=== PATIENT | male | born 1965 | race Caucasian/White ===

== ENCOUNTER 2020-09-28 11:50 | Outpatient (REF) | payer MEDICAID, SELFPAY ==
--- NOTE | 2020-09-28 09:03 | CT_ITS ---
EXAMINATION: CT CHEST WITHOUT CONTRAST CLINICAL INFORMATION: Pulmonary nodules. COMPARISON: None TECHNIQUE: Multidetector volumetric CT imaging of the chest was done. Axial MIP volume rendering provided. Sagittal and coronal reformatted images were obtained. This CT examination was performed using dose optimization techniques as appropriate, variously including the following: *Automated exposure control *Adjustment of mA and/or kV according to patient size (this includes techniques or standardized protocols for targeted exams where dose is matched to indication/reason for exam; i.e. extremities or head) *Use of iterative reconstruction technique DLP: 274 mGy-cm FINDINGS: BIOLOGICAL LAB TECHNICIAN: Expanded lungs without acute process. LUNGS: There is centrilobular emphysema with small cyst in the left upper lobe posteriorly. There is a punctate noncalcified 2 mm in the right lung apex medially image 81/7; a few scattered calcified nodules in the right upper lobe, image 156; left upper lobe, axial image 186; 7 mm nodule right lower lobe, image 265/7. Several more calcified subsequent nodules are seen in the right lower lobe and left lower lobe. There is a focal nodular thickening adjacent to the left major fissure measuring 7 mm, axial image 271/7, slightly more prominent than the last exam. This nodularity extends inferiorly along the major fissure and simulates like focal atelectasis or scarring extending into the lingula. Similar findings were seen on the previous study. There is a right focal lower lobe atelectasis as well. No consolidation seen. There is mild bronchial wall thickening throughout both lungs, stable MEDIASTINUM: The thyroid lobes are symmetrical and normal. The central trachea and the bronchi widely patent. The heart size and great vessels are normal caliber. There are few scattered mediastinal or hilar lymph nodes seen. There is no pericardial effusion seen. Few coronary artery calcification present. PLEURA: There is no pleural effusion. No pleural mass or thickening. AXILLA: No lymphadenopathy. UPPER ABDOMEN: Visualized liver, spleen, pancreas and bilateral adrenal glands are unremarkable. OSSEOUS STRUCTURES: There is ventral spondylosis throughout the dorsal spine. No lytic process seen. CT/CT chest wo con IMPRESSION: Multiple calcified and few noncalcified pulmonary nodules, bronchial wall thickening, emphysema with a small pulmonary cyst and focal nodular thickening extending to the lingula as consolidation/atelectasis along the left major fissure appears all stable. The nodular density along the left major fissure in the left upper lobe; however, appears slightly prominent. No new nodules seen. No abnormal lymphadenopathy.
== END 2020-09-28 11:51 | disposition home or self-care (01) ==
LOC: HO.CT 11:50
PROVIDERS: PCP Internal Medicine; Visit Provider Internal Medicine Pulmonary Disease
DX: R91.8 Other nonspecific abnormal finding of lung field (principal)
CPT/HCPCS: 71250

== ENCOUNTER → 2020-10-18 11:20 | Outpatient (BNVA) | payer MEDICAID, SELFPAY | PROVIDERS: PCP Internal Medicine; Referring Provider Internal Medicine; Visit Provider Internal Medicine Pulmonary Disease | DX: Z76.89 Persons encountering health services in other specified circumstances (principal) ==

== ENCOUNTER 2021-04-03 13:26 | Outpatient (REF) | payer MEDICAID, SELFPAY ==
--- NOTE | ~2021-04-03 | CT_ITS ---
EXAMINATION: CT CHEST WITHOUT CONTRAST CLINICAL INFORMATION: Follow-up pulmonary nodules COMPARISON: Previous chest CT August 2020 TECHNIQUE: Multidetector volumetric CT imaging of the chest was done. Axial MIP volume rendering provided. Sagittal and coronal reformatted images were obtained. This CT examination was performed using dose optimization techniques as appropriate, variously including the following: *Automated exposure control *Adjustment of mA and/or kV according to patient size (this includes techniques or standardized protocols for targeted exams where dose is matched to indication/reason for exam; i.e. extremities or head) *Use of iterative reconstruction technique DLP: 332 mGy-cm FINDINGS: LUNGS: There is evidence of emphysema. There are small calcified and noncalcified pulmonary nodules that are stable. Largest nodule is a 5 mm nodule in the right lower lobe axial image 303 series 7. There is still parenchymal consolidation or atelectasis with air bronchograms seen in the lingula adjacent to the left pleural fissure. This is triangular in shape This appears unchanged from previous exam. There is a linear appearing subsegmental atelectasis at the right lung base. The lungs are otherwise clear. No new pulmonary nodule is seen. MEDIASTINUM: There is mild coronary artery calcification. The mediastinum is otherwise normal. PLEURA: There is no pleural effusion. No pleural mass or thickening. AXILLA: No lymphadenopathy. UPPER ABDOMEN: There is a small calcification in the head of the pancreas. There is diverticulosis of the colon. Images through the upper abdomen are otherwise unremarkable. OSSEOUS STRUCTURES: There are degenerative changes of the spine. CT/CT chest wo con IMPRESSION: Stable small calcified and noncalcified pulmonary nodules. Stable atelectasis/consolidation of the lingula adjacent to the major fissure and subsegmental atelectasis at the right lung base. Coronary artery calcification.
== END 2021-04-03 13:27 | disposition home or self-care (01) ==
LOC: HO.CT 13:26
PROVIDERS: PCP Internal Medicine; Visit Provider Internal Medicine Pulmonary Disease
DX: R91.8 Other nonspecific abnormal finding of lung field (principal)
CPT/HCPCS: 71250

== ENCOUNTER 2021-04-17 09:23 | Outpatient (REF) | payer MEDICAID, SELFPAY ==
[2021-04-17 10:10] LABS: MANUAL DIFF FLAG NO
[2021-04-17 10:13] LABS: Basophils Percent Auto 0.4 % (0-2); Eosinophils Absolute Auto 0.1 X10*3/uL (0.0-0.4); Eosinophils Percent Auto 1.3 % (0-4); Hematocrit 47.3 % (42-52); Hemoglobin 14.2 g/dl (14.0-18.0); Imm Gran Abs Auto 0.11 X10*3/uL (0.00-0.03); Imm Gran Pct Auto 1.4 % (0.0-0.4); Lymphocytes Absolute Auto 1.3 X10*3/uL (1.2-4.9); Mean Corpuscular Hemoglobin 29.2 pg (27.0-33.0); Mean Corpuscular Volume 97.1 fL (80-98); Mean Platelet Volume 9.1 fL (9.4-12.4); Monocytes Absolute Auto 0.5 X10*3/uL (0.1-1.2); Monocytes Percent Auto 6.4 % (2-11); Neutrophils Absolute Auto 5.8 X10*3/uL (2.0-8.3); Neutrophils Percent Auto 74.5 % (45-73); Platelet Count 178 X10*3/uL (160-400); Red Blood Count 4.87 X10*6/uL (4.60-5.80); Red Cell Distribution Width 12.7 % (11.0-16.0); White Blood Count 7.8 X10*3/uL (4.8-10.8)
[2021-04-17 10:54] LABS: Alanine Aminotransferase 23 U/L (0-40); Albumin Level 4.2 g/dL (3.5-5.0); Alkaline Phosphatase 87 U/L (39-117); Anion Gap 13 (12-20); Aspartate Amino Transferase 27 U/L (5-37); Bilirubin Total 0.4 mg/dL (0.0-1.0); Blood Urea Nitrogen 14 mg/dL (9-16); Calcium 9.3 mg/dL (8.4-10.2); Carbon Dioxide 42 mmol/L (22-29); Chloride 91 mmol/L (96-108); Cholesterol 200 mg/dL; Estimated Glomerular Filt Rate > 60; Glucose Fasting 127 mg/dL (60-99); HDL Cholesterol 42 mg/dL; LDL Cholesterol Calculated 133 mg/dl; Sodium 141 mmol/L (135-145); Total Protein 6.9 g/dL (6.5-8.0); Triglycerides 126 mg/dL
== END 2021-04-17 09:24 | disposition home or self-care (01) ==
LOC: HO.LAB 09:23
PROVIDERS: PCP Internal Medicine; Visit Provider Internal Medicine
DX: Z00.01 Encounter for general adult medical examination with abnormal findings (principal); J44.9 Chronic obstructive pulmonary disease, unspecified; R91.8 Other nonspecific abnormal finding of lung field; E78.1 Pure hyperglyceridemia; K21.9 Gastro-esophageal reflux disease without esophagitis
CPT/HCPCS: 36415; 80053; 80061; 82306; 85025; 99212

== ENCOUNTER → 2021-07-16 13:40 | Day surgery (SDC) | payer MEDICAID, SELFPAY ==
[2021-07-16 15:01] VITALS: BMI 40.0
[2021-07-16 15:02] VITALS: BP 145/71; PULSE 95; RESP 24; TEMP 36.7; O2SAT 100
== END ==
PROVIDERS: PCP Internal Medicine; Visit Provider Ophthalmology
PROC: (CPT 67840; principal; 2021-07-16 14:40)
DX: D23.122 Other benign neoplasm of skin of left lower eyelid, including canthus (principal); D23.121 Other benign neoplasm of skin of left upper eyelid, including canthus; H52.4 Presbyopia; J44.9 Chronic obstructive pulmonary disease, unspecified; Z79.899 Other long term (current) drug therapy; Z88.8 Allergy status to other drugs, medicaments and biological substances; Z87.891 Personal history of nicotine dependence
CPT/HCPCS: 67840 ×2; 88305

== ENCOUNTER 2021-08-29 05:22 | Inpatient (IN) | payer MEDICARE, MEDICAID, SELFPAY ==
[2021-08-29] VITALS (10 sets, daily range): BP systolic 106–152; BP diastolic 64–100; PULSE 97–115; RESP 12–20; TEMP 36.1–37.5; O2SAT 93–98; BMI 41.5
--- NOTE | ~2021-08-29 | XR_ITS ---
EXAMINATION: XR CHEST CLINICAL INFORMATION: Shortness of breath COMPARISON: 12/18/2019 TECHNIQUE: Frontal view of the chest was obtained. FINDINGS: The lungs are well expanded. Patchy opacities are seen at both lung bases. There is no pleural effusion. No edema. No pneumothorax. The cardiomediastinal silhouette is within normal limits. XR/XR chest 1V IMPRESSION: Patchy lung basilar opacities could be infectious or inflammatory versus atelectasis.
--- NOTE | 2021-08-29 05:41 | ECG_ITS ---
Test Reason : SOB Blood Pressure : / mmHG Vent. Rate : 105 BPM Atrial Rate : 105 BPM P-R Int : 120 ms QRS Dur : 092 ms QT Int : 332 ms P-R-T Axes : 046 015 060 degrees QTc Int : 438 ms Sinus tachycardia Possible Left atrial enlargement Borderline ECG When compared with ECG of 16-DEC-2019 07:37, Heart rate has increased Referred By: Yasmani English Electronically Signed By:TRACY LUGO
--- NOTE | 2021-08-29 05:41 | ED.SOB ---
HPI - SOB/Dyspnea General Chief Complaint: Dyspnea Stated Complaint: difficulty breathing Time Seen by Provider: 08/29/21 05:38 Source: patient Mode of arrival: EMS Limitations: no limitations History of Present Illness HPI Narrative: Patient ex-smoker with history of severe COPD on 5 L continuous-flow supplemental oxygen dependent with CO2 retention and pulmonary nodules been feeling short of breath for last few weeks breathing getting more erratic and more shortness of breath last night on 5 L oxygen patient was saturating 83% after few deep breaths saturation improved to 92% coughing frequently without significant phlegm no fever or chills patient denies any chest pain no leg edema no recent gain in weight. Patient does have history of sleep apnea and using oxygen only Related Data Home Medications Medication Instructions Recorded Confirmed aripiprazole 10 mg tablet 10 mg PO QAM 10/18/20 04/09/21 aripiprazole 20 mg tablet 20 mg PO BEDTIME 10/18/20 04/09/21 benztropine 1 mg tablet 1 mg PO BEDTIME 10/18/20 04/09/21 clonazepam 0.5 mg tablet 0.5 mg PO BID 10/18/20 04/09/21 ipratropium 0.5 mg-albuterol 3 mg ml INHALATION Q6H 10/18/20 04/09/21 (2.5 mg base)/3 mL nebulization soln miscellaneous medical supply #1 10/18/20 04/09/21 risperidone 0.5 mg tablet 0.5 mg PO BID 10/18/20 04/09/21 sertraline 50 mg tablet 50 mg PO DAILY 10/18/20 04/09/21 zaleplon 10 mg capsule 10 mg PO BEDTIME PRN 10/18/20 04/09/21 flu vac qs 2019(4 yr up)CD(PF) ml IM 01/10/21 04/09/21 amitriptyline 25 mg tablet 50 mg PO BEDTIME PRN tab 04/09/21 04/09/21 Previous Rx's Medication Instructions Recorded arformoterol 15 mcg/2 mL solution 2 ml INHALATION BID #120 cap 10/20/20 for nebulization (Brovana) miscellaneous medical supply 1 ea MISCELLANEOUS .TO USE DAILY 10/20/20 #1 ea montelukast 10 mg tablet 10 mg PO BEDTIME #90 tab 02/26/21 omeprazole 20 mg capsule,delayed 20 mg PO DAILY #90 cap 01/26/21 release gemfibrozil 600 mg tablet 600 mg PO BID #180 tab 02/21/21 loratadine 10 mg tablet 10 mg PO DAILY #30 cap 06/19/21 desmopressin 0.2 mg tablet 0.4 mg PO BEDTIME #90 tab 07/17/21 transfer shower chair with back #1 ea 07/25/21 cyclobenzaprine 5 mg tablet 5 mg PO BEDTIME PRN #7 tab 08/22/21 Allergies Allergy/AdvReac Type Severity Reaction Status Date / Time aspirin [ASA] Allergy Intermediate 'SHOCK , Verified 08/29/21 05:40 anaphylaxis prednisone [PREDNISONE] AdvReac Severe VISUAL Verified 08/29/21 05:40 HALLUCINATION ibuprofen [From MOTRIN] AdvReac Intermediate VOMITING Verified 08/29/21 05:40 nabumetone AdvReac Unknown vomiting Verified 08/29/21 05:40 Review of Systems Review of Systems: Constitutional : No Weight loss, No Fever, No Chills ENT/Mouth : No sore throat, No Rhinorrhea Eyes: No Eye Pain, No Swelling Cardiovascular : r Chest Pain, no palpitations Respiratory : ++ Cough, No Sputum, ++shortness of breath Gastrointestinal : no Nausea, No Vomiting, No Diarrhea, No abdominal Pain, no black stools Genitourinary : No Dysuria, No Urinary Frequency Musculoskeletal : No joint pain, No Myalgias, No Joint Swelling Skin : No Skin Lesions, No rash Neuro : No Weakness, No Numbness, No Dizziness, No Headache Psych : No Anxiety/Panic, No Depression Heme/Lymph: No Bruising, No Lymphadenopathy Endocrine : No Polyuria, No Polydipsia All other systems reviewed and are negative [facility] Past Medical History Medical History AV malformation of gastrointestinal tract GERD (gastroesophageal reflux disease) Hypertriglyceridemia Itch of skin [place] disease Nocturnal enuresis Obstructive sleep apnea Orchialgia Polycythemia vera Rectosigmoid diverticulosis Schizoaffective schizophrenia Spasm of muscle of lower back Tubular adenoma of colon Surgical History No pertinent past surgical history Family History Family History Father HTN (hypertension) Mother HTN (hypertension) Diabetes mellitus Breast cancer Brother No problems noted. Social History Social History Alcohol intake: never Patient Tobacco Use Status: Former Tobacco user Years Smoked: 41 yrs Use of substances other than those prescribed or required for medical reasons: No Advance Directives: No Physical Exam Vital Signs: Vital Signs: Last Vital Signs Temp 98.7 F 08/29/21 05:41 Pulse 104 H 08/29/21 05:51 Resp 18 08/29/21 05:41 BP 147/100 H 08/29/21 05:41 Pulse Ox 98 08/29/21 05:41 Oxygen Flow Rate 5 08/29/21 05:26 Body Mass Index 41.5 Appearance: Alert. Oriented X3. Obese, Moderate respiratory distress on 5 L oxygen via nasal cannula Eyes: No pallor/ icterus ENT: Pharynx normal. Oral Mucosa moist Neck: Normal inspection. Neck supple. CVS: Normal heart rate and rhythm. Pulses normal. Respiratory: Moderate respiratory distress. Equal air entry bilateral, bilateral wheezing and rhonchi no rales Abdomen: Soft and nontender. Bowel sounds are present, no mass palpable, Skin: Skin warm and dry. Normal skin color. Normal skin turgor. Extremities: No lower extremity edema. No calf tenderness Neuro: Oriented X 3. No motor deficit. MDM - SOB/Dyspnea MDM Narrative Medical decision making narrative: Patient with severe COPD oxygen-dependent comes with increased shortness of breath chest x-ray showed patchy infiltrate possible at bilateral bases will admit patient for IV antibiotics and nebulizer treatment and steroids will give him Decadron instead of prednisone which he is allergic to. Patient is satting 97% on 5 L Differential Diagnosis Differential diagnosis: Likely acute exacerbation of chronic obstructive airways disease and asthma with exacerbation Lab Data Attestation: I reviewed the patient's lab results. Result diagrams: 08/29/21 05:54 08/29/21 05:54 Labs: Lab Results 08/29/21 08/29/21 08/29/21 Range/Units 05:34 05:37 05:54 WBC 9.2 (4.8-10.8) X10*3/uL RBC 4.47 L (4.60-5.80) X10*6/uL Hgb 12.8 L (14.0-18.0) g/dl Hct 40.6 L (42-52) % MCV 90.8 (80-98) fL MCH 28.6 (27.0-33.0) pg MCHC 31.5 (31.0-36.0) g/dl RDW 12.9 (11.0-16.0) % Plt Count 190 (160-400) X10*3/uL MPV 9.0 L (9.4-12.4) fL Immature Gran % (Auto) 2.9 H (0.0-0.4) % Neut % (Auto) 77.9 H (45-73) % Lymph % (Auto) 10.2 L (20-40) % [place] % (Auto) 7.8 (2-11) % Eos % (Auto) 0.8 (0-4) % Baso % (Auto) 0.4 (0-2) % Lymph # (Auto) 0.9 L (1.2-4.9) X10*3/uL [place] # (Auto) 0.7 (0.1-1.2) X10*3/uL Eos # (Auto) 0.1 (0.0-0.4) X10*3/uL Baso # (Auto) 0.0 (0.0-0.2) X10*3/uL Abs Immat Gran (auto) 0.27 H (0.00-0.03) X10*3/uL Absolute Neuts (auto) 7.1 (2.0-8.3) X10*3/uL Absolute Nucleated RBC 0.000 (0.0-0.012) X10*3/uL Nucleated RBC % (auto) 0.0 (0.0-0.2) /100WBC Sodium (135-145) mmol/L Potassium (3.3-5.1) mmol/L Chloride (96-108) mmol/L Carbon Dioxide (22-29) mmol/L Anion Gap (12-20) BUN (9-16) mg/dL Creatinine (0.5-1.4) mg/dL Estim Creat Clear Calc Estimated GFR POC Glucose 154 H (60-115) mg/dL Random Glucose (60-115) mg/dL Calcium (8.4-10.2) mg/dL Troponin I High Sens (<3.5-35.0) ng/L B-Natriuretic Peptide (<100) pg/mL COVID-19 (TAL) Negative (Negative) COVID-19 Clin Com See Note 08/29/21 08/29/21 Range/Units 05:54 05:54 WBC (4.8-10.8) X10*3/uL RBC (4.60-5.80) X10*6/uL Hgb (14.0-18.0) g/dl Hct (42-52) % MCV (80-98) fL MCH (27.0-33.0) pg MCHC (31.0-36.0) g/dl RDW (11.0-16.0) % Plt Count (160-400) X10*3/uL MPV (9.4-12.4) fL Immature Gran % (Auto) (0.0-0.4) % Neut % (Auto) (45-73) % Lymph % (Auto) (20-40) % [place] % (Auto) (2-11) % Eos % (Auto) (0-4) % Baso % (Auto) (0-2) % Lymph # (Auto) (1.2-4.9) X10*3/uL [place] # (Auto) (0.1-1.2) X10*3/uL Eos # (Auto) (0.0-0.4) X10*3/uL Baso # (Auto) (0.0-0.2) X10*3/uL Abs Immat Gran (auto) (0.00-0.03) X10*3/uL Absolute Neuts (auto) (2.0-8.3) X10*3/uL Absolute Nucleated RBC (0.0-0.012) X10*3/uL Nucleated RBC % (auto) (0.0-0.2) /100WBC Sodium 131 L (135-145) mmol/L Potassium 4.7 (3.3-5.1) mmol/L Chloride 80 L (96-108) mmol/L Carbon Dioxide 42 H* (22-29) mmol/L Anion Gap 14 (12-20) BUN 8 L (9-16) mg/dL Creatinine 0.74 (0.5-1.4) mg/dL Estim Creat Clear Calc 152.0 Estimated GFR > 60 POC Glucose (60-115) mg/dL Random Glucose 139 H (60-115) mg/dL Calcium 9.7 (8.4-10.2) mg/dL Troponin I High Sens 17.5 (<3.5-35.0) ng/L B-Natriuretic Peptide 30 (<100) pg/mL COVID-19 (TAL) (Negative) COVID-19 Clin Com Imaging Data Chest x-ray: Attestation: I personally reviewed and interpreted this imaging study as follows: Radiologist's impression: XR/XR chest 1V IMPRESSION: Patchy lung basilar opacities could be infectious or inflammatory versus atelectasis. ? ECG Data Attestation: I personally reviewed and interpreted this ECG as follows: Interpretation: Sinus tachycardia heart rate 105 beats per minute normal intervals normal axis no acute ST T wave changes no acute ischemia Discharge Plan Discharge Clinical Impression: Severe chronic obstructive pulmonary disease, Supplemental oxygen dependent Pneumonia Qualifiers: Pneumonia type: due to unspecified organism Laterality: bilateral Lung location: lower lobe of lung Qualified Code(s): J18.9 - Pneumonia, unspecified organism Patient Disposition: Admitted As Inpatient
[2021-08-29] MEDS: Albuterol Sulfate 90 MCG 8 GM INHALER 4 PUFF INHALE (05:50)
[2021-08-29 05:51] LABS: Glucose, Whole Blood 154 mg/dL (60-115)
[2021-08-29 05:57] LABS: COVID-19 Test Negative (Negative); IDNOW Serial# 9DD0AD1C
[2021-08-29] MEDS: methylPREDNISolone Sod Succ 125 MG/2 ML VIAL IVPUSH (05:57)
[2021-08-29 05:58] LABS: Basophils Percent Auto 0.4 % (0-2); Eosinophils Absolute Auto 0.1 X10*3/uL (0.0-0.4); Eosinophils Percent Auto 0.8 % (0-4); Hematocrit 40.6 % (42-52); Hemoglobin 12.8 g/dl (14.0-18.0); Imm Gran Abs Auto 0.27 X10*3/uL (0.00-0.03); Imm Gran Pct Auto 2.9 % (0.0-0.4); Lymphocytes Absolute Auto 0.9 X10*3/uL (1.2-4.9); Lymphocytes Percent Auto 10.2 % (20-40); Mean Corpuscular HGB Conc 31.5 g/dl (31.0-36.0); Mean Corpuscular Hemoglobin 28.6 pg (27.0-33.0); Mean Corpuscular Volume 90.8 fL (80-98); Monocytes Absolute Auto 0.7 X10*3/uL (0.1-1.2); Monocytes Percent Auto 7.8 % (2-11); Neutrophils Absolute Auto 7.1 X10*3/uL (2.0-8.3); Neutrophils Percent Auto 77.9 % (45-73); Platelet Count 190 X10*3/uL (160-400); Red Blood Count 4.47 X10*6/uL (4.60-5.80); Red Cell Distribution Width 12.9 % (11.0-16.0); White Blood Count 9.2 X10*3/uL (4.8-10.8)
[2021-08-29 05:59] LABS: MANUAL DIFF FLAG NO
[2021-08-29 06:21] LABS: Anion Gap 14 (12-20); Blood Urea Nitrogen 8 mg/dL (9-16); Calcium 9.7 mg/dL (8.4-10.2); Carbon Dioxide 42 mmol/L (22-29); Chloride 80 mmol/L (96-108); Estimated Glomerular Filt Rate > 60; Glucose Random 139 mg/dL (60-115); Potassium 4.7 mmol/L (3.3-5.1); Sodium 131 mmol/L (135-145)
[2021-08-29 06:22] LABS: B Type Natriuretic Peptide 30 pg/mL (<100); Troponin-I High Sensitivity 17.5 ng/L (<3.5-35.0)
[2021-08-29 06:57] LABS: Venous Blood Gas Refer to POC result
[2021-08-29 06:58] LABS: VBG Base Excess 23.7 mmol/L; VBG HCO3 52 mmol/L (22-26); VBG pCO2 71 mmHg; VBG pH 7.47 (7.32-7.43); VBG pO2 52 mmHg
[2021-08-29] MEDS: cefTRIAXone sodium 1 GM in 0.9 % Sodium Chloride 50 ML IV (07:00)
[2021-08-29] MEDS: dexAMETHasone sod phosphate 4 MG/ML VIAL 10 MG IVPUSH (07:00)
[2021-08-29 07:06] LABS: Lactic Acid 1.6 mmol/L (0.5-2.0)
[2021-08-29] MEDS: Doxycycline Hyclate 100 MG in 0.9 % Sodium Chloride 250 ML 166.67 MG IV (07:18)
--- NOTE | 2021-08-29 08:56 | P.HPHOSP_ITS ---
History of Present Illness Date of Service: 08/29/21 Chief Complaint: Shortness of breath This is a 56 yo M with a PMH of COPD and Chronic Respiratory failure with hypoxia on 4-5L at home who presents to the hospital with complaints of shortness of breath which has progressively worsened over the last week or two. He reports that he has been using his baseline COPD medications which seem to help for a few hours but his symptoms reoccur. He reports that on the evening prior to ED arrival he again felt short of breath and checked his pulse ox which was reading in the low 80s, as low as 83 and so he decided to come to the ED. He denies any fevers or chills. He denies any cough. He denies any pleuritic chest pain. He denies any orthopnea or PND. He denies any weight gain/loss. He denies any palpitations or lower extremity swelling. Upon arrival to the ED he was found to be in moderate respiratory distress using accessory muscles. He was noted to have diffuse rhonchi and wheezing. His CXR showed bilateral lower zone infiltrates. He was given updrafts, systemic steroids, had cultures drawn and was given broad spec. IV antibiotics and admission was requested. Review of Systems Review of Systems: General - denies fevers or chills, +generalized malaise HEENT -denies blurred vision, denies headache, denies sore throat Cardiovascular - denies chest pain or palpitations, denies edema Respiratory - +sob, wheezing, no cough Gastrointestinal - denies abdominal pain, nausea, vomiting, diarrhea - denies flank pain, denies dysuria, denies frequency or urgency Musculoskeletal - denies back pain, denies hip pain, denies knee pain, denies shoulder pain Neurological - denies any focal weakness or numbness Skin, denies any bruising or redness Psychiatric - denies any suicidal ideation, hallucinations, homicidal ideation Endocrinology - denies intolerance to hot / cold temperatures [facility] Medical History AV malformation of gastrointestinal tract GERD (gastroesophageal reflux disease) Hypertriglyceridemia Itch of skin [place] disease Nocturnal enuresis Obstructive sleep apnea Orchialgia Polycythemia vera Rectosigmoid diverticulosis Schizoaffective schizophrenia Spasm of muscle of lower back Tubular adenoma of colon Family History Father HTN (hypertension) Mother HTN (hypertension) Diabetes mellitus Breast cancer Brother No problems noted. Pertinent family history: . Surgical History No pertinent past surgical history Social History Alcohol intake: never Patient Tobacco Use Status: Former Tobacco user Years Smoked: 41 yrs Use of substances other than those prescribed or required for medical reasons: No Advance Directives: No Meds Allergies Allergy/AdvReac Type Severity Reaction Status Date / Time aspirin [ASA] Allergy Intermediate 'SHOCK , Verified 08/29/21 05:40 anaphylaxis prednisone [PREDNISONE] AdvReac Severe VISUAL Verified 08/29/21 05:40 HALLUCINATION ibuprofen [From MOTRIN] AdvReac Intermediate VOMITING Verified 08/29/21 05:40 nabumetone AdvReac Unknown vomiting Verified 08/29/21 05:40 Active Medications: Current Medications Pharmacy Consult (Consult Rx Perform Med Rec) 1 each MISCELLANE ONCE PRN PRN Reason: Consult order Home Medications Medication Instructions Recorded Confirmed Last Taken Type aripiprazole 10 mg tablet 10 mg PO DAILY 10/18/20 08/29/21 08/28/21 History aripiprazole 20 mg tablet 20 mg PO BEDTIME 10/18/20 08/29/21 08/28/21 History benztropine 1 mg tablet 1 mg PO BEDTIME 10/18/20 08/29/21 08/28/21 History clonazepam 0.5 mg tablet 0.5 mg PO BID 10/18/20 08/29/21 08/28/21 History risperidone 0.5 mg tablet 0.5 mg PO BID 10/18/20 08/29/21 08/28/21 History sertraline 50 mg tablet 50 mg PO DAILY 10/18/20 08/29/21 08/28/21 History Physical Exam Vital Signs and Narrative: Vital Signs: Last Vital Signs Temp 99.5 F 08/29/21 07:07 Pulse 100 08/29/21 07:07 Resp 16 08/29/21 07:07 BP 152/81 H 08/29/21 07:07 Pulse Ox 95 08/29/21 07:07 Oxygen Flow Rate 5 09/29/21 05:26 Body Mass Index 41.5 Const: Other: Constitutional - Awake and Alert, no distress at rest Eyes - PERRLA, EOMI Cardiovascular - S1S2, Regular rhythm, slightly tachycardia around 100-110 Respiratory - dimnished sounds globally with scattered wheezing, no respiratory distress at rest Gastrointestinal - NT / ND; +BS; No rebound or guarding - No CVA tenderness Extremities - no calf tenderness bilaterally, no swelling Musculoskeletal - Normal inspection, normal ROM Skin - Warm/Dry Neurological - Alert & oriented x3, No focal deficit Psychological - Appropriate affect Results Labs CBC and Chem 7: 08/29/21 05:54 08/29/21 05:54 Labs: Laboratory Results - last 24 hr 08/29/21 08/29/21 08/29/21 05:34 05:37 05:54 MCV 90.8 MCH 28.6 MCHC 31.5 RDW 12.9 Plt Count 190 MPV 9.0 L Immature Gran % (Auto) 2.9 H Neut % (Auto) 77.9 H Lymph % (Auto) 10.2 L [place] % (Auto) 7.8 Eos % (Auto) 0.8 Baso % (Auto) 0.4 Lymph # (Auto) 0.9 L [place] # (Auto) 0.7 Eos # (Auto) 0.1 Baso # (Auto) 0.0 Abs Immat Gran (auto) 0.27 H Absolute Neuts (auto) 7.1 Absolute Nucleated RBC 0.000 Nucleated RBC % (auto) 0.0 VBG pH VBG pCO2 VBG pO2 VBG HCO3 VBG O2 Saturation VBG Base Excess Anion Gap Estim Creat Clear Calc Estimated GFR POC Glucose 154 H Random Glucose Lactic Acid Calcium Troponin I High Sens B-Natriuretic Peptide COVID-19 (TAL) Negative COVID-19 Clin Com See Note 08/29/21 08/29/21 08/29/21 05:54 05:54 06:46 MCV MCH MCHC RDW Plt Count MPV Immature Gran % (Auto) Neut % (Auto) Lymph % (Auto) [place] % (Auto) Eos % (Auto) Baso % (Auto) Lymph # (Auto) [place] # (Auto) Eos # (Auto) Baso # (Auto) Abs Immat Gran (auto) Absolute Neuts (auto) Absolute Nucleated RBC Nucleated RBC % (auto) VBG pH VBG pCO2 VBG pO2 VBG HCO3 VBG O2 Saturation VBG Base Excess Anion Gap 14 Estim Creat Clear Calc 152.0 Estimated GFR > 60 POC Glucose Random Glucose 139 H Lactic Acid 1.6 Calcium 9.7 Troponin I High Sens 17.5 B-Natriuretic Peptide 30 COVID-19 (TAL) COVID-19 [employer] Com 08/29/21 06:53 MCV MCH MCHC RDW Plt Count MPV Immature Gran % (Auto) Neut % (Auto) Lymph % (Auto) [place] % (Auto) Eos % (Auto) Baso % (Auto) Lymph # (Auto) [place] # (Auto) Eos # (Auto) Baso # (Auto) Abs Immat Gran (auto) Absolute Neuts (auto) Absolute Nucleated RBC Nucleated RBC % (auto) VBG pH 7.47 H VBG pCO2 71 VBG pO2 52 VBG HCO3 52 H VBG O2 Saturation 81.0 VBG Base Excess 23.7 Anion Gap Estim Creat Clear Calc Estimated GFR POC Glucose Random Glucose Lactic Acid Calcium Troponin I High Sens B-Natriuretic Peptide COVID-19 (TAL) COVID-19 Clin Com ECG Attestation: I personally reviewed and interpreted this ECG as follows: (Sinus tachycardia) ECG interpretation date: 08/29/21 ECG interpretation time: 10:26 Imaging Radiologist's Impressions: Impressions Chest X-Ray 08/29/21 05:41 IMPRESSION: Patchy lung basilar opacities could be infectious or inflammatory versus atelectasis. Assessment and Plan (1) Pneumonia: Qualifiers: Laterality: bilateral Lung location: lower lobe of lung Pneumonia type: due to unspecified organism Qualified Code(s): J18.9 - Pneumonia, unspecified organism Status: Acute This is a 56 yo M with a PMH of COPD and Chronic resp. failure, previous tobacco use who presents with progressive respiratory symptoms. He is diagnosed with CAP + COPD exacerbation. He will be admitted for further treatment. 1. Pneumonia Continue Rocephin/Doxy follow up cultures, patient does not have severe sepsis at this time 2. COPD exacerbation IV solu-medrol (has allergy to prednisone which is listed as hallucinations -- will monitor for this while on solu-medrol) scheduled and PRN bronchodilators antibiotics as above 3. Chronic Respiratory Failure with hypoxia no saturations below 90% in the hospital continue with his baseline 4L by [place] Avoid over oxygenation has he has evidence of chronic CO2 retention on vbg 4. Mood continue his baseline medications 5. GERD PPI 6. REGINA per EMR documentation, he was on BIPAP in the past, but now just on supplemental O2. Full Code DVT Eunice ureña Endorses his parents at HCP Due to his baseline advanced COPD and chronic respiratory failure, I suspect he will need a minimum of 2-3 days of IV antibiotics and IV systemic steroids. Quality Stroke Does the patient have a stroke diagnosis?: No VTE Prior VTE?: No VTE Risk Level:: Medical - moderate - high VTE Device Contraindication: Treatment Not Indicated VTE Drug Contraindication: N/A - Med Ordered
[2021-08-29] MEDS: Enoxaparin Sodium 40 MG/0.4 ML SYRINGE SUBCUT (10:14)
--- NOTE | 2021-08-29 10:17 | PC.NURSE ---
pt states his belly feels pressure abd is rounded and more firm but not painful to palpation BS are present. stated he will ask the doctor when he sees him
--- NOTE | 2021-08-29 10:45 | PC.NURSE ---
report given to Rebekah SALDANA on 3rd floor
[2021-08-29] MEDS: ARIPiprazole 10 MG TABLET PO (11:26)
[2021-08-29] MEDS: Albuterol/Iprat 2.5/0.5MG 3 ML AMPUL.NEB INHALE ×2 (11:51→20:13)
[2021-08-29] MEDS: 0.9 % Sodium Chloride Flush 3 ML SYRINGE IVFLUSH ×2 (15:55→19:44)
[2021-08-29] MEDS: gemfibroziL 600 MG TABLET PO (15:56)
[2021-08-29] MEDS: clonazePAM 0.5 MG TABLET PO (19:42)
[2021-08-29] MEDS: Montelukast Sodium 10 MG TABLET PO (19:42)
[2021-08-29] MEDS: ARIPiprazole 20 MG TABLET PO (19:42)
[2021-08-29] MEDS: Benztropine Mesylate 1 MG TABLET PO (19:43)
[2021-08-29] MEDS: Desmopressin Acetate 0.2 MG TABLET 0.4 MG PO (19:43)
[2021-08-29] MEDS: methylPREDNISolone Sod Succ 40 MG/ML VIAL 60 MG IVPUSH (19:43)
[2021-08-29] MEDS: risperiDONE 0.5 MG TABLET PO (19:43)
[2021-08-30] VITALS (11 sets, daily range): BP systolic 125–151; BP diastolic 67–85; PULSE 72–115; RESP 16–18; TEMP 36.1–36.9; O2SAT 92–98
[2021-08-30 05:17] LABS: Anion Gap 15 (12-20); Blood Urea Nitrogen 16 mg/dL (9-16); Calcium 9.8 mg/dL (8.4-10.2); Carbon Dioxide 38 mmol/L (22-29); Chloride 86 mmol/L (96-108); Creatinine Clr Calc Pharmacy 144.2; Estimated Glomerular Filt Rate > 60; Glucose Random 147 mg/dL (60-115); Potassium 4.8 mmol/L (3.3-5.1); Sodium 134 mmol/L (135-145)
[2021-08-30] MEDS: Omeprazole 20 MG CAPSULE.DR PO (06:16)
[2021-08-30] MEDS: Albuterol/Iprat 2.5/0.5MG 3 ML AMPUL.NEB INHALE ×4 (08:12→20:10)
[2021-08-30] MEDS: Loratadine 10 MG TABLET PO (08:28)
[2021-08-30] MEDS: Enoxaparin Sodium 40 MG/0.4 ML SYRINGE SUBCUT (08:28)
[2021-08-30] MEDS: risperiDONE 0.5 MG TABLET PO ×2 (08:28→21:13)
[2021-08-30] MEDS: clonazePAM 0.5 MG TABLET PO ×2 (08:28→21:13)
[2021-08-30] MEDS: gemfibroziL 600 MG TABLET PO ×2 (08:28→16:11)
[2021-08-30] MEDS: 0.9 % Sodium Chloride Flush 3 ML SYRINGE IVFLUSH ×3 (08:28→21:18)
[2021-08-30] MEDS: Sertraline HCL 50 MG TABLET PO (08:28)
[2021-08-30] MEDS: methylPREDNISolone Sod Succ 40 MG/ML VIAL 60 MG IVPUSH (08:28)
[2021-08-30] MEDS: ARIPiprazole 10 MG TABLET PO (08:28)
[2021-08-30] MEDS: cefTRIAXone sodium 1 GM in 0.9 % Sodium Chloride 100 ML IV (08:29)
--- NOTE | 2021-08-30 13:51 | HO.PM.IMPN ---
Subjective Subjective Date of Service: 08/30/21 Interval History: Seen and examined this morning Follow-up for acute COPD exacerbation/pneumonia Patient reports his breathing is much improved. Minimal coughing Patient denies any fever, chills Review of Systems Review of Systems: Yes all other systems are reviewed and are negative Constitutional Constitutional: Denies chills and Denies fever(s) Cardiovascular Cardiovascular: Denies chest pain Gastrointestinal Gastrointestinal: Denies abdominal pain Physical Exam Vital Signs: Vital Signs: Last Vital Signs Temp 97.7 F 08/30/21 11:41 Pulse 114 H 08/30/21 11:41 Resp 18 08/30/21 11:41 BP 135/70 08/30/21 11:41 Pulse Ox 94 08/30/21 11:41 Oxygen Flow Rate 5 08/29/21 05:26 Body Mass Index 41.5 Const: General: alert and awake Nutritional Appearance: obese Orientation/consciousness: patient oriented x3 HENMT: Head: Yes normocephalic and Yes atraumatic Eyes: Sclerae: sclerae normal Chest: Chest palpation & inspection: normal inspection of the chest Resp: Other: Diminished breath sounds bilaterally, scattered expiratory wheezing Effort & Inspection: no respiratory distress Auscultation: wheezes and diminished lung sounds Cardio: Rate: regular rate Rhythm: regular rhythm GI: Palpation (GI): Soft to palpation and nontender Neuro: General: patient oriented x3 Cranial nerves: Yes CN's II-XII intact bilaterally and Yes Bilaterally intact EOM present Extrem: Other: no leg edema Objective Data Active Medications Acetaminophen (Acetaminophen 325 Mg Tablet) 650 mg PO Q6H PRN PRN Reason: Pain, Mild (Pain Scale 1-3) Albuterol/Ipratropium (Albuterol/Iprat 2.5/0.5mg 3 Ml Ampul.Neb) 3 ml INHALE RQ4H WHILE AWAKE [facility] Last Admin: 08/30/21 11:15 Dose: 3 ml Documented by: PETER Aripiprazole (Aripiprazole 10 Mg Tablet) 10 mg PO DAILY [facility] Last Admin: 08/30/21 08:28 Dose: 10 mg Documented by: COTEMA Aripiprazole (Aripiprazole 20 Mg Tablet) 20 mg PO BEDTIME [facility] Last Admin: 08/29/21 19:42 Dose: 20 mg Documented by: MATTI Benztropine Mesylate (Benztropine Mesylate 1 Mg Tablet) 1 mg PO BEDTIME [facility] Last Admin: 08/29/21 19:43 Dose: 1 mg Documented by: MATTI Clonazepam (Clonazepam 0.5 Mg Tablet) 0.5 mg PO BID [facility] Last Admin: 08/30/21 08:28 Dose: 0.5 mg Documented by: JOJO Cyclobenzaprine HCl (Cyclobenzaprine Hcl 5 Mg Tablet) 5 mg PO BEDTIME PRN PRN Reason: for muscle spasm Desmopressin Acetate (Desmopressin Acetate 0.2 Mg Tablet) 0.4 mg PO BEDTIME [facility] Last Admin: 08/29/21 19:43 Dose: 0.4 mg Documented by: MATTI Enoxaparin Sodium (Enoxaparin Sodium 40 Mg/0.4 Ml Syringe) 40 mg SUBCUT Q24H [facility] Last Admin: 08/30/21 08:28 Dose: 40 mg Documented by: COTEMA Gemfibrozil (Gemfibrozil 600 Mg Tablet) 600 mg PO BIDAC [facility] Last Admin: 08/30/21 08:28 Dose: 600 mg Documented by: COTEMA Ceftriaxone Sodium 1 gm/ (Sodium Chloride) 100 mls @ 200 mls/hr IV Q24H [facility] Last Infusion: 08/30/21 09:10 Dose: 0 mls/hr Documented by: COTEMA Doxycycline Hyclate 100 mg/ (Sodium Chloride) 250 mls @ 166.67 mls/hr IV Q12H [facility] Last Infusion: 08/30/21 10:54 Dose: 0 mls/hr Documented by: COTEMA Loratadine (Loratadine 10 Mg Tablet) 10 mg PO DAILY [facility] Last Admin: 08/30/21 08:28 Dose: 10 mg Documented by: COTEMA Methylprednisolone Sodium Succinate (Methylprednisolone Sod Succ 40 Mg/Ml Vial) 60 mg IVPUSH BID [facility] Last Admin: 08/30/21 08:28 Dose: 60 mg Documented by: COTEMA Montelukast Sodium (Montelukast Sodium 10 Mg Tablet) 10 mg PO BEDTIME [facility] Last Admin: 08/29/21 19:42 Dose: 10 mg Documented by: MATTI Omeprazole (Omeprazole 20 Mg Capsule.) 20 mg PO DAILY@0630 [facility] Last Admin: 08/30/21 06:16 Dose: 20 mg Documented by: MATTI Ondansetron HCl (Ondansetron Hcl 4 Mg/2 Ml Vial) 4 mg IVPUSH Q8H PRN PRN Reason: Nausea and Vomiting Pharmacy Consult (Consult Rx Perform Med Rec) 1 each MISCELLANE ONCE PRN PRN Reason: Consult order Risperidone (Risperidone 0.5 Mg Tablet) 0.5 mg PO BID [facility] Last Admin: 08/30/21 08:28 Dose: 0.5 mg Documented by: COTEMA Sertraline HCl (Sertraline Hcl 50 Mg Tablet) 50 mg PO DAILY [facility] Last Admin: 08/30/21 08:28 Dose: 50 mg Documented by: COTEMA Sodium Chloride (0.9 % Sodium Chloride Flush 3 Ml Syringe) 3 ml IVFLUSH QSHIFT [facility] Last Admin: 08/30/21 08:28 Dose: 3 ml Documented by: JOJO Labs CBC & Chem 7: 08/29/21 05:54 08/30/21 04:36 Labs: Laboratory Results - last 24 hr 08/30/21 04:36 Anion Gap 15 Estim Creat Clear Calc 144.2 Estimated GFR > 60 Random Glucose 147 H Calcium 9.8 Microbiology Microbiology Results: Microbiology 08/29/21 06:46 Blood Culture - Preliminary Blood - Venous No growth after 24 hours. 08/29/21 06:46 Blood Culture - Preliminary Blood - Venous Prelim: GPC Gram Stain only Assessment and Plan (1) Pneumonia: Status: Acute (2) Obstructive sleep apnea: Status: Acute Assessment and Plan: ?This is a 56 yo M with a PMH of COPD and Chronic resp. failure, previous tobacco use who presents with progressive respiratory symptoms. He is diagnosed with CAP + COPD exacerbation. He will be admitted for further treatment. 1. Pneumonia Continue Rocephin/Doxy started 08/29 follow up cultures, patient does not have severe sepsis at this time 1/2 blood cultures growing GPC in clusters. Await final culture results 2. COPD exacerbation zaira begin to wean IV solu-medrol (has allergy to prednisone which is listed as hallucinations -- will monitor for this while on solu-medrol) scheduled and PRN bronchodilators antibiotics as above 3. Chronic Respiratory Failure with hypoxia no saturations below 90% in the hospital continue with his baseline 4L by NC Avoid over oxygenation has he has evidence of chronic CO2 retention on vbg 4. Mood continue his baseline medications 5. GERD PPI 6. REGINA per EMR documentation, he was on BIPAP in the past, but now just on supplemental O2 unable to tolerate cpap/bipap Full Code DVT pptx Juniearen Endorses his parents at [facility] Quality Stroke Does the patient have a stroke diagnosis?: No VTE Prior VTE?: No VTE Risk Level:: Medical - moderate - high VTE Device Contraindication: Treatment Not Indicated VTE Drug Contraindication: N/A - Med Ordered
--- NOTE | 2021-08-30 14:14 | MHC.CM.PN ---
PATIENT LIVES ALONE. HE HAS HOME O2 TROUGH [facility] EM[facility]MENT. A TYPICAL ORDER IS 15 TANKS PER WEEK PATIENT IS EXPRESSING CONCERN OVER AGENCY'S ABILITY TO DELIVER ON TIME AND CORRECT AMOUNT. TIGER TEXT SENT TO RESP. EQUITY DIRECTOR. PATIENT IS ACTIVE WITH [facility]. HE RECEIVES RN TWICE WEEKLY AND LOADING INSPECTOR EVERY DAY. LOADING INSPECTOR PROVIDES TRANSPORT AND ADL SUPPORT. PATIENT AWARE THAT CASE MANAGEMENT CAN ASSIST WITH COMPLETION OF HCP AT ANYTIME DURING HIS STAY. IMM 08/30 IN CHART. PATIENT IS EXPECTED TO DC HOME TOMORROW.
[2021-08-30] MEDS: Cyclobenzaprine HCl 5 MG TABLET PO (21:13)
[2021-08-30] MEDS: ARIPiprazole 20 MG TABLET PO (21:13)
[2021-08-30] MEDS: methylPREDNISolone Sod Succ 40 MG/ML VIAL IVPUSH (21:13)
[2021-08-30] MEDS: Desmopressin Acetate 0.2 MG TABLET 0.4 MG PO (21:13)
[2021-08-30] MEDS: Montelukast Sodium 10 MG TABLET PO (21:13)
[2021-08-30] MEDS: Benztropine Mesylate 1 MG TABLET PO (21:13)
[2021-08-31 04:00] VITALS: BP 116/58; PULSE 96; RESP 16; TEMP 36.8; O2SAT 93
[2021-08-31] MEDS: Omeprazole 20 MG CAPSULE.DR PO (05:39)
[2021-08-31 08:00] VITALS: BP 144/68; PULSE 110; RESP 20; TEMP 36.5; O2SAT 94
[2021-08-31] MEDS: ARIPiprazole 10 MG TABLET PO (08:04)
[2021-08-31] MEDS: gemfibroziL 600 MG TABLET PO (08:04)
[2021-08-31] MEDS: Loratadine 10 MG TABLET PO (08:05)
[2021-08-31] MEDS: Sertraline HCL 50 MG TABLET PO (08:05)
[2021-08-31] MEDS: clonazePAM 0.5 MG TABLET PO (08:05)
[2021-08-31] MEDS: Enoxaparin Sodium 40 MG/0.4 ML SYRINGE SUBCUT (08:05)
[2021-08-31] MEDS: methylPREDNISolone Sod Succ 40 MG/ML VIAL IVPUSH (08:05)
[2021-08-31] MEDS: cefTRIAXone sodium 1 GM in 0.9 % Sodium Chloride 100 ML IV (08:05)
[2021-08-31] MEDS: risperiDONE 0.5 MG TABLET PO (08:05)
[2021-08-31] MEDS: 0.9 % Sodium Chloride Flush 3 ML SYRINGE IVFLUSH (08:05)
[2021-08-31] MEDS: Albuterol/Iprat 2.5/0.5MG 3 ML AMPUL.NEB INHALE ×2 (08:28→11:33)
[2021-08-31 08:31] VITALS: PULSE 112; O2SAT 93
--- NOTE | 2021-08-31 10:22 | MHC.CDI.CONC ---
CDI Concurrent Query Documentation Clarification: PHYSICIAN'S DOCUMENTATION REQUEST Date of Query: 08/31/21 1023 Patient Name: Lv Rebolledo Admit Date: 08/29/21 Dear Doctor, A review of the medical record indicates additional documentation may be needed. Please review below and update the documentation accordingly. Risk Factors/Clinical Indicators/Treatments Body mass index: 41.6 REGINA, chronic respiratory failure oxygen dependent, obese If possible, please provide an associated diagnosis related to the abnormal BMI, such as: For a BMI >= 40: Obesity Due to excess calories Due to other cause Severe or Morbid Obesity Use of terms such as suspected, likely, concern for, or probable (associated with a specific diagnosis that is being evaluated, monitored, or treated as if it exists) are acceptable and can be coded in the inpatient setting, when documented at the time of discharge. Thank you, Bailey Pelaez [facility], [place], CDIS Extension: [phone] Please use your independent medical judgment in providing your response. THIS QUERY IS PART OF THE PERMANENT MEDICAL RECORD Provider Response: Morbid Obesity
--- NOTE | 2021-08-31 10:53 | P.DS_ITS ---
DS: Providers Provider Date of Service: 08/31/21 Date of admission: 08/29/21 08:51 Primary care physician: Unknown Physician DS: Diagnosis Discharge Diagnosis (1) Pneumonia: Status: Acute (2) COPD exacerbation: Status: Acute (3) Chronic respiratory failure with hypoxia and hypercapnia: Status: Acute (4) Obstructive sleep apnea: Status: Acute (5) Morbid obesity: Status: Acute DS: Summary Hospital Course Hospital Course: HPI: This is a 56 yo M with a PMH of COPD and Chronic Respiratory failure with hypoxia on 4-5L at home who presents to the hospital with complaints of shortness of breath which has progressively worsened over the last week or two. He reports that he has been using his baseline COPD medications which seem to help for a few hours but his symptoms reoccur. He reports that on the evening prior to ED arrival he again felt short of breath and checked his pulse ox which was reading in the low 80s, as low as 83 and so he decided to come to the ED. He denies any fevers or chills. He denies any cough. He denies any pleuritic chest pain. He denies any orthopnea or PND. He denies any weight gain/loss. He denies any palpitations or lower extremity swelling. Upon arrival to the ED he was found to be in moderate respiratory distress using accessory muscles. He was noted to have diffuse rhonchi and wheezing. His CXR showed bilateral lower zone infiltrates. He was given updrafts, systemic steroids, had cultures drawn and was given broad spec. IV antibiotics and admission was requested. Hospital Course: Patient presented with respiratory symptoms and was diagnosed with COPD exacerbation due to pneumonia. Patient was treated with IV systemic steroids and IV antibiotics with improvement in his symptoms. Once his blood cultures were negative, he was transitioned to oral antibiotics and will be discharged home with 4 more days of cefuroxime and doxycycline. In regards to his steroids, patient does have a history of hallucinations with high-dose steroids and as such she will be discharged home with a Medrol Dosepak which he reports he has tolerated in the past. Time Spent with Patient Time attestation: Total time spent providing and/or coordinating discharge services: Discharge coordination time: Greater than 30 minutes Quality: Stroke Does the patient have a stroke diagnosis?: No Physical Exam Vital Signs: Vital Signs: Last Vital Signs Temp 97.7 F 08/31/21 08:00 Pulse 112 H 08/31/21 08:31 Resp 20 08/31/21 08:00 BP 144/68 H 08/31/21 08:00 Pulse Ox 94 08/31/21 08:00 Oxygen Flow Rate 5 08/29/21 05:26 Body Mass Index 41.5 Const: Other: General - no acute distress, appears comfortable Cardiovascular - regular rate and rhythm, S1-S2 Lungs - normal respiratory effort, clear to auscultation bilaterally, no wheezing Abdomen - soft, nontender, no rebound or guarding Extremities - no edema bilaterally Neuro - awake and alert, no focal deficits DS: Data Data Completed and Pending Labs on day of discharge: Preliminary micro results at discharge 08/29/21 06:46 Blood Culture - Preliminary Blood - Venous No growth after 48 hours. Discharge Plan Discharge Patient Disposition: Home, Self-Care Discharge Diagnosis: Pneumonia / COPD Referrals: Physician,Unknown [Primary Care Provider] - 1 Week Discharge Medications: New cefuroxime axetil 500 mg tablet 500 mg PO BID Qty: 8 RF: 0 doxycycline hyclate 100 mg capsule 100 mg PO BID Qty: 8 RF: 0 methylprednisolone [Medrol (Juan Manuel)] 4 mg tablets,dose pack See Rx Instructions .ROUTE .COMPLEX Qty: 21 RF: 0 Continued arformoterol [Brovana] 15 mcg/2 mL solution for nebulization 2 ml inhalation BID Qty: 120 RF: 6 montelukast 10 mg tablet 10 mg PO BEDTIME Qty: 90 RF: 8 omeprazole 20 mg capsule,delayed release(DR/EC) 20 mg PO DAILY Qty: 90 RF: 8 gemfibrozil 600 mg tablet 600 mg PO BID Qty: 180 RF: 8 loratadine 10 mg tablet 10 mg PO DAILY Qty: 30 RF: 6 desmopressin 0.2 mg tablet 0.4 mg PO BEDTIME Qty: 90 RF: 4 cyclobenzaprine 5 mg tablet 5 mg PO BEDTIME PRN (Reason: for muscle spasm) Qty: 7 RF: 0 clonazepam 0.5 mg tablet 0.5 mg PO BID RF: 0 risperidone 0.5 mg tablet 0.5 mg PO BID RF: 0 aripiprazole 10 mg tablet 10 mg PO DAILY RF: 0 sertraline 50 mg tablet 50 mg PO DAILY RF: 0 benztropine 1 mg tablet 1 mg PO BEDTIME RF: 0 aripiprazole 20 mg tablet 20 mg PO BEDTIME RF: 0 Discharge Orders: Discharge Order (Routine); Ordered 08/31/21 Ordered By: Kev Panda Diet: advance to usual diet Activity on Discharge: As tolerated Stand Alone Forms: Patient Portal Discharge page Care Plan Goals: To stay healthy and out of the hospital. Health Concerns: Pneumonia and COPD Plan of Treatment: Take 4 more days of antibiotics. Completed Medrol Dosepak. Follow-up with her tumbler dyeing machine operator. Assessment: 56-year-old male with the past medical history of COPD and chronic respiratory failure admitted for pneumonia resulting in COPD exacerbation. Treated with IV antibiotics/IV steroids and will be discharged home on oral steroids and antibiotics
[2021-08-31 11:35] VITALS: PULSE 108; O2SAT 94
[2021-08-31 12:00] VITALS: BP 119/78; PULSE 118; RESP 18; TEMP 36.1
--- NOTE | 2021-08-31 12:41 | MHC.CM.PN ---
PATIENT IS DISCHARGED HOME WITH HIS [facility] SERVICES AND CODING COORDINATOR HOURS. HE WILL BE SEEN BY OXYGEN PROVIDER PRIOR TO DC.
== END 2021-08-31 14:57 | disposition home or self-care (01) | DRG 190 ==
LOC: HO.ED 06:35 → HO.EDOVER 09:01 → HO.S3 09:39
PROVIDERS: Admitting Provider Family Medicine; Emergency Provider Internal Medicine; Visit Provider Physician Assistant Medical
DX: J44.0 Chronic obstructive pulmonary disease with (acute) lower respiratory infection (principal); J18.9 Pneumonia, unspecified organism; J96.11 Chronic respiratory failure with hypoxia; Z68.41 Body mass index [BMI] 40.0-44.9, adult; J96.12 Chronic respiratory failure with hypercapnia; J44.1 Chronic obstructive pulmonary disease with (acute) exacerbation; F25.8 Other schizoaffective disorders; E66.01 Morbid (severe) obesity due to excess calories; D45 Polycythemia vera; Z99.81 Dependence on supplemental oxygen; Z20.822 Contact with and (suspected) exposure to COVID-19; Z87.891 Personal history of nicotine dependence; K21.9 Gastro-esophageal reflux disease without esophagitis; G47.33 Obstructive sleep apnea (adult) (pediatric); Z88.6 Allergy status to analgesic agent; Z79.899 Other long term (current) drug therapy
CPT/HCPCS: 36415; 71045; 80048; 82803; 82947; 83605; 83880; 84484; 85025; 87040; 87147; 87205; 87635; 93005; 94640; 99285; J0696; J1100; J1650; J2920; J2930

== ENCOUNTER → 2021-09-06 13:28 | Outpatient (BNVA) | payer MEDICAID, SELFPAY | PROVIDERS: PCP Internal Medicine; Visit Provider Internal Medicine Pulmonary Disease | DX: J44.9 Chronic obstructive pulmonary disease, unspecified (principal); Z99.81 Dependence on supplemental oxygen | CPT/HCPCS: 99212 ==

== ENCOUNTER 2021-09-16 21:42 | Inpatient (IN) | payer MEDICARE, MEDICAID, SELFPAY ==
--- NOTE | ~2021-09-16 | XR_ITS ---
EXAMINATION: XR CHEST CLINICAL INFORMATION: Shortness of breath COMPARISON: Chest x-ray August 29, 2021, CT chest April 03, 2021 TECHNIQUE: Frontal portable view of the chest was obtained. 10:09 PM FINDINGS: Lungs are clear. No pulmonary vascular congestion. There is no pleural effusion. The heart size is normal. The cardiac and mediastinal contours are normal. There are multilevel degenerative changes of dorsal spine. XR/XR chest 1V IMPRESSION: Unremarkable examination.
--- NOTE | 2021-09-16 21:50 | ECG_ITS ---
Test Reason : dyspnea Blood Pressure : / mmHG Vent. Rate : 112 BPM Atrial Rate : 112 BPM P-R Int : 112 ms QRS Dur : 078 ms QT Int : 332 ms P-R-T Axes : 031 026 066 degrees QTc Int : 453 ms Sinus tachycardia RSR' or QR pattern in V1 suggests right ventricular conduction delay Nonspecific ST abnormality Abnormal ECG No significant changes seen Referred By: Catherine Saenz Electronically Signed By:MARGOT CLARK MD
[2021-09-16 21:52] VITALS: BP 151/75; PULSE 114; RESP 16; TEMP 36.9; O2SAT 99; BMI 39.3
[2021-09-16 22:16] LABS: MANUAL DIFF FLAG NO
[2021-09-16 22:17] LABS: Basophils Absolute Auto 0.1 X10*3/uL (0.0-0.2); Basophils Percent Auto 0.4 % (0-2); Eosinophils Absolute Auto 0.1 X10*3/uL (0.0-0.4); Eosinophils Percent Auto 0.7 % (0-4); Hematocrit 45.1 % (42-52); Hemoglobin 12.9 g/dl (14.0-18.0); Imm Gran Abs Auto 0.57 X10*3/uL (0.00-0.03); Imm Gran Pct Auto 4.9 % (0.0-0.4); Lymphocytes Absolute Auto 0.8 X10*3/uL (1.2-4.9); Lymphocytes Percent Auto 6.7 % (20-40); Mean Corpuscular HGB Conc 28.6 g/dl (31.0-36.0); Mean Corpuscular Hemoglobin 28.7 pg (27.0-33.0); Mean Corpuscular Volume 100.2 fL (80-98); Monocytes Absolute Auto 0.8 X10*3/uL (0.1-1.2); Neutrophils Absolute Auto 9.4 X10*3/uL (2.0-8.3); Neutrophils Percent Auto 80.3 % (45-73); Platelet Count 172 X10*3/uL (160-400); Red Cell Distribution Width 13.6 % (11.0-16.0); White Blood Count 11.7 X10*3/uL (4.8-10.8)
[2021-09-16 22:18] VITALS: PULSE 114; O2SAT 98
[2021-09-16] MEDS: Albuterol Sulfate (0.083%) 2.5 MG/3 ML VIAL.NEB 10 MG INHALE (22:18)
[2021-09-16 22:21] LABS: Venous Blood Gas Refer to POC result
[2021-09-16 22:22] LABS: VBG Base Excess 24.9 mmol/L; VBG HCO3 59 mmol/L (22-26); VBG pCO2 121 mmHg; VBG pH 7.29 (7.32-7.43); VBG pO2 53 mmHg
--- NOTE | 2021-09-16 22:27 | ED.SOB ---
HPI - SOB/Dyspnea General Chief Complaint: Dyspnea Stated Complaint: Shortness of breath Time Seen by Provider: 09/16/21 21:49 Source: patient Mode of arrival: EMS History of Present Illness HPI Narrative: 56-year-old male with history of COPD and recent treatment for pneumonia presents with increasing shortness of breath that is worsened throughout the day and has not been alleviated by patient's inhalers. Patient denies any fever, chills, chest pain/palpitations, GI or symptoms, dizziness/headache. Related Data Home Medications Medication Instructions Recorded Confirmed aripiprazole 10 mg tablet 10 mg PO DAILY 10/18/20 08/29/21 aripiprazole 20 mg tablet 20 mg PO BEDTIME 10/18/20 08/29/21 benztropine 1 mg tablet 1 mg PO BEDTIME 10/18/20 08/29/21 clonazepam 0.5 mg tablet 0.5 mg PO BID 10/18/20 08/29/21 risperidone 0.5 mg tablet 0.5 mg PO BID 10/18/20 08/29/21 sertraline 50 mg tablet 50 mg PO DAILY 10/18/20 08/29/21 Previous Rx's Medication Instructions Recorded arformoterol 15 mcg/2 mL solution 2 ml INHALATION BID #120 cap 10/20/20 for nebulization (Gladys) montelukast 10 mg tablet 10 mg PO BEDTIME #90 tab 01/26/21 omeprazole 20 mg capsule,delayed 20 mg PO DAILY #90 cap 01/26/21 release gemfibrozil 600 mg tablet 600 mg PO BID #180 tab 02/21/21 loratadine 10 mg tablet 10 mg PO DAILY #30 cap 06/19/21 desmopressin 0.2 mg tablet 0.4 mg PO BEDTIME #90 tab 07/17/21 cefuroxime axetil 500 mg tablet 500 mg PO BID #8 tab 08/31/21 doxycycline hyclate 100 mg capsule 100 mg PO BID #8 cap 08/31/21 cyclobenzaprine 5 mg tablet 5 mg PO BEDTIME PRN #7 tab 09/04/21 dexamethasone 6 mg tablet 6 mg PO DAILY 7 Days #7 tab 09/06/21 ipratropium 0.5 mg-albuterol 3 mg 3 ml INHALATION QID 30 Days #270 ml 09/06/21 (2.5 mg base)/3 mL nebulization soln shower seat with arm and back rest #1 ea 09/06/21 Allergies Allergy/AdvReac Type Severity Reaction Status Date / Time aspirin [ASA] Allergy Intermediate 'SHOCK , Verified 09/06/21 13:36 anaphylaxis prednisone [PREDNISONE] AdvReac Severe VISUAL Verified 09/06/21 13:36 HALLUCINATION ibuprofen [From MOTRIN] AdvReac Intermediate VOMITING Verified 09/06/21 13:36 nabumetone AdvReac Unknown vomiting Verified 09/06/21 13:36 Review of Systems Review of Systems: Pertinent positives and negatives as stated in HPI 10 point review of systems is otherwise negative. [facility] Past Medical History Source: nursing notes reviewed Medical History AV malformation of gastrointestinal tract GERD (gastroesophageal reflux disease) Hypertriglyceridemia Itch of skin [place] disease Nocturnal enuresis Obstructive sleep apnea Orchialgia Polycythemia vera Rectosigmoid diverticulosis Schizoaffective schizophrenia Severe chronic obstructive pulmonary disease Spasm of muscle of lower back Supplemental oxygen dependent Tubular adenoma of colon Surgical History No pertinent past surgical history Family History Family History Father HTN (hypertension) Mother HTN (hypertension) Diabetes mellitus Breast cancer Brother No problems noted. Social History Social History Household Members: None Housing: Apartment Do you presently have visiting nurse or other home services: Yes ([employer]) Alcohol intake: never Patient Tobacco Use Status: Former Tobacco user Tobacco use type: Cigarette Years Smoked: 41 yrs e-Cigarette/Vaping Use: Never Used Advance Directives: No service: No Current occupational status: disabled Physical Exam Vital Signs: Vital Signs: Last Vital Signs Temp 98.5 F 09/16/21 22:35 Pulse 114 H 09/16/21 23:36 Resp 16 09/16/21 23:43 BP 139/67 09/16/21 22:35 Pulse Ox 98 09/16/21 22:35 Oxygen Flow Rate 7 09/16/21 21:52 Body Mass Index 39.3 VITAL SIGNS: Reviewed. GENERAL: Well developed, well nourished, in no acute distress. HEAD: Normocephalic/atraumatic EYES: PERRLA, EOMI EARS: Ext canals without abnormality OROPHARYNX: no oral lesions noted, posterior pharynx clear NECK: Supple, no adenopathy LUNGS: Good inspiratory effort with minimal air flow, faint wheezing no appreciated rhonchi/rales, tachypnea SpO2<99> 8 L nasal cannula CARDIOVASCULAR: Regular rate and rhythm without noted murmurs, no JVD or lower extremity edema. ABDOMEN: Obese, Soft, non-tender, non-distended with bowel sounds. SKIN: Inspection of the skin reveals no rashes NEUROLOGIC: Alert and oriented x 4. Strength and sensation to light touch were grossly intact x 4. Course Course Course Narrative: 56-year-old male with history and clinical presentation most consistent with acute COPD exacerbation and less likely felt to be CHF. On review of patient's medication although he reports hallucinations with prednisone it appears the patient was discharged on dexamethasone and so will receive 125 mg of Solu-Medrol, in addition to hour long albuterol and placement on high-flow. Review of all investigations consistent with COPD exacerbation, patient improved on high-flow, received antibiotics, and is otherwise mentating well and reports subjective improvement on re-evaluation. This case was discussed with the inpatient hospitalist who accepts admission. MDM - SOB/Dyspnea Lab Data Result diagrams: 09/16/21 22:10 09/16/21 22:10 Labs: Lab Results 09/16/21 09/16/21 09/16/21 Range/Units 22:10 22:10 22:14 WBC 11.7 H (4.8-10.8) X10*3/uL RBC 4.50 L (4.60-5.80) X10*6/uL Hgb 12.9 L (14.0-18.0) g/dl Hct 45.1 (42-52) % MCV 100.2 H (80-98) fL MCH 28.7 (27.0-33.0) pg MCHC 28.6 L (31.0-36.0) g/dl RDW 13.6 (11.0-16.0) % Plt Count 172 (160-400) X10*3/uL MPV 9.0 L (9.4-12.4) fL Immature Gran % (Auto) 4.9 H (0.0-0.4) % Neut % (Auto) 80.3 H (45-73) % Lymph % (Auto) 6.7 L (20-40) % [place]ome % (Auto) 7.0 (2-11) % Eos % (Auto) 0.7 (0-4) % Baso % (Auto) 0.4 (0-2) % Lymph # (Auto) 0.8 L (1.2-4.9) X10*3/uL [place] # (Auto) 0.8 (0.1-1.2) X10*3/uL Eos # (Auto) 0.1 (0.0-0.4) X10*3/uL Baso # (Auto) 0.1 (0.0-0.2) X10*3/uL Abs Immat Gran (auto) 0.57 H (0.00-0.03) X10*3/uL Absolute Neuts (auto) 9.4 H (2.0-8.3) X10*3/uL Absolute Nucleated RBC 0.000 (0.0-0.012) X10*3/uL Nucleated RBC % (auto) 0.0 (0.0-0.2) /100WBC VBG pH 7.29 L (7.32-7.43) VBG pCO2 121 mmHg VBG pO2 53 mmHg VBG HCO3 59 H (22-26) mmol/L VBG O2 Saturation 78.0 % VBG Base Excess 24.9 mmol/L Sodium 145 (135-145) mmol/L Potassium 4.7 (3.3-5.1) mmol/L Chloride 88 L (96-108) mmol/L Carbon Dioxide 45 H* (22-29) mmol/L Anion Gap 17 (12-20) BUN 11 (9-16) mg/dL Creatinine 0.73 (0.5-1.4) mg/dL Estim Creat Clear Calc 158.5 Estimated GFR > 60 Random Glucose 199 H D (60-115) mg/dL Lactic Acid (0.5-2.0) mmol/L Calcium 9.5 (8.4-10.2) mg/dL Total Bilirubin 0.3 (0.0-1.0) mg/dL AST 32 (5-37) U/L ALT 41 H (0-40) U/L Alkaline Phosphatase 68 D (39-117) U/L C-Reactive Protein 1.42 H (< or = 0.50) mg/dL Total Protein 6.5 (6.5-8.0) g/dL Albumin 4.1 (3.5-5.0) g/dL Coronavirus (PCR) (Negative) Influenza Type A (PCR) (Negative) Influenza Type B (PCR) (Negative) RSV RNA Qual (PCR) (Negative) 09/16/21 09/16/21 09/17/21 Range/Units 22:44 22:48 00:29 WBC (4.8-10.8) X10*3/uL RBC (4.60-5.80) X10*6/uL Hgb (14.0-18.0) g/dl Hct (42-52) % MCV (80-98) fL MCH (27.0-33.0) pg MCHC (31.0-36.0) g/dl RDW (11.0-16.0) % Plt Count (160-400) X10*3/uL MPV (9.4-12.4) fL Immature Gran % (Auto) (0.0-0.4) % Neut % (Auto) (45-73) % Lymph % (Auto) (20-40) % [place] % (Auto) (2-11) % Eos % (Auto) (0-4) % Baso % (Auto) (0-2) % Lymph # (Auto) (1.2-4.9) X10*3/uL [place] # (Auto) (0.1-1.2) X10*3/uL Eos # (Auto) (0.0-0.4) X10*3/uL Baso # (Auto) (0.0-0.2) X10*3/uL Abs Immat Gran (auto) (0.00-0.03) X10*3/uL Absolute Neuts (auto) (2.0-8.3) X10*3/uL Absolute Nucleated RBC (0.0-0.012) X10*3/uL Nucleated RBC % (auto) (0.0-0.2) /100WBC VBG pH 7.35 (7.32-7.43) VBG pCO2 100 mmHg VBG pO2 53 mmHg VBG HCO3 56 H (22-26) mmol/L VBG O2 Saturation 81.0 % VBG Base Excess 23.3 mmol/L Sodium (135-145) mmol/L Potassium (3.3-5.1) mmol/L Chloride (96-108) mmol/L Carbon Dioxide (22-29) mmol/L Anion Gap (12-20) BUN (9-16) mg/dL Creatinine (0.5-1.4) mg/dL Estim Creat Clear Calc Estimated GFR Random Glucose (60-115) mg/dL Lactic Acid 1.1 (0.5-2.0) mmol/L Calcium (8.4-10.2) mg/dL Total Bilirubin (0.0-1.0) mg/dL AST (5-37) U/L ALT (0-40) U/L Alkaline Phosphatase (39-117) U/L C-Reactive Protein (< or = 0.50) mg/dL Total Protein (6.5-8.0) g/dL Albumin (3.5-5.0) g/dL Coronavirus (PCR) NEGATIVE (Negative) Influenza Type A (PCR) NEGATIVE (Negative) Influenza Type B (PCR) NEGATIVE (Negative) RSV RNA Qual (PCR) NEGATIVE (Negative) ECG Data Attestation: I personally reviewed and interpreted this ECG as follows: Prior ECG tracings: available for review (08/29/2021 no acute changes on comparison) Interpretation: Sinus tachycardia, HR-112, no STEMI, FL/QRS/QTC are within normal limits. Discharge Plan Discharge Clinical Impression: COPD exacerbation Patient Disposition: Admitted As Inpatient Prescriptions: No Action arformoterol [Brovana] 15 mcg/2 mL solution for nebulization 2 ml inhalation BID Qty: 120 RF: 6 montelukast 10 mg tablet 10 mg PO BEDTIME Qty: 90 RF: 8 omeprazole 20 mg capsule,delayed release(DR/EC) 20 mg PO DAILY Qty: 90 RF: 8 gemfibrozil 600 mg tablet 600 mg PO BID Qty: 180 RF: 8 loratadine 10 mg tablet 10 mg PO DAILY Qty: 30 RF: 6 desmopressin 0.2 mg tablet 0.4 mg PO BEDTIME Qty: 90 RF: 4 cyclobenzaprine 5 mg tablet 5 mg PO BEDTIME PRN (Reason: for muscle spasm) Qty: 7 RF: 0 (DME) shower seat with arm and back rest See Rx Instructions .Route .MEDSUPPLY Qty: 1 RF: 0 cefuroxime axetil 500 mg tablet 500 mg PO BID Qty: 8 RF: 0 doxycycline hyclate 100 mg capsule 100 mg PO BID Qty: 8 RF: 0 clonazepam 0.5 mg tablet 0.5 mg PO BID RF: 0 risperidone 0.5 mg tablet 0.5 mg PO BID RF: 0 aripiprazole 10 mg tablet 10 mg PO DAILY RF: 0 sertraline 50 mg tablet 50 mg PO DAILY RF: 0 benztropine 1 mg tablet 1 mg PO BEDTIME RF: 0 aripiprazole 20 mg tablet 20 mg PO BEDTIME RF: 0 dexamethasone 6 mg tablet 6 mg PO DAILY 7 Days Qty: 7 RF: 0 ipratropium-albuterol 0.5 mg-3 mg(2.5 mg base)/3 mL solution for nebulization 3 ml inhalation QID 30 Days Qty: 270 RF: 6
[2021-09-16 22:35] VITALS: BP 139/67; PULSE 116; RESP 25; TEMP 36.9; O2SAT 98
[2021-09-16] MEDS: methylPREDNISolone Sod Succ 125 MG/2 ML VIAL IVPUSH (22:54)
[2021-09-16 22:59] LABS: Lactic Acid 1.1 mmol/L (0.5-2.0)
[2021-09-16 23:10] LABS: Alanine Aminotransferase 41 U/L (0-40); Albumin Level 4.1 g/dL (3.5-5.0); Alkaline Phosphatase 68 U/L (39-117); Aspartate Amino Transferase 32 U/L (5-37); Bilirubin Total 0.3 mg/dL (0.0-1.0); Blood Urea Nitrogen 11 mg/dL (9-16); C Reactive Protein 1.42 mg/dL (< or = 0.50); Calcium 9.5 mg/dL (8.4-10.2); Carbon Dioxide 45 mmol/L (22-29); Chloride 88 mmol/L (96-108); Creatinine Clr Calc Pharmacy 158.5; Estimated Glomerular Filt Rate > 60; Glucose Random 199 mg/dL (60-115); Potassium 4.7 mmol/L (3.3-5.1); Sodium 145 mmol/L (135-145); Total Protein 6.5 g/dL (6.5-8.0)
[2021-09-16 23:13] LABS: Anion Gap 17 (12-20)
[2021-09-16] MEDS: Albuterol/Iprat 2.5/0.5MG 3 ML AMPUL.NEB INHALE (23:34)
[2021-09-16 23:36] VITALS: PULSE 114; O2SAT 93
[2021-09-16 23:42] LABS: Influenza A PCR NEGATIVE (Negative); Influenza B PCR NEGATIVE (Negative); Resp Syncy Virus RNA Qual PCR NEGATIVE (Negative); SARS COV2 PCR INHOUSE NEGATIVE (Negative)
[2021-09-16 23:43] VITALS: PULSE 118; RESP 16; O2SAT 98
[2021-09-17] VITALS (15 sets, daily range): BP systolic 130–154; BP diastolic 63–87; PULSE 101–115; RESP 17–25; TEMP 36.6–37.4; O2SAT 89–99
[2021-09-17 00:30] LABS: Venous Blood Gas Refer to POC result
[2021-09-17 00:35] LABS: VBG Base Excess 23.3 mmol/L; VBG HCO3 56 mmol/L (22-26); VBG pCO2 100 mmHg; VBG pH 7.35 (7.32-7.43); VBG pO2 53 mmHg
[2021-09-17] MEDS: cefTRIAXone sodium 1 GM in 0.9 % Sodium Chloride 50 ML IV (00:37)
[2021-09-17] MEDS: Albuterol/Iprat 2.5/0.5MG 3 ML AMPUL.NEB INHALE ×5 (01:25→20:00)
[2021-09-17 01:42] LABS: Venous Blood Gas Refer to POC result
[2021-09-17 01:43] LABS: VBG Base Excess 24.4 mmol/L; VBG HCO3 56 mmol/L (22-26); VBG pCO2 91 mmHg; VBG pH 7.39 (7.32-7.43); VBG pO2 38 mmHg
--- NOTE | 2021-09-17 02:42 | PM.IMHP ---
History of Present Illness Date of Service: 09/17/21 Chief Complaint: SOB 56-year-old male with a past medical history of hypertriglyceridemia, mac artery disease, obstructive sleep apnea, schizoaffective disorder, tubular adenoma Colon, polycythemia vera, av malformation of the gastrointestinal tract, COPD, ex-smoker, chronic respiratory failure on 4-5 L of home oxygen; presented to the hospital today with a chief complaint of shortness of breath. Patient reports that he has been having shortness of breath and dyspnea on exertion over the past couple days. Denies any chest pain. Denies any cough or sputum production. Denies any fever chills. Patient mentioned that he try to uses home nebulizers with no significant improvement; today he said he had severe shortness of breath; hence decided to come to the ER for further evaluation. Denies any numbness tingling focal weakness. Denies any GI or symptoms. Review of all other systems is negative except mentioned above ER course: Per ER team patient on presented showed noted to be in severe shortness of breath; venous blood gas showed hypercapnia with pCO2 of 121; patient was placed on high-flow nasal cannula oxygen; given nebulizations, steroids and antibiotics; follow-up VBG after couple hours later showed improvement in pCO2 to 91; admitted for further management. [facility] Medical History AV malformation of gastrointestinal tract GERD (gastroesophageal reflux disease) Hypertriglyceridemia Itch of skin [place] disease Nocturnal enuresis Obstructive sleep apnea Orchialgia Polycythemia vera Rectosigmoid diverticulosis Schizoaffective schizophrenia Severe chronic obstructive pulmonary disease Spasm of muscle of lower back Supplemental oxygen dependent Tubular adenoma of colon Family History Father HTN (hypertension) Mother HTN (hypertension) Diabetes mellitus Breast cancer Brother No problems noted. Pertinent family history: as above Surgical History No pertinent past surgical history Social History Household Members: None Housing: Apartment Do you presently have visiting nurse or other home services: Yes (STORE PERSON) Alcohol intake: never Patient Tobacco Use Status: Former Tobacco user Tobacco use type: Cigarette Years Smoked: 41 yrs e-Cigarette/Vaping Use: Never Used Advance Directives: No service: No Current occupational status: disabled Meds Allergies Allergy/AdvReac Type Severity Reaction Status Date / Time aspirin [ASA] Allergy Intermediate 'SHOCK , Verified 09/06/21 13:36 anaphylaxis prednisone [PREDNISONE] AdvReac Severe VISUAL Verified 09/06/21 13:36 HALLUCINATION ibuprofen [From MOTRIN] AdvReac Intermediate VOMITING Verified 09/06/21 13:36 nabumetone AdvReac Unknown vomiting Verified 09/06/21 13:36 Active Medications: Current Medications Acetaminophen (Acetaminophen 325 Mg Tablet) 650 mg PO Q6H PRN PRN Reason: Pain, Mild (Pain Scale 1-3) Albuterol/Ipratropium (Albuterol/Iprat 2.5/0.5mg 3 Ml Ampul.Neb) 3 ml INHALE QID [facility] Albuterol/Ipratropium (Albuterol/Iprat 2.5/0.5mg 3 Ml Ampul.Neb) 3 ml INHALE RQ4H WHILE AWAKE [facility] Albuterol/Ipratropium (Albuterol/Iprat 2.5/0.5mg 3 Ml Ampul.Neb) 3 ml INHALE RQ4H PRN PRN Reason: Shortness of Breath/Wheezing Aripiprazole (Aripiprazole 10 Mg Tablet) 10 mg PO DAILY [facility] Aripiprazole (Aripiprazole 20 Mg Tablet) 20 mg PO BEDTIME [facility] Azithromycin (Azithromycin 500 Mg Tablet) 500 mg PO Q24H [facility] Benztropine Mesylate (Benztropine Mesylate 1 Mg Tablet) 1 mg PO BEDTIME [facility] Clonazepam (Clonazepam 0.5 Mg Tablet) 0.5 mg PO BID [facility] Desmopressin Acetate (Desmopressin Acetate 0.2 Mg Tablet) 0.4 mg PO BEDTIME [facility] Enoxaparin Sodium (Enoxaparin Sodium 40 Mg/0.4 Ml Syringe) 40 mg SUBCUT Q24H [facility] Gemfibrozil (Gemfibrozil 600 Mg Tablet) 600 mg PO BID [facility] Dextrose/Sodium Chloride (D51/2ns) 1,000 mls @ 80 mls/hr IVCONT .[id number] [facility] Loratadine (Loratadine 10 Mg Tablet) 10 mg PO DAILY [facility] Melatonin (Melatonin 3 Mg Tablet) 6 mg PO BEDTIME PRN PRN Reason: Insomnia Methylprednisolone Sodium Succinate (Methylprednisolone Sod Succ 40 Mg/Ml Vial) 40 mg IVPUSH Q6H [facility] Montelukast Sodium (Montelukast Sodium 10 Mg Tablet) 10 mg PO BEDTIME [facility] Non-Formulary Medication (Arformoterol [Brovana]) 2 ml INHALE BID [facility] Omeprazole (Omeprazole 20 Mg Capsule.Dr) 20 mg PO DAILY [facility] Risperidone (Risperidone 0.5 Mg Tablet) 0.5 mg PO BID [facility] Senna (Sennosides 8.6 Mg Tablet) 17.2 mg PO BEDTIME PRN PRN Reason: Constipation Sertraline HCl (Sertraline Hcl 50 Mg Tablet) 50 mg PO DAILY [facility] Sodium Chloride (0.9 % Sodium Chloride Flush 3 Ml Syringe) 3 ml IVFLUSH QSHIFT [facility] Home Medications Medication Instructions Recorded Confirmed Last Taken Type aripiprazole 10 mg tablet 10 mg PO DAILY 10/18/20 09/17/21 2 Days Ago History ~09/15/21 aripiprazole 20 mg tablet 20 mg PO BEDTIME 10/18/20 09/17/21 2 Days Ago History ~09/15/21 benztropine 1 mg tablet 1 mg PO BEDTIME 10/18/20 09/17/21 2 Days Ago History ~09/15/21 clonazepam 0.5 mg tablet 0.5 mg PO BID 10/18/20 09/17/21 2 Days Ago History ~09/15/21 risperidone 0.5 mg tablet 0.5 mg PO BID 10/18/20 09/17/21 2 Days Ago History ~09/15/21 sertraline 50 mg tablet 50 mg PO DAILY 10/18/20 09/17/21 08/28/21 History Physical Exam Vital Signs and Narrative: Vital Signs: Last Vital Signs Temp 98.5 F 09/16/21 22:35 Pulse 101 H 09/17/21 01:26 Resp 17 09/17/21 01:12 BP 143/77 H 09/17/21 01:12 Pulse Ox 93 09/17/21 01:12 Oxygen Flow Rate 7 09/16/21 21:52 Body Mass Index 39.3 Gen: Appears be in no acute distress; speaks in full sentences. On high-flow oxygen. Focal HEENT: NCAT, Moist mucosa. Pulmonary: Diminished breath sounds bilaterally CVS: Normal S1-S2 Abdomen: BS+, Soft, Nontender Extremities: Warm well perfused Neuro: Alert and awake. Grossly nonfocal Results Labs CBC and Chem 7: 09/16/21 22:10 09/16/21 22:10 Labs: Laboratory Results - last 24 hr 09/16/21 09/16/21 09/16/21 22:10 22:10 22:14 MCV 100.2 H MCH 28.7 MCHC 28.6 L RDW 13.6 Plt Count 172 MPV 9.0 L Immature Gran % (Auto) 4.9 H Neut % (Auto) 80.3 H Lymph % (Auto) 6.7 L [place] % (Auto) 7.0 Eos % (Auto) 0.7 Baso % (Auto) 0.4 Lymph # (Auto) 0.8 L [place] # (Auto) 0.8 Eos # (Auto) 0.1 Baso # (Auto) 0.1 Abs Immat Gran (auto) 0.57 H Absolute Neuts (auto) 9.4 H Absolute Nucleated RBC 0.000 Nucleated RBC % (auto) 0.0 VBG pH 7.29 L VBG pCO2 121 VBG pO2 53 VBG HCO3 59 H VBG O2 Saturation 78.0 VBG Base Excess 24.9 Anion Gap 17 Estim Creat Clear Calc 158.5 Estimated GFR > 60 Random Glucose 199 H D Lactic Acid Calcium 9.5 Total Bilirubin 0.3 AST 32 ALT 41 H Alkaline Phosphatase 68 D C-Reactive Protein 1.42 H Total Protein 6.5 Albumin 4.1 Coronavirus (PCR) Influenza Type A (PCR) Influenza Type B (PCR) RSV RNA Qual (PCR) 09/16/21 09/16/21 09/17/21 22:44 22:48 00:29 MCV MCH MCHC RDW Plt Count MPV Immature Gran % (Auto) Neut % (Auto) Lymph % (Auto) [place] % (Auto) Eos % (Auto) Baso % (Auto) Lymph # (Auto) [place] # (Auto) Eos # (Auto) Baso # (Auto) Abs Immat Gran (auto) Absolute Neuts (auto) Absolute Nucleated RBC Nucleated RBC % (auto) VBG pH 7.35 VBG pCO2 100 VBG pO2 53 VBG HCO3 56 H VBG O2 Saturation 81.0 VBG Base Excess 23.3 Anion Gap Estim Creat Clear Calc Estimated GFR Random Glucose Lactic Acid 1.1 Calcium Total Bilirubin AST ALT Alkaline Phosphatase C-Reactive Protein Total Protein Albumin Coronavirus (PCR) NEGATIVE Influenza Type A (PCR) NEGATIVE Influenza Type B (PCR) NEGATIVE RSV RNA Qual (PCR) NEGATIVE 09/17/21 01:38 MCV MCH MCHC RDW Plt Count MPV Immature Gran % (Auto) Neut % (Auto) Lymph % (Auto) [place] % (Auto) Eos % (Auto) Baso % (Auto) Lymph # (Auto) [place] # (Auto) Eos # (Auto) Baso # (Auto) Abs Immat Gran (auto) Absolute Neuts (auto) Absolute Nucleated RBC Nucleated RBC % (auto) VBG pH 7.39 VBG pCO2 91 VBG pO2 38 VBG HCO3 56 H VBG O2 Saturation 59.0 VBG Base Excess 24.4 Anion Gap Estim Creat Clear Calc Estimated GFR Random Glucose Lactic Acid Calcium Total Bilirubin AST ALT Alkaline Phosphatase C-Reactive Protein Total Protein Albumin Coronavirus (PCR) Influenza Type A (PCR) Influenza Type B (PCR) RSV RNA Qual (PCR) Imaging Radiologist's Impressions: Impressions Chest X-Ray 09/16/21 21:50 IMPRESSION: Unremarkable examination. Assessment and Plan (1) COPD exacerbation: Status: Acute (2) Acute hypercapnic respiratory failure: Status: Acute 56-year-old male with a past medical history of hypertriglyceridemia, mac artery disease, obstructive sleep apnea, schizoaffective disorder, tubular adenoma Colon, polycythemia vera, av malformation of the gastrointestinal tract, COPD, ex-smoker, chronic respiratory failure on 4-5 L of home oxygen; presented to the hospital today with a chief complaint of shortness of breath. Noted to be in acute hypercapnic respiratory failure secondary to COPD exacerbation. Admitted for further management. Acute hypercapnic respiratory failure: In the setting of COPD. Patient on high-flow oxygen. Follow-up ABG showed improvement. Patient currently speaks in full sentences. Not in respiratory distress. Respiratory rate between 16-18. Will continue high-flow oxygen until a pCO2 improves and then transitioned to nasal cannula Pulmonology consult Repeat VBG Telemetry; cycle cardiac enzymes; EKG was sinus tach. D-dimer pending Acute COPD exacerbation: Continue Solu-Medrol.(patient has history of allergy to prednisone-gets hallucinations; patient eceived Solu-Medrol and dexamethasone in the past.) Nebulizations standing and p.r.n. Azithromycin Hallucinations: Likely in setting of steroids. Patient is reorientable. Patient also reported that he has not taken his psych meds for the past 1-2 days. History of schizoaffective disorder: Continue home medications DVT prophylaxis: Lovenox Code status: Full code Quality Stroke Does the patient have a stroke diagnosis?: No VTE Prior VTE?: No VTE Risk Level:: Medical - moderate - high VTE Device Contraindication: Treatment Not Indicated VTE Drug Contraindication: N/A - Med Ordered
[2021-09-17] MEDS: Benztropine Mesylate 1 MG TABLET PO ×2 (02:53→20:49)
[2021-09-17] MEDS: Azithromycin 500 MG TABLET PO ×2 (03:08→20:53)
[2021-09-17] MEDS: clonazePAM 0.5 MG TABLET PO ×3 (03:08→20:48)
[2021-09-17] MEDS: ARIPiprazole 20 MG TABLET PO ×2 (03:09→20:49)
[2021-09-17] MEDS: risperiDONE 0.5 MG TABLET PO ×3 (03:09→20:49)
[2021-09-17] MEDS: Enoxaparin Sodium 40 MG/0.4 ML SYRINGE SUBCUT (03:10)
[2021-09-17 03:16] LABS: Venous Blood Gas Refer to POC result
[2021-09-17 03:17] LABS: VBG Base Excess 26.4 mmol/L; VBG HCO3 56 mmol/L (22-26); VBG pCO2 76 mmHg; VBG pH 7.47 (7.32-7.43); VBG pO2 39 mmHg
[2021-09-17 03:24] LABS: Troponin-I High Sensitivity 27.7 ng/L (<3.5-35.0)
[2021-09-17 03:27] LABS: D Dimer 225 NG/ML
[2021-09-17 03:33] LABS: Troponin-I High Sensitivity 26.4 ng/L (<3.5-35.0)
[2021-09-17] MEDS: Dextrose 5 % and 0.45 % NaCl 1,000 ML 80 ML IVCONT (04:03)
[2021-09-17 04:58] LABS: Basophils Percent Auto 0.3 % (0-2); Eosinophils Percent Auto 0.1 % (0-4); Hematocrit 43.8 % (42-52); Hemoglobin 12.7 g/dl (14.0-18.0); Imm Gran Abs Auto 0.55 X10*3/uL (0.00-0.03); Imm Gran Pct Auto 4.9 % (0.0-0.4); Lymphocytes Absolute Auto 0.3 X10*3/uL (1.2-4.9); Lymphocytes Percent Auto 2.7 % (20-40); MANUAL DIFF FLAG SCAN; Mean Corpuscular Hemoglobin 28.4 pg (27.0-33.0); Mean Platelet Volume 9.1 fL (9.4-12.4); Monocytes Absolute Auto 0.1 X10*3/uL (0.1-1.2); Monocytes Percent Auto 0.7 % (2-11); Neutrophils Absolute Auto 10.4 X10*3/uL (2.0-8.3); Neutrophils Percent Auto 91.3 % (45-73); Platelet Count 171 X10*3/uL (160-400); Red Blood Count 4.47 X10*6/uL (4.60-5.80); Red Cell Distribution Width 13.8 % (11.0-16.0); SCAN SMEAR FLAG 1; White Blood Count 11.3 X10*3/uL (4.8-10.8)
[2021-09-17 04:59] LABS: Venous Blood Gas Refer to POC result
[2021-09-17 05:00] LABS: VBG Base Excess 22.9 mmol/L; VBG HCO3 52 mmol/L (22-26); VBG pCO2 72 mmHg; VBG pH 7.46 (7.32-7.43); VBG pO2 42 mmHg
[2021-09-17 05:05] LABS: SLIDE REVIEW VERIFIED
[2021-09-17 05:19] LABS: Carbon Dioxide 46 mmol/L (22-29)
[2021-09-17 05:20] LABS: Anion Gap 11 (12-20); Blood Urea Nitrogen 12 mg/dL (9-16); Calcium 9.6 mg/dL (8.4-10.2); Chloride 89 mmol/L (96-108); Creatinine Clr Calc Pharmacy 152.2; Estimated Glomerular Filt Rate > 60; Glucose Random 244 mg/dL (60-115); Potassium 4.9 mmol/L (3.3-5.1); Sodium 141 mmol/L (135-145)
[2021-09-17] MEDS: 0.9 % Sodium Chloride 1,000 ML 50 ML IVCONT (05:30)
[2021-09-17] MEDS: methylPREDNISolone Sod Succ 40 MG/ML VIAL IVPUSH ×2 (06:33→18:25)
[2021-09-17] MEDS: Omeprazole 20 MG CAPSULE.DR PO (08:14)
[2021-09-17] MEDS: gemfibroziL 600 MG TABLET PO ×2 (08:14→20:48)
[2021-09-17] MEDS: ARIPiprazole 10 MG TABLET PO (08:14)
[2021-09-17] MEDS: Sertraline HCL 50 MG TABLET PO (08:15)
[2021-09-17] MEDS: Loratadine 10 MG TABLET PO (08:15)
--- NOTE | 2021-09-17 08:21 | PC.NURSE ---
pt alert and oriented, O2 sat 90-92%, 35% FIo2. Pt denies sob, no respiratory distress noted. pt resting quietly.breakfast given, meds given as documented. fluids infusing. pt awaiting bed placement.
[2021-09-17 10:55] LABS: VBG HCO3 50 mmol/L (22-26); VBG pCO2 74 mmHg; VBG pH 7.43 (7.32-7.43); VBG pO2 48 mmHg
[2021-09-17 10:59] LABS: Venous Blood Gas Refer to POC result
[2021-09-17 11:35] LABS: Anion Gap 12 (12-20); Blood Urea Nitrogen 14 mg/dL (9-16); Calcium 9.2 mg/dL (8.4-10.2); Carbon Dioxide 41 mmol/L (22-29); Chloride 91 mmol/L (96-108); Creatinine Clr Calc Pharmacy 158.5; Estimated Glomerular Filt Rate > 60; Glucose Random 190 mg/dL (60-115); Potassium 4.7 mmol/L (3.3-5.1); Sodium 139 mmol/L (135-145)
--- NOTE | 2021-09-17 15:33 | PC.NURSE ---
PT ALERT AND ORIENTED, VSS. PT TAKEN OFF HIGH FLOW AND PLACED ON NON-REBREATHER SATTING 98-99%. DENIES SOB. NO APPARENT DISTRESS NOTED.
--- NOTE | 2021-09-17 15:35 | PC.NURSE ---
PT ON NON-REBREATHER SAT 98-99%, RESPIRATORY THERAPIST AT BEDSIDE, NS RUNNING AT 50 ML/HR. report given to LES Sool. PT WILL BE TRANSPORTED TO [facility] BY [employer] SALESPERSON.
--- NOTE | 2021-09-17 16:58 | P.PNIM_ITS ---
Subjective Subjective Date of Service: 09/17/21 Interval History: Breathing improved on HFNC. Did not tolerate CPAP/BiPAP in past. No cough and no purulent sputum; just wheezing and dyspnea. No chest pain. Review of Systems Review of Systems: Yes all other systems are reviewed and are negative and Unobtainable due to mental status Physical Exam Vital Signs: Vital Signs: Last Vital Signs Temp 97.8 F 09/17/21 15:55 Pulse 115 H 09/17/21 15:55 Resp 18 09/17/21 15:55 BP 154/87 H 09/17/21 15:55 Pulse Ox 99 09/17/21 15:55 Oxygen Flow Rate 7 09/16/21 21:52 Body Mass Index 39.3 Gen: mild respiratory distress HEENT: sclera anicteric, moist mucus membranes Neck: supple Lungs: diminished bilaterally Heart: tachycardic, no murmurs Abd: soft, obese, non-tender, non-distended Ext: no edema Skin: warm/well-perfused Neuro: alert and oriented x3, no focal findings Psych: anxious Objective Data Active Medications Acetaminophen (Acetaminophen 325 Mg Tablet) 650 mg PO Q6H PRN PRN Reason: Pain, Mild (Pain Scale 1-3) Albuterol/Ipratropium (Albuterol/Iprat 2.5/0.5mg 3 Ml Ampul.Neb) 3 ml INHALE RQ4H WHILE AWAKE [facility] Last Admin: 09/17/21 14:32 Dose: 3 ml Documented by: BRADY Albuterol/Ipratropium (Albuterol/Iprat 2.5/0.5mg 3 Ml Ampul.Neb) 3 ml INHALE Q2H PRN PRN Reason: Shortness of Breath/Wheezing Aripiprazole (Aripiprazole 10 Mg Tablet) 10 mg PO DAILY [facility] Last Admin: 09/17/21 08:14 Dose: 10 mg Documented by: JASMIN Aripiprazole (Aripiprazole 20 Mg Tablet) 20 mg PO BEDTIME [facility] Last Admin: 09/17/21 03:09 Dose: 20 mg Documented by: KAREEM Azithromycin (Azithromycin 500 Mg Tablet) 500 mg PO Q24H [facility] Benztropine Mesylate (Benztropine Mesylate 1 Mg Tablet) 1 mg PO BEDTIME [facility] Last Admin: 09/17/21 02:53 Dose: 1 mg Documented by: KAREEM Clonazepam (Clonazepam 0.5 Mg Tablet) 0.5 mg PO BID [facility] Last Admin: 09/17/21 08:14 Dose: 0.5 mg Documented by: JASMIN Desmopressin Acetate (Desmopressin Acetate 0.2 Mg Tablet) 0.4 mg PO BEDTIME [facility] Enoxaparin Sodium (Enoxaparin Sodium 40 Mg/0.4 Ml Syringe) 40 mg SUBCUT Q24H [facility] Last Admin: 09/17/21 03:10 Dose: 40 mg Documented by: KAREEM Gemfibrozil (Gemfibrozil 600 Mg Tablet) 600 mg PO BID [facility] Last Admin: 09/17/21 08:14 Dose: 600 mg Documented by: JASMIN Sodium Chloride (Ns) 1,000 mls @ 50 mls/hr IVCONT .Q20H [facility] Last Admin: 09/17/21 05:30 Dose: 50 mls/hr Documented by: KAREEM Loratadine (Loratadine 10 Mg Tablet) 10 mg PO DAILY [facility] Last Admin: 09/17/21 08:15 Dose: 10 mg Documented by: JASMIN Melatonin (Melatonin 3 Mg Tablet) 6 mg PO BEDTIME PRN PRN Reason: Insomnia Methylprednisolone Sodium Succinate (Methylprednisolone Sod Succ 40 Mg/Ml Vial) 40 mg IVPUSH Q12H [facility] Montelukast Sodium (Montelukast Sodium 10 Mg Tablet) 10 mg PO BEDTIME [facility] Non-Formulary Medication (Arformoterol [Brovana]) 2 ml INHALE BID [facility] Omeprazole (Omeprazole 20 Mg Capsule.Dr) 20 mg PO DAILY [facility] Last Admin: 09/17/21 08:14 Dose: 20 mg Documented by: JASMIN Risperidone (Risperidone 0.5 Mg Tablet) 0.5 mg PO BID [facility] Last Admin: 09/17/21 08:14 Dose: 0.5 mg Documented by: JASMIN Senna (Sennosides 8.6 Mg Tablet) 17.2 mg PO BEDTIME PRN PRN Reason: Constipation Sertraline HCl (Sertraline Hcl 50 Mg Tablet) 50 mg PO DAILY [facility] Last Admin: 09/17/21 08:15 Dose: 50 mg Documented by: JASMIN Sodium Chloride (0.9 % Sodium Chloride Flush 3 Ml Syringe) 3 ml IVFLUSH QSHIFT [facility] Last Admin: 09/17/21 16:38 Dose: Not Given Documented by: JOSÉ Non-Admin Reason: IV Running Labs CBC & Chem 7: 09/17/21 04:49 09/17/21 10:42 Labs: Laboratory Results - last 24 hr 09/16/21 09/16/21 09/16/21 22:10 22:10 22:10 MCV 100.2 H MCH 28.7 MCHC 28.6 L RDW 13.6 Plt Count 172 MPV 9.0 L Immature Gran % (Auto) 4.9 H Neut % (Auto) 80.3 H Lymph % (Auto) 6.7 L [place] % (Auto) 7.0 Eos % (Auto) 0.7 Baso % (Auto) 0.4 Lymph # (Auto) 0.8 L [place] # (Auto) 0.8 Eos # (Auto) 0.1 Baso # (Auto) 0.1 Abs Immat Gran (auto) 0.57 H Absolute Neuts (auto) 9.4 H Absolute Nucleated RBC 0.000 Nucleated RBC % (auto) 0.0 Smear Tech's Comments D-Dimer VBG pH VBG pCO2 VBG pO2 VBG HCO3 VBG O2 Saturation VBG Base Excess Anion Gap 17 Estim Creat Clear Calc 158.5 Estimated GFR > 60 Random Glucose 199 H D Lactic Acid Calcium 9.5 Total Bilirubin 0.3 AST 32 ALT 41 H Alkaline Phosphatase 68 D Troponin I High Sens 27.7 D C-Reactive Protein 1.42 H Total Protein 6.5 Albumin 4.1 Procalcitonin Coronavirus (PCR) Influenza Type A (PCR) Influenza Type B (PCR) RSV RNA Qual (PCR) 09/16/21 09/16/21 09/16/21 22:14 22:44 22:48 MCV MCH MCHC RDW Plt Count MPV Immature Gran % (Auto) Neut % (Auto) Lymph % (Auto) [place] % (Auto) Eos % (Auto) Baso % (Auto) Lymph # (Auto) [place] # (Auto) Eos # (Auto) Baso # (Auto) Abs Immat Gran (auto) Absolute Neuts (auto) Absolute Nucleated RBC Nucleated RBC % (auto) Smear Tech's Comments D-Dimer VBG pH 7.29 L VBG pCO2 121 VBG pO2 53 VBG HCO3 59 H VBG O2 Saturation 78.0 VBG Base Excess 24.9 Anion Gap Estim Creat Clear Calc Estimated GFR Random Glucose Lactic Acid 1.1 Calcium Total Bilirubin AST ALT Alkaline Phosphatase Troponin I High Sens C-Reactive Protein Total Protein Albumin Procalcitonin Coronavirus (PCR) NEGATIVE Influenza Type A (PCR) NEGATIVE Influenza Type B (PCR) NEGATIVE RSV RNA Qual (PCR) NEGATIVE 09/17/21 09/17/21 09/17/21 00:29 01:38 03:08 MCV MCH MCHC RDW Plt Count MPV Immature Gran % (Auto) Neut % (Auto) Lymph % (Auto) [place] % (Auto) Eos % (Auto) Baso % (Auto) Lymph # (Auto) [place] # (Auto) Eos # (Auto) Baso # (Auto) Abs Immat Gran (auto) Absolute Neuts (auto) Absolute Nucleated RBC Nucleated RBC % (auto) Smear Tech's Comments D-Dimer VBG pH 7.35 7.39 VBG pCO2 100 91 VBG pO2 53 38 VBG HCO3 56 H 56 H VBG O2 Saturation 81.0 59.0 VBG Base Excess 23.3 24.4 Anion Gap Estim Creat Clear Calc Estimated GFR Random Glucose Lactic Acid Calcium Total Bilirubin AST ALT Alkaline Phosphatase Troponin I High Sens 26.4 C-Reactive Protein Total Protein Albumin Procalcitonin Coronavirus (PCR) Influenza Type A (PCR) Influenza Type B (PCR) RSV RNA Qual (PCR) 09/17/21 09/17/21 09/17/21 03:08 03:11 04:49 MCV 98.0 MCH 28.4 MCHC 29.0 L RDW 13.8 Plt Count 171 MPV 9.1 L Immature Gran % (Auto) 4.9 H Neut % (Auto) 91.3 H Lymph % (Auto) 2.7 L [place] % (Auto) 0.7 L Eos % (Auto) 0.1 Baso % (Auto) 0.3 Lymph # (Auto) 0.3 L [place] # (Auto) 0.1 Eos # (Auto) 0.0 Baso # (Auto) 0.0 Abs Immat Gran (auto) 0.55 H Absolute Neuts (auto) 10.4 H Absolute Nucleated RBC 0.000 Nucleated RBC % (auto) 0.0 Smear Tech's Comments VERIFIED D-Dimer 225 VBG pH 7.47 H VBG pCO2 76 VBG pO2 39 VBG HCO3 56 H VBG O2 Saturation 66.0 VBG Base Excess 26.4 Anion Gap Estim Creat Clear Calc Estimated GFR Random Glucose Lactic Acid Calcium Total Bilirubin AST ALT Alkaline Phosphatase Troponin I High Sens C-Reactive Protein Total Protein Albumin Procalcitonin Coronavirus (PCR) Influenza Type A (PCR) Influenza Type B (PCR) RSV RNA Qual (PCR) 09/17/21 09/17/21 09/17/21 04:49 04:49 04:55 MCV MCH MCHC RDW Plt Count MPV Immature Gran % (Auto) Neut % (Auto) Lymph % (Auto) [place] % (Auto) Eos % (Auto) Baso % (Auto) Lymph # (Auto) [place] # (Auto) Eos # (Auto) Baso # (Auto) Abs Immat Gran (auto) Absolute Neuts (auto) Absolute Nucleated RBC Nucleated RBC % (auto) Smear Tech's Comments D-Dimer VBG pH 7.46 H VBG pCO2 72 VBG pO2 42 VBG HCO3 52 H VBG O2 Saturation 72.0 VBG Base Excess 22.9 Anion Gap 11 L Estim Creat Clear Calc 152.2 Estimated GFR > 60 Random Glucose 244 H Lactic Acid Calcium 9.6 Total Bilirubin AST ALT Alkaline Phosphatase Troponin I High Sens C-Reactive Protein Total Protein Albumin Procalcitonin 0.10 Coronavirus (PCR) Influenza Type A (PCR) Influenza Type B (PCR) RSV RNA Qual (PCR) 09/17/21 09/17/21 10:42 10:50 MCV MCH MCHC RDW Plt Count MPV Immature Gran % (Auto) Neut % (Auto) Lymph % (Auto) [place] % (Auto) Eos % (Auto) Baso % (Auto) Lymph # (Auto) [place] # (Auto) Eos # (Auto) Baso # (Auto) Abs Immat Gran (auto) Absolute Neuts (auto) Absolute Nucleated RBC Nucleated RBC % (auto) Smear Tech's Comments D-Dimer VBG pH 7.43 VBG pCO2 74 VBG pO2 48 VBG HCO3 50 H VBG O2 Saturation 75.0 VBG Base Excess 21.0 Anion Gap 12 Estim Creat Clear Calc 158.5 Estimated GFR > 60 Random Glucose 190 H Lactic Acid Calcium 9.2 Total Bilirubin AST ALT Alkaline Phosphatase Troponin I High Sens C-Reactive Protein Total Protein Albumin Procalcitonin Coronavirus (PCR) Influenza Type A (PCR) Influenza Type B (PCR) RSV RNA Qual (PCR) Assessment and Plan (1) COPD exacerbation: Status: Acute (2) Acute and chronic respiratory failure with hypercapnia: Status: Acute Assessment and Plan: hospital d#1 56yo M with COPD, REGINA, chronic hypoxic/hypercarbic respiratory failure on 4L of home O2 presenting with dyspnea, admitted for [id number] hypercarbic respiratory failure # acute/chronic hypercarbic/hypoxic respiratory failure - trial off HFNC, place Venti-mask, target SaO2 no more than 92% due to chronic CO2 retention, Pulm consult re: biPAP/CPAP intolerance in past though this would be best option for pt, monitor VBG/BMP # COPD exacerbation - IV methylprednisolone, standing/prn bronchodilators, azithromycin # hallucinations - likely due to underlying schizophrenia; missed 2d of his medications # schizoaffective disorder - continue clonazepam, aripiprazole, benztropine, sertraline, risperidone, am itryptilline # HLD - continue gemfibrozil, # GERD - PPI # VTE ppx - LMWH Quality Stroke Does the patient have a stroke diagnosis?: No VTE Prior VTE?: No VTE Risk Level:: Medical - moderate - high VTE Device Contraindication: Treatment Not Indicated VTE Drug Contraindication: N/A - Med Ordered
[2021-09-17 18:57] LABS: Adenovirus PCR Not Detected (Not Detect.); Bordetella parapertussis PCR Not Detected (Not Detect.); Bordetella pertussis PCR Not Detected (Not Detect.); Chlamydia pneumoniae PCR Not Detected (Not Detect.); Coronavirus 229E PCR Not Detected (Not Detect.); Coronavirus HKU1 PCR Not Detected (Not Detect.); Coronavirus NL63 PCR Not Detected (Not Detect.); Coronavirus OC43 PCR Not Detected (Not Detect.); Human metapneumovirus PCR Not Detected (Not Detect.); Influenza A PCR Not Detected (Not Detect.); Influenza B PCR Not Detected (Not Detect.); Mycoplasma pneumoniae PCR Not Detected (Not Detect.); Parainfluenza 1 PCR Not Detected (Not Detect.); Parainfluenza 2 PCR Not Detected (Not Detect.); Parainfluenza 3 PCR Not Detected (Not Detect.); Parainfluenza 4 PCR Not Detected (Not Detect.); RSV PCR Not Detected (Not Detect.); Rhino/Enterovirus PCR Not Detected (Not Detect.); SARS-CoV-2 PCR Not Detected (Not Detect.)
[2021-09-17] MEDS: Montelukast Sodium 10 MG TABLET PO (20:48)
[2021-09-17] MEDS: Desmopressin Acetate 0.2 MG TABLET 0.4 MG PO (20:49)
[2021-09-18] VITALS (12 sets, daily range): BP systolic 136–167; BP diastolic 74–111; PULSE 87–110; RESP 18–22; TEMP 35.5–36.9; O2SAT 91–99
[2021-09-18] MEDS: 0.9 % Sodium Chloride 1,000 ML 50 ML IVCONT (00:39)
[2021-09-18] MEDS: Enoxaparin Sodium 40 MG/0.4 ML SYRINGE SUBCUT (05:14)
[2021-09-18] MEDS: methylPREDNISolone Sod Succ 40 MG/ML VIAL IVPUSH (05:15)
[2021-09-18 06:28] LABS: VBG Base Excess 15.8 mmol/L; VBG HCO3 44 mmol/L (22-26); VBG pCO2 74 mmHg; VBG pH 7.38 (7.32-7.43); VBG pO2 59 mmHg
[2021-09-18 06:30] LABS: Venous Blood Gas Refer to POC result
[2021-09-18 06:48] LABS: Hematocrit 40.6 % (42-52); Hemoglobin 11.6 g/dl (14.0-18.0); Mean Corpuscular HGB Conc 28.6 g/dl (31.0-36.0); Mean Corpuscular Hemoglobin 27.3 pg (27.0-33.0); Mean Corpuscular Volume 95.5 fL (80-98); Mean Platelet Volume 9.5 fL (9.4-12.4); Platelet Count 195 X10*3/uL (160-400); Red Blood Count 4.25 X10*6/uL (4.60-5.80); White Blood Count 10.4 X10*3/uL (4.8-10.8)
[2021-09-18 07:07] LABS: Anion Gap 8 (12-20); Blood Urea Nitrogen 21 mg/dL (9-16); Calcium 8.6 mg/dL (8.4-10.2); Carbon Dioxide 43 mmol/L (22-29); Chloride 94 mmol/L (96-108); Creatinine Clr Calc Pharmacy 148.3; Estimated Glomerular Filt Rate > 60; Glucose Random 138 mg/dL (60-115); Potassium 4.6 mmol/L (3.3-5.1); Sodium 140 mmol/L (135-145)
[2021-09-18] MEDS: Albuterol/Iprat 2.5/0.5MG 3 ML AMPUL.NEB INHALE ×3 (07:36→19:59)
[2021-09-18] MEDS: gemfibroziL 600 MG TABLET PO ×2 (08:37→20:24)
[2021-09-18] MEDS: Loratadine 10 MG TABLET PO (08:37)
[2021-09-18] MEDS: Sertraline HCL 50 MG TABLET PO (08:37)
[2021-09-18] MEDS: ARIPiprazole 10 MG TABLET PO (08:37)
[2021-09-18] MEDS: risperiDONE 0.5 MG TABLET PO ×2 (08:37→20:24)
[2021-09-18] MEDS: clonazePAM 0.5 MG TABLET PO ×2 (08:37→20:25)
[2021-09-18] MEDS: 0.9 % Sodium Chloride Flush 3 ML SYRINGE IVFLUSH ×2 (08:37→20:27)
[2021-09-18] MEDS: Omeprazole 20 MG CAPSULE.DR PO (08:37)
--- NOTE | 2021-09-18 10:22 | MHC.CM.PN ---
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
--- NOTE | 2021-09-18 10:31 | P.PNIM_ITS ---
Subjective Subjective Date of Service: 09/18/21 Interval History: Breathing improved. Turns out he has an iVAPS at home but has not been using it. No chest pain. No purulent sputum. Review of Systems Review of Systems: Yes all other systems are reviewed and are negative Physical Exam Vital Signs: Vital Signs: Last Vital Signs Temp 96 F L 09/18/21 06:48 Pulse 87 09/18/21 07:59 Resp 22 H 09/18/21 06:48 BP 158/74 H 09/18/21 06:48 Pulse Ox 94 09/18/21 07:59 Oxygen Flow Rate 7 09/16/21 21:52 Body Mass Index 39.3 Gen: tachypneic HEENT: sclera anicteric, moist mucus membranes Neck: supple Lungs: diminished bilaterally Heart: tachycardic, no murmurs Abd: soft, obese, non-tender, non-distended Ext: no edema Skin: warm/well-perfused Neuro: alert and oriented x3, no focal findings Psych: anxious Objective Data Active Medications Acetaminophen (Acetaminophen 325 Mg Tablet) 650 mg PO Q6H PRN PRN Reason: Pain, Mild (Pain Scale 1-3) Albuterol/Ipratropium (Albuterol/Iprat 2.5/0.5mg 3 Ml Ampul.Neb) 3 ml INHALE RQ4H WHILE AWAKE [facility] Last Admin: 09/18/21 07:36 Dose: 3 ml Documented by: BRADY Albuterol/Ipratropium (Albuterol/Iprat 2.5/0.5mg 3 Ml Ampul.Neb) 3 ml INHALE Q2H PRN PRN Reason: Shortness of Breath/Wheezing Amitriptyline HCl (Amitriptyline Hcl 25 Mg Tablet) 25 mg PO BEDTIME PRN PRN Reason: insomnia Aripiprazole (Aripiprazole 10 Mg Tablet) 10 mg PO DAILY [facility] Last Admin: 09/18/21 08:37 Dose: 10 mg Documented by: NASIMA Aripiprazole (Aripiprazole 20 Mg Tablet) 20 mg PO BEDTIME [facility] Last Admin: 09/17/21 20:49 Dose: 20 mg Documented by: JOSÉ Azithromycin (Azithromycin 500 Mg Tablet) 500 mg PO Q24H [facility] Last Admin: 09/17/21 20:53 Dose: 500 mg Documented by: JOSÉ Benztropine Mesylate (Benztropine Mesylate 1 Mg Tablet) 1 mg PO BEDTIME [facility] Last Admin: 09/17/21 20:49 Dose: 1 mg Documented by: JOSÉ Clonazepam (Clonazepam 0.5 Mg Tablet) 0.5 mg PO BID [facility] Last Admin: 09/18/21 08:37 Dose: 0.5 mg Documented by: NASIMA Desmopressin Acetate (Desmopressin Acetate 0.2 Mg Tablet) 0.4 mg PO BEDTIME [facility] Last Admin: 09/17/21 20:49 Dose: 0.4 mg Documented by: JOSÉ Enoxaparin Sodium (Enoxaparin Sodium 40 Mg/0.4 Ml Syringe) 40 mg SUBCUT Q24H [facility] Last Admin: 09/18/21 05:14 Dose: 40 mg Documented by: SUMANTH Gemfibrozil (Gemfibrozil 600 Mg Tablet) 600 mg PO BID [facility] Last Admin: 09/18/21 08:37 Dose: 600 mg Documented by: NASIMA Loratadine (Loratadine 10 Mg Tablet) 10 mg PO DAILY [facility] Last Admin: 09/18/21 08:37 Dose: 10 mg Documented by: NASIMA Melatonin (Melatonin 3 Mg Tablet) 6 mg PO BEDTIME PRN PRN Reason: Insomnia Methylprednisolone Sodium Succinate (Methylprednisolone Sod Succ 40 Mg/Ml Vial) 40 mg IVPUSH Q24H [facility] Montelukast Sodium (Montelukast Sodium 10 Mg Tablet) 10 mg PO BEDTIME [facility] Last Admin: 09/17/21 20:48 Dose: 10 mg Documented by: JOSÉ Non-Formulary Medication (Arformoterol [Brovana]) 2 ml INHALE BID [facility] Omeprazole (Omeprazole 20 Mg Capsule.Dr) 20 mg PO DAILY [facility] Last Admin: 09/18/21 08:37 Dose: 20 mg Documented by: NASIMA Risperidone (Risperidone 0.5 Mg Tablet) 0.5 mg PO BID [facility] Last Admin: 09/18/21 08:37 Dose: 0.5 mg Documented by: NASIMA Senna (Sennosides 8.6 Mg Tablet) 17.2 mg PO BEDTIME PRN PRN Reason: Constipation Sertraline HCl (Sertraline Hcl 50 Mg Tablet) 50 mg PO DAILY [facility] Last Admin: 09/18/21 08:37 Dose: 50 mg Documented by: NASIMA Sodium Chloride (0.9 % Sodium Chloride Flush 3 Ml Syringe) 3 ml IVFLUSH QSHIFT [facility] Last Admin: 09/18/21 08:37 Dose: 3 ml Documented by: NASIMA Labs CBC & Chem 7: 09/18/21 06:20 09/18/21 06:20 Labs: Laboratory Results - last 24 hr 09/17/21 09/17/21 09/17/21 10:42 10:50 18:53 MCV MCH MCHC RDW Plt Count MPV Absolute Nucleated RBC Nucleated RBC % (auto) VBG pH 7.43 VBG pCO2 74 VBG pO2 48 VBG HCO3 50 H VBG O2 Saturation 75.0 VBG Base Excess 21.0 Anion Gap 12 Estim Creat Clear Calc 158.5 Estimated GFR > 60 Random Glucose 190 H Calcium 9.2 Respiratory Panel [place] See Note Adenovirus (Rapid PCR) Not Detected B.pert (TEM-PCR) Not Detected B.parapertussis DNA PCR Not Detected C. pneumoniae DNA (PCR) Not Detected Coronavirus OC43 (PCR) Not Detected Coronavirus HKU1 (PCR) Not Detected Coronavirus 229E (PCR) Not Detected Coronavirus NL63 (PCR) Not Detected Human Metapneumovir PCR Not Detected Influenza A (RT-PCR) Not Detected Influenza B (RT-PCR) Not Detected M. pneumoniae (PCR) Not Detected Parainfluenza 1 (PCR) Not Detected Parainfluenza 2 (PCR) Not Detected Parainfluenza 3 (PCR) Not Detected Parainfluenza 4 (PCR) Not Detected RSV (PCR) Not Detected Entero/Rhino (PCR) Not Detected SARS-CoV-2 RNA (RT-PCR) Not Detected 09/18/21 09/18/21 09/18/21 06:20 06:20 06:22 MCV 95.5 MCH 27.3 MCHC 28.6 L RDW 14.0 Plt Count 195 MPV 9.5 Absolute Nucleated RBC 0.000 Nucleated RBC % (auto) 0.0 VBG pH 7.38 VBG pCO2 74 VBG pO2 59 VBG HCO3 44 H VBG O2 Saturation 84.0 VBG Base Excess 15.8 Anion Gap 8 L Estim Creat Clear Calc 148.3 Estimated GFR > 60 Random Glucose 138 H Calcium 8.6 D Respiratory Panel [place] Adenovirus (Rapid PCR) B.pert (TEM-PCR) B.parapertussis DNA PCR C. pneumoniae DNA (PCR) Coronavirus OC43 (PCR) Coronavirus HKU1 (PCR) Coronavirus 229E (PCR) Coronavirus NL63 (PCR) Human Metapneumovir PCR Influenza A (RT-PCR) Influenza B (RT-PCR) M. pneumoniae (PCR) Parainfluenza 1 (PCR) Parainfluenza 2 (PCR) Parainfluenza 3 (PCR) Parainfluenza 4 (PCR) RSV (PCR) Entero/Rhino (PCR) SARS-CoV-2 RNA (RT-PCR) Microbiology Microbiology Results: Microbiology 09/16/21 22:57 Blood Culture - Preliminary Blood - Venous No growth after 24 hours. 09/16/21 22:44 Blood Culture - Preliminary Blood - Venous No growth after 24 hours. Assessment and Plan (1) COPD exacerbation: Status: Acute (2) Acute and chronic respiratory failure with hypercapnia: Status: Acute Assessment and Plan: hospital d#2 56yo M with COPD, REGINA, chronic hypoxic/hypercarbic respiratory failure on 4L of home O2 and on iVAPS presenting with dyspnea, admitted for [id number] hypercarbic respiratory failure # acute/chronic hypercarbic/hypoxic respiratory failure - target SaO2 no more than 92% due to chronic CO2 retention - Pulm consulted. pt's family will bring in iVAP for trial tonight # COPD exacerbation - continue IV methylprednisolone, standing/prn bronchodilators, azithromycin, pulmonary toilet # hallucinations - likely due to underlying schizophrenia; missed 2d of his medications; resolved with medication resumption # schizoaffective disorder - continue clonazepam, aripiprazole, benztropine, sertraline, risperidone, amitryptilline # HLD - continue gemfibrozil # GERD - PPI # VTE ppx - LMWH # dispo - PT consult Quality Stroke Does the patient have a stroke diagnosis?: No VTE Prior VTE?: No VTE Risk Level:: Medical - moderate - high VTE Device Contraindication: Treatment Not Indicated VTE Drug Contraindication: N/A - Med Ordered
[2021-09-18] MEDS: Desmopressin Acetate 0.2 MG TABLET 0.4 MG PO (20:24)
[2021-09-18] MEDS: ARIPiprazole 20 MG TABLET PO (20:24)
[2021-09-18] MEDS: Montelukast Sodium 10 MG TABLET PO (20:25)
[2021-09-18] MEDS: Benztropine Mesylate 1 MG TABLET PO (20:25)
[2021-09-18] MEDS: Azithromycin 500 MG TABLET PO (20:25)
--- NOTE | 2021-09-18 22:45 | CONS_ITS ---
DATE OF SERVICE: 09/18/2021 INDICATION: Shortness of breath. HISTORY OF PRESENT ILLNESS: Mr. Rebolledo is a 56-year-old gentleman with a known history of COPD, chronic respiratory failure in addition to a history of sleep apnea on iVAP machine, which he does not use regularly. Apparently, he was in usual state of health until the last few days when he started developing worsening shortness of breath. He could not tolerate the symptoms any longer, decided to come into the ER for further evaluation. The workup included an ABG demonstrating hypercarbic respiratory failure, although his pH is within normal range suggesting it is chronic. The patient has been reluctant to use positive airway pressure therapy because he cannot tolerate the pressure of the mask. He was admitted to the hospital, initially placed on high flow. He did undergo a chest x-ray, which was unremarkable. Prior to that back in March, he had a CT scan of the chest demonstrating some degree of atelectasis. While in the hospital, the patient's blood work demonstrating improvement of his elevated white count. His chemistries have demonstrated elevations in the bicarb suggesting the compensation for his chronic hypercarbic respiratory failure. On further questioning, he states that he does have his iVAP machine at home. He did state that he is going to have his father bring it in, I told him that is a good idea, that way we can try to adjust it, so he can use it more effectively. He continues in the hospital being treated for a COPD exacerbation with nebulized therapy, Solu-Medrol, and no antibiotics at this time. REVIEW OF SYSTEMS: Ten systems reviewed. Denies any MANAGER CASH symptoms. Denies any HEENT symptoms. Complains of respiratory and cardiac symptoms as stated above. Denies any GI or symptoms. Denies any musculoskeletal symptoms. The rest of the 10-organ system is negative. PAST MEDICAL HISTORY: COPD with respiratory failure, morbid obesity, obstructive sleep apnea, hypoventilation syndrome, pulmonary nodules, pneumonia, GERD, schizoaffective disorder, among others. ALLERGIES: PLEASE REFER TO THE MAR FOR THE FULL LIST INCLUDING ASPIRIN, PREDNISONE, IBUPROFEN, AND OTHERS. MEDICATIONS: Please refer to the MAR. Again, he is on his psychotropic agents in addition to DuoNeb, Klonopin, risperidone, Singulair, azithromycin, methylprednisolone. SOCIAL HISTORY: The patient is a former smoker. FAMILY HISTORY: Positive for hypertension. PHYSICAL EXAMINATION: VITAL SIGNS: Stable. Saturating 95% about 5 L, heart rate is 110, slightly hypertensive. GENERAL: Pleasant gentleman, in no acute distress. HEENT: Pupils equal and reactive to light. Oropharynx is clear. LUNGS: With some expiratory wheezing, some congestion, some rhonchi. CARDIAC: Regular rhythm and regular rate. ABDOMEN: Positive bowel sounds. Soft. EXTREMITIES: No clubbing or cyanosis. LABORATORY DATA: His white count was elevated, it is going down now 10.4, hemoglobin 11.6. His last venous gas; pH 7.38, pCO2 of 74, . His pH has been stable throughout this hospitalization, suggesting chronic hypercarbic respiratory failure. Chemistries with significant elevations in the bicarb at this time. Serology; respiratory viral panel was negative. IMAGING STUDIES: Perceived by me. Hyperexpanded lungs, but otherwise no acute disease. MICROBIOLOGY: Looks like the set of blood cultures have been no growth today. ASSESSMENT: Mr. Rebolledo is a 56-year-old gentleman with a known history of chronic obstructive pulmonary disease, respiratory failure, sleep apnea, not adherent to his iVAP, now presenting with worsening respiratory symptoms. 1. Acute chronic obstructive pulmonary disease exacerbation. 2. Bronchitis. 3. Sleep apnea with evidence of hypoventilation syndrome, currently on iVAPS. Has not been adherent to the therapy because he cannot tolerate the pressure settings. We will try to adjust once makes it available to us. 4. Chronic hypercarbic respiratory failure. RECOMMENDATIONS: Continue with Solu-Medrol. Would benefit from CPT with in addition to adding Mucinex for an expectorant. Continue with the azithromycin for now. Continue with neb therapy. The patient will follow up with his software developer manager as an outpatient. In the meantime, he is going to bring the iVAP in and hoping I can adjust it a little bit more, so he tolerate it better. Further recommendation based on forthcoming data. MD YVETTE Srivastava/MODL / [phone]
[2021-09-19] VITALS (10 sets, daily range): BP systolic 115–154; BP diastolic 57–89; PULSE 96–118; RESP 18–20; TEMP 36.4–36.8; O2SAT 88–99
[2021-09-19] MEDS: Enoxaparin Sodium 40 MG/0.4 ML SYRINGE SUBCUT (03:56)
[2021-09-19] MEDS: methylPREDNISolone Sod Succ 40 MG/ML VIAL IVPUSH (03:56)
[2021-09-19] MEDS: Albuterol/Iprat 2.5/0.5MG 3 ML AMPUL.NEB INHALE ×4 (08:08→19:42)
[2021-09-19] MEDS: risperiDONE 0.5 MG TABLET PO ×2 (08:31→21:01)
[2021-09-19] MEDS: Loratadine 10 MG TABLET PO (08:31)
[2021-09-19] MEDS: ARIPiprazole 10 MG TABLET PO (08:31)
[2021-09-19] MEDS: gemfibroziL 600 MG TABLET PO ×2 (08:31→21:01)
[2021-09-19] MEDS: Omeprazole 20 MG CAPSULE.DR PO (08:32)
[2021-09-19] MEDS: 0.9 % Sodium Chloride Flush 3 ML SYRINGE IVFLUSH ×2 (08:32→15:57)
[2021-09-19] MEDS: Sertraline HCL 50 MG TABLET PO (08:32)
[2021-09-19] MEDS: clonazePAM 0.5 MG TABLET PO ×2 (08:32→21:01)
--- NOTE | 2021-09-19 12:15 | PM.PNPUL ---
Subjective Subjective Date of Service: 09/19/21 Interval history: The patient was seen on exam. He did bring his IV apps and. He did try to use it last night but the pressures were too high. He also needs an adapter to get the oxygen running through the machine. I did request that for now he uses the nasal cannula along with a fullface mask initially worked just same. In the meantime I did decrease the pressures by decreasing his maximum pressure support from 20-16 and also decrease his tidal volume from 700 to 600 ml. He did try after worsening felt better. He will try to use it tonight. His breathing has improved his last wheezy. He continues uses respiratory therapy. Objective Data Labs CBC & Chem 7: 09/18/21 06:20 09/18/21 06:20 Microbiology Microbiology Results: Microbiology 09/16/21 22:57 Blood - Venous Blood Culture - Preliminary No growth after 48 hours. 09/16/21 22:44 Blood - Venous Blood Culture - Preliminary No growth after 48 hours. Review of Systems Constitutional: Denies night sweats Denies change in voice, Denies lip swelling, Denies mouth pain, Reports nasal congestion, Reports nasal discharge and Denies tongue swelling Cardiovascular: Denies chest pain and Reports dyspnea on exertion Respiratory: Reports cough, Reports dyspnea on exertion and Reports wheezing Gastrointestinal: Denies abdominal pain Musculoskeletal: Reports arthralgias Denies Neuro-related abnormal movements Psychiatric: Denies no additional psychiatric complaints Hematologic/Lymphatic: Denies easy bleeding and Denies lymphadenopathy Allergic/Immunologic: Denies lip swelling, Denies tongue swelling and Reports wheezing Physical Exam Vital Signs: Vital Signs: Last Vital Signs Temp 98.2 F 09/19/21 12:00 Pulse 118 H 09/19/21 12:00 Resp 20 09/19/21 12:00 BP 129/57 L 09/19/21 12:00 Pulse Ox 93 09/19/21 12:00 Oxygen Flow Rate 7 09/16/21 21:52 Body Mass Index 39.3 Const: General: alert Neck: Neck: Yes normal visual inspection, Yes full ROM and Yes no lymphadenopathy Chest: Chest palpation & inspection: normal inspection of the chest Resp: Auscultation: wheezes and diminished lung sounds Cardio: Rate: regular rate Rhythm: regular rhythm Heart sounds: S1 normal heart sound present and S2 normal heart sound present GI: Palpation (GI): Soft to palpation and nontender Auscultation: normal bowel sounds Skin: General skin exam: rashes and/or lesions noted Procedures Date of Service Date of Service: 09/19/21 Assessment and Plan Assessment and plan (1) Acute and chronic respiratory failure with hypercapnia: Status: Acute (2) COPD exacerbation: Status: Acute (3) Pneumonia: Status: Acute (4) Obstructive sleep apnea: Problem details: on ivaps and O2 Status: Acute Assessment and Plan: medrol taper Neb therapy PO antibiotics ivaps with 5 L oxygen at night Oxygen 4-5 liters during the day (to keep pox 89-95%) F/U with outpt pulmonary Time Spent With Patient Time: Total time spent is greater than 50% in coordination of care (as documented) at patient's floor/unit and/or counseling patient: Time with patient: 15 - 24 minutes Progress Note: Quality Stroke Does the patient have a stroke diagnosis?: No
--- NOTE | 2021-09-19 13:42 | HO.PM.IMPN ---
Subjective Subjective Date of Service: 09/19/21 Interval History: ?Breathing improved.? He used iiVAPS from home last night but no oxygen added, feels better today Review of Systems No chest pain. No purulent sputum. Physical Exam Vital Signs: Vital Signs: Last Vital Signs Temp 98.2 F 09/19/21 12:00 Pulse 118 H 09/19/21 12:00 Resp 20 09/19/21 12:00 BP 129/57 L 09/19/21 12:00 Pulse Ox 93 09/19/21 12:00 Oxygen Flow Rate 7 09/16/21 21:52 Body Mass Index 39.3 General: AO X 3, no acute distress Resp: CTA bilateral CVS: S1,S2,RRR GI: +BS, NT, no distention Skin: No rash Neuro: motor grossly intact Psych: appropriate affect Objective Data Active Medications Acetaminophen (Acetaminophen 325 Mg Tablet) 650 mg PO Q6H PRN PRN Reason: Pain, Mild (Pain Scale 1-3) Albuterol/Ipratropium (Albuterol/Iprat 2.5/0.5mg 3 Ml Ampul.Neb) 3 ml INHALE RQ4H WHILE AWAKE [facility] Last Admin: 09/19/21 11:09 Dose: 3 ml Documented by: SONALI Albuterol/Ipratropium (Albuterol/Iprat 2.5/0.5mg 3 Ml Ampul.Neb) 3 ml INHALE Q2H PRN PRN Reason: Shortness of Breath/Wheezing Amitriptyline HCl (Amitriptyline Hcl 25 Mg Tablet) 25 mg PO BEDTIME PRN PRN Reason: insomnia Aripiprazole (Aripiprazole 10 Mg Tablet) 10 mg PO DAILY [facility] Last Admin: 09/19/21 08:31 Dose: 10 mg Documented by: YASSINE Aripiprazole (Aripiprazole 20 Mg Tablet) 20 mg PO BEDTIME [facility] Last Admin: 09/18/21 20:24 Dose: 20 mg Documented by: ZURDO Azithromycin (Azithromycin 500 Mg Tablet) 500 mg PO Q24H [facility] Last Admin: 09/18/21 20:25 Dose: 500 mg Documented by: ZURDO Benztropine Mesylate (Benztropine Mesylate 1 Mg Tablet) 1 mg PO BEDTIME [facility] Last Admin: 09/18/21 20:25 Dose: 1 mg Documented by: ZURDO Clonazepam (Clonazepam 0.5 Mg Tablet) 0.5 mg PO BID [facility] Last Admin: 09/19/21 08:32 Dose: 0.5 mg Documented by: YASSINE Desmopressin Acetate (Desmopressin Acetate 0.2 Mg Tablet) 0.4 mg PO BEDTIME [facility] Last Admin: 09/18/21 20:24 Dose: 0.4 mg Documented by: ZURDO Enoxaparin Sodium (Enoxaparin Sodium 40 Mg/0.4 Ml Syringe) 40 mg SUBCUT Q24H [facility] Last Admin: 09/19/21 03:56 Dose: 40 mg Documented by: ZURDO Gemfibrozil (Gemfibrozil 600 Mg Tablet) 600 mg PO BID [facility] Last Admin: 09/19/21 08:31 Dose: 600 mg Documented by: YASSINE Loratadine (Loratadine 10 Mg Tablet) 10 mg PO DAILY [facility] Last Admin: 09/19/21 08:31 Dose: 10 mg Documented by: YASSINE Melatonin (Melatonin 3 Mg Tablet) 6 mg PO BEDTIME PRN PRN Reason: Insomnia Methylprednisolone Sodium Succinate (Methylprednisolone Sod Succ 40 Mg/Ml Vial) 40 mg IVPUSH Q24H [facility] Last Admin: 09/19/21 03:56 Dose: 40 mg Documented by: ZURDO Montelukast Sodium (Montelukast Sodium 10 Mg Tablet) 10 mg PO BEDTIME [facility] Last Admin: 09/18/21 20:25 Dose: 10 mg Documented by: ZURDO Omeprazole (Omeprazole 20 Mg Capsule.) 20 mg PO DAILY [facility] Last Admin: 09/19/21 08:32 Dose: 20 mg Documented by: YASSINE Risperidone (Risperidone 0.5 Mg Tablet) 0.5 mg PO BID [facility] Last Admin: 09/19/21 08:31 Dose: 0.5 mg Documented by: YASSINE Senna (Sennosides 8.6 Mg Tablet) 17.2 mg PO BEDTIME PRN PRN Reason: Constipation Sertraline HCl (Sertraline Hcl 50 Mg Tablet) 50 mg PO DAILY [facility] Last Admin: 09/19/21 08:32 Dose: 50 mg Documented by: YASSINE Sodium Chloride (0.9 % Sodium Chloride Flush 3 Ml Syringe) 3 ml IVFLUSH QSHIFT [facility] Last Admin: 09/19/21 08:32 Dose: 3 ml Documented by: YASSINE Labs CBC & Chem 7: 09/18/21 06:20 09/18/21 06:20 Microbiology Microbiology Results: Microbiology 09/16/21 22:57 Blood Culture - Preliminary Blood - Venous No growth after 48 hours. 09/16/21 22:44 Blood Culture - Preliminary Blood - Venous No growth after 48 hours. Assessment and Plan (1) COPD exacerbation: Status: Acute (2) Acute and chronic respiratory failure with hypercapnia: Status: Acute Assessment and Plan: hospital d#3 56yo M with COPD, REGINA, chronic hypoxic/hypercarbic respiratory failure on 4L of home O2 and on iVAPS presenting with dyspnea, admitted for [id number] hypercarbic respiratory failure # acute/chronic hypercarbic/hypoxic respiratory failure - target SaO2 no more than 92% due to chronic CO2 retention - Pulm consulted. pt used iVAP succesfully overnight # COPD exacerbation - continue IV methylprednisolone, standing/prn bronchodilators, azithromycin, pulmonary toilet, change to po prednisone by tomorrow # hallucinations - likely due to underlying schizophrenia; missed 2d of his medications; resolved with medication resumption # schizoaffective disorder - continue clonazepam, aripiprazole, benztropine, sertraline, risperidone, amitryptilline # HLD - continue gemfibrozil # GERD - PPI # VTE ppx - LMWH # dispo - PT consult Quality Stroke Does the patient have a stroke diagnosis?: No VTE Prior VTE?: No VTE Risk Level:: Medical - moderate - high VTE Device Contraindication: Treatment Not Indicated VTE Drug Contraindication: N/A - Med Ordered
--- NOTE | 2021-09-19 14:21 | MHC.CM.PN ---
per rounds no dc date at this time plan remn ins home with jayleen and ashlyn
[2021-09-19] MEDS: Benztropine Mesylate 1 MG TABLET PO (21:01)
[2021-09-19] MEDS: Montelukast Sodium 10 MG TABLET PO (21:01)
[2021-09-19] MEDS: ARIPiprazole 20 MG TABLET PO (21:01)
[2021-09-19] MEDS: Desmopressin Acetate 0.2 MG TABLET 0.4 MG PO (21:01)
[2021-09-19] MEDS: Azithromycin 500 MG TABLET PO (21:19)
[2021-09-20] MEDS: 0.9 % Sodium Chloride Flush 3 ML SYRINGE IVFLUSH ×2 (00:15→11:06)
[2021-09-20 03:48] VITALS: BP 159/77; PULSE 107; RESP 18; TEMP 37; O2SAT 97
[2021-09-20] MEDS: methylPREDNISolone Sod Succ 40 MG/ML VIAL IVPUSH (04:47)
[2021-09-20] MEDS: Enoxaparin Sodium 40 MG/0.4 ML SYRINGE SUBCUT (04:47)
[2021-09-20] MEDS: Albuterol/Iprat 2.5/0.5MG 3 ML AMPUL.NEB INHALE ×2 (07:40→11:13)
[2021-09-20 07:42] VITALS: PULSE 114; O2SAT 92
[2021-09-20 07:45] VITALS: BP 158/82; PULSE 100; RESP 20; TEMP 36.8; O2SAT 93
--- NOTE | 2021-09-20 09:01 | PM.DS ---
DS: Providers Provider Date of Service: 09/20/21 Date of admission: 09/17/21 02:34 Primary care physician: Unknown Physician Consults: 09/17/21 02:34 Consult to Pulmonology Routine Consulting Provider: [facility] [place] [facility] Reason for consultation: Hypercapneic resp failure DS: Diagnosis Discharge Diagnosis (1) COPD exacerbation: Status: Acute (2) Acute and chronic respiratory failure with hypercapnia: Status: Acute DS: Summary Hospital Course Hospital Course: Chief Complaint: SOB 56-year-old male with a past medical history of hypertriglyceridemia, mac artery disease, obstructive sleep apnea, schizoaffective disorder, tubular adenoma Colon, polycythemia vera, av malformation of the gastrointestinal tract, COPD, ex-smoker, chronic respiratory failure on 4-5 L of home oxygen; presented to the hospital today with a chief complaint of shortness of breath. Patient reports that he has been having shortness of breath and dyspnea on exertion over the past couple days.? Denies any chest pain. Denies any cough or sputum production. Denies any fever chills. Patient mentioned that he try to uses home nebulizers with no significant improvement; today he said he had severe shortness of breath; hence decided to come to the ER for further evaluation. Denies any numbness tingling focal weakness. Denies any GI or symptoms. Review of all other systems is negative except mentioned above ER course: Per ER team patient on presented showed noted to be in severe shortness of breath; venous blood gas showed hypercapnia with pCO2 of 121; patient was placed on high-flow Hospital course: # acute/chronic hypercarbic/hypoxic respiratory failure due to COPD exacerbation and chronic hypoventilation obesity type. Treated with oxygen with target O2 saturation of no more than 92. He uses iVAP at home but has hard time tolering this and only able to use it sparingly. Advise to try to use it as much he can. He is to follow up with Dr. Gutierrez. To continue use of of his home o2 up to 6 liters # COPD exacerbation--Treated with IV Solumefrol and will be transitioned to oral Prednisone tappeer. Was on Azithromycin for presumed bronchitis and will treat for 5 days total - continue IV methylprednisolone, standing/prn bronchodilators, azithromycin, pulmonary toilet, change to po prednisone by tomorrow # hallucinations- likely due to underlying schizophrenia; missed 2d of his medications; resolved with medication resumption # schizoaffective disorder - continue clonazepam, aripiprazole, benztropine, sertraline, risperidone, amitryptilline # HLD - continue gemfibrozil # GERD - PPI Time Spent with Patient Time attestation: Total time spent providing and/or coordinating discharge services: Discharge coordination time: Greater than 30 minutes Quality: Stroke Does the patient have a stroke diagnosis?: No Physical Exam Vital Signs: Vital Signs: Last Vital Signs Temp 98.2 F 09/20/21 07:45 Pulse 100 09/20/21 07:45 Resp 20 09/20/21 07:45 BP 158/82 H 09/20/21 07:45 Pulse Ox 93 09/20/21 07:45 Oxygen Flow Rate 7 09/16/21 21:52 Body Mass Index 39.3 General: AO X 3, no acute distress Resp: faint wheeze, o/w good air movment CVS: S1,S2,RRR GI: +BS, NT, no distention Skin: No rash Neuro: motor grossly intact Psych: appropriate affect DS: Data Data Completed and Pending Labs on day of discharge: Preliminary micro results at discharge 09/16/21 22:57 Blood Culture - Preliminary Blood - Venous No growth after 48 hours. 09/16/21 22:44 Blood Culture - Preliminary Blood - Venous No growth after 48 hours. Discharge Plan Discharge Anticipated Discharge Date/Time: 09/20/21 08:57 Patient Disposition: Home, Self-Care Discharge Diagnosis: COPD Exacerbation Referrals: Physician,Unknown J [Primary Care Provider] - 1 Week Discharge Medications: New prednisone 10 mg tablet See Taper mg PO DAILY Qty: 20 RF: 0 azithromycin 250 mg tablet 250 mg PO DAILY 9 Days Qty: 2 RF: 0 Continued arformoterol [Brovana] 15 mcg/2 mL solution for nebulization 2 ml inhalation BID Qty: 120 RF: 6 montelukast 10 mg tablet 10 mg PO BEDTIME Qty: 90 RF: 8 omeprazole 20 mg capsule,delayed release(DR/EC) 20 mg PO DAILY Qty: 90 RF: 8 gemfibrozil 600 mg tablet 600 mg PO BID Qty: 180 RF: 8 loratadine 10 mg tablet 10 mg PO DAILY Qty: 30 RF: 6 desmopressin 0.2 mg tablet 0.4 mg PO BEDTIME Qty: 90 RF: 4 amitriptyline 25 mg tablet 1 tab PO BEDTIME PRN (Reason: insomnia) RF: 0 clonazepam 0.5 mg tablet 0.5 mg PO BID RF: 0 risperidone 0.5 mg tablet 0.5 mg PO BID RF: 0 aripiprazole 10 mg tablet 10 mg PO DAILY RF: 0 sertraline 50 mg tablet 50 mg PO DAILY RF: 0 benztropine 1 mg tablet 1 mg PO BEDTIME RF: 0 aripiprazole 20 mg tablet 20 mg PO BEDTIME RF: 0 ipratropium-albuterol 0.5 mg-3 mg(2.5 mg base)/3 mL solution for nebulization 3 ml inhalation QID 30 Days Qty: 270 RF: 6 Discharge Orders: Discharge Order (Routine); Ordered 09/20/21 Ordered By: Toro Mendieta Diet: advance to usual diet Activity on Discharge: As tolerated Stand Alone Forms: Patient Portal Discharge page Care Plan Goals: Present rehospitalization from COPD. Health Concerns: COPD, obstructive sleep apnea, obesity. Plan of Treatment: Use inhalers as directed, use prednisone as directed, use CPAP as directed. Follow-up with Dr. Garcia Use oxygen as directed and keep oxygen level no more more than 92% (Get home Pulse oxymeter from [facility] if you don't have one) Assessment: As above
--- NOTE | 2021-09-20 09:55 | P.PNPL_ITS ---
Subjective Subjective Date of Service: 09/20/21 Interval history: The patient was seen on exam. He was able to use his BiPAP about 45 minutes last night. He felt the pressures were too high and therefore he stopped using it. Already I decrease his pressure significantly. He should continue trying it specially during the daytime to get used to it. He should bring it into his next pulmonary visit increased signal be further adjusted. The wheezing has been getting better. Objective Data Labs CBC & Chem 7: 09/18/21 06:20 09/18/21 06:20 Microbiology Microbiology Results: Microbiology 09/16/21 22:57 Blood - Venous Blood Culture - Preliminary No growth after 48 hours. 09/16/21 22:44 Blood - Venous Blood Culture - Preliminary No growth after 48 hours. Review of Systems Constitutional: Denies night sweats Denies change in voice, Denies lip swelling, Denies mouth pain, Reports nasal congestion, Reports nasal discharge and Denies tongue swelling Cardiovascular: Denies chest pain and Reports dyspnea on exertion Respiratory: Reports cough, Reports dyspnea on exertion and Reports wheezing Gastrointestinal: Denies abdominal pain Musculoskeletal: Reports arthralgias Denies Neuro-related abnormal movements Psychiatric: Denies no additional psychiatric complaints Hematologic/Lymphatic: Denies easy bleeding and Denies lymphadenopathy Allergic/Immunologic: Denies lip swelling, Denies tongue swelling and Reports wheezing Physical Exam Vital Signs: Vital Signs: Last Vital Signs Temp 98.2 F 09/20/21 07:45 Pulse 100 09/20/21 07:45 Resp 20 09/20/21 07:45 BP 158/82 H 09/20/21 07:45 Pulse Ox 93 09/20/21 07:45 Oxygen Flow Rate 7 09/16/21 21:52 Body Mass Index 39.3 Const: General: alert Neck: Neck: Yes normal visual inspection, Yes full ROM and Yes no lymphadenop athy Chest: Chest palpation & inspection: normal inspection of the chest Resp: Auscultation: wheezes and diminished lung sounds Cardio: Rate: regular rate Rhythm: regular rhythm Heart sounds: S1 normal heart sound present and S2 normal heart sound present GI: Palpation (GI): Soft to palpation and nontender Auscultation: normal bowel sounds Procedures Date of Service Date of Service: 09/20/21 Assessment and Plan Assessment and plan (1) Obstructive sleep apnea: Problem details: on ivaps and O2 Status: Acute (2) Acute and chronic respiratory failure with hypercapnia: Status: Acute (3) COPD exacerbation: Status: Acute (4) Morbid obesity: Status: Acute Assessment and Plan: Continue IVAP Continue resp therapy Prednisone taper Needs to follow up with pulmonary Time Spent With Patient Time: Total time spent is greater than 50% in coordination of care (as documented) at patient's floor/unit and/or counseling patient: Time with patient: 15 - 24 minutes Progress Note: Quality Stroke Does the patient have a stroke diagnosis?: No
[2021-09-20] MEDS: risperiDONE 0.5 MG TABLET PO (11:04)
[2021-09-20] MEDS: clonazePAM 0.5 MG TABLET PO (11:04)
[2021-09-20] MEDS: Omeprazole 20 MG CAPSULE.DR PO (11:04)
[2021-09-20] MEDS: Sertraline HCL 50 MG TABLET PO (11:04)
[2021-09-20] MEDS: gemfibroziL 600 MG TABLET PO (11:05)
[2021-09-20] MEDS: Loratadine 10 MG TABLET PO (11:05)
[2021-09-20] MEDS: ARIPiprazole 10 MG TABLET PO (11:05)
[2021-09-20 11:14] VITALS: PULSE 114; O2SAT 94
[2021-09-20 15:54] VITALS: BP 122/63; PULSE 66; RESP 18; TEMP 37.1; O2SAT 98
== END 2021-09-20 14:00 | disposition home or self-care (01) | DRG 190 ==
LOC: HO.ED 09-17 00:56 → HO.EDOVER 09-17 02:45 → HO.IMC 09-17 13:49
PROVIDERS: Family Medicine; Admitting Provider Hospitalist; Emergency Provider Student in an Organized Health Care Education/Training Program; Visit Provider Internal Medicine
DX: J44.0 Chronic obstructive pulmonary disease with (acute) lower respiratory infection (principal); J96.22 Acute and chronic respiratory failure with hypercapnia; J96.21 Acute and chronic respiratory failure with hypoxia; E66.2 Morbid (severe) obesity with alveolar hypoventilation; J44.1 Chronic obstructive pulmonary disease with (acute) exacerbation; J20.9 Acute bronchitis, unspecified; F25.9 Schizoaffective disorder, unspecified; E78.5 Hyperlipidemia, unspecified; Z99.81 Dependence on supplemental oxygen; K21.9 Gastro-esophageal reflux disease without esophagitis; Z20.822 Contact with and (suspected) exposure to COVID-19; Z68.39 Body mass index [BMI] 39.0-39.9, adult; Z87.891 Personal history of nicotine dependence; Z88.6 Allergy status to analgesic agent; Z79.899 Other long term (current) drug therapy
CPT/HCPCS: 0241U; 36415; 71045; 80048; 80053; 82803; 83605; 84145; 84484; 85025; 85027; 85379; 86140; 87040; 87633; 93005; 94640; 94644; 97162; 99285; J0696; J1650; J2920; J2930

== ENCOUNTER 2021-09-30 08:25 | Inpatient (IN) | payer MEDICARE, MEDICAID, SELFPAY ==
[2021-09-30] VITALS (10 sets, daily range): BP systolic 114–124; BP diastolic 53–76; PULSE 102–113; RESP 18–26; TEMP 37.2; O2SAT 60–96; BMI 41.0
--- NOTE | ~2021-09-30 | XR_ITS ---
EXAMINATION: CR CHEST CLINICAL INFORMATION: Shortness of breath. COMPARISON: Chest x-ray dated 09/16/2021 and older exams. TECHNIQUE: AP upright portable view of the chest was obtained. FINDINGS: The cardiomediastinal silhouette is within normal limits in size. There are patchy bibasilar opacities seen, similar to the previous study, consistent with bibasilar atelectasis. No focal consolidation, effusion or pneumothorax is seen. Bony structures are unremarkable. XR/XR chest 1V IMPRESSION: Mild bibasilar atelectasis. No evolving pneumonia.
--- NOTE | 2021-09-30 08:37 | ECG_ITS ---
Test Reason : sob Blood Pressure : / mmHG Vent. Rate : 110 BPM Atrial Rate : 110 BPM P-R Int : 122 ms QRS Dur : 092 ms QT Int : 318 ms P-R-T Axes : 050 017 066 degrees QTc Int : 430 ms Sinus tachycardia with Premature supraventricular complexes Nonspecific ST abnormality Abnormal ECG When compared with ECG of 16-SEP-2021 22:01, Premature supraventricular complexes are now Present Referred By: Khalida Torres Electronically Signed By:MARGOT CLARK MD
[2021-09-30] MEDS: Albuterol Sulfate (0.083%) 2.5 MG/3 ML VIAL.NEB 10 MG INHALE (08:39)
--- NOTE | 2021-09-30 08:39 | ED_ITS ---
HPI - SOB/Dyspnea General Chief Complaint: Dyspnea Stated Complaint: cough Time Seen by Provider: 09/30/21 08:31 Source: EMS Mode of arrival: EMS Limitations: no limitations History of Present Illness HPI Narrative: 56-year-old male with a past medical history of COPD on chronic 5 L of oxygen at home with recent admit for acute on chronic respiratory failure discharge on September 20 on a prednisone taper and a Z-Juan Manuel here with complaints of shortness of breath, nonproductive cough over the last 3 days. No chest pain, fevers, chills, leg swelling or pain. Related Data Home Medications Medication Instructions Recorded Confirmed aripiprazole 10 mg tablet 10 mg PO DAILY 10/18/20 09/17/21 aripiprazole 20 mg tablet 20 mg PO BEDTIME 10/18/20 09/17/21 benztropine 1 mg tablet 1 mg PO BEDTIME 10/18/20 09/17/21 clonazepam 0.5 mg tablet 0.5 mg PO BID 10/18/20 09/17/21 risperidone 0.5 mg tablet 0.5 mg PO BID 10/18/20 09/17/21 sertraline 50 mg tablet 50 mg PO DAILY 10/18/20 09/17/21 amitriptyline 25 mg tablet 1 tab PO BEDTIME PRN 09/17/21 09/17/21 Previous Rx's Medication Instructions Recorded arformoterol 15 mcg/2 mL solution 2 ml INHALATION BID #120 cap 10/20/20 for nebulization (Brovana) montelukast 10 mg tablet 10 mg PO BEDTIME #90 tab 01/26/21 omeprazole 20 mg capsule,delayed 20 mg PO DAILY #90 cap 01/26/21 release gemfibrozil 600 mg tablet 600 mg PO BID #180 tab 02/21/21 loratadine 10 mg tablet 10 mg PO DAILY #30 cap 06/19/21 desmopressin 0.2 mg tablet 0.4 mg PO BEDTIME #90 tab 07/17/21 ipratropium 0.5 mg-albuterol 3 mg 3 ml INHALATION QID 30 Days #270 ml 09/06/21 (2.5 mg base)/3 mL nebulization soln azithromycin 250 mg tablet 250 mg PO DAILY 9 Days #2 tab 09/20/21 cyclobenzaprine 5 mg tablet 5 mg PO BEDTIME PRN #7 tab 09/20/21 prednisone 10 mg tablet See Taper PO DAILY #20 tab 09/20/21 Allergies Allergy/AdvReac Type Severity Reaction Status Date / Time aspirin [ASA] Allergy Intermediate 'SHOCK , Verified 09/06/21 13:36 anaphylaxis prednisone [PREDNISONE] AdvReac Severe VISUAL Verified 09/06/21 13:36 HALLUCINATION ibuprofen [From MOTRIN] AdvReac Intermediate VOMITING Verified 09/06/21 13:36 nabumetone AdvReac Unknown vomiting Verified 09/06/21 13:36 Review of Systems Review of Systems: Yes all other systems are reviewed and are negative Constitutional: Constitutional: Reports no additional constitutional complaints, Denies body ache(s), Denies chills, Denies fever(s), Denies headache(s) and Denies weakness Eyes: Eyes: Reports no additional eye complaints and Denies change in vision ENT: Reports system reviewed and no additional complaints, except as documented, Denies dizziness, Denies headache(s), Denies nasal congestion, Denies nasal discharge and Denies neck pain Cardiovascular: Cardiovascular: Reports no additional cardiovascular complaints, Denies chest pain, Denies leg edema and Reports dyspnea Respiratory: Respiratory: Reports no additional respiratory complaints, Reports cough and Reports dyspnea Gastrointestinal: Gastrointestinal: Reports no additional gastrointestinal complaints, Denies abdominal pain, Denies diarrhea, Denies nausea and Denies vomiting Genitourinary: Genitourinary: Denies urinary incontinence Musculoskeletal: Musculoskeletal: Reports no additional musculoskeletal complaints, Denies back pain, Denies arthralgias, Denies joint swelling, Denies neck pain, Denies numbness and Denies tingling Integumentary/Breasts: Skin/Breast: Reports system reviewed and no additional complaints, except as docu and Denies rash Neurologic: Reports system reviewed and no additional complaints, except as documented, Denies Abnormal speech present, Denies dizziness, Denies headache(s), Denies numbness, Denies tingling and Denies weakness [facility] Past Medical History Attestation statement: The following information was validated with the patient. Source: old records reviewed and nursing notes reviewed Medical History AV malformation of gastrointestinal tract GERD (gastroesophageal reflux disease) Hypertriglyceridemia Itch of skin Maico disease Morbid obesity Nocturnal enuresis Obstructive sleep apnea Orchialgia Polycythemia vera Rectosigmoid diverticulosis Schizoaffective schizophrenia Severe chronic obstructive pulmonary disease Spasm of muscle of lower back Supplemental oxygen dependent Tubular adenoma of colon Surgical History No pertinent past surgical history Family History Family History Father HTN (hypertension) Mother HTN (hypertension) Diabetes mellitus Breast cancer Brother No problems noted. Social History Social History Household Members: None Housing: Apartment Do you presently have visiting nurse or other home services: Yes Alcohol intake: unknown Patient Tobacco Use Status: Former Tobacco user Tobacco use type: Cigarette Years Smoked: 41 yrs e-Cigarette/Vaping Use: Never Used Advance Directives: No Advance Directives Information Provided: No service: No Current occupational status: disabled Physical Exam Vital Signs: Vital Signs: Last Vital Signs Temp 99.0 F 09/30/21 08:49 Pulse 109 H 09/30/21 11:27 Resp 20 09/30/21 11:27 BP 124/76 09/30/21 11:27 Pulse Ox 88 L 09/30/21 11:27 Oxygen Flow Rate 4 09/30/21 08:20 Body Mass Index 41.0 Const: General: cooperative, healthy appearing, comfortable and no acute distress Orientation/consciousness: patient oriented x3 Limitations: no limitations HENMT: Head: Yes normal to inspection Ears: hearing grossly normal bilaterally General nose exam: Normal external nose present Face and sinus: Yes normal facial exam Mouth: Normal oral and palatal mucosa present Throat: Yes posterior oropharynx normal Eyes: General: appearance normal, both eyes and all related structures Pupils: Equal, round and reactive pupils present Neck: Neck: Yes normal visual inspection Chest: Chest palpation & inspection: normal inspection of the chest Resp: Other: Tachypnea with a rate of 28, accessory muscle use, sitting upright, speaking short phrases diminished breath sounds throughout, mild expiratory wheezing Cardio: Rate: regular rate Rhythm: regular rhythm Peripheral pulses: Peripheral pulses 2+ throughout GI: Inspection: Yes normal to inspection Palpation (GI): Soft to palpation and nontender Auscultation: normal bowel sounds Back/Spine/Pelvis: Thoracic/Lumbar Spine: thoracic and lumbar spine normal to inspection Skin: General skin exam: no rashes or lesions noted Neuro: General: patient oriented x3, no focal motor deficits and normal s ensation to monofilament Cranial nerves: Yes Equal, round and reactive pupils present Cognition (Neuro): normal cognition Speech: No Abnormal speech present Gait exam (Neuro): Normal gait present Motor exam (neuro): 5/5 motor strength present throughout Extrem: General: Yes normal to inspection, Yes no pedal edema and Yes no calf tenderness Course Course Course Narrative: 56-year-old male with a past medical history of COPD oxygen dependent with a recent admit for COPD exacerbation discharged home on prednisone and azithromycin here with complaints of shortness of breath, cough which is nonproductive for the last 3 days. No fevers, chills, chest pain. On arrival the patient has mild respiratory distress with tachypnea, hypoxia on home oxygen and tachycardia. This is from chronic lung disease and not from i nfection. Will check labs, chest x-ray, EKG, COVID screen. Patient has also allergy to prednisone but has received Solu-Medrol the past with no issues. Will give albuterol 10 mg, Solu-Medrol, magnesium and reassess. 0920-ABG consistent with compensated respiratory acidosis w/ hypercarbia. Trish ent has history of same. He is alert and oriented. His oxygen will be titrated down to his baseline of 5 L of oxygen for goal oxygen saturation 88-92%. Reviewed labs. Shows mild hyponatremia, mild hyperkalemia, hypochloremia, elevated bicarb unchanged from previous, mild hyperglycemia. Will give 500 cc of normal saline. EKG shows no EKG changes. Mild elevated troponin unchanged from previous. Plan for repeat 3 hour troponin. Less likely ACS with normal EKG and no chest pain. 1050-COVID screen negative. D/w with Dr Garcia (patient timing inspector) who came to see the patient at the bedside. Allow permissive hypoxia with home oxygen saturation in the high 80s on the patient's baseline oxygen. Requesting Diamox 500 mg IV. Patient can go to intermediate Care with medicine. Does not require ICU admission. 1100-Call out to medicine to discuss for admission. 1200-discussed with Dr. Mendieta who accepted admission. MDM - SOB/Dyspnea Differential Diagnosis Differential diagnosis: Likely acute exacerbation of chronic obstructive airways disease and pneumonia Medical Records Attestation: I reviewed the patient's medical records. Lab Data Attestation: I reviewed the patient's lab results. Result diagrams: 09/30/21 08:44 09/30/21 08:44 Labs: Lab Results 09/30/21 09/30/21 09/30/21 Range/Units 08:44 08:44 08:44 WBC 7.7 (4.8-10.8) X10*3/uL RBC 4.17 L (4.60-5.80) X10*6/uL Hgb 11.9 L (14.0-18.0) g/dl Hct 40.4 L (42.0-52.0) % MCV 96.9 (80.0-98.0) fL MCH 28.5 (27.0-33.0) pg MCHC 29.5 L (31.0-36.0) g/dl RDW 13.7 (11.0-16.0) % Plt Count 141 L (160-400) X10*3/uL MPV 9.0 L (9.4-12.4) fL Immature Gran % (Auto) Cancelled Neut % (Auto) Cancelled Lymph % (Auto) Cancelled Catahoula % (Auto) Cancelled Eos % (Auto) Cancelled Baso % (Auto) Cancelled Lymph # (Auto) Cancelled Catahoula # (Auto) Cancelled Eos # (Auto) Cancelled Baso # (Auto) Cancelled Abs Immat Gran (auto) Cancelled Absolute Neuts (auto) Cancelled Absolute Nucleated RBC 0.020 H (0.0-0.012) X10*3/uL Nucleated RBC % (auto) 0.3 H (0.0-0.2) /100WBC Neutrophils % (Manual) 80 H (45-73) % Band Neutrophils % 8 H (3-5) % Lymphocytes % (Manual) 7 L (20-40) % Monocytes % (Manual) 2 (2-11) % Metamyelocytes % 3 % Abs Neuts (Manual) 6.8 (2.0-8.3) X10*3/uL Lymphocytes # (Manual) 0.5 L (1.2-4.9) X10*3/uL Monocytes # (Manual) 0.2 (0.1-1.2) X10*3/uL Metamyelocytes # 0.2 X10*3/uL Nucleated RBCs 1 H (0-0) /100WBC Platelet Estimate SLIGHTLY DECREASED (NORMAL) Plt Morphology Comment NORMAL RBC Morphology NOTED Polychromasia 1+ (0-2) /OIF Hypochromasia 1+ (5-14) /OIF Stomatocytes 1+ (5-14) /OIF Sodium 131 L (135-145) mmol/L Potassium 5.3 H (3.3-5.1) mmol/L Chloride 78 L (96-108) mmol/L Carbon Dioxide 45 H* (22-29) mmol/L Anion Gap 13 (12-20) BUN 12 (9-16) mg/dL Creatinine 0.72 (0.5-1.4) mg/dL Estim Creat Clear Calc 159.6 Estimated GFR > 60 Random Glucose 222 H D (60-115) mg/dL Lactic Acid (0.5-2.0) mmol/L Calcium 9.1 (8.4-10.2) mg/dL Magnesium 1.7 (1.6-2.6) mg/dL Total Bilirubin 0.4 (0.0-1.0) mg/dL Direct Bilirubin 0.2 (0.0-0.5) mg/dL AST 28 (5-37) U/L ALT 55 H (0-40) U/L Alkaline Phosphatase 73 (39-117) U/L Troponin I High Sens (<3.5-35.0) ng/L B-Natriuretic Peptide (<100) pg/mL Total Protein 6.2 L (6.5-8.0) g/dL Albumin 4.0 (3.5-5.0) g/dL Influenza Type A (PCR) NEGATIVE (Negative) Influenza Type B (PCR) NEGATIVE (Negative) RSV RNA Qual (PCR) NEGATIVE (Negative) SARS-CoV-2 RNA (RT-PCR) NEGATIVE (Negative) 09/30/21 09/30/21 Range/Units 08:44 08:44 WBC (4.8-10.8) X10*3/uL RBC (4.60-5.80) X10*6/uL Hgb (14.0-18.0) g/dl Hct (42.0-52.0) % MCV (80.0-98.0) fL MCH (27.0-33.0) pg MCHC (31.0-36.0) g/dl RDW (11.0-16.0) % Plt Count (160-400) X10*3/uL MPV (9.4-12.4) fL Immature Gran % (Auto) Neut % (Auto) Lymph % (Auto) Catahoula % (Auto) Eos % (Auto) Baso % (Auto) Lymph # (Auto) Catahoula # (Auto) Eos # (Auto) Baso # (Auto) Abs Immat Gran (auto) Absolute Neuts (auto) Absolute Nucleated RBC (0.0-0.012) X10*3/uL Nucleated RBC % (auto) (0.0-0.2) /100WBC Neutrophils % (Manual) (45-73) % Band Neutrophils % (3-5) % Lymphocytes % (Manual) (20-40) % Monocytes % (Manual) (2-11) % Metamyelocytes % % Abs Neuts (Manual) (2.0-8.3) X10*3/uL Lymphocytes # (Manual) (1.2-4.9) X10*3/uL Monocytes # (Manual) (0.1-1.2) X10*3/uL Metamyelocytes # X10*3/uL Nucleated RBCs (0-0) /100WBC Platelet Estimate (NORMAL) Plt Morphology Comment RBC Morphology Polychromasia /OIF Hypochromasia /OIF Stomatocytes /OIF Sodium (135-145) mmol/L Potassium (3.3-5.1) mmol/L Chloride (96-108) mmol/L Carbon Dioxide (22-29) mmol/L Anion Gap (12-20) BUN (9-16) mg/dL Creatinine (0.5-1.4) mg/dL Estim Creat Clear Calc Estimated GFR Random Glucose (60-115) mg/dL Lactic Acid 1.1 (0.5-2.0) mmol/L Calcium (8.4-10.2) mg/dL Magnesium (1.6-2.6) mg/dL Total Bilirubin (0.0-1.0) mg/dL Direct Bilirubin (0.0-0.5) mg/dL AST (5-37) U/L ALT (0-40) U/L Alkaline Phosphatase (39-117) U/L Troponin I High Sens 24.6 (<3.5-35.0) ng/L B-Natriuretic Peptide 60 (<100) pg/mL Total Protein (6.5-8.0) g/dL Albumin (3.5-5.0) g/dL Influenza Type A (PCR) (Negative) Influenza Type B (PCR) (Negative) RSV RNA Qual (PCR) (Negative) SARS-CoV-2 RNA (RT-PCR) (Negative) Imaging Data Chest x-ray: Attestation: I personally reviewed and interpreted this imaging study as follows: Radiologist's impression: [id number] [place] [address] XRay Report Signed Patient: Lv Rebolledo MR#: [id number] : 1965 Acct:[id number] Age/Sex: 56 / M ADM Date: 09/30/21 Loc: .ED Attending Dr: Ordering Physician: Khalida Torres NP Date of Service: 09/30/21 Procedure(s): XR chest 1V Accession Number(s): [id number] cc: Khalida Torres NP~ EXAMINATION: CR CHEST CLINICAL INFORMATION: Shortness of breath. COMPARISON: Chest x-ray dated 09/16/2021 and older exams. TECHNIQUE: AP upright portable view of the chest was obtained. FINDINGS: The cardiomediastinal silhouette is within normal limits in size. There are patchy bibasilar opacities seen, similar to the previous study, consistent with bibasilar atelectasis. No focal consolidation, effusion or pneumothorax is seen. Bony structures are unremarkable. XR/XR chest 1V IMPRESSION: Mild bibasilar atelectasis. No evolving pneumonia. ? ECG Data Attestation: I personally reviewed and interpreted this ECG as follows: ECG interpretation date: 09/30/21 ECG interpretation time: 08:40 Interpretation: Sinus tachycardia with a rate of 110, normal AR, normal QRS, normal QT Discharge Plan Discharge Clinical Impression: Acute exacerbation of chronic obstructive airways disease, Chronic respiratory failure with hypoxia and hypercapnia Patient Disposition: Admitted As Inpatient
[2021-09-30 08:50] LABS: Hematocrit 40.4 % (42.0-52.0); Hemoglobin 11.9 g/dl (14.0-18.0); Mean Corpuscular HGB Conc 29.5 g/dl (31.0-36.0); Mean Corpuscular Hemoglobin 28.5 pg (27.0-33.0); Mean Corpuscular Volume 96.9 fL (80.0-98.0); NRBC Pct Auto 0.3 /100WBC (0.0-0.2); Platelet Count 141 X10*3/uL (160-400); Red Blood Count 4.17 X10*6/uL (4.60-5.80); Red Cell Distribution Width 13.7 % (11.0-16.0); White Blood Count 7.7 X10*3/uL (4.8-10.8)
[2021-09-30] MEDS: methylPREDNISolone Sod Succ 125 MG/2 ML VIAL IVPUSH (08:59)
[2021-09-30 09:00] LABS: Lactic Acid 1.1 mmol/L (0.5-2.0)
[2021-09-30] MEDS: Magnesium Sulfate/H2O 2 GM/50 ML PIGGYBACK IV (09:01)
[2021-09-30 09:10] LABS: B Type Natriuretic Peptide 60 pg/mL (<100); Band Neutrophils Percent 8 % (3-5); Lymphocytes Absolute Manual 0.5 X10*3/uL (1.2-4.9); Lymphocytes Percent Manual 7 % (20-40); Metamyelocytes Absolute 0.2 X10*3/uL; Metamyelocytes Percent 3 %; Monocytes Absolute Manual 0.2 X10*3/uL (0.1-1.2); Monocytes Percent Manual 2 % (2-11); Neutrophils Absolute Manual 6.8 X10*3/uL (2.0-8.3); Neutrophils Percent Manual 80 % (45-73); Nucleated Red Blood Cells 1 /100WBC (0-0); Troponin-I High Sensitivity 24.6 ng/L (<3.5-35.0)
[2021-09-30 09:11] LABS: Hypochromasia 1+ (5-14) /OIF; RBC Morphology NOTED; Stomatocytes 1+ (5-14) /OIF
[2021-09-30 09:12] LABS: Platelet Estimate SLIGHTLY DECREASED (NORMAL); Platelet Morphology Comment NORMAL; Polychromasia 1+ (0-2) /OIF
[2021-09-30 09:16] LABS: Alanine Aminotransferase 55 U/L (0-40); Alkaline Phosphatase 73 U/L (39-117); Anion Gap 13 (12-20); Aspartate Amino Transferase 28 U/L (5-37); Bilirubin Direct 0.2 mg/dL (0.0-0.5); Bilirubin Total 0.4 mg/dL (0.0-1.0); Blood Urea Nitrogen 12 mg/dL (9-16); Calcium 9.1 mg/dL (8.4-10.2); Carbon Dioxide 45 mmol/L (22-29); Chloride 78 mmol/L (96-108); Creatinine Clr Calc Pharmacy 159.6; Estimated Glomerular Filt Rate > 60; Glucose Random 222 mg/dL (60-115); Magnesium 1.7 mg/dL (1.6-2.6); Potassium 5.3 mmol/L (3.3-5.1); Sodium 131 mmol/L (135-145); Total Protein 6.2 g/dL (6.5-8.0)
[2021-09-30] MEDS: 0.9 % Sodium Chloride 500 ML 999 ML IV (09:27)
[2021-09-30 10:11] LABS: Influenza A PCR NEGATIVE (Negative); Influenza B PCR NEGATIVE (Negative); Resp Syncy Virus RNA Qual PCR NEGATIVE (Negative); SARS COV2 PCR INHOUSE NEGATIVE (Negative)
--- NOTE | 2021-09-30 11:03 | PM.CCN ---
Critical Care Event Note Summary Date of Service: 09/30/21 Code activated: No Narrative: 56-year-old gentleman with underlying schizophrenia, REGINA, obesity hypoventilation syndrome, chronic CO2 retention, and advanced supplemental oxygen dependent COPD being admitted for acute on chronic exacerbation of underlying COPD. On my evaluation patient is normotensive, saturating 88% on 5 L nasal cannula, awake and alert, oriented x3, however with very poor bilateral air movement, and no lower extremity edema. Blood gas demonstrates reasonably compensated chronic CO2 retention. Serum electrolytes with significantly elevated bicarbonate. Would recommend IV glucocorticoids and azithromycinfor exacerbation of underlying COPD and IV acetazolamide for 6 doses for chronic CO2 retention. At this time does not require BiPAP therapy or intensive care level of monitoring. Please notify for re-evaluation, if patient's condition changes. Critical Care Time (minutes): 0
--- NOTE | 2021-09-30 11:28 | P.HPHOSP_ITS ---
History of Present Illness Date of Service: 09/30/21 56 year male obese with COPD, REGINA is supposed to be on NIV at home but not compliant was recently admitted to the hospital from 09/17/21 to 09/20/21 for acute hypoxic respriatory failure, hypOxia, baseline 5 liters at home. He is accompanied by his father who says that he been very sleepy the last 3 days, yester had an episode where they couldn't wake him up for 5 hours, and has been delirious . He says he has not been using CPAP because of pressure. His O2 sat was 82 % when he came, now 88. ABG shows ph 7.35, PCO2 of 104 and presumably compendsated. Treated with bronchodilators and IV sterid. Seen by Intentisivist and recommend bronchodilators, Azithro and steroid. He is presently awake and alert and seem comfortable. Review of Systems Review of Systems: Gen: no fever Resp: + sob, no cough CV: no chest, no CHAVEZ, no leg edema GI: No n/v, no abd pain Neuro: No confusion at present Yes all other systems are reviewed and are negative [facility] Medical History AV malformation of gastrointestinal tract GERD (gastroesophageal reflux disease) Hypertriglyceridemia Itch of skin [place] disease Morbid obesity Nocturnal enuresis Obstructive sleep apnea Orchialgia Polycythemia vera Rectosigmoid diverticulosis Schizoaffective schizophrenia Severe chronic obstructive pulmonary disease Spasm of muscle of lower back Supplemental oxygen dependent Tubular adenoma of colon Family History Father HTN (hypertension) Mother HTN (hypertension) Diabetes mellitus Breast cancer Brother No problems noted. Pertinent family history: . Surgical History No pertinent past surgical history Social History Household Members: None Housing: Apartment Do you presently have visiting nurse or other home services: Yes Alcohol intake: unknown Patient Tobacco Use Status: Former Tobacco user Tobacco use type: Cigarette Years Smoked: 41 yrs e-Cigarette/Vaping Use: Never Used Advance Directives: No Advance Directives Information Provided: No service: No Current occupational status: disabled Meds Allergies Allergy/AdvReac Type Severity Reaction Status Date / Time aspirin [ASA] Allergy Intermediate 'SHOCK , Verified 09/06/21 13:36 anaphylaxis prednisone [PREDNISONE] AdvReac Severe VISUAL Verified 09/06/21 13:36 HALLUCINATION ibuprofen [From MOTRIN] AdvReac Intermediate VOMITING Verified 09/06/21 13:36 nabumetone AdvReac Unknown vomiting Verified 09/06/21 13:36 Home Medications Medication Instructions Recorded Confirmed Last Taken Type aripiprazole 10 mg tablet 10 mg PO DAILY 10/18/20 09/17/21 2 Days Ago History ~09/15/21 aripiprazole 20 mg tablet 20 mg PO BEDTIME 10/18/20 09/17/21 2 Days Ago History ~09/15/21 benztropine 1 mg tablet 1 mg PO BEDTIME 10/18/20 09/17/21 2 Days Ago History ~09/15/21 clonazepam 0.5 mg tablet 0.5 mg PO BID 10/18/20 09/17/21 2 Days Ago History ~09/15/21 risperidone 0.5 mg tablet 0.5 mg PO BID 10/18/20 09/17/21 2 Days Ago History ~09/15/21 sertraline 50 mg tablet 50 mg PO DAILY 10/18/20 09/17/21 08/28/21 History amitriptyline 25 mg tablet 1 tab PO BEDTIME PRN 09/17/21 09/17/21 Unknown History Physical Exam Vital Signs and Narrative: Vital Signs: Last Vital Signs Temp 99.0 F 09/30/21 08:49 Pulse 112 H 09/30/21 09:36 Resp 18 09/30/21 09:36 BP 124/62 09/30/21 09:36 Pulse Ox 88 L 09/30/21 09:36 Oxygen Flow Rate 4 09/30/21 08:20 Body Mass Index 41.0 Const: Other: Constitutional: Alert, in no distress, overweight. Mental Status: Oriented to person, place and time. Eyes: Pupils are equal, round and reactive to light. Ear, Nose and Throat: Oropharynx clear, mucous membranes moist. Ears and nose without eformities. Trachea midline. Respiratory: Clear to auscultation. No wheezing, rales or rhonchi. Cardiovascular: S1 S2 regular. No murmurs, rubs or gallops. Gastrointestinal: Abdomen soft, non-tender, non-distended. Normal bowel sounds.? Neurologic: Cranial nerves II-XII grossly intact. No focal neurological deficits. Moves all extremities spontaneously.? Skin: No rashes or lesions.? Musculoskeletal: No cyanosis or clubbing. Psychiatric: Normal mood and affect? Results Labs CBC and Chem 7: 09/30/21 08:44 09/30/21 08:44 Imaging Radiologist's Impressions: Impressions Chest X-Ray 09/30/21 08:37 IMPRESSION: Mild bibasilar atelectasis. No evolving pneumonia. Assessment and Plan (1) Acute exacerbation of chronic obstructive airways disease: Status: Acute 56 year old male with COPD, chronic respriatory failure, oxygen depedent recent admission and now here with acute on chronic hypoxic respriatory failure due to copd exacerbation # acute/chronic hypercarbic/hypoxic respiratory failure due to COPD exacerbation and chronic hypoventilation. Treate oxygen with target O2 saturation of? no more than 92. He uses? iVAP at home but has hard time tolering this and only able to use it sparingly.? Advise to try to use it as much he can. He is to follow up with Dr. Gutierrez. To continue use of of his home o2 up to 5 liters -IV solumedrol, bronchodilators scheduled and PRN -Azithromycin for possible bronchitis # hallucinations- likely due to underlying schizophrenia; presently seems fine # schizoaffective disorder - continue clonazepam, aripiprazole, benztropine, sertraline, risperidone, amitryptilline--once med rec completed # HLD - continue gemfibrozil # GERD - PPI -Metabolic alkalosis--diamox #morbid obesity--making above issues worse, particulary hypOventilation synd gayatri, weight loss advised lovenox for dvt prophylaxis Quality Stroke Does the patient have a stroke diagnosis?: No VTE Prior VTE?: No VTE Risk Level:: Medical - moderate - high VTE Device Contraindication: Treatment Not Tolerated VTE Drug Contraindication: N/A - Med Ordered
[2021-09-30] MEDS: acetaZOLAMIDE sodium 500 MG VIAL IVPUSH (11:29)
[2021-09-30 12:29] LABS: ABG HCO3 59 mmol/L (22-26); ABG pCO2 104 mmHg (32-45); ABG pCO2 TC 105 mmHg (32-45); ABG pH 7.35 (7.35-7.45); ABG pH TC 7.35 (7.35-7.45); ABG pO2 126 mmHg (83-108); ABG pO2 TC 127 (83-108)
[2021-09-30 12:37] LABS: ABG Refer to POC result
[2021-09-30] MEDS: Albuterol Sulfate (0.083%) 2.5 MG/3 ML VIAL.NEB INHALE ×2 (16:10→20:58)
[2021-10-01] VITALS (10 sets, daily range): BP systolic 135–143; BP diastolic 67–92; PULSE 91–116; RESP 18–20; TEMP 36.3–37.2; O2SAT 92–95
[2021-10-01] MEDS: 0.9 % Sodium Chloride Flush 3 ML SYRINGE IVFLUSH ×4 (00:57→23:20)
[2021-10-01] MEDS: Albuterol Sulfate (0.083%) 2.5 MG/3 ML VIAL.NEB INHALE ×3 (07:37→19:56)
[2021-10-01] MEDS: methylPREDNISolone Sod Succ 40 MG/ML VIAL IVPUSH ×3 (07:54→21:22)
[2021-10-01] MEDS: Omeprazole 20 MG CAPSULE.DR PO (09:41)
[2021-10-01] MEDS: gemfibroziL 600 MG TABLET PO ×2 (09:41→21:22)
[2021-10-01] MEDS: ARIPiprazole 10 MG TABLET PO (09:41)
[2021-10-01] MEDS: risperiDONE 0.5 MG TABLET PO ×2 (09:41→21:22)
[2021-10-01] MEDS: Sertraline HCL 50 MG TABLET PO (09:42)
[2021-10-01] MEDS: clonazePAM 0.5 MG TABLET PO ×2 (09:42→21:22)
--- NOTE | 2021-10-01 13:56 | HO.PM.IMPN ---
Subjective Subjective Date of Service: 10/01/21 Interval History: Seen in f/u for chronic acute on chronic respiratory d/t copd hypoventilation syndrome, chronic O2 dependent. Feels better today, didn't use CPAP overnight, asked to bring it in Review of Systems no fver no sob Constitutional General: AO X 3, no acute distress, obese Resp: CTA bilateral CVS: S1,S2,RRR GI: +BS, NT, no distention Skin: No rash Neuro: motor grossly intact Psych: appropriate affect Physical Exam Vital Signs: Vital Signs: Last Vital Signs Temp 97.4 F 10/01/21 12:00 Pulse 114 H 10/01/21 12:00 Resp 20 10/01/21 12:00 BP 135/73 10/01/21 12:00 Pulse Ox 92 10/01/21 12:00 Oxygen Flow Rate 4 09/30/21 08:20 Body Mass Index 41.0 Objective Data Active Medications Acetaminophen (Acetaminophen 325 Mg Tablet) 650 mg PO Q6H PRN PRN Reason: Pain, Mild (Pain Scale 1-3) Albuterol Sulfate (Albuterol Sulfate (0.083%) 2.5 Mg/3 Ml Vial.Neb) 2.5 mg INHALE RQ4H WHILE AWAKE [facility] Last Admin: 10/01/21 11:16 Dose: 2.5 mg Documented by: BRADY Albuterol Sulfate (Albuterol Sulfate (0.083%) 2.5 Mg/3 Ml Vial.Neb) 2.5 mg INHALE Q2H PRN PRN Reason: Shortness of Breath/Wheezing Amitriptyline HCl (Amitriptyline Hcl 25 Mg Tablet) 25 mg PO BEDTIME PRN PRN Reason: insomnia Aripiprazole (Aripiprazole 10 Mg Tablet) 10 mg PO DAILY [facility] Last Admin: 10/01/21 09:41 Dose: 10 mg Documented by: ALEJANDRO Aripiprazole (Aripiprazole 20 Mg Tablet) 20 mg PO BEDTIME [facility] Benztropine Mesylate (Benztropine Mesylate 1 Mg Tablet) 1 mg PO BEDTIME [facility] Clonazepam (Clonazepam 0.5 Mg Tablet) 0.5 mg PO BID [facility] Last Admin: 10/01/21 09:42 Dose: 0.5 mg Documented by: ALEJANDRO Cyclobenzaprine HCl (Cyclobenzaprine Hcl 5 Mg Tablet) 5 mg PO BEDTIME PRN PRN Reason: for muscle spasm Desmopressin Acetate (Desmopressin Acetate 0.2 Mg Tablet) 0.4 mg PO BEDTIME [facility] Gemfibrozil (Gemfibrozil 600 Mg Tablet) 600 mg PO BID [facility] Last Admin: 10/01/21 09:41 Dose: 600 mg Documented by: ALEJANDRO Methylprednisolone Sodium Succinate (Methylprednisolone Sod Succ 40 Mg/Ml Vial) 40 mg IVPUSH Q6H [facility] Last Admin: 10/01/21 07:54 Dose: 40 mg Documented by: ALEJANDRO Montelukast Sodium (Montelukast Sodium 10 Mg Tablet) 10 mg PO BEDTIME [facility] Non-Formulary Medication (Arformoterol [Brovana]) 2 ml INHALE BID [facility] Omeprazole (Omeprazole 20 Mg Capsule.Dr) 20 mg PO DAILY [facility] Last Admin: 10/01/21 09:41 Dose: 20 mg Documented by: ALEJANDRO Risperidone (Risperidone 0.5 Mg Tablet) 0.5 mg PO BID [facility] Last Admin: 10/01/21 09:41 Dose: 0.5 mg Documented by: ALEJANDRO Sertraline HCl (Sertraline Hcl 50 Mg Tablet) 50 mg PO DAILY [facility] Last Admin: 10/01/21 09:42 Dose: 50 mg Documented by: ALEJANDRO Sodium Chloride (0.9 % Sodium Chloride Flush 3 Ml Syringe) 3 ml IVFLUSH QSHIFT [facility] Last Admin: 10/01/21 07:57 Dose: 3 ml Documented by: ALEJANDRO Labs CBC & Chem 7: 09/30/21 08:44 09/30/21 08:44 Labs: Laboratory Results - last 24 hr 09/30/21 08:44 Smear Path Review SEE NOTE Microbiology Microbiology Results: Microbiology 09/30/21 09:28 Blood Culture - Preliminary Blood - Venous No growth after 24 hours. 09/30/21 08:56 Blood Culture - Preliminary Blood - Venous No growth after 24 hours. Assessment and Plan (1) Acute exacerbation of chronic obstructive airways disease: Status: Acute Assessment and Plan: 56 year old male with COPD, chronic respriatory failure, oxygen depedent? recent admission and now here with acute on chronic hypoxic respriatory failure due to copd exacerbation # acute/chronic hypercarbic/hypoxic respiratory failure due to COPD exacerbation and chronic hypoventilation. Treate oxygen with target O2 saturation of? no more than 92. He uses? iVAP at home, to bring it in from home to use tonight He is to follow up with Dr. Gutierrez. To continue use of of his home o2 up to 5 liters -IV solumedrol, bronchodilators scheduled and PRN -Azithromycin for possible bronchitis # hallucinations- likely due to underlying schizophrenia; presently no confusion # schizoaffective disorder - continue clonazepam, aripiprazole, benztropine, sertraline, risperidone, amitryptilline--once med rec completed # HLD - continue gemfibrozil # GERD - PPI -Metabolic alkalosis--diamox #morbid obesity--making above issues worse, particulary hypOventilation syndrome, weight loss advised Quality Stroke Does the patient have a stroke diagnosis?: No VTE Prior VTE?: No VTE Risk Level:: Medical - moderate - high VTE Device Contraindication: Treatment Not Tolerated VTE Drug Contraindication: N/A - Med Ordered
--- NOTE | 2021-10-01 15:26 | MHC.CM.PN ---
CM MET WITH PT WHO REPORTS HE LIVES ALONE. PT REPORTS HE IS ACTIVE WITH [facility] PT HAS ALF 2X/WEEK AND [facility] QOD. PT REPORTS THEY WILL BE INCREASING HIS SN TO 3-4 X/WEEK. PT HAS OXYGEN THROUGH [facility] PT ALSO REPORTS HE HAS A BIPAP THAT ALSO DELIVERS OXYGEN. PTS PCP IS KATRIN LEDESMA PT HAS A HCP NAMING HIS PARENTS HIS AGENTS-COPY REQUESTED IMM DELIVERED CURRENT DC PLAN IS HOME WITH RESUMPTION OF V[facility] PTS FATHER WILL TRANSPORT
[2021-10-01] MEDS: acetaZOLAMIDE 250 MG TABLET 500 MG PO (16:04)
[2021-10-01] MEDS: Benztropine Mesylate 1 MG TABLET PO (21:22)
[2021-10-01] MEDS: ARIPiprazole 20 MG TABLET PO (21:22)
[2021-10-01] MEDS: Montelukast Sodium 10 MG TABLET PO (21:22)
[2021-10-01] MEDS: Desmopressin Acetate 0.2 MG TABLET 0.4 MG PO (21:22)
[2021-10-02] VITALS: BP 126/48; PULSE 101; RESP 18; TEMP 35.9; O2SAT 97
[2021-10-02 03:30] VITALS: BP 125/63; PULSE 85; RESP 17; TEMP 37; O2SAT 98
[2021-10-02] MEDS: methylPREDNISolone Sod Succ 40 MG/ML VIAL IVPUSH ×2 (03:33→08:58)
[2021-10-02 07:34] VITALS: BP 155/91; PULSE 105; RESP 18; TEMP 36.4; O2SAT 93
[2021-10-02] MEDS: Albuterol Sulfate (0.083%) 2.5 MG/3 ML VIAL.NEB INHALE ×2 (07:47→11:32)
[2021-10-02 07:50] VITALS: PULSE 113; O2SAT 90
[2021-10-02] MEDS: Omeprazole 20 MG CAPSULE.DR PO (08:57)
[2021-10-02] MEDS: gemfibroziL 600 MG TABLET PO (08:57)
[2021-10-02] MEDS: risperiDONE 0.5 MG TABLET PO (08:57)
[2021-10-02] MEDS: Sertraline HCL 50 MG TABLET PO (08:57)
[2021-10-02] MEDS: ARIPiprazole 10 MG TABLET PO (08:58)
[2021-10-02] MEDS: 0.9 % Sodium Chloride Flush 3 ML SYRINGE IVFLUSH (08:58)
[2021-10-02] MEDS: clonazePAM 0.5 MG TABLET PO (08:58)
[2021-10-02 09:38] LABS: Anion Gap 16 (12-20); Blood Urea Nitrogen 18 mg/dL (9-16); Calcium 9.2 mg/dL (8.4-10.2); Carbon Dioxide 35 mmol/L (22-29); Chloride 92 mmol/L (96-108); Creatinine Clr Calc Pharmacy 126.3; Estimated Glomerular Filt Rate > 60; Glucose Random 267 mg/dL (60-115); Potassium 4.2 mmol/L (3.3-5.1); Sodium 139 mmol/L (135-145)
[2021-10-02 11:24] VITALS: BP 151/88; PULSE 110; RESP 18; TEMP 36; O2SAT 94
[2021-10-02 11:32] VITALS: PULSE 102; O2SAT 95
--- NOTE | 2021-10-02 11:50 | MHC.CM.PN ---
IMM 10/01/21 MALE 56 DX COUGH HE IS DISCHARGED TODAY TO HOME. [facility] WILL RESUME SERVICES.THE [facility] HAS BEEN NOTIFIED OF DC TODAY. DC INFO WILL BE SENT VIA [employer]. FAMILY PROVIDING TRANSPORTATION TO HOME.
--- NOTE | 2021-10-02 14:34 | PM.DS ---
DS: Providers Provider Date of Service: 10/02/21 Date of admission: 09/30/21 11:50 Date of discharge: 10/02/21 Primary care physician: Unknown Physician DS: Diagnosis Discharge Diagnosis (1) Acute exacerbation of chronic obstructive airways disease: Status: Acute DS: Summary Hospital Course Hospital Course: 56yo M with COPD, REGINA, chronic hypoxic/hypercarbic respiratory failure on 5L of home O2 presenting with dyspnea, admitted for [id number] hypercarbic respiratory failure. Hospital course: Patient came with the acute hypoxemic/hypercarbic respiratory failure secondary to COPD exacerbation and chronic hypoventilation. Patient was treated with IV Solu-Medrol, bronchodilators : Seems improving discussed case with Pulmonary- no need of antibiotics, continue home oxygen and CPAP. Patient cannot tolerate prednisone so switched to methylprednisone by calling pharmacy.added omeprazole. Follow-up outpatient with Pulmonary for further management. Patient says that he has VNA at home. Above management discussed with the patient in detail length he understand and in agreement with the above plan, time spent 50 minutes and 50% time spent on counseling. Significant findings: As above. Procedures performed: None. Treatment and response: As above. Complications: None. Time Spent with Patient Time attestation: Total time spent providing and/or coordinating discharge services: Discharge coordination time: Greater than 30 minutes Quality: Stroke Does the patient have a stroke diagnosis?: No Physical Exam Vital Signs: Vital Signs: Last Vital Signs Temp 96.8 F 10/02/21 11:24 Pulse 102 H 10/02/21 11:32 Resp 18 10/02/21 11:24 BP 151/88 H 10/02/21 11:24 Pulse Ox 94 10/02/21 11:24 Oxygen Flow Rate 4 09/30/21 08:20 Body Mass Index 41.0 Physical exam: General: AO X 3, no acute distress, obese Resp:? CTA bilateral CVS: S1,S2,RRR GI: +BS, NT, no distention Skin: No rash Neuro:? motor grossly intact Psych: appropriate affect DS: Data Data Completed and Pending Labs on day of discharge: Laboratory Results - last 24 hr 10/02/21 08:49 Sodium 139 Potassium 4.2 D Chloride 92 L Carbon Dioxide 35 H Anion Gap 16 BUN 18 H Creatinine 0.91 Estim Creat Clear Calc 126.3 Estimated GFR > 60 Random Glucose 267 H Calcium 9.2 Preliminary micro results at discharge 09/30/21 09:28 Blood Culture - Preliminary Blood - Venous No growth after 48 hours. 09/30/21 08:56 Blood Culture - Preliminary Blood - Venous No growth after 48 hours. Additional Comments Additional comments: CXR:IMPRESSION: Mild bibasilar atelectasis. No evolving pneumonia. Discharge Plan Discharge Patient Disposition: Home Health Service Discharge Diagnosis: acute/chronic hypercarbic/hypoxic respiratory failure due to COPD exacerbation and chronic hypoventilation. Referrals: [facility] [Other] - 1 Week Physician,Unknown J [Primary Care Provider] - 1 Week Discharge Medications: New prednisone 10 mg tablet See Taper mg PO DAILY Qty: 70 RF: 0 Continued arformoterol [Brovana] 15 mcg/2 mL solution for nebulization 2 ml inhalation BID Qty: 120 RF: 6 montelukast 10 mg tablet 10 mg PO BEDTIME Qty: 90 RF: 8 omeprazole 20 mg capsule,delayed release(DR/EC) 20 mg PO DAILY Qty: 90 RF: 8 gemfibrozil 600 mg tablet 600 mg PO BID Qty: 180 RF: 8 desmopressin 0.2 mg tablet 0.4 mg PO BEDTIME Qty: 90 RF: 4 amitriptyline 25 mg tablet 1 tab PO BEDTIME PRN (Reason: insomnia) RF: 0 clonazepam 0.5 mg tablet 0.5 mg PO BID RF: 0 risperidone 0.5 mg tablet 0.5 mg PO BID RF: 0 aripiprazole 10 mg tablet 10 mg PO DAILY RF: 0 sertraline 50 mg tablet 50 mg PO DAILY RF: 0 benztropine 1 mg tablet 1 mg PO BEDTIME RF: 0 aripiprazole 20 mg tablet 20 mg PO BEDTIME RF: 0 ipratropium-albuterol 0.5 mg-3 mg(2.5 mg base)/3 mL solution for nebulization 3 ml inhalation QID 30 Days Qty: 270 RF: 6 No Action cyclobenzaprine 5 mg tablet 5 mg PO BEDTIME PRN (Reason: for muscle spasm) Qty: 7 RF: 0 Discharge Orders: Discharge Order (Routine); Ordered 10/02/21 Ordered By: Greg Sarah Diet: advance to usual diet, low fat, low cholesterol and low salt diet Activity on Discharge: As tolerated Stand Alone Forms: Patient Portal Discharge page Care Plan Goals: Patient came with the acute hypoxemic/hypercarbic respiratory failure secondary to COPD exacerbation and chronic hypoventilation. Patient was treated with IV Solu-Medrol, bronchodilators : Seems improving discussed case with Pulmonary- no need of antibiotics, continue home oxygen and CPAP. Present taper up ordered. Follow-up outpatient with Pulmonary for further management. Patient says that he has VNA at home. Health Concerns: As above. Plan of Treatment: As above. Assessment: As above. Discharge Date/Time: 10/02/21 15:31
--- NOTE | 2021-10-17 14:32 | PM.DS ---
DS: Providers Provider Date of Service: 10/17/21 Date of admission: 09/30/21 11:50 Primary care physician: Unknown Physician DS: Diagnosis Discharge Diagnosis (1) Acute exacerbation of chronic obstructive airways disease: Status: Acute DS: Summary Hospital Course Hospital Course: 56yo M with COPD, REGINA, chronic hypoxic/hypercarbic respiratory failure on 5L of home O2 presenting with dyspnea, admitted for [id number] hypercarbic respiratory failure. Hospital course: Patient came with the acute hypoxemic/hypercarbic respiratory failure secondary to COPD exacerbation and chronic hypoventilation. Patient was treated with IV Solu-Medrol, bronchodilators : Seems improving discussed case with Pulmonary- no need of antibiotics, continue home oxygen and CPAP. Patient cannot tolerate prednisone so switched to methylprednisone by calling pharmacy.added omeprazole. Follow-up outpatient with Pulmonary for further management. Patient says that he has VNA at home. Above management discussed with the patient in detail length he understand and in agreement with the above plan, time spent 50 minutes and 50% time spent on counseling. Significant findings: As above. Procedures performed: None. Treatment and response: As above. Complications: None. Time Spent with Patient Time attestation: Total time spent providing and/or coordinating discharge services: Discharge coordination time: Greater than 30 minutes Quality: Stroke Does the patient have a stroke diagnosis?: No Physical Exam Vital Signs: Vital Signs: Last Vital Signs Temp 96.8 F 10/02/21 11:24 Pulse 102 H 10/02/21 11:32 Resp 18 10/02/21 11:24 BP 151/88 H 10/02/21 11:24 Pulse Ox 94 10/02/21 11:24 Oxygen Flow Rate 4 09/30/21 08:20 Body Mass Index 41.0 Appearance: Alert.? Oriented X3.? not in distress.? Eyes: Pupils equal, round and reactive to light.? Sclera nonicteric.? ENT: Pharynx normal.? Moist mucous membranes. cvs: rrr, [id number] , no murmur res:? Air entry improving, slightly diminished at bases, no rales or wheezing. abd: no rebound or guarding ,nt, bs present. ext pulses present , no cyanosis ,Gait well balanced well coordinated. neuro: axo3 , nonfocal. DS: Data Additional Comments Additional comments: CXR: IMPRESSION: Cardiopulmonary appearance similar to prior exam.No acute intrathoracic disease. Discharge Plan Discharge Patient Disposition: Home Health Service Discharge Diagnosis: acute/chronic hypercarbic/hypoxic respiratory failure due to COPD exacerbation and chronic hypoventilation. Referrals: [facility] [Other] - 1 Week Physician,Unknown J [Primary Care Provider] - 1 Week Discharge Medications: Continued arformoterol [Brovana] 15 mcg/2 mL solution for nebulization 2 ml inhalation BID Qty: 120 RF: 6 montelukast 10 mg tablet 10 mg PO BEDTIME Qty: 90 RF: 8 omeprazole 20 mg capsule,delayed release(DR/EC) 20 mg PO DAILY Qty: 90 RF: 8 gemfibrozil 600 mg tablet 600 mg PO BID Qty: 180 RF: 8 desmopressin 0.2 mg tablet 0.4 mg PO BEDTIME Qty: 90 RF: 4 amitriptyline 25 mg tablet 1 tab PO BEDTIME PRN (Reason: insomnia) RF: 0 clonazepam 0.5 mg tablet 0.5 mg PO BID RF: 0 risperidone 0.5 mg tablet 0.5 mg PO BID RF: 0 aripiprazole 10 mg tablet 10 mg PO DAILY RF: 0 sertraline 50 mg tablet 50 mg PO DAILY RF: 0 benztropine 1 mg tablet 1 mg PO BEDTIME RF: 0 aripiprazole 20 mg tablet 20 mg PO BEDTIME RF: 0 ipratropium-albuterol 0.5 mg-3 mg(2.5 mg base)/3 mL solution for nebulization 3 ml inhalation QID 30 Days Qty: 270 RF: 6 No Action cyclobenzaprine 5 mg tablet 5 mg PO BEDTIME PRN (Reason: for muscle spasm) Qty: 7 RF: 0 cetirizine [Zyrtec] 10 mg Tablet 10 mg PO DAILY PRN (Reason: Allergy Symptoms) RF: 0 Discharge Orders: Discharge Order (Routine); Ordered 10/02/21 Ordered By: Greg Sarah Diet: advance to usual diet, low fat, low cholesterol and low salt diet Activity on Discharge: As tolerated Stand Alone Forms: Patient Portal Discharge page Care Plan Goals: Patient came with the acute hypoxemic/hypercarbic respiratory failure secondary to COPD exacerbation and chronic hypoventilation. Patient was treated with IV Solu-Medrol, bronchodilators : Seems improving discussed case with Pulmonary- no need of antibiotics, continue home oxygen and CPAP. Present taper up ordered. Follow-up outpatient with Pulmonary for further management. Patient says that he has VNA at home. Health Concerns: As above. Plan of Treatment: As above. Assessment: As above. Discharge Date/Time: 10/02/21 15:31
--- NOTE | 2021-10-17 14:57 | PM.DS ---
DS: Providers Provider Date of Service: 10/17/21 Date of admission: 09/30/21 11:50 Primary care physician: Unknown Physician DS: Diagnosis Discharge Diagnosis (1) Acute exacerbation of chronic obstructive airways disease: Status: Acute DS: Summary Hospital Course Hospital Course: 56yo M with COPD, REGINA, chronic hypoxic/hypercarbic respiratory failure on 5L of home O2 presenting with dyspnea, admitted for [id number] hypercarbic respiratory failure. Hospital course: Patient came with the acute hypoxemic/hypercarbic respiratory failure secondary to COPD exacerbation and chronic hypoventilation. Patient was treated with IV Solu-Medrol, bronchodilators : Seems improving discussed case with Pulmonary- no need of antibiotics, continue home oxygen and CPAP. Present taper up ordered. Follow-up outpatient with Pulmonary for further management. Patient says that he has VNA at home. Above management discussed with the patient in detail length he understand and in agreement with the above plan, time spent 50 minutes and 50% time spent on counseling. Significant findings: As above. Procedures performed: None. Treatment and response: As above. Complications: None. Time Spent with Patient Time attestation: Total time spent providing and/or coordinating discharge services: Discharge coordination time: Greater than 30 minutes Quality: Stroke Does the patient have a stroke diagnosis?: No Physical Exam Vital Signs: Vital Signs: Last Vital Signs Temp 96.8 F 10/02/21 11:24 Pulse 102 H 10/02/21 11:32 Resp 18 10/02/21 11:24 BP 151/88 H 10/02/21 11:24 Pulse Ox 94 10/02/21 11:24 Oxygen Flow Rate 4 09/30/21 08:20 Body Mass Index 41.0 Appearance: Alert.? Oriented X3.? not in distress.? Eyes: Pupils equal, round and reactive to light.? Sclera nonicteric.? ENT: Pharynx normal.? Moist mucous membranes. cvs: rrr, [id number] , no murmur res:? Air entry improving, slightly diminished at bases, no rales or wheezing. abd: no rebound or guarding ,nt, bs present. ext pulses present , no cyanosis ,Gait well balanced well coordinated. neuro: axo3 , nonfocal. DS: Data Additional Comments Additional comments: IMPRESSION: Cardiopulmonary appearance similar to prior exam.No acute intrathoracic disease. Discharge Plan Discharge Patient Disposition: Home Health Service Discharge Diagnosis: acute/chronic hypercarbic/hypoxic respiratory failure due to COPD exacerbation and chronic hypoventilation. Referrals: [facility] [Other] - 1 Week Physician,Unknown J [Primary Care Provider] - 1 Week Discharge Medications: Continued arformoterol [Brovana] 15 mcg/2 mL solution for nebulization 2 ml inhalation BID Qty: 120 RF: 6 montelukast 10 mg tablet 10 mg PO BEDTIME Qty: 90 RF: 8 omeprazole 20 mg capsule,delayed release(DR/EC) 20 mg PO DAILY Qty: 90 RF: 8 gemfibrozil 600 mg tablet 600 mg PO BID Qty: 180 RF: 8 desmopressin 0.2 mg tablet 0.4 mg PO BEDTIME Qty: 90 RF: 4 amitriptyline 25 mg tablet 1 tab PO BEDTIME PRN (Reason: insomnia) RF: 0 clonazepam 0.5 mg tablet 0.5 mg PO BID RF: 0 risperidone 0.5 mg tablet 0.5 mg PO BID RF: 0 aripiprazole 10 mg tablet 10 mg PO DAILY RF: 0 sertraline 50 mg tablet 50 mg PO DAILY RF: 0 benztropine 1 mg tablet 1 mg PO BEDTIME RF: 0 aripiprazole 20 mg tablet 20 mg PO BEDTIME RF: 0 ipratropium-albuterol 0.5 mg-3 mg(2.5 mg base)/3 mL solution for nebulization 3 ml inhalation QID 30 Days Qty: 270 RF: 6 No Action cyclobenzaprine 5 mg tablet 5 mg PO BEDTIME PRN (Reason: for muscle spasm) Qty: 7 RF: 0 cetirizine [Zyrtec] 10 mg Tablet 10 mg PO DAILY PRN (Reason: Allergy Symptoms) RF: 0 Discharge Orders: Discharge Order (Routine); Ordered 10/02/21 Ordered By: Greg Sarah Diet: advance to usual diet, low fat, low cholesterol and low salt diet Activity on Discharge: As tolerated Stand Alone Forms: Patient Portal Discharge page Care Plan Goals: Patient came with the acute hypoxemic/hypercarbic respiratory failure secondary to COPD exacerbation and chronic hypoventilation. Patient was treated with IV Solu-Medrol, bronchodilators : Seems improving discussed case with Pulmonary- no need of antibiotics, continue home oxygen and CPAP. Present taper up ordered. Follow-up outpatient with Pulmonary for further management. Patient says that he has VNA at home. Health Concerns: As above. Plan of Treatment: As above. Assessment: As above. Discharge Date/Time: 10/02/21 15:31
== END 2021-10-02 15:31 | disposition home or self-care (01) | DRG 190 ==
LOC: HO.ED 11:51 → HO.EDOVER 12:07 → HO.S3 10-01 01:47
PROVIDERS: Nurse Practitioner Family; Admitting Provider Internal Medicine; Emergency Provider Emergency Medicine; Visit Provider Internal Medicine
DX: J44.1 Chronic obstructive pulmonary disease with (acute) exacerbation (principal); J96.22 Acute and chronic respiratory failure with hypercapnia; J96.21 Acute and chronic respiratory failure with hypoxia; E66.2 Morbid (severe) obesity with alveolar hypoventilation; Z68.41 Body mass index [BMI] 40.0-44.9, adult; E87.3 Alkalosis; F20.9 Schizophrenia, unspecified; K21.9 Gastro-esophageal reflux disease without esophagitis; E78.5 Hyperlipidemia, unspecified; Z87.891 Personal history of nicotine dependence; Z91.19 Patient's noncompliance with other medical treatment and regimen; Z20.822 Contact with and (suspected) exposure to COVID-19; Z99.81 Dependence on supplemental oxygen; Z88.6 Allergy status to analgesic agent; Z79.899 Other long term (current) drug therapy
CPT/HCPCS: 0241U; 36415; 71045; 80048; 80076; 82803; 83605; 83735; 83880; 84484; 85007; 85027; 87040; 93005; 94640; 94644; 96365; 96366; 96375; 99285; J2920; J2930; J3475

== ENCOUNTER → 2021-10-04 15:10 | Outpatient (BNVA) | payer MEDICAID, SELFPAY | PROVIDERS: Visit Provider Internal Medicine Pulmonary Disease | DX: J44.9 Chronic obstructive pulmonary disease, unspecified (principal); G47.33 Obstructive sleep apnea (adult) (pediatric); Z99.81 Dependence on supplemental oxygen | CPT/HCPCS: 99212 ==

== ENCOUNTER 2021-10-15 14:38 | Observation (INO) | payer MEDICAID, SELFPAY ==
[2021-10-15] VITALS (12 sets, daily range): BP systolic 130–171; BP diastolic 70–135; PULSE 85–118; RESP 16–33; TEMP 36.7–37.2; O2SAT 92–99; BMI 38.2
--- NOTE | ~2021-10-15 | XR_ITS ---
EXAMINATION: XR CHEST CLINICAL INFORMATION: Chest pain COMPARISON: Chest radiographs 09/30/2021, 09/16/2021; CT chest noncontrast 04/03/2021 TECHNIQUE: Portable upright AP view of the chest was obtained. FINDINGS: Cardiopulmonary appearance is similar to prior studies. Again, there is stable linear densities lingula left upper lobe adjacent to the left cardiac border and some mild coarsening bronchovascular markings right infrahilar region. There is no interval lobar or segmental airspace consolidation. No pneumothorax or pleural reaction or effusion. Heart size normal. Vascularity unremarkable. XR/XR chest 1V IMPRESSION: Cardiopulmonary appearance similar to prior exam. No acute intrathoracic disease.
--- NOTE | 2021-10-15 15:04 | ECG_ITS ---
Test Reason : DSYPENA Blood Pressure : / mmHG Vent. Rate : 112 BPM Atrial Rate : 112 BPM P-R Int : 122 ms QRS Dur : 086 ms QT Int : 322 ms P-R-T Axes : 048 025 066 degrees QTc Int : 439 ms Sinus tachycardia with Premature atrial complexes Possible Left atrial enlargement Abnormal ECG When compared with ECG of 30-SEP-2021 08:40, No significant change was found Referred By: Wesley Teran Electronically Signed By:MARGOT CLARK MD
--- NOTE | 2021-10-15 15:06 | ED_ITS ---
HPI - SOB/Dyspnea General Chief Complaint: Dyspnea Stated Complaint: SOB, HX OF COPD/EMPH Time Seen by Provider: 10/15/21 14:45 Source: patient Mode of arrival: EMS Limitations: no limitations History of Present Illness HPI Narrative: This is a very pleasant 56 years old male with history of COPD O2 dependent on 5 L of oxygen, chronic CO2 retention, morbid obesity obstructive sleep apnea presented to the emergency department via ambulance with a chief complaint of shortness of breath. The he denies any fever, cough, chest pain. He states that he was going down the elevator he started to feel short of breath 911 was called , he received mebulizer treatment by the licensed practical nurse instructor and he tell me the now is feels better. Besides the ED is chronic COPD on oxygen he denies any history of heart disease and diabetes. MD elicited complaint: shortness of breath Pertinent past history: COPD Onset (ago): hour(s) (1) Timing: now resolved Severity: moderate Exacerbating factors: nothing Known history of: COPD Associated symptoms: denies other symptoms Related Data Home oxygen amount: other (5 liter) Home Medications Medication Instructions Recorded Confirmed aripiprazole 10 mg tablet 10 mg PO DAILY 10/18/20 09/30/21 aripiprazole 20 mg tablet 20 mg PO BEDTIME 10/18/20 09/30/21 benztropine 1 mg tablet 1 mg PO BEDTIME 10/18/20 09/30/21 clonazepam 0.5 mg tablet 0.5 mg PO BID 10/18/20 09/30/21 risperidone 0.5 mg tablet 0.5 mg PO BID 10/18/20 09/30/21 sertraline 50 mg tablet 50 mg PO DAILY 10/18/20 09/30/21 amitriptyline 25 mg tablet 1 tab PO BEDTIME PRN 09/17/21 09/30/21 Previous Rx's Medication Instructions Recorded arformoterol 15 mcg/2 mL solution 2 ml INHALATION BID #120 cap 10/20/20 for nebulization (Brovana) montelukast 10 mg tablet 10 mg PO BEDTIME #90 tab 01/26/21 omeprazole 20 mg capsule,delayed 20 mg PO DAILY #90 cap 01/26/21 release gemfibrozil 600 mg tablet 600 mg PO BID #180 tab 02/21/21 desmopressin 0.2 mg tablet 0.4 mg PO BEDTIME #90 tab 07/17/21 ipratropium 0.5 mg-albuterol 3 mg 3 ml INHALATION QID 30 Days #270 ml 09/06/21 (2.5 mg base)/3 mL nebulization soln cyclobenzaprine 5 mg tablet 5 mg PO BEDTIME PRN #7 tab 10/02/21 methylprednisolone 32 mg tablet 32 mg PO DAILY 7 Days #7 tab 10/04/21 Allergies Allergy/AdvReac Type Severity Reaction Status Date / Time aspirin [ASA] Allergy Intermediate 'SHOCK , Verified 10/04/21 15:15 anaphylaxis prednisone [PREDNISONE] AdvReac Severe VISUAL Verified 10/04/21 15:15 HALLUCINATION ibuprofen [From MOTRIN] AdvReac Intermediate VOMITING Verified 10/04/21 15:15 nabumetone AdvReac Unknown vomiting Verified 10/04/21 15:15 Review of Systems Review of Systems: Or on the review of system he denies any fever chills cough chest pain. He has chronic shortness of breath Yes all other systems are reviewed and are negative PMFSH Past Medical History Medical History AV malformation of gastrointestinal tract GERD (gastroesophageal reflux disease) Hypertriglyceridemia Itch of skin [place] disease Morbid obesity Nocturnal enuresis Obstructive sleep apnea Orchialgia Polycythemia vera Rectosigmoid diverticulosis Schizoaffective schizophrenia Severe chronic obstructive pulmonary disease Spasm of muscle of lower back Supplemental oxygen dependent Tubular adenoma of colon Surgical History No pertinent past surgical history Family History Family History Father HTN (hypertension) Mother HTN (hypertension) Diabetes mellitus Breast cancer Brother No problems noted. Social History Social History Household Members: None Housing: Apartment Do you presently have visiting nurse or other home services: Yes (3 times a week) Alcohol intake: never Patient Tobacco Use Status: Former Tobacco user Tobacco use type: Cigarette Years Smoked: 41 yrs Smoked in Last 30 Days: Yes e-Cigarette/Vaping Use: Never Used Use of substances other than those prescribed or required for medical reasons: No Advance Directives: No Advance Directives Information Provided: Yes service: No Current occupational status: disabled Physical Exam Vital Signs: Vital Signs: Last Vital Signs Temp 98.0 F 10/15/21 15:51 Pulse 110 H 10/15/21 15:51 Resp 18 10/15/21 15:51 BP 158/81 H 10/15/21 15:51 Pulse Ox 98 10/15/21 15:51 Oxygen Flow Rate 6 10/15/21 14:49 Body Mass Index 38.2 Const: Other: On examination patient appears to be very awake and alert in not acute distress General: cooperative Nutritional Appearance: obese Orientation/consciousness: patient oriented x3 HENMT: Other: Examination of the head eyes ears nose and throat is within normal limits Face and sinus: Yes normal facial exam Neck: Other: Neck is supple full range of motion Chest: Chest palpation & inspection: normal inspection of the chest Resp: Effort & Inspection: normal respiratory effort Auscultation: clear to auscultation bilaterally Cardio: Jugular venous distension: no JVD Rate: regular rate Rhythm: regular rhythm GI: Inspection: Yes normal to inspection Palpation (GI): Soft to palpation, not firm, nontender and no guarding Percussion: Yes normal to percussion Auscultation: normal bowel sounds Skin: General skin exam: no rashes or lesions noted Neuro: General: patient oriented x3 Course Reevaluation(s) Reevaluation #1: remain asyntomatic ,he is ambulating to the bathroom ,he is not in distress,lab are pending signed off to Dr Sanon MDM - SOB/Dyspnea ECG Data Pacemaker model: NSR 112 no ischemia Discharge Plan Discharge Clinical Impression: Acute dyspnea Prescriptions: No Action arformoterol [Brovana] 15 mcg/2 mL solution for nebulization 2 ml inhalation BID Qty: 120 RF: 6 montelukast 10 mg tablet 10 mg PO BEDTIME Qty: 90 RF: 8 omeprazole 20 mg capsule,delayed release(DR/EC) 20 mg PO DAILY Qty: 90 RF: 8 gemfibrozil 600 mg tablet 600 mg PO BID Qty: 180 RF: 8 desmopressin 0.2 mg tablet 0.4 mg PO BEDTIME Qty: 90 RF: 4 cyclobenzaprine 5 mg tablet 5 mg PO BEDTIME PRN (Reason: for muscle spasm) Qty: 7 RF: 0 amitriptyline 25 mg tablet 1 tab PO BEDTIME PRN (Reason: insomnia) RF: 0 clonazepam 0.5 mg tablet 0.5 mg PO BID RF: 0 risperidone 0.5 mg tablet 0.5 mg PO BID RF: 0 aripiprazole 10 mg tablet 10 mg PO DAILY RF: 0 sertraline 50 mg tablet 50 mg PO DAILY RF: 0 benztropine 1 mg tablet 1 mg PO BEDTIME RF: 0 aripiprazole 20 mg tablet 20 mg PO BEDTIME RF: 0 ipratropium-albuterol 0.5 mg-3 mg(2.5 mg base)/3 mL solution for nebulization 3 ml inhalation QID 30 Days Qty: 270 RF: 6 methylprednisolone 32 mg tablet 32 mg PO DAILY 7 Days Qty: 7 RF: 0
[2021-10-15 17:07] LABS: Hemoglobin 12.3 g/dl (14.0-18.0); PLT CLUMP 1
[2021-10-15 17:09] LABS: Hematocrit 43.3 % (42.0-52.0); Mean Corpuscular HGB Conc 28.4 g/dl (31.0-36.0); Mean Corpuscular Hemoglobin 28.2 pg (27.0-33.0); Mean Corpuscular Volume 99.3 fL (80.0-98.0); Mean Platelet Volume 9.1 fL (9.4-12.4); Platelet Count 165 X10*3/uL (160-400); Red Blood Count 4.36 X10*6/uL (4.60-5.80); White Blood Count 10.7 X10*3/uL (4.8-10.8)
[2021-10-15 17:26] LABS: COVID-19 Test Negative (Negative); IDNOW Serial# 08D9AD1C
[2021-10-15 17:29] LABS: Venous Blood Gas Refer to POC result
[2021-10-15 17:30] LABS: Troponin-I High Sensitivity 31.6 ng/L (<3.5-35.0)
[2021-10-15 17:36] LABS: VBG Base Excess 32.6 mmol/L; VBG HCO3 68 mmol/L (22-26); VBG pCO2 137 mmHg; VBG pO2 111 mmHg
[2021-10-15 17:39] LABS: Band Neutrophils Percent 6 % (3-5); Lymphocytes Absolute Manual 0.6 X10*3/uL (1.2-4.9); Lymphocytes Percent Manual 6 % (20-40); Metamyelocytes Absolute 0.1 X10*3/uL; Metamyelocytes Percent 1 %; Monocytes Absolute Manual 0.3 X10*3/uL (0.1-1.2); Monocytes Percent Manual 3 % (2-11); Neutrophils Absolute Manual 9.6 X10*3/uL (2.0-8.3); Neutrophils Percent Manual 84 % (45-73)
[2021-10-15 17:40] LABS: Basophilic Stippling 1+ (0-2) /OIF; Polychromasia 1+ (0-2) /OIF; RBC Morphology NOTED
[2021-10-15 17:41] LABS: Platelet Estimate NORMAL (NORMAL)
[2021-10-15 17:42] LABS: Platelet Morphology Comment NORMAL; Stomatocytes 1+ (5-14) /OIF
[2021-10-15 17:44] LABS: Alanine Aminotransferase 45 U/L (0-40); Albumin Level 4.1 g/dL (3.5-5.0); Alkaline Phosphatase 72 U/L (39-117); Aspartate Amino Transferase 43 U/L (5-37); Bilirubin Total 0.3 mg/dL (0.0-1.0); Blood Urea Nitrogen 9 mg/dL (9-16); Calcium 9.4 mg/dL (8.4-10.2); Carbon Dioxide 47 mmol/L (22-29); Chloride 83 mmol/L (96-108); Creatinine Clr Calc Pharmacy 167.6; Estimated Glomerular Filt Rate > 60; Glucose Random 129 mg/dL (60-115); Potassium 4.9 mmol/L (3.3-5.1); Sodium 140 mmol/L (135-145); Total Protein 6.3 g/dL (6.5-8.0)
[2021-10-15 17:58] LABS: Anion Gap 15 (12-20)
[2021-10-15 18:03] LABS: ABG Refer to POC result
[2021-10-15 18:11] LABS: ABG Base Excess 32.8 mmol/L; ABG HCO3 69 mmol/L (22-26); ABG pCO2 138 mmHg (32-45); ABG pCO2 TC 137 mmHg (32-45); ABG pO2 138 mmHg (83-108); ABG pO2 TC 137 (83-108)
[2021-10-15] MEDS: methylPREDNISolone Sod Succ 125 MG/2 ML VIAL IVPUSH (18:17)
--- NOTE | 2021-10-15 18:25 | PC.NURSE ---
pt put on bipap settings 16/5peep, 35% pt ls very diminished and slight expiatory wheezing sinus tach on the monitor ranges from 99-111
[2021-10-15] MEDS: Albuterol Sulfate (0.083%) 2.5 MG/3 ML VIAL.NEB INHALE (19:37)
--- NOTE | 2021-10-15 19:37 | PC.NURSE ---
Pt alert and oriented x4, calm and cooperative. Pt denies pain at this time. Pt remains on Bipap, tolerating well. IV intact. Vitals stable. Pt resting in stretcher, will continue to monitor.
[2021-10-15 19:42] LABS: Troponin-I High Sensitivity 32.7 ng/L (<3.5-35.0)
[2021-10-15 21:19] LABS: ABG Refer to POC result
[2021-10-15 21:24] LABS: ABG Base Excess 35.2 mmol/L; ABG HCO3 69 mmol/L (22-26); ABG pCO2 113 mmHg (32-45); ABG pCO2 TC 112 mmHg (32-45); ABG pH 7.39 (7.35-7.45); ABG pH TC 7.39 (7.35-7.45); ABG pO2 69 mmHg (83-108); ABG pO2 TC 69 (83-108)
--- NOTE | 2021-10-15 22:18 | PHA.MEDREC ---
Pharmacy Consult ? Medication Reconciliation Pharmacy has completed the medication reconciliation.
--- NOTE | 2021-10-15 23:28 | PM.IMHP ---
History of Present Illness Date of Service: 10/16/21 Chief Complaint: Fall 56-year-old male with past medical history of COPD, REGINA not compliant with his CPAP machine, chronic respiratory failure with hypoxia and hypercapnia on 6 L of oxygen, schizoaffective schizophrenia, among others who presents to the hospital after a fall, patient reports that he had a fall in just could not move, he otherwise not really forthcoming with much history, he denies having any cough, no sputum production, no trouble breathing, he reports that he uses 6 L of oxygen at baseline and has a CPAP machine at home but is 13 years old and is not working well and has not been able to use it. He otherwise denies any chest pain, no abdominal pain nausea or vomiting, no diarrhea constipation, no urinary symptoms and no lower extremity edema On arrival to the ED found to have temp of 98.4?, heart rate in the 110s, respiratory rate of 18 to 25, blood pressure of 158/81, satting 98% on 6 L of oxygen To the ED his labs are significant for WBC count of 10.7, he is ABG showed a pH of 7.3 with a CO2 of 137, with a baseline around 100, his chest x-ray negative for any pneumonia. Patient was placed on BiPAP for several hours with his CO2 now 113 with a pH of 7.39 Patient will be admitted for observation Review of Systems Review of Systems: Yes all other systems are reviewed and are negative [facility] Medical History AV malformation of gastrointestinal tract GERD (gastroesophageal reflux disease) Hypertriglyceridemia Itch of skin Maico disease Morbid obesity Nocturnal enuresis Obstructive sleep apnea Orchialgia Polycythemia vera Rectosigmoid diverticulosis Schizoaffective schizophrenia Severe chronic obstructive pulmonary disease Spasm of muscle of lower back Supplemental oxygen dependent Tubular adenoma of colon Family History Father HTN (hypertension) Mother HTN (hypertension) Diabetes mellitus Breast cancer Brother No problems noted. Surgical History No pertinent past surgical history Social History Household Members: None Housing: Apartment Do you presently have visiting nurse or other home services: Yes (3 times a week) Alcohol intake: never Patient Tobacco Use Status: Former Tobacco user Tobacco use type: Cigarette Years Smoked: 41 yrs Smoked in Last 30 Days: Yes e-Cigarette/Vaping Use: Never Used Use of substances other than those prescribed or required for medical reasons: No Advance Directives: No Advance Directives Information Provided: Yes service: No Current occupational status: disabled Meds Allergies Allergy/AdvReac Type Severity Reaction Status Date / Time aspirin [ASA] Allergy Intermediate 'SHOCK , Verified 10/04/21 15:15 anaphylaxis prednisone [PREDNISONE] AdvReac Severe VISUAL Verified 10/04/21 15:15 HALLUCINATION ibuprofen [From MOTRIN] AdvReac Intermediate VOMITING Verified 10/04/21 15:15 nabumetone AdvReac Unknown vomiting Verified 10/04/21 15:15 Active Medications: Current Medications Pharmacy Consult (Consult Rx Perform Med Rec) 1 each MISCELLANE ONCE PRN PRN Reason: Consult order Home Medications Medication Instructions Recorded Confirmed Last Taken Type aripiprazole 10 mg tablet 10 mg PO DAILY 10/18/20 10/15/21 10/15/21 History aripiprazole 20 mg tablet 20 mg PO BEDTIME 10/18/20 10/15/21 10/14/21 History benztropine 1 mg tablet 1 mg PO BEDTIME 10/18/20 10/15/21 10/15/21 History clonazepam 0.5 mg tablet 0.5 mg PO BID 10/18/20 10/15/21 10/15/21 History risperidone 0.5 mg tablet 0.5 mg PO BID 10/18/20 10/15/21 10/15/21 History sertraline 50 mg tablet 50 mg PO DAILY 10/18/20 10/15/21 10/15/21 History amitriptyline 25 mg tablet 1 tab PO BEDTIME PRN 09/17/21 10/15/21 10/14/21 History cetirizine 10 mg tablet (Zyrtec) 10 mg PO DAILY PRN 10/15/21 10/15/21 10/15/21 History Physical Exam Vital Signs and Narrative: Vital Signs: Last Vital Signs Temp 98.2 F 10/15/21 21:35 Pulse 101 H 10/15/21 21:35 Resp 20 10/15/21 21:35 BP 133/70 10/15/21 21:35 Pulse Ox 92 10/15/21 21:35 Oxygen Flow Rate 6 10/15/21 14:49 Body Mass Index 38.2 Const: General: cooperative and no acute distress Orientation/consciousness: patient oriented x3 Eyes: General: appearance normal, both eyes and all related structures Pupils: Equal, round and reactive pupils present Resp: Effort & Inspection: normal respiratory effort Auscultation: clear to auscultation bilaterally Cardio: Rate: regular rate Rhythm: regular rhythm GI: Palpation (GI): Soft to palpation Auscultation: normal bowel sounds Skin: General skin exam: no rashes or lesions noted Neuro: General: patient oriented x3 Cranial nerves: Yes Equal, round and reactive pupils present Cognition (Neuro): normal cognition Extrem: General: Yes normal to inspection and Yes no pedal edema Results Labs CBC and Chem 7: 10/15/21 16:48 10/15/21 16:48 Labs: Laboratory Results - last 24 hr 10/15/21 10/15/21 10/15/21 16:46 16:48 16:48 MCV 99.3 H MCH 28.2 MCHC 28.4 L RDW 14.0 Plt Count 165 MPV 9.1 L Immature Gran % (Auto) Cancelled Neut % (Auto) Cancelled Lymph % (Auto) Cancelled Tift % (Auto) Cancelled Eos % (Auto) Cancelled Baso % (Auto) Cancelled Lymph # (Auto) Cancelled Tift # (Auto) Cancelled Eos # (Auto) Cancelled Baso # (Auto) Cancelled Abs Immat Gran (auto) Cancelled Absolute Neuts (auto) Cancelled Absolute Nucleated RBC 0.000 Nucleated RBC % (auto) 0.0 Neutrophils % (Manual) 84 H Band Neutrophils % 6 H Lymphocytes % (Manual) 6 L Monocytes % (Manual) 3 Metamyelocytes % 1 Abs Neuts (Manual) 9.6 H Lymphocytes # (Manual) 0.6 L Monocytes # (Manual) 0.3 Metamyelocytes # 0.1 Platelet Estimate NORMAL Plt Morphology Comment NORMAL RBC Morphology NOTED Polychromasia 1+ (0-2) Basophilic Stippling 1+ (0-2) Stomatocytes 1+ (5-14) O2 Saturation ABG pH at Pt Temp ABG pH (Temp Correct) ABG pCO2 at Pt Temp ABG pCO2 (Temp Corrct ABG pO2 at Pt Temp ABG pO2 (Temp Correct ABG HCO3 ABG Base Excess (Actual) VBG pH VBG pCO2 VBG pO2 VBG HCO3 VBG O2 Saturation VBG Base Excess Anion Gap 15 Estim Creat Clear Calc 167.6 Estimated GFR > 60 Random Glucose 129 H D Calcium 9.4 Total Bilirubin 0.3 AST 43 H D ALT 45 H Alkaline Phosphatase 72 Troponin I High Sens Total Protein 6.3 L Albumin 4.1 COVID-19 (TAL) Negative COVID-19 Clin Com See Note 10/15/21 10/15/21 10/15/21 16:48 17:25 17:59 MCV MCH MCHC RDW Plt Count MPV Immature Gran % (Auto) Neut % (Auto) Lymph % (Auto) Tift % (Auto) Eos % (Auto) Baso % (Auto) Lymph # (Auto) Tift # (Auto) Eos # (Auto) Baso # (Auto) Abs Immat Gran (auto) Absolute Neuts (auto) Absolute Nucleated RBC Nucleated RBC % (auto) Neutrophils % (Manual) Band Neutrophils % Lymphocytes % (Manual) Monocytes % (Manual) Metamyelocytes % Abs Neuts (Manual) Lymphocytes # (Manual) Monocytes # (Manual) Metamyelocytes # Platelet Estimate Plt Morphology Comment RBC Morphology Polychromasia Basophilic Stippling Stomatocytes O2 Saturation 99.0 ABG pH at Pt Temp 7.30 L ABG pH (Temp Correct) 7.30 L ABG pCO2 at Pt Temp 138 H* ABG pCO2 (Temp Corrct 137 H* ABG pO2 at Pt Temp 138 H ABG pO2 (Temp Correct 137 H ABG HCO3 69 H ABG Base Excess (Actual) 32.8 VBG pH 7.30 L VBG pCO2 137 VBG pO2 111 VBG HCO3 68 H VBG O2 Saturation 98.0 VBG Base Excess 32.6 Anion Gap Estim Creat Clear Calc Estimated GFR Random Glucose Calcium Total Bilirubin AST ALT Alkaline Phosphatase Troponin I High Sens 31.6 Total Protein Albumin COVID-19 (TAL) COVID-19 Clin Com 10/15/21 10/15/21 19:19 21:15 MCV MCH MCHC RDW Plt Count MPV Immature Gran % (Auto) Neut % (Auto) Lymph % (Auto) Tift % (Auto) Eos % (Auto) Baso % (Auto) Lymph # (Auto) Tift # (Auto) Eos # (Auto) Baso # (Auto) Abs Immat Gran (auto) Absolute Neuts (auto) Absolute Nucleated RBC Nucleated RBC % (auto) Neutrophils % (Manual) Band Neutrophils % Lymphocytes % (Manual) Monocytes % (Manual) Metamyelocytes % Abs Neuts (Manual) Lymphocytes # (Manual) Monocytes # (Manual) Metamyelocytes # Platelet Estimate Plt Morphology Comment RBC Morphology Polychromasia Basophilic Stippling Stomatocytes O2 Saturation 92.0 ABG pH at Pt Temp 7.39 ABG pH (Temp Correct) 7.39 ABG pCO2 at Pt Temp 113 H* ABG pCO2 (Temp Corrct 112 H* ABG pO2 at Pt Temp 69 L ABG pO2 (Temp Correct 69 L ABG HCO3 69 H ABG Base Excess (Actual) 35.2 VBG pH VBG pCO2 VBG pO2 VBG HCO3 VBG O2 Saturation VBG Base Excess Anion Gap Estim Creat Clear Calc Estimated GFR Random Glucose Calcium Total Bilirubin AST ALT Alkaline Phosphatase Troponin I High Sens 32.7 Total Protein Albumin COVID-19 (TAL) COVID-19 Clin Com Imaging Radiologist's Impressions: Impressions Chest X-Ray 10/15/21 15:05 IMPRESSION: Cardiopulmonary appearance similar to prior exam. No acute intrathoracic disease. Assessment and Plan (1) Acute hypercapnic respiratory failure: Status: Acute (2) REGINA (obstructive sleep apnea): Status: Acute 56-year-old male with past medical history of chronic hypercapnic hypoxic respiratory failure on 6 L of oxygen presents to the hospital after being 'unable to move found to have hypercapnic respiratory failure # acute hypercapnic respiratory failure - most likely secondary to his noncompliance with his CPAP/BiPAP machine - patient hemodynamically stable, mentating well, was placed on BiPAP for several hours with improvement of his pH now back to 7.39 with a CO2 of 113 - will admit with evaluation for case management/social work to help obtain CPAP/BiPAP for him for home - will repeat ABG in the morning # REGINA - CPAP at bedtime # mood disorder - continue home medications DVT prophylaxis: Lovenox Quality Stroke Does the patient have a stroke diagnosis?: No VTE Prior VTE?: No VTE Risk Level:: Medical - moderate - high VTE Device Contraindication: Treatment Not Indicated VTE Drug Contraindication: N/A - Med Ordered
[2021-10-16] VITALS (15 sets, daily range): BP systolic 114–154; BP diastolic 64–102; PULSE 92–108; RESP 17–24; TEMP 36.1–37.3; O2SAT 91–97
[2021-10-16] MEDS: Heparin Sodium,Porcine 5,000 UNIT/ML VIAL 5000 UNIT SUBCUT ×2 (00:32→14:49)
[2021-10-16] MEDS: 0.9 % Sodium Chloride Flush 3 ML SYRINGE IVFLUSH ×4 (00:33→20:01)
--- NOTE | 2021-10-16 06:22 | PC.NURSE ---
Pt remains alert and oriented x4, calm and cooperative. Pt denies pain. Pt positions himself in bed independently. Pt voided in urinal multiple times over night. Pt slept most of night. Pt weened off Bipap earlier this shift and tolerated well. Pt placed on Bipap to sleep. Vitals remain stable. IV intact. Pt resting asleep in stretcher at this time, will continue to monitor.
[2021-10-16 07:13] LABS: Hematocrit 42.7 % (42.0-52.0); Hemoglobin 12.2 g/dl (14.0-18.0); Mean Corpuscular HGB Conc 28.6 g/dl (31.0-36.0); Mean Corpuscular Hemoglobin 27.8 pg (27.0-33.0); Mean Corpuscular Volume 97.3 fL (80.0-98.0); Mean Platelet Volume 9.5 fL (9.4-12.4); Platelet Count 158 X10*3/uL (160-400); Red Blood Count 4.39 X10*6/uL (4.60-5.80); Red Cell Distribution Width 13.9 % (11.0-16.0); White Blood Count 8.7 X10*3/uL (4.8-10.8)
[2021-10-16 07:19] LABS: Glucose, Whole Blood 139 mg/dL (60-115)
[2021-10-16 07:36] LABS: Band Neutrophils Percent 7 % (3-5); Lymphocytes Absolute Manual 0.6 X10*3/uL (1.2-4.9); Lymphocytes Percent Manual 7 % (20-40); Metamyelocytes Absolute 0.5 X10*3/uL; Metamyelocytes Percent 6 %; Monocytes Absolute Manual 0.3 X10*3/uL (0.1-1.2); Monocytes Percent Manual 3 % (2-11); Myelocytes Absolute 0.1 X10*/uL; Myelocytes Percent 1 %; Neutrophils Absolute Manual 7.2 X10*3/uL (2.0-8.3); Neutrophils Percent Manual 76 % (45-73)
[2021-10-16 07:38] LABS: Basophilic Stippling 1+ (0-2) /OIF; Hypochromasia 2+ (15-30) /OIF; Platelet Estimate SLIGHTLY DECREASED (NORMAL); Platelet Morphology Comment NORMAL; Polychromasia 1+ (0-2) /OIF; RBC Morphology NOTED; Stomatocytes 2+ (15-30) /OIF
[2021-10-16 07:49] LABS: Anion Gap 11 (12-20); Blood Urea Nitrogen 12 mg/dL (9-16); Calcium 9.2 mg/dL (8.4-10.2); Chloride 85 mmol/L (96-108); Creatinine Clr Calc Pharmacy 175.4; Estimated Glomerular Filt Rate > 60; Glucose Random 142 mg/dL (60-115); Potassium 4.7 mmol/L (3.3-5.1); Sodium 141 mmol/L (135-145)
[2021-10-16] MEDS: Albuterol/Iprat 2.5/0.5MG 3 ML AMPUL.NEB INHALE ×4 (07:52→20:11)
[2021-10-16] MEDS: Sertraline HCL 50 MG TABLET PO (09:13)
[2021-10-16] MEDS: risperiDONE 0.5 MG TABLET PO ×2 (09:13→19:59)
[2021-10-16] MEDS: Omeprazole 20 MG CAPSULE.DR PO (09:13)
[2021-10-16] MEDS: ARIPiprazole 10 MG TABLET PO (09:13)
[2021-10-16] MEDS: clonazePAM 0.5 MG TABLET PO ×2 (09:13→19:59)
--- NOTE | 2021-10-16 09:27 | PC.RT ---
pt refused abg at this time. nursing aware
[2021-10-16 10:06] LABS: Venous Blood Gas Refer to POC result
[2021-10-16 10:07] LABS: VBG Base Excess 31.8 mmol/L; VBG HCO3 61 mmol/L (22-26); VBG pCO2 72 mmHg; VBG pH 7.53 (7.32-7.43); VBG pO2 50 mmHg
--- NOTE | 2021-10-16 10:18 | MHC.CM.PN ---
PATIENT LIVES WITH A ROOMMATE HE SUES A CPAP (THROUGH [facility]) HE IS SCHEDULED FOR A SLEEP STUDY ON DECEMBER 262019. HE HAS A NEW PCP APPOINTMENT WITH [facility] IN JANUARY 2022, BUT CURRENTLY HAS [facility] PCP PATIENT IS ACTIVE WITH A [facility]. 2 TIMES A WEEK FOR RN SKILLS AND FOOD EQUIPMENT SERVICE TECHNICIAN (1 HOUR DAILY) EVERY DAY. REFERRAL PLACED FOR AGENCY TO FOLLOW. PATIENT STATES THAT HIS NEW FOOD EQUIPMENT SERVICE TECHNICIAN WAS GOING TO START TODAY @ 1300.PATIENT HAS BEEN COVID VACCINATED ([facility]) INFORMATION FOUND IN EXPANSE. HE IS AWARE THAT NO HCP IS IN CHART BUT DOES STATE THAT HE HAS A COPY AT HOME HE IS ALSO AWARE THAT CASE MANAGEMENT CAN ASSIST WITH COMPLETION IF HE DECIDES TO DO SO HERE HADDAD 10/16/21 IN CHART.
[2021-10-16 10:55] LABS: Carbon Dioxide 50 mmol/L (22-29)
--- NOTE | 2021-10-16 11:35 | PM.CNPUL ---
History of Present Illness History of Present Illness Consult date: 10/16/21 Requesting physician: Greg Sarah Chief complaint: Hypercapnic resp failure Narrative: 56-year-old gentleman with underlying history of advanced COPD on 4 L at rest and 6 with exertion, chronic CO2 retention, REGINA and obesity hyperventilation syndrome, currently not using his iVAPS, schizoaffective disorder/schizophrenia admitted with mechanical fall also noted to have worsening CO2 retention data briefly required BiPAP support, now of BiPAP and back to his baseline supplemental oxygen. Patient as fully alert and appears to be at baseline to me. Review of Systems Constitutional: Constitutional: Denies daytime sleepiness, Denies excessive sweating, Denies fatigue, Denies fever(s), Denies lethargy, Denies malaise, Denies night sweats, Denies snoring and Denies weight loss Eyes: Eyes: Denies blurry vision and Denies itchy eyes ENT: Denies nasal congestion, Denies post nasal drip, Denies sinus pain, Denies sinus pressure and Denies other ( Thrush) Cardiovascular: Cardiovascular: Denies chest pain, Denies pedal edema, Denies dyspnea, Denies orthopnea and Denies paroxysmal nocturnal dyspnea Respiratory: Respiratory: Denies cough, Denies hemoptysis, Denies excessive phlegm production, Denies dyspnea, Denies snoring and Denies wheezing Gastrointestinal: Gastrointestinal: Denies abdominal pain and Denies heartburn Musculoskeletal: Musculoskeletal: Denies myalgias, Denies arthralgias and Denies joint swelling Integumentary/Breasts: Skin/Breast: Denies rash Neurologic: Denies memory loss and Denies seizure-like activity Psychiatric: Psychiatric: Denies abnormal sleep pattern, Denies anxiety and Denies memory loss Endocrine: Endocrine: Denies excessive sweating, Denies fatigue and Denies heat intolerance Hematologic/Lymphatic: Hematologic/Lymphatic: Denies easy bruising Allergic/Immunologic: Allergic/Immunologic: Denies itchy eyes, Denies seasonal rhinorrhea and Denies wheezing PMFSH Past Medical History Medical History AV malformation of gastrointestinal tract GERD (gastroesophageal reflux disease) Hypertriglyceridemia Itch of skin Maico disease Morbid obesity Nocturnal enuresis Obstructive sleep apnea Orchialgia Polycythemia vera Rectosigmoid diverticulosis Schizoaffective schizophrenia Severe chronic obstructive pulmonary disease Spasm of muscle of lower back Supplemental oxygen dependent Tubular adenoma of colon Family History Family History Father HTN (hypertension) Mother HTN (hypertension) Diabetes mellitus Breast cancer Brother No problems noted. Surgical History Surgical History No pertinent past surgical history Social History Social History Household Members: None Housing: Apartment Do you presently have visiting nurse or other home services: Yes (3 times a week) Alcohol intake: never Patient Tobacco Use Status: Former Tobacco user Tobacco use type: Cigarette Years Smoked: 41 yrs Smoked in Last 30 Days: Yes e-Cigarette/Vaping Use: Never Used Use of substances other than those prescribed or required for medical reasons: No Advance Directives: No Advance Directives Information Provided: Yes service: No Current occupational status: disabled Meds Allergies Allergy/AdvReac Type Severity Reaction Status Date / Time aspirin [ASA] Allergy Intermediate 'SHOCK , Verified 10/04/21 15:15 anaphylaxis prednisone [PREDNISONE] AdvReac Severe VISUAL Verified 10/04/21 15:15 HALLUCINATION ibuprofen [From MOTRIN] AdvReac Intermediate VOMITING Verified 10/04/21 15:15 nabumetone AdvReac Unknown vomiting Verified 10/04/21 15:15 Active Medications: Current Medications Acetaminophen (Acetaminophen Supp 650 Mg Supp.Rect) 650 mg AL Q6H PRN PRN Reason: Pain, Mild (Pain Scale 1-3) Albuterol/Ipratropium (Albuterol/Iprat 2.5/0.5mg 3 Ml Ampul.Neb) 3 ml INHALE QID [facility] Last Admin: 10/16/21 11:28 Dose: 3 ml Documented by: Amitriptyline HCl (Amitriptyline Hcl 25 Mg Tablet) 25 mg PO BEDTIME PRN PRN Reason: insomnia Aripiprazole (Aripiprazole 20 Mg Tablet) 20 mg PO BEDTIME SHAYNE Aripiprazole (Aripiprazole 10 Mg Tablet) 10 mg PO DAILY [facility] Last Admin: 10/16/21 09:13 Dose: 10 mg Documented by: Benztropine Mesylate (Benztropine Mesylate 1 Mg Tablet) 1 mg PO BEDTIME SHAYNE Clonazepam (Clonazepam 0.5 Mg Tablet) 0.5 mg PO BID [facility] Last Admin: 10/16/21 09:13 Dose: 0.5 mg Documented by: Cyclobenzaprine HCl (Cyclobenzaprine Hcl 5 Mg Tablet) 5 mg PO BEDTIME PRN PRN Reason: for muscle spasm Desmopressin Acetate (Desmopressin Acetate 0.2 Mg Tablet) 0.4 mg PO BEDTIME [facility] Dextrose (Dextrose 50 % 25 Gm/50 Ml Vial) 25 gm IVPUSH Q15M PRN; Protocol PRN Reason: per Hypoglycemia Standing Ord. Docusate Sodium (Docusate Sodium 100 Mg Capsule) 100 mg PO DAILY PRN PRN Reason: Constipation Glucose (Glucose Gel 15 Gm Gel..Gram.) 15 gm PO Q15M PRN; Protocol PRN Reason: per Hypoglycemia Standing Ord. Heparin Sodium (Porcine) (Heparin Sodium,Porcine 5,000 Unit/Ml Vial) 5,000 unit SUBCUT Q12H [facility] Last Admin: 10/16/21 00:32 Dose: 5,000 unit Documented by: Insulin Human Lispro (Insulin Lispro 100 Unit/Ml 3 Ml Vial) 0 unit SUBCUT QIDACHS [facility]; Protocol Last Admin: 10/16/21 07:16 Dose: Not Given Documented by: Loratadine (Loratadine 10 Mg Tablet) 10 mg PO DAILY PRN PRN Reason: Allergy Symptoms Montelukast Sodium (Montelukast Sodium 10 Mg Tablet) 10 mg PO BEDTIME [facility] Non-Formulary Medication (Arformoterol [Brovana]) 2 ml INHALE BID [facility] Omeprazole (Omeprazole 20 Mg Capsule.) 20 mg PO DAILY [facility] Last Admin: 10/16/21 09:13 Dose: 20 mg Documented by: Ondansetron HCl (Ondansetron Hcl 4 Mg/2 Ml Vial) 4 mg IVPUSH Q8H PRN PRN Reason: Nausea and Vomiting Pharmacy Consult (Consult Rx Perform Med Rec) 1 each MISCELLANE ONCE PRN PRN Reason: Consult order Risperidone (Risperidone 0.5 Mg Tablet) 0.5 mg PO BID [facility] Last Admin: 10/16/21 09:13 Dose: 0.5 mg Documented by: Sertraline HCl (Sertraline Hcl 50 Mg Tablet) 50 mg PO DAILY [facility] Last Admin: 10/16/21 09:13 Dose: 50 mg Documented by: Sodium Chloride (0.9 % Sodium Chloride Flush 3 Ml Syringe) 3 ml IVFLUSH QSHIFT [facility] Last Admin: 10/16/21 07:16 Dose: 3 ml Documented by: Home Medications Medication Instructions Recorded Confirmed Last Taken Type aripiprazole 10 mg tablet 10 mg PO DAILY 10/18/20 10/15/21 10/15/21 History aripiprazole 20 mg tablet 20 mg PO BEDTIME 10/18/20 10/15/21 10/14/21 History benztropine 1 mg tablet 1 mg PO BEDTIME 10/18/20 10/15/21 10/15/21 History clonazepam 0.5 mg tablet 0.5 mg PO BID 10/18/20 10/15/21 10/15/21 History risperidone 0.5 mg tablet 0.5 mg PO BID 10/18/20 10/15/21 10/15/21 History sertraline 50 mg tablet 50 mg PO DAILY 10/18/20 10/15/21 10/15/21 History amitriptyline 25 mg tablet 1 tab PO BEDTIME PRN 09/17/21 10/15/21 10/14/21 History cetirizine 10 mg tablet (Zyrtec) 10 mg PO DAILY PRN 10/15/21 10/15/21 10/15/21 History Physical Exam Vital Signs: Vital Signs: Last Vital Signs Temp 97.8 F 10/16/21 07:15 Pulse 106 H 10/16/21 11:28 Resp 20 10/16/21 07:15 BP 141/84 H 10/16/21 07:15 Pulse Ox 94 10/16/21 07:15 Oxygen Flow Rate 6 10/15/21 14:49 Body Mass Index 38.2 Const: General: no acute distress, alert and awake Nutritional Appearance: obese Eyes: Sclerae: sclerae normal EOM: EOMs intact bilaterally Neck: Neck: Yes no lymphadenopathy, Yes trachea midline and Yes supple Resp: Effort & Inspection: normal respiratory effort and no respiratory distress Auscultation: clear to auscultation bilaterally Cardio: Rate: regular rate Rhythm: regular rhythm Heart sounds: no gallops, no murmurs and no rubs GI: Palpation (GI): Soft to palpation and Other GI palpation findings present ( Nontender) Auscultation: normal bowel sounds Extrem: General: Yes no pedal edema, No clubbing and No cyanosis Results Laboratory Findings CBC and BMP: 10/16/21 06:52 10/16/21 06:52 Abnormal lab findings: Abnormal Labs 10/15/21 10/15/21 10/15/21 16:48 16:48 17:25 RBC 4.36 L Hgb 12.3 L MCV 99.3 H MCHC 28.4 L Plt Count MPV 9.1 L Neutrophils % (Manual) 84 H Band Neutrophils % 6 H Lymphocytes % (Manual) 6 L Abs Neuts (Manual) 9.6 H Lymphocytes # (Manual) 0.6 L ABG pH at Pt Temp ABG pH (Temp Correct) ABG pCO2 at Pt Temp ABG pCO2 (Temp Corrct ABG pO2 at Pt Temp ABG pO2 (Temp Correct ABG HCO3 VBG pH 7.30 L VBG HCO3 68 H Chloride 83 L Carbon Dioxide 47 H* D Anion Gap POC Glucose Random Glucose 129 H D AST 43 H D ALT 45 H Total Protein 6.3 L 10/15/21 10/15/21 10/16/21 17:59 21:15 06:52 RBC 4.39 L Hgb 12.2 L MCV MCHC 28.6 L Plt Count 158 L MPV Neutrophils % (Manual) 76 H Band Neutrophils % 7 H Lymphocytes % (Manual) 7 L Abs Neuts (Manual) Lymphocytes # (Manual) 0.6 L ABG pH at Pt Temp 7.30 L ABG pH (Temp Correct) 7.30 L ABG pCO2 at Pt Temp 138 H* 113 H* ABG pCO2 (Temp Corrct 137 H* 112 H* ABG pO2 at Pt Temp 138 H 69 L ABG pO2 (Temp Correct 137 H 69 L ABG HCO3 69 H 69 H VBG pH VBG HCO3 Chloride Carbon Dioxide Anion Gap POC Glucose Random Glucose AST ALT Total Protein 10/16/21 10/16/21 10/16/21 06:52 07:13 09:52 RBC Hgb MCV MCHC Plt Count MPV Neutrophils % (Manual) Band Neutrophils % Lymphocytes % (Manual) Abs Neuts (Manual) Lymphocytes # (Manual) ABG pH at Pt Temp ABG pH (Temp Correct) ABG pCO2 at Pt Temp ABG pCO2 (Temp Corrct ABG pO2 at Pt Temp ABG pO2 (Temp Correct ABG HCO3 VBG pH 7.53 H VBG HCO3 61 H Chloride 85 L Carbon Dioxide 50 H* Anion Gap 11 L POC Glucose 139 H Random Glucose 142 H AST ALT Total Protein Assessment and Plan (1) Chronic respiratory failure with hypoxia and hypercapnia: Status: Acute (2) REGINA (obstructive sleep apnea): Status: Acute (3) Obesity hypoventilation syndrome: Status: Acute (4) COPD (chronic obstructive pulmonary disease): Status: Acute Impression: 56-year-old gentleman with underlying advanced COPD supplemental oxygen 4L at rest and 6 L with exertion, obesity hyperventilation and obstructive sleep apnea on iVAPS, unable to use his noninvasive positive pressure ventilation machine and pending new sleep study, initially presented with a mechanical fall and noted to have worsening of underlying CO2 retention, likely secondary to hypoxia when at rest and no assay is from nocturnal noninvasive ventilation. Patient briefly required BiPAP. He is on his baseline supplemental oxygen at this time. There is no evidence of ongoing COPD exacerbation. Recommendation: From pulmonary perspective patient is at his baseline. With continue his home regimen. Patient is pending repeat sleep study. At this time would suggest to discharge him with an new fullface mask to bridge him to his new sleep study. Procedures Date of Service Date of Service: 10/16/21
[2021-10-16 15:36] LABS: Glucose, Whole Blood 214 mg/dL (60-115)
--- NOTE | 2021-10-16 16:08 | HO.PM.IMPN ---
Subjective Subjective Date of Service: 10/16/21 Interval History: COPD//REGINA Review of Systems Shortness of breath seems improving with rescue BiPAP, and nebs. Denies any chest pain or abdominal pain or nausea vomiting or fever chills. Physical Exam Vital Signs: Vital Signs: Last Vital Signs Temp 98.2 F 10/16/21 15:19 Pulse 108 H 10/16/21 15:19 Resp 18 10/16/21 15:19 BP 151/72 H 10/16/21 15:19 Pulse Ox 93 10/16/21 15:19 Oxygen Flow Rate 6 10/15/21 14:49 Body Mass Index 38.2 Physical exam: Appearance: Alert.? Oriented X3.? not in distress.? Eyes: Pupils equal, round and reactive to light.? Sclera nonicteric.? ENT: Pharynx normal.? Moist mucous membranes. cvs: rrr, [id number] , no murmur res: Air entry improving, slightly diminished at bases, no rales or wheezing. abd: no rebound or guarding ,nt, bs present. ext pulses present , no cyanosis ,Gait well balanced well coordinated. neuro: axo3 , nonfocal. Objective Data Active Medications Acetaminophen (Acetaminophen Supp 650 Mg Supp.Rect) 650 mg NV Q6H PRN PRN Reason: Pain, Mild (Pain Scale 1-3) Albuterol/Ipratropium (Albuterol/Iprat 2.5/0.5mg 3 Ml Ampul.Neb) 3 ml INHALE RQID [facility] Last Admin: 10/16/21 14:59 Dose: 3 ml Documented by: PETER Amitriptyline HCl (Amitriptyline Hcl 25 Mg Tablet) 25 mg PO BEDTIME PRN PRN Reason: insomnia Aripiprazole (Aripiprazole 20 Mg Tablet) 20 mg PO BEDTIME SHAYNE Aripiprazole (Aripiprazole 10 Mg Tablet) 10 mg PO DAILY [facility] Last Admin: 10/16/21 09:13 Dose: 10 mg Documented by: LIZANDRO Benztropine Mesylate (Benztropine Mesylate 1 Mg Tablet) 1 mg PO BEDTIME SHAYNE Clonazepam (Clonazepam 0.5 Mg Tablet) 0.5 mg PO BID [facility] Last Admin: 10/16/21 09:13 Dose: 0.5 mg Documented by: LIZANDRO Cyclobenzaprine HCl (Cyclobenzaprine Hcl 5 Mg Tablet) 5 mg PO BEDTIME PRN PRN Reason: for muscle spasm Desmopressin Acetate (Desmopressin Acetate 0.2 Mg Tablet) 0.4 mg PO BEDTIME SHAYNE Dextrose (Dextrose 50 % 25 Gm/50 Ml Vial) 25 gm IVPUSH Q15M PRN; Protocol PRN Reason: per Hypoglycemia Standing Ord. Docusate Sodium (Docusate Sodium 100 Mg Capsule) 100 mg PO DAILY PRN PRN Reason: Constipation Glucose (Glucose Gel 15 Gm Gel..Gram.) 15 gm PO Q15M PRN; Protocol PRN Reason: per Hypoglycemia Standing Ord. Heparin Sodium (Porcine) (Heparin Sodium,Porcine 5,000 Unit/Ml Vial) 5,000 unit SUBCUT Q12H [facility] Last Admin: 10/16/21 14:49 Dose: 5,000 unit Documented by: RADAMES Insulin Human Lispro (Insulin Lispro 100 Unit/Ml 3 Ml Vial) 0 unit SUBCUT QIDACHS [facility]; Protocol Last Admin: 10/16/21 14:39 Dose: Not Given Documented by: RADAMES Non-Admin Reason: in ED Loratadine (Loratadine 10 Mg Tablet) 10 mg PO DAILY PRN PRN Reason: Allergy Symptoms Montelukast Sodium (Montelukast Sodium 10 Mg Tablet) 10 mg PO BEDTIME [facility] Patient Own Medication ( Arformoterol [ Brovana] 15 Mcg/2 Ml Solution For Nebulization) 1 each BUCCAL BID SHAYNE Omeprazole (Omeprazole 20 Mg Capsule.Dr) 20 mg PO DAILY [facility] Last Admin: 10/16/21 09:13 Dose: 20 mg Documented by: LIZANDRO Ondansetron HCl (Ondansetron Hcl 4 Mg/2 Ml Vial) 4 mg IVPUSH Q8H PRN PRN Reason: Nausea and Vomiting Pharmacy Consult (Consult Rx Perform Med Rec) 1 each MISCELLANE ONCE PRN PRN Reason: Consult order Risperidone (Risperidone 0.5 Mg Tablet) 0.5 mg PO BID [facility] Last Admin: 10/16/21 09:13 Dose: 0.5 mg Documented by: LIZANDRO Sertraline HCl (Sertraline Hcl 50 Mg Tablet) 50 mg PO DAILY [facility] Last Admin: 10/16/21 09:13 Dose: 50 mg Documented by: HO.COOPEB Sodium Chloride (0.9 % Sodium Chloride Flush 3 Ml Syringe) 3 ml IVFLUSH QSHIFT SHAYNE Last Admin: 10/16/21 16:03 Dose: 3 ml Documented by: VIMAL Labs CBC & Chem 7: 10/16/21 06:52 10/16/21 06:52 Labs: Laboratory Results - last 24 hr 10/15/21 10/15/21 10/15/21 16:46 16:48 16:48 MCV 99.3 H MCH 28.2 MCHC 28.4 L RDW 14.0 Plt Count 165 MPV 9.1 L Immature Gran % (Auto) Cancelled Neut % (Auto) Cancelled Lymph % (Auto) Cancelled Benson % (Auto) Cancelled Eos % (Auto) Cancelled Baso % (Auto) Cancelled Lymph # (Auto) Cancelled Benson # (Auto) Cancelled Eos # (Auto) Cancelled Baso # (Auto) Cancelled Abs Immat Gran (auto) Cancelled Absolute Neuts (auto) Cancelled Absolute Nucleated RBC 0.000 Nucleated RBC % (auto) 0.0 Neutrophils % (Manual) 84 H Band Neutrophils % 6 H Lymphocytes % (Manual) 6 L Monocytes % (Manual) 3 Metamyelocytes % 1 Myelocytes % Abs Neuts (Manual) 9.6 H Lymphocytes # (Manual) 0.6 L Monocytes # (Manual) 0.3 Metamyelocytes # 0.1 Myelocytes # Platelet Estimate NORMAL Plt Morphology Comment NORMAL RBC Morphology NOTED Polychromasia 1+ (0-2) Hypochromasia Basophilic Stippling 1+ (0-2) Stomatocytes 1+ (5-14) O2 Saturation ABG pH at Pt Temp ABG pH (Temp Correct) ABG pCO2 at Pt Temp ABG pCO2 (Temp Corrct ABG pO2 at Pt Temp ABG pO2 (Temp Correct ABG HCO3 ABG Base Excess (Actual) VBG pH VBG pCO2 VBG pO2 VBG HCO3 VBG O2 Saturation VBG Base Excess Anion Gap 15 Estim Creat Clear Calc 167.6 Estimated GFR > 60 POC Glucose Random Glucose 129 H D Calcium 9.4 Total Bilirubin 0.3 AST 43 H D ALT 45 H Alkaline Phosphatase 72 Troponin I High Sens Total Protein 6.3 L Albumin 4.1 COVID-19 (TAL) Negative COVID-19 Clin Com See Note 10/15/21 10/15/21 10/15/21 16:48 17:25 17:59 MCV MCH MCHC RDW Plt Count MPV Immature Gran % (Auto) Neut % (Auto) Lymph % (Auto) Benson % (Auto) Eos % (Auto) Baso % (Auto) Lymph # (Auto) Benson # (Auto) Eos # (Auto) Baso # (Auto) Abs Immat Gran (auto) Absolute Neuts (auto) Absolute Nucleated RBC Nucleated RBC % (auto) Neutrophils % (Manual) Band Neutrophils % Lymphocytes % (Manual) Monocytes % (Manual) Metamyelocytes % Myelocytes % Abs Neuts (Manual) Lymphocytes # (Manual) Monocytes # (Manual) Metamyelocytes # Myelocytes # Platelet Estimate Plt Morphology Comment RBC Morphology Polychromasia Hypochromasia Basophilic Stippling Stomatocytes O2 Saturation 99.0 ABG pH at Pt Temp 7.30 L ABG pH (Temp Correct) 7.30 L ABG pCO2 at Pt Temp 138 H* ABG pCO2 (Temp Corrct 137 H* ABG pO2 at Pt Temp 138 H ABG pO2 (Temp Correct 137 H ABG HCO3 69 H ABG Base Excess (Actual) 32.8 VBG pH 7.30 L VBG pCO2 137 VBG pO2 111 VBG HCO3 68 H VBG O2 Saturation 98.0 VBG Base Excess 32.6 Anion Gap Estim Creat Clear Calc Estimated GFR POC Glucose Random Glucose Calcium Total Bilirubin AST ALT Alkaline Phosphatase Troponin I High Sens 31.6 Total Protein Albumin COVID-19 (TAL) COVID-19 Clin Com 10/15/21 10/15/21 10/16/21 19:19 21:15 06:52 MCV 97.3 MCH 27.8 MCHC 28.6 L RDW 13.9 Plt Count 158 L MPV 9.5 Immature Gran % (Auto) Cancelled Neut % (Auto) Cancelled Lymph % (Auto) Cancelled Benson % (Auto) Cancelled Eos % (Auto) Cancelled Baso % (Auto) Cancelled Lymph # (Auto) Cancelled Benson # (Auto) Cancelled Eos # (Auto) Cancelled Baso # (Auto) Cancelled Abs Immat Gran (auto) Cancelled Absolute Neuts (auto) Cancelled Absolute Nucleated RBC 0.000 Nucleated RBC % (auto) 0.0 Neutrophils % (Manual) 76 H Band Neutrophils % 7 H Lymphocytes % (Manual) 7 L Monocytes % (Manual) 3 Metamyelocytes % 6 Myelocytes % 1 Abs Neuts (Manual) 7.2 Lymphocytes # (Manual) 0.6 L Monocytes # (Manual) 0.3 Metamyelocytes # 0.5 Myelocytes # 0.1 Platelet Estimate SLIGHTLY DECREASED Plt Morphology Comment NORMAL RBC Morphology NOTED Polychromasia 1+ (0-2) Hypochromasia 2+ (15-30) Basophilic Stippling 1+ (0-2) Stomatocytes 2+ (15-30) O2 Saturation 92.0 ABG pH at Pt Temp 7.39 ABG pH (Temp Correct) 7.39 ABG pCO2 at Pt Temp 113 H* ABG pCO2 (Temp Corrct 112 H* ABG pO2 at Pt Temp 69 L ABG pO2 (Temp Correct 69 L ABG HCO3 69 H ABG Base Excess (Actual) 35.2 VBG pH VBG pCO2 VBG pO2 VBG HCO3 VBG O2 Saturation VBG Base Excess Anion Gap Estim Creat Clear Calc Estimated GFR POC Glucose Random Glucose Calcium Total Bilirubin AST ALT Alkaline Phosphatase Troponin I High Sens 32.7 Total Protein Albumin COVID-19 (TAL) COVID-19 Clin Com 10/16/21 10/16/21 10/16/21 06:52 07:13 09:52 MCV MCH MCHC RDW Plt Count MPV Immature Gran % (Auto) Neut % (Auto) Lymph % (Auto) Benson % (Auto) Eos % (Auto) Baso % (Auto) Lymph # (Auto) Benson # (Auto) Eos # (Auto) Baso # (Auto) Abs Immat Gran (auto) Absolute Neuts (auto) Absolute Nucleated RBC Nucleated RBC % (auto) Neutrophils % (Manual) Band Neutrophils % Lymphocytes % (Manual) Monocytes % (Manual) Metamyelocytes % Myelocytes % Abs Neuts (Manual) Lymphocytes # (Manual) Monocytes # (Manual) Metamyelocytes # Myelocytes # Platelet Estimate Plt Morphology Comment RBC Morphology Polychromasia Hypochromasia Basophilic Stippling Stomatocytes O2 Saturation ABG pH at Pt Temp ABG pH (Temp Correct) ABG pCO2 at Pt Temp ABG pCO2 (Temp Corrct ABG pO2 at Pt Temp ABG pO2 (Temp Correct ABG HCO3 ABG Base Excess (Actual) VBG pH 7.53 H VBG pCO2 72 VBG pO2 50 VBG HCO3 61 H VBG O2 Saturation 82.0 VBG Base Excess 31.8 Anion Gap 11 L Estim Creat Clear Calc 175.4 Estimated GFR > 60 POC Glucose 139 H Random Glucose 142 H Calcium 9.2 Total Bilirubin AST ALT Alkaline Phosphatase Troponin I High Sens Total Protein Albumin COVID-19 (TAL) COVID-19 Clin Com 10/16/21 15:19 MCV MCH MCHC RDW Plt Count MPV Immature Gran % (Auto) Neut % (Auto) Lymph % (Auto) Benson % (Auto) Eos % (Auto) Baso % (Auto) Lymph # (Auto) Benson # (Auto) Eos # (Auto) Baso # (Auto) Abs Immat Gran (auto) Absolute Neuts (auto) Absolute Nucleated RBC Nucleated RBC % (auto) Neutrophils % (Manual) Band Neutrophils % Lymphocytes % (Manual) Monocytes % (Manual) Metamyelocytes % Myelocytes % Abs Neuts (Manual) Lymphocytes # (Manual) Monocytes # (Manual) Metamyelocytes # Myelocytes # Platelet Estimate Plt Morphology Comment RBC Morphology Polychromasia Hypochromasia Basophilic Stippling Stomatocytes O2 Saturation ABG pH at Pt Temp ABG pH (Temp Correct) ABG pCO2 at Pt Temp ABG pCO2 (Temp Corrct ABG pO2 at Pt Temp ABG pO2 (Temp Correct ABG HCO3 ABG Base Excess (Actual) VBG pH VBG pCO2 VBG pO2 VBG HCO3 VBG O2 Saturation VBG Base Excess Anion Gap Estim Creat Clear Calc Estimated GFR POC Glucose 214 H Random Glucose Calcium Total Bilirubin AST ALT Alkaline Phosphatase Troponin I High Sens Total Protein Albumin COVID-19 (TAL) COVID-19 Clin Com Assessment and Plan (1) Obesity hypoventilation syndrome: Status: Acute (2) Acute hypercapnic respiratory failure: Status: Acute Assessment and Plan: 56-year-old male with past medical history of chronic hypercapnic hypoxic respiratory failure on 6 L of oxygen presents to the hospital after being 'unable to move found to have hypercapnic respiratory failure 1.acute hypercapnic respiratory failure- most likely secondary to his noncompliance with his CPAP/BiPAP machine - patient hemodynamically stable, mentating well, was placed on BiPAP for several hours with improvement of his pH now back to 7.39 with a CO2 of 113 - will admit with evaluation for case management/social work to help obtain CPAP/BiPAP for him for home ABG buckley seems improving, patient will need overnight sleep study as per Pulmonary. Respiratory res is aware about above. 2.REGINA - CPAP at bedtime 3. mood disorder - continue home medications DVT prophylaxis:? Lovenox Quality Stroke Does the patient have a stroke diagnosis?: No VTE Prior VTE?: No VTE Risk Level:: Medical - moderate - high VTE Device Contraindication: Treatment Not Indicated VTE Drug Contraindication: N/A - Med Ordered
[2021-10-16 16:29] LABS: Glucose, Whole Blood 143 mg/dL (60-115)
[2021-10-16] MEDS: ARIPiprazole 20 MG TABLET PO (19:59)
[2021-10-16] MEDS: Benztropine Mesylate 1 MG TABLET PO (19:59)
[2021-10-16] MEDS: Montelukast Sodium 10 MG TABLET PO (19:59)
[2021-10-16] MEDS: Desmopressin Acetate 0.2 MG TABLET 0.4 MG PO (19:59)
[2021-10-16 20:51] LABS: Glucose, Whole Blood 109 mg/dL (60-115)
[2021-10-17] MEDS: Heparin Sodium,Porcine 5,000 UNIT/ML VIAL 5000 UNIT SUBCUT ×2 (01:22→13:06)
[2021-10-17 04:00] VITALS: BP 144/82; PULSE 100; RESP 18; TEMP 36.6; O2SAT 95
[2021-10-17 07:42] VITALS: BP 151/78; PULSE 95; RESP 18; TEMP 36; O2SAT 93
[2021-10-17 07:57] LABS: Glucose, Whole Blood 124 mg/dL (60-115)
[2021-10-17 08:23] VITALS: PULSE 95; O2SAT 93
[2021-10-17] MEDS: Albuterol/Iprat 2.5/0.5MG 3 ML AMPUL.NEB INHALE ×2 (08:23→11:50)
[2021-10-17 09:25] LABS: Anion Gap 7 (12-20); Blood Urea Nitrogen 15 mg/dL (9-16); Calcium 8.5 mg/dL (8.4-10.2); Chloride 89 mmol/L (96-108); Creatinine Clr Calc Pharmacy 165.2; Estimated Glomerular Filt Rate > 60; Glucose Random 121 mg/dL (60-115); Sodium 142 mmol/L (135-145)
[2021-10-17] MEDS: ARIPiprazole 10 MG TABLET PO (09:51)
[2021-10-17] MEDS: Omeprazole 20 MG CAPSULE.DR PO (09:51)
[2021-10-17] MEDS: risperiDONE 0.5 MG TABLET PO (09:51)
[2021-10-17] MEDS: clonazePAM 0.5 MG TABLET PO (09:51)
[2021-10-17] MEDS: Sertraline HCL 50 MG TABLET PO (09:51)
[2021-10-17] MEDS: 0.9 % Sodium Chloride Flush 3 ML SYRINGE IVFLUSH (09:52)
[2021-10-17 11:38] LABS: Carbon Dioxide 50 mmol/L (22-29)
[2021-10-17 11:47] VITALS: BP 126/71; PULSE 97; RESP 18; TEMP 36.3; O2SAT 93
[2021-10-17 11:52] VITALS: PULSE 95; O2SAT 92
[2021-10-17 12:13] LABS: Glucose, Whole Blood 125 mg/dL (60-115)
--- NOTE | 2021-10-17 12:59 | MHC.CM.PN ---
CASE DISCUSSED W/HOSPITALIST WHO HAS CONCERNS PT WILL JUST KEEP RETURNING THIS IS SECOND ADMISSION D/T HIS BIPAP IVAP NOT WORKING, PT IS ON 5-6L OF O2 VIA AT [facility]INE. PT WILL NEED NEW SLEEP STUDY PRIOR TO REPAIRING/RECEIVING NEW BIPAP, CM SPOKE W/HEAD OF RESPIRATORY AND HE IS WORKING ON GETTING PT IN FOR A SLEEP STUDY PRIOR TO DECEMBER. HOSPITALIST DISCUSSED POSSIBILITY OF PT GOING TO PULMONARY REHAB IF PT UNABLE TO GET AN EARLIER APPT FOR SLEEP STUDY, CM HAS PLACED REFERRALS TO LOCAL FACILITIES WHO PROVIDE PULMONARY REHAB, SNF WILL NEED TO BE ABLE TO PROVIDE BIPAP-IVAP. CM WILL CONT TO FOLLOW D/C NEEDS.
[2021-10-17] MEDS: acetaZOLAMIDE 250 MG TABLET PO (13:07)
--- NOTE | 2021-10-17 13:49 | MHC.CM.PN ---
PT DISCHARGED HOME W/NEW IVAP BIPAP AND RESUMP OF [facility], PT'S FATHER HERE FOR TRANSPORT. CM CONTACTED [facility] VIA [employer] AND [phone].
--- NOTE | 2021-10-17 15:06 | P.DS_ITS ---
DS: Providers Provider Date of Service: 10/17/21 Date of admission: 10/15/21 23:28 Primary care physician: Unknown Physician Consults: 10/16/21 09:16 Consult to Pulmonology Routine Consulting Provider: Ashu Garcia Reason for consultation: acute hypoxemic /hypercarbic respiratory failure sec to copd Has provider been notified: No DS: Diagnosis Discharge Diagnosis (1) Obesity hypoventilation syndrome: Status: Acute (2) Acute hypercapnic respiratory failure: Status: Acute DS: Summary Hospital Course Hospital Course: 56yo M with COPD, REGINA, chronic hypoxic/hypercarbic respiratory failure on 5L of home O2 presenting with dyspnea, admitted for [id number] hypercarbic respiratory failure. hospital course: Patient came to the hospital because of acute hypoxic/hypercarbic respiratory failure secondary to REGINA which responded well to rescue BiPAP. Patient seen by Pulmonary and respiratory-recommended to arrange up outpatient IV AP apparatus and also elevated bicarb related to ch hypoxia/hypercarbia related compensation. Respiratory in the process of arranging that. Patient going home pulmonary did not recommend any new steroid use upon disc harge since patient had hyp hypoxemic/hypercarbic respiratory failure secondary to REGINA due to lack of IV AP. Outpatient sleep study will be arranged by Pulmonary. Above management discussed with the patient in detail length he understand and in agreement with the above plan, time spent 50 minutes and 50% time spent on counseling. Significant findings: As above. Procedures performed: None. Treatment and response: As above. Complications: None. Time Spent with Patient Time attestation: Total time spent providing and/or coordinating discharge services: Discharge coordination time: Greater than 30 minutes Quality: Stroke Does the patient have a stroke diagnosis?: No Physical Exam Vital Signs: Vital Signs: Last Vital Signs Temp 97.3 F 10/17/21 11:47 Pulse 95 10/17/21 11:52 Resp 18 10/17/21 11:47 BP 126/71 10/17/21 11:47 Pulse Ox 93 10/17/21 11:47 Oxygen Flow Rate 6 10/15/21 14:49 Body Mass Index 38.2 Appearance: Alert.? Oriented X3.? not in distress.? Eyes: Pupils equal, round and reactive to light.? Sclera nonicteric.? ENT: Pharynx normal.? Moist mucous membranes. cvs: rrr, [id number] , no murmur res:? Air entry improved, no rales or wheezing. abd: no rebound or guarding ,nt, bs present. ext pulses present , no cyanosis ,Gait well balanced well coordinated. neuro: axo3 , nonfocal. DS: Data Data Completed and Pending Labs on day of discharge: Laboratory Results - last 24 hr 10/16/21 10/16/21 10/16/21 15:19 16:25 19:57 Sodium Potassium Chloride Carbon Dioxide Anion Gap BUN Creatinine Estim Creat Clear Calc Estimated GFR POC Glucose 214 H 143 H 109 Random Glucose Calcium 10/17/21 10/17/21 10/17/21 07:41 08:16 11:46 Sodium 142 Potassium 4.0 Chloride 89 L Carbon Dioxide 50 H* Anion Gap 7 L BUN 15 Creatinine 0.69 Estim Creat Clear Calc 165.2 Estimated GFR > 60 POC Glucose 124 H 125 H Random Glucose 121 H Calcium 8.5 D Additional Comments Additional comments: cxr;IMPRESSION: Cardiopulmonary appearance similar to prior exam.No acute intrathoracic disease. Discharge Plan Discharge Patient Disposition: Home, Self-Care Discharge Diagnosis: ACUTE HYPOXEMIC/HYPERCARBIC RESPIRATORY FAILURE SECONDARY TO REGINA. Referrals: [facility] [Other] - 1 Day ([facility]) Ashu Garcia MD [Physician] - 1 Week (fu in 1week) Physician,Vaibhav J [Primary Care Provider] - 1 Week Discharge Medications: Continued arformoterol [Brovana] 15 mcg/2 mL solution for nebulization 2 ml inhalation BID Qty: 120 RF: 6 montelukast 10 mg tablet 10 mg PO BEDTIME Qty: 90 RF: 8 omeprazole 20 mg capsule,delayed release(DR/EC) 20 mg PO DAILY Qty: 90 RF: 8 gemfibrozil 600 mg tablet 600 mg PO BID Qty: 180 RF: 8 desmopressin 0.2 mg tablet 0.4 mg PO BEDTIME Qty: 90 RF: 4 cyclobenzaprine 5 mg tablet 5 mg PO BEDTIME PRN (Reason: for muscle spasm) Qty: 7 RF: 0 amitriptyline 25 mg tablet 1 tab PO BEDTIME PRN (Reason: insomnia) RF: 0 cetirizine [Zyrtec] 10 mg Tablet 10 mg PO DAILY PRN (Reason: Allergy Symptoms) RF: 0 clonazepam 0.5 mg tablet 0.5 mg PO BID RF: 0 risperidone 0.5 mg tablet 0.5 mg PO BID RF: 0 aripiprazole 10 mg tablet 10 mg PO DAILY RF: 0 sertraline 50 mg tablet 50 mg PO DAILY RF: 0 benztropine 1 mg tablet 1 mg PO BEDTIME RF: 0 aripiprazole 20 mg tablet 20 mg PO BEDTIME RF: 0 ipratropium-albuterol 0.5 mg-3 mg(2.5 mg base)/3 mL solution for nebulization 3 ml inhalation QID 30 Days Qty: 270 RF: 6 Discharge Orders: Discharge Order (Routine); Ordered 10/17/21 Ordered By: Greg Sarah Diet: advance to usual diet Activity on Discharge: As tolerated Stand Alone Forms: Patient Portal Discharge page Care Plan Goals: Patient came to the hospital because of acute hypoxic/hypercarbic respiratory failure secondary to REGINA which responded well to rescue BiPAP. Patient seen by Pulmonary and respiratory-recommended to arrange up outpatient IV AP apparatus. Respiratory in the process of arranging that. Patient going home pulmonary did not recommend any new steroid use upon discharge since patient had hyp hypoxemic/hypercarbic respiratory failure secondary to REGINA due to lack of IV AP. Outpatient sleep study will be arranged by Pulmonary. Health Concerns: As above. Plan of Treatment: As above. Assessment: As above. Discharge Date/Time: 10/17/21 13:57
== END 2021-10-17 13:57 | disposition home or self-care (01) ==
LOC: HO.ED 21:28 → HO.EDOVER 23:34 → HO.S3 10-16 12:09
PROVIDERS: Emergency Medicine; Admitting Provider Internal Medicine; Emergency Provider Emergency Medicine; PCP Internal Medicine; Visit Provider Internal Medicine
DX: J96.12 Chronic respiratory failure with hypercapnia (principal); J96.11 Chronic respiratory failure with hypoxia; J45.51 Severe persistent asthma with (acute) exacerbation; J43.9 Emphysema, unspecified; I10 Essential (primary) hypertension; E66.2 Morbid (severe) obesity with alveolar hypoventilation; Q27.33 Arteriovenous malformation of digestive system vessel; E74.04 McArdle disease; E78.1 Pure hyperglyceridemia; I49.1 Atrial premature depolarization; F41.8 Other specified anxiety disorders; F25.9 Schizoaffective disorder, unspecified; Z68.38 Body mass index [BMI] 38.0-38.9, adult; Z87.891 Personal history of nicotine dependence; Z20.822 Contact with and (suspected) exposure to COVID-19; Z82.49 Family history of ischemic heart disease and other diseases of the circulatory system; Z83.3 Family history of diabetes mellitus; Z80.3 Family history of malignant neoplasm of breast; Z88.6 Allergy status to analgesic agent; Z88.8 Allergy status to other drugs, medicaments and biological substances; Z99.81 Dependence on supplemental oxygen; Z79.4 Long term (current) use of insulin; Z79.899 Other long term (current) drug therapy
CPT/HCPCS: 36415; 36600; 71045; 80048; 80053; 82803; 82947; 84484; 85007; 85027; 87635; 93005; 94640; 94660; 96374; 96375; 99218; 99285; J2930

== ENCOUNTER → 2021-10-26 19:40 | Outpatient (REF) | payer MEDICAID, SELFPAY | LOC: HO.SL 19:40 | PROVIDERS: PCP Internal Medicine; Visit Provider Internal Medicine Pulmonary Disease | DX: G47.33 Obstructive sleep apnea (adult) (pediatric) (principal) | CPT/HCPCS: 95811 ==

== ENCOUNTER 2021-10-29 18:47 | Inpatient (IN) | payer MEDICARE, MEDICAID, SELFPAY ==
[2021-10-29] VITALS (7 sets, daily range): BP systolic 115–137; BP diastolic 62–87; PULSE 95–120; RESP 17–24; TEMP 36.4; O2SAT 74–97; BMI 46.7
--- NOTE | ~2021-10-29 | XR_ITS ---
EXAMINATION: XR CHEST CLINICAL INFORMATION: Shortness of breath and COPD COMPARISON: 10/15/2021 TECHNIQUE: Frontal view of the chest was obtained. FINDINGS: Again seen are patchy changes at both lung bases slightly increased when compared to the prior study. There is some increased opacity in the costophrenic angles small pleural effusions may be present. Heart size upper limits of normal. No gross evidence of CHF. XR/XR chest 1V IMPRESSION: Slight increase in patchy densities seen at both lung bases with possible small pleural effusions.
--- NOTE | 2021-10-29 19:00 | ECG_ITS ---
Test Reason : SOB Blood Pressure : / mmHG Vent. Rate : 114 BPM Atrial Rate : 114 BPM P-R Int : 132 ms QRS Dur : 092 ms QT Int : 322 ms P-R-T Axes : 057 027 067 degrees QTc Int : 443 ms Sinus tachycardia Possible Left atrial enlargement Left axis deviation Abnormal ECG When compared with ECG of 15-OCT-2021 15:45, Premature atrial complexes are no longer Present Referred By: Gracie Wren Electronically Signed By:MARGOT CLARK MD
--- NOTE | 2021-10-29 19:03 | ED_ITS ---
HPI - SOB/Dyspnea General Chief Complaint: Dyspnea Stated Complaint: sob copd Time Seen by Provider: 10/29/21 18:59 Source: patient and EMS Mode of arrival: EMS Limitations: no limitations History of Present Illness HPI Narrative: Patient is brought to the emergency room by EMS. Seems that earlier today patient was found confused, saturating in the low 70s on 5 L oxygen. According to EMS, patient was wearing his oxygen, O2 tubing is over 30 feet long. Patient states that he has not been coughing more than usual. Patient states that he has not been taking his steroids as prescribed for the last 2 days. Patient used 1 nebulization treatment prior to arrival. In the ambulance, patient did not receive any additional treatments. According to the patient's family, they reported to EMS that the patient seems slow to answer, more confused. Patient denies chest pain. Related Data Home Medications Medication Instructions Recorded Confirmed aripiprazole 10 mg tablet 10 mg PO DAILY 10/18/20 10/29/21 aripiprazole 20 mg tablet 20 mg PO BEDTIME 10/18/20 10/29/21 benztropine 1 mg tablet 1 mg PO BEDTIME 10/18/20 10/29/21 clonazepam 0.5 mg tablet 0.5 mg PO BID 10/18/20 10/29/21 risperidone 0.5 mg tablet 0.5 mg PO BID 10/18/20 10/29/21 sertraline 50 mg tablet 50 mg PO DAILY 10/18/20 10/29/21 amitriptyline 25 mg tablet 1 tab PO BEDTIME PRN 09/17/21 10/29/21 cetirizine 10 mg tablet (Zyrtec) 10 mg PO DAILY PRN 10/15/21 10/29/21 ipratropium 0.5 mg-albuterol 3 mg 3 ml INHALATION QID 10/29/21 10/29/21 (2.5 mg base)/3 mL nebulization soln loratadine 10 mg tablet 1 tab PO DAILY 10/29/21 10/29/21 omeprazole 20 mg capsule,delayed 20 mg PO DAILY@0630 10/29/21 10/29/21 release triamcinolone acetonide 0.5 % 1 appl TOPICAL BID PRN 10/29/21 10/29/21 topical ointment Previous Rx's Medication Instructions Recorded arformoterol 15 mcg/2 mL solution 2 ml INHALATION BID #120 cap 10/20/20 for nebulization (Brovana) montelukast 10 mg tablet 10 mg PO BEDTIME #90 tab 01/26/21 gemfibrozil 600 mg tablet 600 mg PO BID #180 tab 02/21/21 desmopressin 0.2 mg tablet 0.4 mg PO BEDTIME #90 tab 07/17/21 cyclobenzaprine 5 mg tablet 5 mg PO BEDTIME PRN #7 tab 10/02/21 Allergies Allergy/AdvReac Type Severity Reaction Status Date / Time aspirin [ASA] Allergy Intermediate 'SHOCK , Verified 10/04/21 15:15 anaphylaxis prednisone [PREDNISONE] AdvReac Severe VISUAL Verified 10/04/21 15:15 HALLUCINATION ibuprofen [From MOTRIN] AdvReac Intermediate VOMITING Verified 10/04/21 15:15 nabumetone AdvReac Unknown vomiting Verified 10/04/21 15:15 Review of Systems Review of Systems: Constitutional : No Weight loss, No Fever, No Chills, No N ight Sweats, No Fatigue, No Malaise ENT/Mouth : No Hearing loss, No Ear Pain, No Nasal Congestion, No Sinus Pain, No Hoarseness, No sore throat, No Rhinorrhea, No Swallowing Difficulty Eyes: No Eye Pain, No Swelling, No Redness, No Foreign Body, No Discharge, No Vision Changes Cardiovascular : No Chest Pain, No SOB, No Dyspnea on Exertion, No Orthopnea, No Edema, No Palpitations Respiratory : Chronic Cough, No Sputum, complaining of Wheezing, No Smoke Exposure, complaining of Dyspnea Gastrointestinal : No Nausea, No Vomiting, No Diarrhea, No Constipation, No abdominal Pain, No Hematochezia, No Melena Genitourinary : no irregular bleeding, No Dysuria, No Urinary Frequency, No Hematuria, No Urinary Incontinence, No Urgency, No Flank Pain, No Urinary Flow Changes, No Hesitancy Musculoskeletal : No joint pain, No Myalgias, No Joint Swelling Skin : No Skin Lesions, No rash Neuro : No Weakness, No Numbness, No Paresthesias, No Loss of Consciousness, No Dizziness, No Headache Psych : No Anxiety/Panic, No Depression, No SI/HI/AH/VH, No Social Issues, Heme/Lymph: No Bruising, No Bleeding,No Lymphadenopathy Endocrine : No Polyuria, No Polydipsia, No Temperature Intolerance PMFSH Past Medical History Medical History AV malformation of gastrointestinal tract GERD (gastroesophageal reflux disease) Hypertriglyceridemia Itch of skin Maico disease Morbid obesity Nocturnal enuresis Obstructive sleep apnea Orchialgia Polycythemia vera Rectosigmoid diverticulosis Schizoaffective schizophrenia Severe chronic obstructive pulmonary disease Spasm of muscle of lower back Supplemental oxygen dependent Tubular adenoma of colon Surgical History No pertinent past surgical history Family History Family History Father HTN (hypertension) Mother HTN (hypertension) Diabetes mellitus Breast cancer Brother No problems noted. 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 Oriented X3. No acute distress. Slow to answer Eyes: Pupils equal, round and reactive to light. ENT: Pharynx normal. Neck: Normal inspection. Neck supple. No lymph nodes noted. No crepitus CVS: Normal heart rate and rhythm. Pulses normal. Normal S1 and S2 Respiratory: No respiratory distress. Significantly decreased breath sounds bilaterally, no wheezing, oxygen saturation 92% on 15 L Abdomen: Soft and nontender. No rigidity. No distention. good BS x4 Skin: Skin warm and dry. Normal skin color. Normal skin turgor. Extremities: No lower extremity edema. No Lacerations. No Rash Neuro: Oriented X 3. No motor deficit. No sensory deficit. Moving all extermities. No slurred speech. Course Course Course Narrative: Patient's labs are still pending, the only lab resultthat we have available is the blood gas which shows pCO2 of 131, which explains why the patient seems confused. Patient is now on BiPAP Patient is likely having a COPD exacerbation. Patient is empirically being treated for COPD exacerbation, given IV ceftriaxone and azithromycin. Also given 2 L of normal saline based on ideal body weight 64 kg, patient is significantly overweight. Patient's troponin is slightly elevated, likely secondary to hypoxia and demand ischemia. No EKG changes that would indicate STEMI After an hour of BiPAP, patient is still very somnolent, he is more easily arousable. PCO2 is still elevated at 112. I discussed the patient with Dr. Montes, patient being admitted to the ICU MDM - SOB/Dyspnea Lab Data Result diagrams: 10/29/21 19:07 10/29/21 19:07 Labs: Lab Results 10/29/21 10/29/21 10/29/21 Range/Units 19:07 19:07 19:07 WBC 11.4 H (4.8-10.8) X10*3/uL RBC 4.11 L (4.60-5.80) X10*6/uL Hgb 11.5 L (14.0-18.0) g/dl Hct 40.7 L (42.0-52.0) % MCV 99.0 H (80.0-98.0) fL MCH 28.0 (27.0-33.0) pg MCHC 28.3 L (31.0-36.0) g/dl RDW 13.9 (11.0-16.0) % Plt Count 189 (160-400) X10*3/uL MPV 9.4 (9.4-12.4) fL Immature Gran % (Auto) Cancelled Neut % (Auto) Cancelled Lymph % (Auto) Cancelled Mesa % (Auto) Cancelled Eos % (Auto) Cancelled Baso % (Auto) Cancelled Lymph # (Auto) Cancelled [place] # (Auto) Cancelled Eos # (Auto) Cancelled Baso # (Auto) Cancelled Abs Immat Gran (auto) Cancelled Absolute Neuts (auto) Cancelled Absolute Nucleated RBC 0.040 H (0.0-0.012) X10*3/uL Nucleated RBC % (auto) 0.4 H (0.0-0.2) /100WBC Neutrophils % (Manual) 87 H (45-73) % Band Neutrophils % 5 (3-5) % Lymphocytes % (Manual) 2 L (20-40) % Monocytes % (Manual) 2 (2-11) % Metamyelocytes % 1 % Myelocytes % 3 % Abs Neuts (Manual) 10.5 H (2.0-8.3) X10*3/uL Lymphocytes # (Manual) 0.2 L (1.2-4.9) X10*3/uL Monocytes # (Manual) 0.2 (0.1-1.2) X10*3/uL Metamyelocytes # 0.1 X10*3/uL Myelocytes # 0.3 X10*/uL Platelet Estimate NORMAL (NORMAL) Plt Morphology Comment NORMAL RBC Morphology NOTED Polychromasia 1+ (0-2) /OIF Basophilic Stippling 1+ (0-2) /OIF Stomatocytes 1+ (5-14) /OIF VBG pH (7.32-7.43) VBG pCO2 mmHg VBG pO2 mmHg VBG HCO3 (22-26) mmol/L VBG O2 Saturation % VBG Base Excess mmol/L Sodium 141 (135-145) mmol/L Potassium 5.1 D (3.3-5.1) mmol/L Chloride 87 L (96-108) mmol/L Carbon Dioxide 47 H* (22-29) mmol/L Anion Gap 12 (12-20) BUN 14 (9-16) mg/dL Creatinine 0.76 (0.5-1.4) mg/dL Estim Creat Clear Calc 139.3 Estimated GFR > 60 Random Glucose 204 H D (60-115) mg/dL Lactic Acid (0.5-2.0) mmol/L Calcium 9.6 D (8.4-10.2) mg/dL Total Bilirubin 0.3 (0.0-1.0) mg/dL Direct Bilirubin < 0.2 (0.0-0.5) mg/dL AST 56 H (5-37) U/L ALT 89 H (0-40) U/L Alkaline Phosphatase 87 D (39-117) U/L Troponin I High Sens 38.5 H* (<3.5-35.0) ng/L B-Natriuretic Peptide 72 (<100) pg/mL Total Protein 6.4 L (6.5-8.0) g/dL Albumin 4.1 (3.5-5.0) g/dL COVID-19 (TAL) (Negative) COVID-19 Clin Com 10/29/21 10/29/21 10/29/21 Range/Units 19:07 19:07 19:07 WBC (4.8-10.8) X10*3/uL RBC (4.60-5.80) X10*6/uL Hgb (14.0-18.0) g/dl Hct (42.0-52.0) % MCV (80.0-98.0) fL MCH (27.0-33.0) pg MCHC (31.0-36.0) g/dl RDW (11.0-16.0) % Plt Count (160-400) X10*3/uL MPV (9.4-12.4) fL Immature Gran % (Auto) Neut % (Auto) Lymph % (Auto) Mes[place] % (Auto) Eos % (Auto) Baso % (Auto) Lymph # (Auto) [place] # (Auto) Eos # (Auto) Baso # (Auto) Abs Immat Gran (auto) Absolute Neuts (auto) Absolute Nucleated RBC (0.0-0.012) X10*3/uL Nucleated RBC % (auto) (0.0-0.2) /100WBC Neutrophils % (Manual) (45-73) % Band Neutrophils % (3-5) % Lymphocytes % (Manual) (20-40) % Monocytes % (Manual) (2-11) % Metamyelocytes % % Myelocytes % % Abs Neuts (Manual) (2.0-8.3) X10*3/uL Lymphocytes # (Manual) (1.2-4.9) X10*3/uL Monocytes # (Manual) (0.1-1.2) X10*3/uL Metamyelocytes # X10*3/uL Myelocytes # X10*/uL Platelet Estimate (NORMAL) Plt Morphology Comment RBC Morphology Polychromasia /OIF Basophilic Stippling /OIF Stomatocytes /OIF VBG pH (7.32-7.43) VBG pCO2 mmHg VBG pO2 mmHg VBG HCO3 (22-26) mmol/L VBG O2 Saturation % VBG Base Excess mmol/L Sodium (135-145) mmol/L Potassium (3.3-5.1) mmol/L Chloride (96-108) mmol/L Carbon Dioxide (22-29) mmol/L Anion Gap (12-20) BUN (9-16) mg/dL Creatinine (0.5-1.4) mg/dL Estim Creat Clear Calc Estimated GFR Random Glucose (60-115) mg/dL Lactic Acid 0.7 (0.5-2.0) mmol/L Calcium (8.4-10.2) mg/dL Total Bilirubin (0.0-1.0) mg/dL Direct Bilirubin (0.0-0.5) mg/dL AST (5-37) U/L ALT (0-40) U/L Alkaline Phosphatase (39-117) U/L Troponin I High Sens (<3.5-35.0) ng/L B-Natriuretic Peptide Cancelled (<100) pg/mL Total Protein (6.5-8.0) g/dL Albumin (3.5-5.0) g/dL COVID-19 (TAL) Negative (Negative) COVID-19 Clin Com See Note 10/29/21 10/29/21 10/29/21 Range/Units 19:13 20:57 20:59 WBC (4.8-10.8) X10*3/uL RBC (4.60-5.80) X10*6/uL Hgb (14.0-18.0) g/dl Hct (42.0-52.0) % MCV (80.0-98.0) fL MCH (27.0-33.0) pg MCHC (31.0-36.0) g/dl RDW (11.0-16.0) % Plt Count (160-400) X10*3/uL MPV (9.4-12.4) fL Immature Gran % (Auto) Neut % (Auto) Lymph % (Auto) [place] % (Auto) Eos % (Auto) Baso % (Auto) Lymph # (Auto) [place] # (Auto) Eos # (Auto) Baso # (Auto) Abs Immat Gran (auto) Absolute Neuts (auto) Absolute Nucleated RBC (0.0-0.012) X10*3/uL Nucleated RBC % (auto) (0.0-0.2) /100WBC Neutrophils % (Manual) (45-73) % Band Neutrophils % (3-5) % Lymphocytes % (Manual) (20-40) % Monocytes % (Manual) (2-11) % Metamyelocytes % % Myelocytes % % Abs Neuts (Manual) (2.0-8.3) X10*3/uL Lymphocytes # (Manual) (1.2-4.9) X10*3/uL Monocytes # (Manual) (0.1-1.2) X10*3/uL Metamyelocytes # X10*3/uL Myelocytes # X10*/uL Platelet Estimate (NORMAL) Plt Morphology Comment RBC Morphology Polychromasia /OIF Basophilic Stippling /OIF Stomatocytes /OIF VBG pH 7.25 L 7.31 L (7.32-7.43) VBG pCO2 131 112 mmHg VBG pO2 75 61 mmHg VBG HCO3 58 H 57 H (22-26) mmol/L VBG O2 Saturation 91.0 87.0 % VBG Base Excess 23.4 24.8 mmol/L Sodium (135-145) mmol/L Potassium (3.3-5.1) mmol/L Chloride (96-108) mmol/L Carbon Dioxide (22-29) mmol/L Anion Gap (12-20) BUN (9-16) mg/dL Creatinine (0.5-1.4) mg/dL Estim Creat Clear Calc Estimated GFR Random Glucose (60-115) mg/dL Lactic Acid (0.5-2.0) mmol/L Calcium (8.4-10.2) mg/dL Total Bilirubin (0.0-1.0) mg/dL Direct Bilirubin (0.0-0.5) mg/dL AST (5-37) U/L ALT (0-40) U/L Alkaline Phosphatase (39-117) U/L Troponin I High Sens 38.3 H* (<3.5-35.0) ng/L B-Natriuretic Peptide (<100) pg/mL Total Protein (6.5-8.0) g/dL Albumin (3.5-5.0) g/dL COVID-19 (TAL) (Negative) COVID-19 Clin Com Imaging Data Chest x-ray: Radiologist's impression: FINDINGS: Again seen are patchy changes at both lung bases slightly increased when compared to the prior study. There is some increased opacity in the costophrenic angles small pleural effusions may be present. Heart size upper limits of normal. No gross evidence of CHF. XR/XR chest 1V IMPRESSION: Slight increase in patchy densities seen at both lung bases with possible small pleural effusions. ECG Data Attestation: I personally reviewed and interpreted this ECG as follows: (Sinus tachycardia, heart rate 114, no ST segment elevation or depression, no T-wave inversions) Discharge Plan Discharge Clinical Impression: Acute and chronic respiratory failure with hypercapnia Patient Disposition: Admitted As Inpatient
[2021-10-29] MEDS: Albuterol/Iprat 2.5/0.5MG 3 ML AMPUL.NEB INHALE (19:14)
[2021-10-29] MEDS: Albuterol Sulfate (0.083%) 2.5 MG/3 ML VIAL.NEB 10 MG INHALE ×2 (19:14→19:58)
[2021-10-29] MEDS: methylPREDNISolone Sod Succ 125 MG/2 ML VIAL IVPUSH (19:16)
[2021-10-29] MEDS: 0.9 % Sodium Chloride 1,000 ML 999 ML IVCONT ×2 (19:16→21:48)
--- NOTE | 2021-10-29 19:17 | PC.NURSE ---
MD at bedside. RT at bedside. CXR at bedside. Pt switched to a Flores cannula @ 7 lpm, satting @ 97%. All labs and EKG obtained. Pt medicated per JAN. Pt receiving UPD @ this time. Call lassiter within reach, continue to monitor.
[2021-10-29 19:19] LABS: VBG Base Excess 23.4 mmol/L; VBG HCO3 58 mmol/L (22-26); VBG pCO2 131 mmHg; VBG pH 7.25 (7.32-7.43); VBG pO2 75 mmHg
[2021-10-29 19:19] LABS: Red Cell Distribution Width 13.9 % (11.0-16.0); Venous Blood Gas Refer to POC result
[2021-10-29 19:22] LABS: Hematocrit 40.7 % (42.0-52.0); Hemoglobin 11.5 g/dl (14.0-18.0); Mean Corpuscular HGB Conc 28.3 g/dl (31.0-36.0); Mean Platelet Volume 9.4 fL (9.4-12.4); NRBC Pct Auto 0.4 /100WBC (0.0-0.2); Platelet Count 189 X10*3/uL (160-400); Red Blood Count 4.11 X10*6/uL (4.60-5.80); White Blood Count 11.4 X10*3/uL (4.8-10.8)
[2021-10-29 19:30] LABS: Lactic Acid 0.7 mmol/L (0.5-2.0)
[2021-10-29 19:33] LABS: COVID-19 Test Negative (Negative)
[2021-10-29 19:38] LABS: Alanine Aminotransferase 89 U/L (0-40); Albumin Level 4.1 g/dL (3.5-5.0); Alkaline Phosphatase 87 U/L (39-117); Anion Gap 12 (12-20); Aspartate Amino Transferase 56 U/L (5-37); Bilirubin Direct < 0.2 mg/dL (0.0-0.5); Bilirubin Total 0.3 mg/dL (0.0-1.0); Blood Urea Nitrogen 14 mg/dL (9-16); Calcium 9.6 mg/dL (8.4-10.2); Carbon Dioxide 47 mmol/L (22-29); Chloride 87 mmol/L (96-108); Creatinine Clr Calc Pharmacy 139.3; Estimated Glomerular Filt Rate > 60; Glucose Random 204 mg/dL (60-115); Potassium 5.1 mmol/L (3.3-5.1); Sodium 141 mmol/L (135-145); Total Protein 6.4 g/dL (6.5-8.0)
[2021-10-29 19:39] LABS: B Type Natriuretic Peptide 72 pg/mL (<100); Troponin-I High Sensitivity 38.5 ng/L (<3.5-35.0)
[2021-10-29 19:52] LABS: Band Neutrophils Percent 5 % (3-5); Lymphocytes Absolute Manual 0.2 X10*3/uL (1.2-4.9); Lymphocytes Percent Manual 2 % (20-40); Metamyelocytes Absolute 0.1 X10*3/uL; Metamyelocytes Percent 1 %; Monocytes Absolute Manual 0.2 X10*3/uL (0.1-1.2); Monocytes Percent Manual 2 % (2-11); Myelocytes Absolute 0.3 X10*/uL; Myelocytes Percent 3 %; Neutrophils Absolute Manual 10.5 X10*3/uL (2.0-8.3); Neutrophils Percent Manual 87 % (45-73)
--- NOTE | 2021-10-29 19:52 | PC.NURSE ---
RT at bedside for bipap.
[2021-10-29 19:53] LABS: Basophilic Stippling 1+ (0-2) /OIF; RBC Morphology NOTED
[2021-10-29 19:56] LABS: Polychromasia 1+ (0-2) /OIF; Stomatocytes 1+ (5-14) /OIF
[2021-10-29 19:58] LABS: Platelet Estimate NORMAL (NORMAL); Platelet Morphology Comment NORMAL
[2021-10-29] MEDS: cefTRIAXone sodium 1 GM in 0.9 % Sodium Chloride 50 ML IV (20:19)
--- NOTE | 2021-10-29 20:20 | PC.NURSE ---
Pt on BiPAP @ 18/8, rate of 10, O2 of 45%. O2 sat 90%. Pt medicated with ABX per JAN.
--- NOTE | 2021-10-29 20:21 | PHA.MEDREC ---
Pharmacy Consult ? Medication Reconciliation Pharmacy has completed the medication reconciliation.
[2021-10-29] MEDS: Azithromycin 500 MG in 0.9 % Sodium Chloride 250 ML 125 MG IV (20:55)
[2021-10-29 21:05] LABS: Venous Blood Gas Refer to POC result
[2021-10-29 21:06] LABS: VBG Base Excess 24.8 mmol/L; VBG HCO3 57 mmol/L (22-26); VBG pCO2 112 mmHg; VBG pH 7.31 (7.32-7.43); VBG pO2 61 mmHg
[2021-10-29 21:30] LABS: Troponin-I High Sensitivity 38.3 ng/L (<3.5-35.0)
--- NOTE | 2021-10-29 22:22 | PM.CCHP ---
History of Present Illness Date of Service: 10/29/21 Attending physician on admission: Corbin Montes Chief Complaint: Dyspnea 56-year-old male with past med hx of COPD, REGINA not compliant with his CPAP machine due to it's age and not working well, chronic respiratory failure with hypoxia and hypercapnia on 5 L of oxygen, schizoaffective schizophrenia, who was BIBA after he was found confused, slow to answer and satting in the 70's by his family. patient has not been taking his steroids the last 2 days, he used 1 neb tx prior to ambulance crew arriving. Apparently there was possibly an issue with his 30ft of tubing. he denies any increased cough or sputum, fevers. On arrival to the ED found to have temp of 97.6?, HR 115, RR 24, BP 136/71 and O2 93% on 15L NRB. In the ED his labs are significant for WBC count of 11.4, VBG 7.25/131/75/58/91/23.4 CXR showed slight increase in patchy densities at both lung bases with possible small pleural effusions.? Patient was placed on BiPAP for several hours at 45% 18/07 with his CO2 now 112 with a pH of 7.31 Patient has had multiple recent admissions on 10/15, 09/30, 09/17 and 08/29 for similar issues. During my bedside exam, the pt was alert and oriented, breathing easy however his lung sounds were diminished and tight. He was very adamant that he get his evening medications. he denied any cough, fevers, lower extremity swelling but did admit to some central abdominal pain however his abdomen was soft and nontender to palpation. patient will be admitted to the ICU, Dr. Montes aware of admission, assessment and plan of care Review of Systems Review of Systems: Yes all other systems are reviewed and are negative [facility] Past Medical History Medical History AV malformation of gastrointestinal tract GERD (gastroesophageal reflux disease) Hypertriglyceridemia Itch of skin [place] disease Morbid obesity Nocturnal enuresis Obstructive sleep apnea Orchialgia Polycythemia vera Rectosigmoid diverticulosis Schizoaffective schizophrenia Severe chronic obstructive pulmonary disease Spasm of muscle of lower back Supplemental oxygen dependent Tubular adenoma of colon Family History Family History Father HTN (hypertension) Mother HTN (hypertension) Diabetes mellitus Breast cancer Brother No problems noted. Surgical History Surgical History No pertinent past surgical history Social History Social History Household Members: None Housing: House Do you presently have visiting nurse or other home services: Yes Alcohol intake: never Patient Tobacco Use Status: Former Tobacco user Tobacco use type: Cigarette Years Smoked: 41 yrs e-Cigarette/Vaping Use: Never Used Use of substances other than those prescribed or required for medical reasons: No Currently Displaying Signs/Symptoms of Drug Intoxication Withdrawal: No Have you been hit, kicked, punched, or otherwise hurt by someone within the past year? If so, by whom?: No Do you feel safe in your current relationship?: No Current Relationship Is there a partner from a previous relationship who is making you feel unsafe now?: No Advance Directives: No Advance Directives Information Provided: Yes Do you have thoughts of harming others: None Do you have a plan to hurt others: No Plan Recently lost weight without trying: No Eating poorly because of decreased appetite: No Nutrition Risks: No Nutritional Risk Poor oral hygiene: No service: No Current occupational status: disabled Meds Allergies Allergy/AdvReac Type Severity Reaction Status Date / Time aspirin [ASA] Allergy Intermediate 'SHOCK , Verified 10/04/21 15:15 anaphylaxis prednisone [PREDNISONE] AdvReac Severe VISUAL Verified 10/04/21 15:15 HALLUCINATION ibuprofen [From MOTRIN] AdvReac Intermediate VOMITING Verified 10/04/21 15:15 nabumetone AdvReac Unknown vomiting Verified 10/04/21 15:15 Active Medications: Current Medications Enoxaparin Sodium (Enoxaparin Sodium 40 Mg/0.4 Ml Syringe) 40 mg SUBCUT Q24H [facility] Pharmacy Consult (Consult Rx Perform Med Rec) 1 each MISCELLANE ONCE PRN PRN Reason: Consult order Pharmacy Consult (Consult Rx Perform Med Rec) 1 each MISCELLANE ONCE PRN PRN Reason: Consult order Home Medications Medication Instructions Recorded Confirmed Last Taken Type aripiprazole 10 mg tablet 10 mg PO DAILY 10/18/20 10/29/21 10/15/21 History aripiprazole 20 mg tablet 20 mg PO BEDTIME 10/18/20 10/29/21 10/14/21 History benztropine 1 mg tablet 1 mg PO BEDTIME 10/18/20 10/29/21 10/15/21 History clonazepam 0.5 mg tablet 0.5 mg PO BID 10/18/20 10/29/21 10/15/21 History risperidone 0.5 mg tablet 0.5 mg PO BID 10/18/20 10/29/21 10/15/21 History sertraline 50 mg tablet 50 mg PO DAILY 10/18/20 10/29/21 10/15/21 History amitriptyline 25 mg tablet 1 tab PO BEDTIME PRN 09/17/21 10/29/21 10/14/21 History cetirizine 10 mg tablet (Zyrtec) 10 mg PO DAILY PRN 10/15/21 10/29/21 10/15/21 History ipratropium 0.5 mg-albuterol 3 mg 3 ml INHALATION QID 10/29/21 10/29/21 Unknown History (2.5 mg base)/3 mL nebulization soln loratadine 10 mg tablet 1 tab PO DAILY 10/29/21 10/29/21 Unknown History omeprazole 20 mg capsule,delayed 20 mg PO DAILY@0630 10/29/21 10/29/21 Unknown History release triamcinolone acetonide 0.5 % 1 appl TOPICAL BID PRN 10/29/21 10/29/21 Unknown History topical ointment Physical Exam Vital Signs: Vital Signs: Last Vital Signs Temp 97.6 F 10/29/21 20:32 Pulse 108 H 10/29/21 21:45 Resp 18 10/29/21 21:45 BP 133/74 10/29/21 21:45 Pulse Ox 94 10/29/21 21:45 Oxygen Flow Rate 15 10/29/21 19:00 Body Mass Index 46.7 Const: Other: wearing BiPAP mask General: cooperative, comfortable and no acute distress Nutritional Appearance: obese Orientation/consciousness: patient oriented x3 Limitations: no limitations HENMT: Head: Yes normal to inspection, Yes No palpable skull fracture present, Yes normocephalic, Yes atraumatic and No abrasion Eyes: General: appearance normal, both eyes and all related structures Neck: Neck: Yes normal visual inspection and Yes full ROM Resp: Effort & Inspection: normal respiratory effort and able to speak in complete sentences Auscultation: no wheezes and diminished lung sounds diffuse Cardio: Rate: regular rate (92) Rhythm: regular rhythm Heart sounds: normal S1 and S2 GI: Inspection: Yes normal to inspection and Yes obesity Palpation (GI): Soft to palpation and nontender Skin: General skin exam: no rashes or lesions noted Neuro: General: patient oriented x3 Extrem: General: Yes normal to inspection and Yes no pedal edema Results Labs CBC and Chem 7: 10/30/21 05:24 10/30/21 05:24 Labs: Laboratory Results - last 24 hr 10/29/21 10/29/21 10/29/21 19:07 19:07 19:07 MCV 99.0 H MCH 28.0 MCHC 28.3 L RDW 13.9 Plt Count 189 MPV 9.4 Immature Gran % (Auto) Cancelled Neut % (Auto) Cancelled Lymph % (Auto) Cancelled [place] % (Auto) Cancelled Eos % (Auto) Cancelled Baso % (Auto) Cancelled Lymph # (Auto) Cancelled [place] # (Auto) Cancelled Eos # (Auto) Cancelled Baso # (Auto) Cancelled Abs Immat Gran (auto) Cancelled Absolute Neuts (auto) Cancelled Absolute Nucleated RBC 0.040 H Nucleated RBC % (auto) 0.4 H Neutrophils % (Manual) 87 H Band Neutrophils % 5 Lymphocytes % (Manual) 2 L Monocytes % (Manual) 2 Metamyelocytes % 1 Myelocytes % 3 Abs Neuts (Manual) 10.5 H Lymphocytes # (Manual) 0.2 L Monocytes # (Manual) 0.2 Metamyelocytes # 0.1 Myelocytes # 0.3 Platelet Estimate NORMAL Plt Morphology Comment NORMAL RBC Morphology NOTED Polychromasia 1+ (0-2) Basophilic Stippling 1+ (0-2) Stomatocytes 1+ (5-14) VBG pH VBG pCO2 VBG pO2 VBG HCO3 VBG O2 Saturation VBG Base Excess Anion Gap 12 Estim Creat Clear Calc 139.3 Estimated GFR > 60 Random Glucose 204 H D Lactic Acid Calcium 9.6 D Total Bilirubin 0.3 Direct Bilirubin < 0.2 AST 56 H ALT 89 H Alkaline Phosphatase 87 D Troponin I High Sens 38.5 H* B-Natriuretic Peptide 72 Total Protein 6.4 L Albumin 4.1 COVID-19 (TAL) COVID-19 Clin Com 10/29/21 10/29/21 10/29/21 19:07 19:07 19:07 MCV MCH MCHC RDW Plt Count MPV Immature Gran % (Auto) Neut % (Auto) Lymph % (Auto) [place] % (Auto) Eos % (Auto) Baso % (Auto) Lymph # (Auto) [place] # (Auto) Eos # (Auto) Baso # (Auto) Abs Immat Gran (auto) Absolute Neuts (auto) Absolute Nucleated RBC Nucleated RBC % (auto) Neutrophils % (Manual) Band Neutrophils % Lymphocytes % (Manual) Monocytes % (Manual) Metamyelocytes % Myelocytes % Abs Neuts (Manual) Lymphocytes # (Manual) Monocytes # (Manual) Metamyelocytes # Myelocytes # Platelet Estimate Plt Morphology Comment RBC Morphology Polychromasia Basophilic Stippling Stomatocytes VBG pH VBG pCO2 VBG pO2 VBG HCO3 VBG O2 Saturation VBG Base Excess Anion Gap Estim Creat Clear Calc Estimated GFR Random Glucose Lactic Acid 0.7 Calcium Total Bilirubin Direct Bilirubin AST ALT Alkaline Phosphatase Troponin I High Sens B-Natriuretic Peptide Cancelled Total Protein Albumin COVID-19 (TAL) Negative COVID-19 Clin Com See Note 10/29/21 10/29/21 10/29/21 19:13 20:57 20:59 MCV MCH MCHC RDW Plt Count MPV Immature Gran % (Auto) Neut % (Auto) Lymph % (Auto) [place] % (Auto) Eos % (Auto) Baso % (Auto) Lymph # (Auto) [place] # (Auto) Eos # (Auto) Baso # (Auto) Abs Immat Gran (auto) Absolute Neuts (auto) Absolute Nucleated RBC Nucleated RBC % (auto) Neutrophils % (Manual) Band Neutrophils % Lymphocytes % (Manual) Monocytes % (Manual) Metamyelocytes % Myelocytes % Abs Neuts (Manual) Lymphocytes # (Manual) Monocytes # (Manual) Metamyelocytes # Myelocytes # Platelet Estimate Plt Morphology Comment RBC Morphology Polychromasia Basophilic Stippling Stomatocytes VBG pH 7.25 L 7.31 L VBG pCO2 131 112 VBG pO2 75 61 VBG HCO3 58 H 57 H VBG O2 Saturation 91.0 87.0 VBG Base Excess 23.4 24.8 Anion Gap Estim Creat Clear Calc Estimated GFR Random Glucose Lactic Acid Calcium Total Bilirubin Direct Bilirubin AST ALT Alkaline Phosphatase Troponin I High Sens 38.3 H* B-Natriuretic Peptide Total Protein Albumin COVID-19 (TAL) COVID-19 Clin Com Imaging Radiologist's Impressions: Impressions Chest X-Ray 10/29/21 19:00 IMPRESSION: Slight increase in patchy densities seen at both lung bases with possible small pleural effusions. Assessment and Plan (1) Acute and chronic respiratory failure with hypercapnia: Status: Acute continue BiPAP until patient's CO2 is down to his baseline which appears to be about 75. Continue Azithromycin, steroids and inhalers (2) COPD exacerbation: Status: Acute continue BiPAP until patient's CO2 is down to his baseline which appears to be about 75. Continue Azithromycin, steroids and inhalers. Pt will need home inhaler Brovana brought in. (3) Schizoaffective schizophrenia: Status: Acute continue patient's home medications (4) REGINA (obstructive sleep apnea): Status: Acute apparently patient's CPAP at home machine is quite old, need to get this replaced has not been already
[2021-10-29] MEDS: Enoxaparin Sodium 40 MG/0.4 ML SYRINGE SUBCUT (23:08)
[2021-10-29 23:58] LABS: VBG Base Excess 20.8 mmol/L; VBG HCO3 54 mmol/L (22-26); VBG pCO2 122 mmHg; VBG pH 7.25 (7.32-7.43); VBG pO2 45 mmHg
[2021-10-29 23:59] LABS: Appearance Urine CLOUDY; Color Urine YELLOW; Glucose Urine UA 100 MG/DL (NEG); Leukocyte Esterase Urine NEG (NEG); Nitrite Urine NEG (NEG); Specific Gravity - Urine >= 1.030 (1.005-1.025); Urine Blood NEG (NEG); Urine Ketones NEG (NEG); Urine Protein 2+ MG/DL (NEG-TRACE)
[2021-10-30] VITALS (32 sets, daily range): BP systolic 90–143; BP diastolic 36–97; PULSE 75–111; RESP 15–27; TEMP 36.7–37.6; O2SAT 87–96; BMI 47.6
--- NOTE | 2021-10-30 00:04 | PC.NURSE ---
RT notified of VBG results. This RN giving report to Mary in ICU. Plan to medicate and transfer to ICU.
[2021-10-30] MEDS: Montelukast Sodium 10 MG TABLET PO ×2 (00:08→20:36)
[2021-10-30] MEDS: risperiDONE 0.5 MG TABLET PO ×3 (00:09→20:36)
--- NOTE | 2021-10-30 00:15 | PC.NURSE ---
RT at bedside. Bipap settings adjusted, 20/07, rate of 12, O2 35%. Second IV line established. Pt medicated per JAN with PM meds, Abilify not available in ED. [employer] aware. Pt quickly desatted to 77% while taking PO medications, Bipap reapplied. VSS at this time. This RN at bedside planning for transport to ICU.
[2021-10-30 00:18] LABS: Amorphous Sediment Urine 3+ /LPF; Mucus Urine 2+ /LPF; RBC Urine 0-2 /HPF (0); Squamous Epithelial Cell Urine TRACE /LPF; Venous Blood Gas Refer to POC result; WBC Urine 0-2 /HPF (0-4)
--- NOTE | 2021-10-30 00:33 | PC.NURSE ---
Addendum entered by Carol Long 10/30/21 00:34: Pt transported to the ICU while on Bipap with RT without incident. Original Note: Pt noted to become increasingly confused during transport to ICU. Pt grabbing at cellphone repeatedly, asking this RN What are you just going to leave me in the street? Pt repeatedly stating I feel weird...I feel so weird. ICU Provider noted of change in mental status. Pt transported to the ICU while on Bipap without incident.
[2021-10-30] MEDS: Albuterol/Iprat 2.5/0.5MG 3 ML AMPUL.NEB INHALE ×5 (00:36→20:35)
[2021-10-30 00:56] LABS: VBG HCO3 55 mmol/L (22-26); VBG pCO2 82 mmHg; VBG pH 7.42 (7.32-7.43); VBG pO2 45 mmHg
[2021-10-30] MEDS: methylPREDNISolone Sod Succ 40 MG/ML VIAL IVPUSH ×4 (01:11→19:39)
[2021-10-30 01:12] LABS: Anion Gap 13 (12-20); Blood Urea Nitrogen 12 mg/dL (9-16); Calcium 8.7 mg/dL (8.4-10.2); Carbon Dioxide 41 mmol/L (22-29); Chloride 91 mmol/L (96-108); Creatinine Clr Calc Pharmacy 160.4; Estimated Glomerular Filt Rate > 60; Glucose Random 185 mg/dL (60-115); Potassium 5.4 mmol/L (3.3-5.1); Sodium 140 mmol/L (135-145)
[2021-10-30 01:29] LABS: Venous Blood Gas Refer to POC result
[2021-10-30] MEDS: ARIPiprazole 20 MG TABLET PO ×2 (01:34→20:36)
[2021-10-30] MEDS: Insulin Regular, Human 100 UNIT/ML 3 ML VIAL IVPUSH (02:08)
[2021-10-30 05:35] LABS: VBG Base Excess 26.3 mmol/L; VBG HCO3 56 mmol/L (22-26); VBG pCO2 82 mmHg; VBG pH 7.43 (7.32-7.43); VBG pO2 56 mmHg
[2021-10-30 05:48] LABS: Hematocrit 37.1 % (42.0-52.0); Hemoglobin 10.4 g/dl (14.0-18.0); Mean Corpuscular Hemoglobin 27.4 pg (27.0-33.0); Mean Corpuscular Volume 97.9 fL (80.0-98.0); Mean Platelet Volume 9.3 fL (9.4-12.4); NRBC Pct Auto 0.4 /100WBC (0.0-0.2); Platelet Count 189 X10*3/uL (160-400); Red Blood Count 3.79 X10*6/uL (4.60-5.80); Red Cell Distribution Width 13.9 % (11.0-16.0); White Blood Count 8.2 X10*3/uL (4.8-10.8)
[2021-10-30 06:18] LABS: Anion Gap 9 (12-20); Blood Urea Nitrogen 12 mg/dL (9-16); Calcium 8.9 mg/dL (8.4-10.2); Carbon Dioxide 45 mmol/L (22-29); Chloride 89 mmol/L (96-108); Creatinine Clr Calc Pharmacy 167.4; Estimated Glomerular Filt Rate > 60; Glucose Random 172 mg/dL (60-115); Magnesium 1.9 mg/dL (1.6-2.6); Phosphorus 1.3 mg/dL (2.7-4.5); Potassium 4.9 mmol/L (3.3-5.1); Sodium 138 mmol/L (135-145)
[2021-10-30 06:43] LABS: Band Neutrophils Percent 4 % (3-5); Lymphocytes Absolute Manual 0.2 X10*3/uL (1.2-4.9); Lymphocytes Percent Manual 3 % (20-40); Metamyelocytes Absolute 0.3 X10*3/uL; Metamyelocytes Percent 4 %; Monocytes Absolute Manual 0.3 X10*3/uL (0.1-1.2); Monocytes Percent Manual 4 % (2-11); Myelocytes Absolute 0.2 X10*/uL; Myelocytes Percent 2 %; Neutrophils Absolute Manual 7.1 X10*3/uL (2.0-8.3); Neutrophils Percent Manual 83 % (45-73)
[2021-10-30 06:44] LABS: Platelet Estimate NORMAL (NORMAL); Platelet Morphology Comment NORMAL; RBC Morphology NOTED; Stomatocytes 1+ (5-14) /OIF
[2021-10-30 06:45] LABS: Polychromasia 1+ (0-2) /OIF; Toxic Vacuolation PRESENT
[2021-10-30 07:32] LABS: Venous Blood Gas Refer to POC result
[2021-10-30 07:37] LABS: B Type Natriuretic Peptide 50 pg/mL (<100)
[2021-10-30] MEDS: Sertraline HCL 50 MG TABLET PO (08:38)
[2021-10-30] MEDS: Loratadine 10 MG TABLET PO (08:38)
[2021-10-30] MEDS: ARIPiprazole 10 MG TABLET PO (08:38)
[2021-10-30] MEDS: Furosemide 20 MG/2 ML VIAL IVPUSH (08:39)
--- NOTE | 2021-10-30 15:31 | MHC.CM.PN ---
pt is in icu , currently dependent on bipap, when mask removed he desats. with mask on it is difficult to converse meaningfully. however, pt did tell me that he lives in his own apt and is chronically on o2 NC. he has a parent that lives in [place], a call was made to her and message left. i did tell the pt that CM would follow him and revisit the dc plan when he was off the bipap mask. pt may need pulmary rehab or may be able to return home c a new cpap machine, the dc plan is uncertain at this time. cm to cont. to follow.
--- NOTE | 2021-10-30 15:38 | PM.CCPN ---
Subjective Subjective Date of Service: 10/30/21 Interval History: Appears comfortably well on BiPAP tolerating without any diaphragmatic or accessory muscle effort and chest x-ray shows bilateral pleural effusions which are new compared to the previous month he has made at least 1 or 2 other trips here to the hospital raising the question of a nosocomial component to this and there is a question of bibasilar infiltrates as well without an aspiration picture so be sides consideration for atypical community-acquired organisms we must consider the nosocomial component in our coverage He is an obese individual with combination of sleep apnea as well as COPD and again presented with altered mental status and documentation of a profound acute on chronic hypercarbic and hypoxic respiratory failure without any apparent signs of an infection other than the chest x-ray that has bilateral hazy bases which could easily be simply atelectasis Again, he has no compliance with positive-pressure ventilation 90 been compliant it recently with his bronchodilator medications Critical Care Time (minutes): 45 Physical Exam Vital Signs: Vital Signs: Last Vital Signs Temp 99.7 F 10/30/21 12:00 Pulse 101 H 10/30/21 14:59 Resp 22 H 10/30/21 15:23 BP 125/78 10/30/21 14:59 Pulse Ox 89 L 10/30/21 14:59 Oxygen Flow Rate 15 10/29/21 19:00 Body Mass Index 47.6 On BiPAP he was currently awake alert with much less respiratory effort and I did bedside echo demonstrating preserved LV and RV function with no primary valve or pericardial disease No dilatation of the IVC and there was at least a 50% inspiratory collapse Diminished bilateral breath sounds but no adventitious sounds no accessory muscle use No peripheral edema skin is intact Abdomen obese but benign with no organomegaly Objective Data Labs CBC & Chem 7: 10/31/21 06:08 10/31/21 06:08 Labs: Laboratory Results - last 24 hr 10/29/21 10/29/21 10/29/21 19:07 19:07 19:07 WBC 11.4 H RBC 4.11 L Hgb 11.5 L Hct 40.7 L MCV 99.0 H MCH 28.0 MCHC 28.3 L RDW 13.9 Plt Count 189 MPV 9.4 Immature Gran % (Auto) Cancelled Neut % (Auto) Cancelled Lymph % (Auto) Cancelled [place] % (Auto) Cancelled Eos % (Auto) Cancelled Baso % (Auto) Cancelled Lymph # (Auto) Cancelled [place] # (Auto) Cancelled Eos # (Auto) Cancelled Baso # (Auto) Cancelled Abs Immat Gran (auto) Cancelled Absolute Neuts (auto) Cancelled Absolute Nucleated RBC 0.040 H Nucleated RBC % (auto) 0.4 H Neutrophils % (Manual) 87 H Band Neutrophils % 5 Lymphocytes % (Manual) 2 L Monocytes % (Manual) 2 Metamyelocytes % 1 Myelocytes % 3 Abs Neuts (Manual) 10.5 H Lymphocytes # (Manual) 0.2 L Monocytes # (Manual) 0.2 Metamyelocytes # 0.1 Myelocytes # 0.3 Toxic Vacuolation Platelet Estimate NORMAL Plt Morphology Comment NORMAL RBC Morphology NOTED Polychromasia 1+ (0-2) Basophilic Stippling 1+ (0-2) Stomatocytes 1+ (5-14) VBG pH VBG pCO2 VBG pO2 VBG HCO3 VBG O2 Saturation VBG Base Excess Sodium 141 Potassium 5.1 D Chloride 87 L Carbon Dioxide 47 H* Anion Gap 12 BUN 14 Creatinine 0.76 Estim Creat Clear Calc 139.3 Estimated GFR > 60 Random Glucose 204 H D Lactic Acid Calcium 9.6 D Phosphorus Magnesium Total Bilirubin 0.3 Direct Bilirubin < 0.2 AST 56 H ALT 89 H Alkaline Phosphatase 87 D Troponin I High Sens 38.5 H* B-Natriuretic Peptide 72 Total Protein 6.4 L Albumin 4.1 Urine Color Urine Appearance Urine pH Ur Specific [place] Urine Protein Urine Glucose (UA) Urine Ketones Urine Blood Urine Nitrite Ur Leukocyte Esterase Urine RBC Urine WBC Ur Squamous Epith Cells Amorphous Sediment Urine Bacteria Hyaline Casts Urine Mucus COVID-19 (TAL) COVID-19 Clin Com 10/29/21 10/29/21 10/29/21 19:07 19:07 19:07 WBC RBC Hgb Hct MCV MCH MCHC RDW Plt Count MPV Immature Gran % (Auto) Neut % (Auto) Lymph % (Auto) [place] % (Auto) Eos % (Auto) Baso % (Auto) Lymph # (Auto) [place] # (Auto) Eos # (Auto) Baso # (Auto) Abs Immat Gran (auto) Absolute Neuts (auto) Absolute Nucleated RBC Nucleated RBC % (auto) Neutrophils % (Manual) Band Neutrophils % Lymphocytes % (Manual) Monocytes % (Manual) Metamyelocytes % Myelocytes % Abs Neuts (Manual) Lymphocytes # (Manual) Monocytes # (Manual) Metamyelocytes # Myelocytes # Toxic Vacuolation Platelet Estimate Plt Morphology Comment RBC Morphology Polychromasia Basophilic Stippling Stomatocytes VBG pH VBG pCO2 VBG pO2 VBG HCO3 VBG O2 Saturation VBG Base Excess Sodium Potassium Chloride Carbon Dioxide Anion Gap BUN Creatinine Estim Creat Clear Calc Estimated GFR Random Glucose Lactic Acid 0.7 Calcium Phosphorus Magnesium Total Bilirubin Direct Bilirubin AST ALT Alkaline Phosphatase Troponin I High Sens B-Natriuretic Peptide Cancelled Total Protein Albumin Urine Color Urine Appearance Urine pH Ur Specific [place] Urine Protein Urine Glucose (UA) Urine Ketones Urine Blood Urine Nitrite Ur Leukocyte Esterase Urine RBC Urine WBC Ur Squamous Epith Cells Amorphous Sediment Urine Bacteria Hyaline Casts Urine Mucus COVID-19 (TAL) Negative COVID-19 [employer] Com See Note 10/29/21 10/29/21 10/29/21 19:13 20:57 20:59 WBC RBC Hgb Hct MCV MCH MCHC RDW Plt Count MPV Immature Gran % (Auto) Neut % (Auto) Lymph % (Auto) [place] % (Auto) Eos % (Auto) Baso % (Auto) Lymph # (Auto) [place] # (Auto) Eos # (Auto) Baso # (Auto) Abs Immat Gran (auto) Absolute Neuts (auto) Absolute Nucleated RBC Nucleated RBC % (auto) Neutrophils % (Manual) Band Neutrophils % Lymphocytes % (Manual) Monocytes % (Manual) Metamyelocytes % Myelocytes % Abs Neuts (Manual) Lymphocytes # (Manual) Monocytes # (Manual) Metamyelocytes # Myelocytes # Toxic Vacuolation Platelet Estimate Plt Morphology Comment RBC Morphology Polychromasia Basophilic Stippling Stomatocytes VBG pH 7.25 L 7.31 L VBG pCO2 131 112 VBG pO2 75 61 VBG HCO3 58 H 57 H VBG O2 Saturation 91.0 87.0 VBG Base Excess 23.4 24.8 Sodium Potassium Chloride Carbon Dioxide Anion Gap BUN Creatinine Estim Creat Clear Calc Estimated GFR Random Glucose Lactic Acid Calcium Phosphorus Magnesium Total Bilirubin Direct Bilirubin AST ALT Alkaline Phosphatase Troponin I High Sens 38.3 H* B-Natriuretic Peptide Total Protein Albumin Urine Color Urine Appearance Urine pH Ur Specific [place] Urine Protein Urine Glucose (UA) Urine Ketones Urine Blood Urine Nitrite Ur Leukocyte Esterase Urine RBC Urine WBC Ur Squamous Epith Cells Amorphous Sediment Urine Bacteria Hyaline Casts Urine Mucus COVID-19 (TAL) COVID-19 Clin Com 10/29/21 10/29/21 10/30/21 23:45 23:47 00:48 WBC RBC Hgb Hct MCV MCH MCHC RDW Plt Count MPV Immature Gran % (Auto) Neut % (Auto) Lymph % (Auto) [place] % (Auto) Eos % (Auto) Baso % (Auto) Lymph # (Auto) [place] # (Auto) Eos # (Auto) Baso # (Auto) Abs Immat Gran (auto) Absolute Neuts (auto) Absolute Nucleated RBC Nucleated RBC % (auto) Neutrophils % (Manual) Band Neutrophils % Lymphocytes % (Manual) Monocytes % (Manual) Metamyelocytes % Myelocytes % Abs Neuts (Manual) Lymphocytes # (Manual) Monocytes # (Manual) Metamyelocytes # Myelocytes # Toxic Vacuolation Platelet Estimate Plt Morphology Comment RBC Morphology Polychromasia Basophilic Stippling Stomatocytes VBG pH 7.25 L VBG pCO2 122 VBG pO2 45 VBG HCO3 54 H VBG O2 Saturation 69.0 VBG Base Excess 20.8 Sodium 140 Potassium 5.4 H Chloride 91 L Carbon Dioxide 41 H* Anion Gap 13 BUN 12 Creatinine 0.66 Estim Creat Clear Calc 160.4 Estimated GFR > 60 Random Glucose 185 H Lactic Acid Calcium 8.7 D Phosphorus Magnesium Total Bilirubin Direct Bilirubin AST ALT Alkaline Phosphatase Troponin I High Sens B-Natriuretic Peptide Total Protein Albumin Urine Color YELLOW Urine Appearance CLOUDY Urine pH 6.0 Ur Specific [place] >= 1.030 H Urine Protein 2+ H Urine Glucose (UA) 100 H Urine Ketones NEG Urine Blood NEG Urine Nitrite NEG Ur Leukocyte Esterase NEG Urine RBC 0-2 Urine WBC 0-2 Ur Squamous Epith Cells TRACE Amorphous Sediment 3+ Urine Bacteria NONE Hyaline Casts 10-14 Urine Mucus 2+ COVID-19 (TAL) COVID-19 Clin Com 10/30/21 10/30/21 10/30/21 00:48 05:24 05:24 WBC 8.2 RBC 3.79 L Hgb 10.4 L Hct 37.1 L MCV 97.9 MCH 27.4 MCHC 28.0 L RDW 13.9 Plt Count 189 MPV 9.3 L Immature Gran % (Auto) Cancelled Neut % (Auto) Cancelled Lymph % (Auto) Cancelled [place] % (Auto) Cancelled Eos % (Auto) Cancelled Baso % (Auto) Cancelled Lymph # (Auto) Cancelled [place] # (Auto) Cancelled Eos # (Auto) Cancelled Baso # (Auto) Cancelled Abs Immat Gran (auto) Cancelled Absolute Neuts (auto) Cancelled Absolute Nucleated RBC 0.030 H Nucleated RBC % (auto) 0.4 H Neutrophils % (Manual) 83 H Band Neutrophils % 4 Lymphocytes % (Manual) 3 L Monocytes % (Manual) 4 Metamyelocytes % 4 Myelocytes % 2 Abs Neuts (Manual) 7.1 Lymphocytes # (Manual) 0.2 L Monocytes # (Manual) 0.3 Metamyelocytes # 0.3 Myelocytes # 0.2 Toxic Vacuolation PRESENT Platelet Estimate NORMAL Plt Morphology Comment NORMAL RBC Morphology NOTED Polychromasia 1+ (0-2) Basophilic Stippling Stomatocytes 1+ (5-14) VBG pH 7.42 VBG pCO2 82 VBG pO2 45 VBG HCO3 55 H VBG O2 Saturation 75.0 VBG Base Excess 25.0 Sodium 138 Potassium 4.9 Chloride 89 L Carbon Dioxide 45 H* Anion Gap 9 L BUN 12 Creatinine 0.64 Estim Creat Clear Calc 167.4 Estimated GFR > 60 Random Glucose 172 H Lactic Acid Calcium 8.9 Phosphorus 1.3 L Magnesium 1.9 Total Bilirubin Direct Bilirubin AST ALT Alkaline Phosphatase Troponin I High Sens B-Natriuretic Peptide Total Protein Albumin Urine Color Urine Appearance Urine pH Ur Specific [place] Urine Protein Urine Glucose (UA) Urine Ketones Urine Blood Urine Nitrite Ur Leukocyte Esterase Urine RBC Urine WBC Ur Squamous Epith Cells Amorphous Sediment Urine Bacteria Hyaline Casts Urine Mucus COVID-19 (TAL) COVID-19 Clin Com 10/30/21 10/30/21 05:24 05:29 WBC RBC Hgb Hct MCV MCH MCHC RDW Plt Count MPV Immature Gran % (Auto) Neut % (Auto) Lymph % (Auto) [place] % (Auto) Eos % (Auto) Baso % (Auto) Lymph # (Auto) [place] # (Auto) Eos # (Auto) Baso # (Auto) Abs Immat Gran (auto) Absolute Neuts (auto) Absolute Nucleated RBC Nucleated RBC % (auto) Neutrophils % (Manual) Band Neutrophils % Lymphocytes % (Manual) Monocytes % (Manual) Metamyelocytes % Myelocytes % Abs Neuts (Manual) Lymphocytes # (Manual) Monocytes # (Manual) Metamyelocytes # Myelocytes # Toxic Vacuolation Platelet Estimate Plt Morphology Comment RBC Morphology Polychromasia Basophilic Stippling Stomatocytes VBG pH 7.43 VBG pCO2 82 VBG pO2 56 VBG HCO3 56 H VBG O2 Saturation 87.0 VBG Base Excess 26.3 Sodium Potassium Chloride Carbon Dioxide Anion Gap BUN Creatinine Estim Creat Clear Calc Estimated GFR Random Glucose Lactic Acid Calcium Phosphorus Magnesium Total Bilirubin Direct Bilirubin AST ALT Alkaline Phosphatase Troponin I High Sens B-Natriuretic Peptide 50 Total Protein Albumin Urine Color Urine Appearance Urine pH Ur Specific [place] Urine Protein Urine Glucose (UA) Urine Ketones Urine Blood Urine Nitrite Ur Leukocyte Esterase Urine RBC Urine WBC Ur Squamous Epith Cells Amorphous Sediment Urine Bacteria Hyaline Casts Urine Mucus COVID-19 (TAL) COVID-19 Clin Com Progress Note: A&P Assessment and plan (1) Acute and chronic respiratory failure with hypercapnia: Status: Acute (2) COPD (chronic obstructive pulmonary disease): Status: Acute (3) Obesity hypoventilation syndrome: Status: Acute (4) Acute hypercapnic respiratory failure: Status: Acute (5) Acute dyspnea: Status: Acute (6) REGINA (obstructive sleep apnea): Status: Acute (7) Acute exacerbation of chronic obstructive airways disease: Status: Acute (8) Chronic respiratory failure with hypoxia and hypercapnia: Status: Acute (9) Tubular adenoma of colon: Status: Acute (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: Status: Acute (11) Nocturnal enuresis: Status: Acute (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 (13) Hypertriglyceridemia: Status: Acute (14) GERD (gastroesophageal reflux disease): Status: Acute (15) Schizoaffective schizophrenia: Status: Acute Assessment and Plan: The plan is to transfer to the floor with the use of nocturnal noninvasive ventilation probably need to obtain the help of of pulmonary consult possibly try to arrange outpatient studies to qualify him for a CPAP or BiPAP device Quality Stroke Does the patient have a stroke diagnosis?: No VTE Prior VTE?: No VTE Risk Level:: Medical - low VTE Device Contraindication: Treatment Not Tolerated VTE Drug Contraindication: N/A - Med Ordered
--- NOTE | 2021-10-30 16:16 | PHA.PROG ---
Admission Date/Time: October 29, 2021 22:11 Indication: Weight in k.9 kg Serum Creatinine - Last 168 Hours 10/29/21 10/30/21 10/30/21 19:07 00:48 05:24 Creatinine 0.76 0.66 0.64 Estimated CrCl and GFR - Last 168 Hours 10/29/21 10/30/21 10/30/21 19:07 00:48 05:24 Estim Creat Clear Calc 139.3 160.4 167.4 Estimated GFR > 60 > 60 > 60 Vancomycin Loading Dose: 2000 Current Vancomycin Dosing Regimen: 1250 Q 12H Vancomycin Monitoring using AUC goal of 400 - 600 range with trough as surrogate marker: 555 Date and Time for next Vancomycin Level to be drawn: Random 10/31 @ 1500 Pharmacist Comments on Vancomycin Plan: Vancomycin dosing will take advantage of [employer] as a clinical decision support tool that uses Bayesian modeling to calculate individual patient's pharmacokinetic parameters and forecast the patient's drug concentration time course with the target goal AUC 24 range of 400 - 600 mg/L/hr.
[2021-10-30] MEDS: Piperacillin Sodium/Tazobactam 4.5 GM in 0.9 % Sodium Chloride 100 ML IV ×2 (16:59→21:50)
[2021-10-30] MEDS: Azithromycin 500 MG in 0.9 % Sodium Chloride 250 ML 125 MG IV (19:44)
[2021-10-30] MEDS: Enoxaparin Sodium 40 MG/0.4 ML SYRINGE SUBCUT (21:47)
[2021-10-31] VITALS (10 sets, daily range): BP systolic 152–179; BP diastolic 67–93; PULSE 91–120; RESP 18–26; TEMP 36.1–37.1; O2SAT 90–112; BMI 45.5
[2021-10-31 00:10] LABS: Glucose, Whole Blood 154 mg/dL (60-115)
[2021-10-31] MEDS: methylPREDNISolone Sod Succ 40 MG/ML VIAL IVPUSH ×4 (01:09→18:37)
[2021-10-31] MEDS: Piperacillin Sodium/Tazobactam 4.5 GM in 0.9 % Sodium Chloride 100 ML IV ×4 (04:46→21:00)
[2021-10-31] MEDS: vancomycin HCL 1,250 MG in 0.9 % Sodium Chloride 250 ML 166.67 MG IV (05:26)
[2021-10-31 06:13] LABS: MANUAL DIFF FLAG NO
[2021-10-31 06:21] LABS: Venous Blood Gas Refer to POC result
[2021-10-31 06:21] LABS: VBG Base Excess 19.7 mmol/L; VBG HCO3 47 mmol/L (22-26); VBG pCO2 67 mmHg; VBG pH 7.45 (7.32-7.43); VBG pO2 68 mmHg
[2021-10-31 07:07] LABS: Basophils Absolute Auto 0.1 X10*3/uL (0.0-0.2); Basophils Percent Auto 0.3 % (0-2); Hematocrit 40.9 % (42.0-52.0); Hemoglobin 11.8 g/dl (14.0-18.0); Imm Gran Abs Auto 0.49 X10*3/uL (0.00-0.03); Imm Gran Pct Auto 3.4 % (0.0-0.4); Lymphocytes Absolute Auto 0.4 X10*3/uL (1.2-4.9); Lymphocytes Percent Auto 2.8 % (20-40); Mean Corpuscular HGB Conc 28.9 g/dl (31.0-36.0); Mean Corpuscular Hemoglobin 27.2 pg (27.0-33.0); Mean Corpuscular Volume 94.2 fL (80.0-98.0); Mean Platelet Volume 9.8 fL (9.4-12.4); Monocytes Absolute Auto 0.5 X10*3/uL (0.1-1.2); Monocytes Percent Auto 3.7 % (2-11); Neutrophils Percent Auto 89.8 % (45-73); Platelet Count 228 X10*3/uL (160-400); Red Blood Count 4.34 X10*6/uL (4.60-5.80); Red Cell Distribution Width 14.4 % (11.0-16.0); White Blood Count 14.5 X10*3/uL (4.8-10.8)
[2021-10-31 07:21] LABS: Blood Urea Nitrogen 22 mg/dL (9-16); Calcium 8.9 mg/dL (8.4-10.2); Creatinine Clr Calc Pharmacy 139.1; Estimated Glomerular Filt Rate > 60; Glucose Random 161 mg/dL (60-115); Magnesium 2.1 mg/dL (1.6-2.6); Phosphorus 2.2 mg/dL (2.7-4.5)
[2021-10-31 07:38] LABS: Glucose, Whole Blood 136 mg/dL (60-115)
[2021-10-31 07:45] LABS: Anion Gap 10 (12-20); Carbon Dioxide 41 mmol/L (22-29); Chloride 95 mmol/L (96-108); Potassium 4.3 mmol/L (3.3-5.1); Sodium 142 mmol/L (135-145)
[2021-10-31] MEDS: Albuterol/Iprat 2.5/0.5MG 3 ML AMPUL.NEB INHALE ×3 (07:46→19:03)
[2021-10-31] MEDS: risperiDONE 0.5 MG TABLET PO ×2 (08:03→20:53)
[2021-10-31] MEDS: Loratadine 10 MG TABLET PO (08:03)
[2021-10-31] MEDS: ARIPiprazole 10 MG TABLET PO (08:03)
[2021-10-31] MEDS: Sertraline HCL 50 MG TABLET PO (08:03)
[2021-10-31 11:23] LABS: Glucose, Whole Blood 190 mg/dL (60-115)
--- NOTE | 2021-10-31 11:53 | MHC.CM.PN ---
Per ROUNDS discussion, Patient is not yet medically cleared for dc (IV Vanco, IV Azithromycin, IV Zosyn, IV Solu Medrol). Home vs STR/Pulmonary Rehab is the goal for dc and CM will continue to follow.
--- NOTE | 2021-10-31 12:45 | MHC.CM.PN ---
Per RN, Patient's Grinding Supervisor from [facility], Julia, is requesting that dc summary be faxed to her at [phone], in order for services to resume upon dc.
--- NOTE | 2021-10-31 14:12 | HO.PM.IMPN ---
Subjective Subjective Date of Service: 10/31/21 Interval History: COPD exacerbation Review of Systems shortness shortness of breath slowly improving denies any chest pain or abdominal pain or nausea or vomiting or cough or phlegm. Physical Exam Vital Signs: Vital Signs: Last Vital Signs Temp 97 F 10/31/21 11:16 Pulse 110 H 10/31/21 11:16 Resp 20 10/31/21 11:16 BP 158/80 H 10/31/21 11:16 Pulse Ox 91 L 10/31/21 11:16 Oxygen Flow Rate 15 10/29/21 19:00 BMI result Body Mass Index 45.5 General: AO X 3, no acute distress, obese Resp:? Air entry improving, mild rhonchi CVS: S1,S2,RRR GI: +BS, NT, no distention Skin: No rash Neuro:? motor grossly intact Psych: appropriate affect ? Objective Data Active Medications Albuterol/Ipratropium (Albuterol/Iprat 2.5/0.5mg 3 Ml Ampul.Neb) 3 ml INHALE RQ4H WHILE AWAKE [facility] Last Admin: 10/31/21 11:40 Dose: Not Given Documented by: PETER Non-Admin Reason: HR 131 Albuterol/Ipratropium (Albuterol/Iprat 2.5/0.5mg 3 Ml Ampul.Neb) 3 ml INHALE Q2H PRN PRN Reason: Shortness of Breath Amitriptyline HCl (Amitriptyline Hcl 25 Mg Tablet) 25 mg PO BEDTIME PRN PRN Reason: insomnia Aripiprazole (Aripiprazole 10 Mg Tablet) 10 mg PO DAILY [facility] Last Admin: 10/31/21 08:03 Dose: 10 mg Documented by: LORRAINE Aripiprazole (Aripiprazole 20 Mg Tablet) 20 mg PO BEDTIME [facility] Last Admin: 10/30/21 20:36 Dose: 20 mg Documented by: NASIMA Benztropine Mesylate (Benztropine Mesylate 1 Mg Tablet) 1 mg PO BEDTIME [facility] Enoxaparin Sodium (Enoxaparin Sodium 40 Mg/0.4 Ml Syringe) 40 mg SUBCUT Q24H [facility] Last Admin: 10/30/21 21:47 Dose: 40 mg Documented by: NASIMA Azithromycin 500 mg/ Sodium (Chloride) 250 mls @ 125 mls/hr IV Q24H [facility] Stop: 11/02/21 20:59 Last Infusion: 10/30/21 21:44 Dose: 0 mls/hr Documented by: NASIMA Piperacillin Sod/Tazobactam (Sod 4.5 gm/ Sodium Chloride) 100 mls @ 200 mls/hr IV Q6H [facility] Last Infusion: 10/31/21 11:10 Dose: 0 mls/hr Documented by: LORRAINE Vancomycin HCl 1,250 mg/ (Sodium Chloride) 250 mls @ 166.667 mls/hr IV Q12H [facility] Last Infusion: 10/31/21 06:56 Dose: 0 mls/hr Documented by: RONNIE Loratadine (Loratadine 10 Mg Tablet) 10 mg PO DAILY [facility] Last Admin: 10/31/21 08:03 Dose: 10 mg Documented by: LORRAINE Loratadine (Loratadine 10 Mg Tablet) 10 mg PO DAILY PRN PRN Reason: Allergy Symptoms Methylprednisolone Sodium Succinate (Methylprednisolone Sod Succ 40 Mg/Ml Vial) 40 mg IVPUSH Q6H [facility] Last Admin: 10/31/21 12:08 Dose: 40 mg Documented by: LORRAINE Montelukast Sodium (Montelukast Sodium 10 Mg Tablet) 10 mg PO BEDTIME [facility] Last Admin: 10/30/21 20:36 Dose: 10 mg Documented by: NASIMA Omeprazole (Omeprazole 20 Mg Capsule.Dr) 20 mg PO DAILY@0630 [facility] Pharmacy Consult (Consult Rx Perform Med Rec) 1 each MISCELLANE ONCE PRN PRN Reason: Consult order Pharmacy Consult (Consult Rx Perform Med Rec) 1 each MISCELLANE ONCE PRN PRN Reason: Consult order Pharmacy Consult (Consult Rx Vancomycin Dosing) 1 each MISCELLANE DAILY PRN PRN Reason: Consult order Risperidone (Risperidone 0.5 Mg Tablet) 0.5 mg PO BID [facility] Last Admin: 10/31/21 08:03 Dose: 0.5 mg Documented by: LORRAINE Sertraline HCl (Sertraline Hcl 50 Mg Tablet) 50 mg PO DAILY [facility] Last Admin: 10/31/21 08:03 Dose: 50 mg Documented by: LORRAINE Labs CBC & Chem 7: 10/31/21 06:08 10/31/21 06:08 Labs: Laboratory Results - last 24 hr 10/31/21 10/31/21 10/31/21 00:06 06:08 06:08 MCV 94.2 MCH 27.2 MCHC 28.9 L RDW 14.4 Plt Count 228 MPV 9.8 Immature Gran % (Auto) 3.4 H Neut % (Auto) 89.8 H Lymph % (Auto) 2.8 L [place] % (Auto) 3.7 Eos % (Auto) 0.0 Baso % (Auto) 0.3 Lymph # (Auto) 0.4 L [place] # (Auto) 0.5 Eos # (Auto) 0.0 Baso # (Auto) 0.1 Abs Immat Gran (auto) 0.49 H Absolute Neuts (auto) 13.0 H Absolute Nucleated RBC 0.000 Nucleated RBC % (auto) 0.0 VBG pH VBG pCO2 VBG pO2 VBG HCO3 VBG O2 Saturation VBG Base Excess Anion Gap 10 L Estim Creat Clear Calc 139.1 Estimated GFR > 60 POC Glucose 154 H Random Glucose 161 H Calcium 8.9 Phosphorus 2.2 L Magnesium 2.1 10/31/21 10/31/21 10/31/21 06:14 07:35 11:19 MCV MCH MCHC RDW Plt Count MPV Immature Gran % (Auto) Neut % (Auto) Lymph % (Auto) [place] % (Auto) Eos % (Auto) Baso % (Auto) Lymph # (Auto) [place] # (Auto) Eos # (Auto) Baso # (Auto) Abs Immat Gran (auto) Absolute Neuts (auto) Absolute Nucleated RBC Nucleated RBC % (auto) VBG pH 7.45 H VBG pCO2 67 VBG pO2 68 VBG HCO3 47 H VBG O2 Saturation 90.0 VBG Base Excess 19.7 Anion Gap Estim Creat Clear Calc Estimated GFR POC Glucose 136 H 190 H Random Glucose Calcium Phosphorus Magnesium Microbiology Microbiology Results: Microbiology 10/29/21 19:07 Blood Culture - Preliminary Blood - Venous No growth after 24 hours. 10/29/21 19:07 Blood Culture - Preliminary Blood - Venous No growth after 24 hours. Assessment and Plan (1) COPD (chronic obstructive pulmonary disease): Status: Acute Assessment and Plan: 56-year-old male with past medical history of chronic hypercapnic hypoxic respiratory failure on 6 L of oxygen presents to the hospital after being 'unable to move found to have hypercapnic respiratory failure 1.acute hypercapnic respiratory failure- most likely secondary to his noncompliance with his CPAP/BiPAP machine-was in icu treated withbipap. - patient hemodynamically stable - will admit with evaluation for case management/social work to help obtain CPAP/BiPAP for him for home continue nebs, steroids, oxygen, 2.[place]- CPAP at bedtime 3. mood disorder- continue home medications DVT prophylaxis:? [employer] (formerly [employer]) Quality Stroke Does the patient have a stroke diagnosis?: No VTE Prior VTE?: No VTE Risk Level:: Medical - low VTE Device Contraindication: Treatment Not Tolerated VTE Drug Contraindication: N/A - Med Ordered
[2021-10-31] MEDS: vancomycin HCL 1,500 MG in 0.9 % Sodium Chloride 500 ML 333.33 MG IV (16:42)
[2021-10-31] MEDS: Azithromycin 500 MG in 0.9 % Sodium Chloride 250 ML 125 MG IV (18:42)
[2021-10-31] MEDS: ARIPiprazole 20 MG TABLET PO (20:53)
[2021-10-31] MEDS: Benztropine Mesylate 1 MG TABLET PO (20:53)
[2021-10-31] MEDS: Montelukast Sodium 10 MG TABLET PO (20:53)
[2021-11-01] VITALS (7 sets, daily range): BP systolic 138–168; BP diastolic 73–92; PULSE 86–115; RESP 20–24; TEMP 36.7–37.5; O2SAT 91–97; BMI 47.8
[2021-11-01] MEDS: methylPREDNISolone Sod Succ 40 MG/ML VIAL IVPUSH ×3 (00:02→14:28)
[2021-11-01] MEDS: Enoxaparin Sodium 40 MG/0.4 ML SYRINGE SUBCUT (00:02)
[2021-11-01] MEDS: Piperacillin Sodium/Tazobactam 4.5 GM in 0.9 % Sodium Chloride 100 ML IV ×2 (04:15→08:44)
[2021-11-01] MEDS: vancomycin HCL 1,500 MG in 0.9 % Sodium Chloride 500 ML 333.33 MG IV (04:56)
[2021-11-01] MEDS: Omeprazole 20 MG CAPSULE.DR PO (04:56)
[2021-11-01 06:36] LABS: MANUAL DIFF FLAG NO
[2021-11-01 06:39] LABS: Venous Blood Gas Refer to POC result
[2021-11-01 06:39] LABS: VBG Base Excess 16.8 mmol/L; VBG HCO3 45 mmol/L (22-26); VBG pCO2 72 mmHg; VBG pO2 65 mmHg
[2021-11-01 06:57] LABS: Anion Gap 10 (12-20); Blood Urea Nitrogen 20 mg/dL (9-16); Calcium 8.6 mg/dL (8.4-10.2); Carbon Dioxide 39 mmol/L (22-29); Chloride 99 mmol/L (96-108); Creatinine Clr Calc Pharmacy 143.1; Estimated Glomerular Filt Rate > 60; Glucose Random 163 mg/dL (60-115); Phosphorus 3.8 mg/dL (2.7-4.5); Potassium 4.5 mmol/L (3.3-5.1); Sodium 143 mmol/L (135-145)
[2021-11-01 06:58] LABS: Hemoglobin 11.2 g/dl (14.0-18.0); Red Blood Count 4.09 X10*6/uL (4.60-5.80); White Blood Count 12.1 X10*3/uL (4.8-10.8)
[2021-11-01 06:59] LABS: Basophils Percent Auto 0.2 % (0-2); Hematocrit 38.7 % (42.0-52.0); Imm Gran Abs Auto 0.39 X10*3/uL (0.00-0.03); Imm Gran Pct Auto 3.2 % (0.0-0.4); Lymphocytes Absolute Auto 0.4 X10*3/uL (1.2-4.9); Lymphocytes Percent Auto 3.2 % (20-40); Mean Corpuscular HGB Conc 28.9 g/dl (31.0-36.0); Mean Corpuscular Hemoglobin 27.4 pg (27.0-33.0); Mean Corpuscular Volume 94.6 fL (80.0-98.0); Mean Platelet Volume 9.9 fL (9.4-12.4); Monocytes Absolute Auto 0.5 X10*3/uL (0.1-1.2); Monocytes Percent Auto 3.8 % (2-11); Neutrophils Absolute Auto 10.8 x10*3/uL (2.0-8.3); Neutrophils Percent Auto 89.6 % (45-73); Platelet Count 209 X10*3/uL (160-400); Red Cell Distribution Width 14.5 % (11.0-16.0)
[2021-11-01] MEDS: Albuterol/Iprat 2.5/0.5MG 3 ML AMPUL.NEB INHALE ×3 (08:02→15:16)
[2021-11-01] MEDS: Sertraline HCL 50 MG TABLET PO (08:43)
[2021-11-01] MEDS: risperiDONE 0.5 MG TABLET PO (08:44)
[2021-11-01] MEDS: ARIPiprazole 10 MG TABLET PO (08:44)
[2021-11-01] MEDS: Loratadine 10 MG TABLET PO (08:44)
--- NOTE | 2021-11-01 12:57 | P.PNIM_ITS ---
Subjective Subjective Date of Service: 11/01/21 Interval History: sob Review of Systems breathing buckley seems improving, denies any chest pain or abdominal pain or fever or chills or nausea or vomiting or diarrhea. Physical Exam Vital Signs: Vital Signs: Last Vital Signs Temp 99.5 F 11/01/21 12:00 Pulse 97 11/01/21 12:00 Resp 20 11/01/21 12:00 BP 141/92 H 11/01/21 12:00 Pulse Ox 93 11/01/21 12:00 Oxygen Flow Rate 15 10/29/21 19:00 BMI result Body Mass Index 47.8 General: AO X 3, no acute distress, obese Resp:?? Air entry improving CVS: S1,S2,RRR GI: +BS, NT, no distention Skin: No rash Neuro:? motor grossly intact Psych: appropriate affect Objective Data Active Medications Albuterol/Ipratropium (Albuterol/Iprat 2.5/0.5mg 3 Ml Ampul.Neb) 3 ml INHALE RQ4H WHILE AWAKE [facility] Last Admin: 11/01/21 11:23 Dose: 3 ml Documented by: SONALI Albuterol/Ipratropium (Albuterol/Iprat 2.5/0.5mg 3 Ml Ampul.Neb) 3 ml INHALE Q2H PRN PRN Reason: Shortness of Breath Amitriptyline HCl (Amitriptyline Hcl 25 Mg Tablet) 25 mg PO BEDTIME PRN PRN Reason: insomnia Aripiprazole (Aripiprazole 10 Mg Tablet) 10 mg PO DAILY [facility] Last Admin: 11/01/21 08:44 Dose: 10 mg Documented by: MANGO Aripiprazole (Aripiprazole 20 Mg Tablet) 20 mg PO BEDTIME [facility] Last Admin: 10/31/21 20:53 Dose: 20 mg Documented by: JUAN CARLOS Benztropine Mesylate (Benztropine Mesylate 1 Mg Tablet) 1 mg PO BEDTIME [facility] Last Admin: 10/31/21 20:53 Dose: 1 mg Documented by: JUAN CARLOS Enoxaparin Sodium (Enoxaparin Sodium 40 Mg/0.4 Ml Syringe) 40 mg SUBCUT Q24H [facility] Last Admin: 11/01/21 00:02 Dose: 40 mg Documented by: JUAN CARLOS Azithromycin 500 mg/ Sodium (Chloride) 250 mls @ 125 mls/hr IV Q24H [facility] Stop: 11/02/21 20:59 Last Infusion: 10/31/21 21:02 Dose: 0 mls/hr Documented by: JUAN CARLOS Piperacillin Sod/Tazobactam (Sod 4.5 gm/ Sodium Chloride) 100 mls @ 200 mls/hr IV Q6H [facility] Last Infusion: 11/01/21 09:16 Dose: 0 mls/hr Documented by: MANGO Vancomycin HCl 1,500 mg/ (Sodium Chloride) 500 mls @ 333.333 mls/hr IV Q12H [facility] Last Infusion: 11/01/21 06:48 Dose: 0 mls/hr Documented by: ANTTRINA Loratadine (Loratadine 10 Mg Tablet) 10 mg PO DAILY [facility] Last Admin: 11/01/21 08:44 Dose: 10 mg Documented by: MANGO Loratadine (Loratadine 10 Mg Tablet) 10 mg PO DAILY PRN PRN Reason: Allergy Symptoms Methylprednisolone Sodium Succinate (Methylprednisolone Sod Succ 40 Mg/Ml Vial) 40 mg IVPUSH Q6H [facility] Last Admin: 11/01/21 06:47 Dose: 40 mg Documented by: JUAN CARLOS Montelukast Sodium (Montelukast Sodium 10 Mg Tablet) 10 mg PO BEDTIME [facility] Last Admin: 10/31/21 20:53 Dose: 10 mg Documented by: ANTTRINA Omeprazole (Omeprazole 20 Mg Capsule.Dr) 20 mg PO DAILY@0630 [facility] Last Admin: 11/01/21 04:56 Dose: 20 mg Documented by: JUAN CARLOS Pharmacy Consult (Consult Rx Perform Med Rec) 1 each MISCELLANE ONCE PRN PRN Reason: Consult order Pharmacy Consult (Consult Rx Perform Med Rec) 1 each MISCELLANE ONCE PRN PRN Reason: Consult order Pharmacy Consult (Consult Rx Vancomycin Dosing) 1 each MISCELLANE DAILY PRN PRN Reason: Consult order Risperidone (Risperidone 0.5 Mg Tablet) 0.5 mg PO BID [facility] Last Admin: 11/01/21 08:44 Dose: 0.5 mg Documented by: MANGO Sertraline HCl (Sertraline Hcl 50 Mg Tablet) 50 mg PO DAILY [facility] Last Admin: 11/01/21 08:43 Dose: 50 mg Documented by: MANGO Labs CBC & Chem 7: 11/01/21 06:23 11/01/21 06:23 Labs: Laboratory Results - last 24 hr 10/31/21 11/01/21 11/01/21 15:03 06:23 06:23 MCV 94.6 MCH 27.4 MCHC 28.9 L RDW 14.5 Plt Count 209 MPV 9.9 Immature Gran % (Auto) 3.2 H Neut % (Auto) 89.6 H Lymph % (Auto) 3.2 L [place] % (Auto) 3.8 Eos % (Auto) 0.0 Baso % (Auto) 0.2 Lymph # (Auto) 0.4 L [place] # (Auto) 0.5 Eos # (Auto) 0.0 Baso # (Auto) 0.0 Abs Immat Gran (auto) 0.39 H Absolute Neuts (auto) 10.8 H Absolute Nucleated RBC 0.000 Nucleated RBC % (auto) 0.0 VBG pH VBG pCO2 VBG pO2 VBG HCO3 VBG O2 Saturation VBG Base Excess Anion Gap 10 L Estim Creat Clear Calc 143.1 Estimated GFR > 60 Random Glucose 163 H Calcium 8.6 Phosphorus 3.8 Magnesium 2.0 Random Vancomycin 7.0 L 11/01/21 06:32 MCV MCH MCHC RDW Plt Count MPV Immature Gran % (Auto) Neut % (Auto) Lymph % (Auto) [place] % (Auto) Eos % (Auto) Baso % (Auto) Lymph # (Auto) [place] # (Auto) Eos # (Auto) Baso # (Auto) Abs Immat Gran (auto) Absolute Neuts (auto) Absolute Nucleated RBC Nucleated RBC % (auto) VBG pH 7.40 VBG pCO2 72 VBG pO2 65 VBG HCO3 45 H VBG O2 Saturation 88.0 VBG Base Excess 16.8 Anion Gap Estim Creat Clear Calc Estimated GFR Random Glucose Calcium Phosphorus Magnesium Random Vancomycin Microbiology Microbiology Results: Microbiology 10/29/21 19:07 Blood Culture - Preliminary Blood - Venous No growth after 48 hours. 10/29/21 19:07 Blood Culture - Preliminary Blood - Venous No growth after 48 hours. Assessment and Plan Assessment and Plan: 56-year-old male with past medical history of chronic hypercapnic hypoxic re spiratory failure on 6 L of oxygen presents to the hospital after being 'unable to move found to have hypercapnic respiratory failure 1.acute hypercapnic respiratory failure- most likely secondary to his noncompliance with his CPAP/BiPAP machine-was in icu treated withbipap. - patient hemodynamically stable - will admit with evaluation for case management/social work to help obtain CPAP/BiPAP for him for home ?continue nebs, steroids, oxygen, 2.REG[place]- CPAP at bedtime 3. mood disorder- continue home medications DVT prophylaxis:? Lovenox Quality Stroke Does the patient have a stroke diagnosis?: No VTE Prior VTE?: No VTE Risk Level:: Medical - low VTE Device Contraindication: Treatment Not Tolerated VTE Drug Contraindication: N/A - Med Ordered
[2021-11-01 15:33] LABS: Vancomycin Trough 8.5 mcg/mL (10.0-20.0)
[2021-11-01] MEDS: Amoxicillin/Potassium Clav 875 MG TABLET PO (15:48)
--- NOTE | 2021-11-01 15:54 | P.DS_ITS ---
DS: Providers Provider Date of Service: 11/01/21 Date of admission: 10/29/21 22:11 Date of discharge: 11/01/21 Primary care physician: Unknown Physician Consults: 11/01/21 07:38 Consult to Pulmonology Routine Consulting Provider: Burke Cruz Reason for consultation: Recurrent COPD exacerbations/REG[place] Has provider been notified: No DS: Diagnosis Discharge Diagnosis (1) COPD (chronic obstructive pulmonary disease): Status: Acute DS: Summary Hospital Course Hospital Course: HPI: 56-year-old male with past med hx of COPD, REGINA not compliant with his CPAP machine due to it's age and not working well, chronic respiratory failure with hypoxia and hypercapnia on 5 L of oxygen, schizoaffective schizophrenia, who was BIBA after he was found confused, slow to answer and satting in the 70's by his family.? patient has not been taking his steroids the last 2 days, he used 1 neb tx prior to ambulance crew arriving. Apparently there was possibly an issue with his 30ft of tubing.? he denies any increased cough? or sputum, fevers. On arrival to the ED found to have temp of 97.6?, HR 115, RR 24, BP 136/71 and O2 93% on 15L NRB. In the ED his labs are significant for WBC count of 11.4, VBG 7.25/131/75/58/91/23.4? CXR? showed slight increase in patchy densities at both lung bases with possible small pleural effusions.? Patient was placed on BiPAP for several hours at 45% 18/8 with his CO2 now 112 with a pH of 7.31 Patient has had multiple recent admissions on 10/15, 09/30, 09/17 and 08/29 for similar issues. During my bedside exam, the pt? was alert and oriented, breathing easy however his lung sounds were diminished and tight. He was very adamant that he get his evening medications.? he denied any cough, fevers, lower extremity swelling but did admit to some central abdominal pain? however his abdomen was soft and nontender to palpation. Hopsitl course: patient was admitted to ICU because of sob-acute on chronic hypoxemic/hypercarbic respiratory failure secondary to COPD exacerbation, CPAP noncompliance, pneumonia: patient required BiPAP and IV steroids as well as IV antibiotics in ICU and subsequently shortness of breath seems to be improving and transferred to hospitalist service: patient shortness of breath improved, patient is going home with p.o. steroids and antibiotics. In addition patient has home CPAP is getting set up as per respiratory. patient needs to follow up outpatient with Dr. Garcia Pulmonary. Above management discussed with the patient in detail length he understand and in agreement with the above plan, time spent 50 minutes and 50% time spent on counseling. Significant findings: As above. Procedures performed: None. Treatment and response: As above. Complications: None. Time Spent with Patient Time attestation: Total time spent providing and/or coordinating discharge services: Discharge coordination time: Greater than 30 minutes Quality: Stroke Does the patient have a stroke diagnosis?: No Physical Exam Vital Signs: Vital Signs: Last Vital Signs Temp 99.5 F 11/01/21 12:00 Pulse 107 H 11/01/21 15:20 Resp 20 11/01/21 12:00 BP 141/92 H 11/01/21 12:00 Pulse Ox 93 11/01/21 12:00 Oxygen Flow Rate 15 10/29/21 19:00 BMI result Body Mass Index 47.8 ?General: AO X 3, no acute distress, obese Resp:?? Air entry improving, mild rhonchi CVS: S1,S2,RRR GI: +BS, NT, no distention Skin: No rash Neuro:? motor grossly intact Psych: appropriate affect DS: Data Data Completed and Pending Labs on day of discharge: Laboratory Results - last 24 hr 11/01/21 11/01/21 11/01/21 06:23 06:23 06:32 WBC 12.1 H RBC 4.09 L Hgb 11.2 L Hct 38.7 L MCV 94.6 MCH 27.4 MCHC 28.9 L RDW 14.5 Plt Count 209 MPV 9.9 Immature Gran % (Auto) 3.2 H Neut % (Auto) 89.6 H Lymph % (Auto) 3.2 L [place] % (Auto) 3.8 Eos % (Auto) 0.0 Baso % (Auto) 0.2 Lymph # (Auto) 0.4 L [place] # (Auto) 0.5 Eos # (Auto) 0.0 Baso # (Auto) 0.0 Abs Immat Gran (auto) 0.39 H Absolute Neuts (auto) 10.8 H Absolute Nucleated RBC 0.000 Nucleated RBC % (auto) 0.0 VBG pH 7.40 VBG pCO2 72 VBG pO2 65 VBG HCO3 45 H VBG O2 Saturation 88.0 VBG Base Excess 16.8 Sodium 143 Potassium 4.5 Chloride 99 Carbon Dioxide 39 H Anion Gap 10 L BUN 20 H Creatinine 0.75 Estim Creat Clear Calc 143.1 Estimated GFR > 60 Random Glucose 163 H Calcium 8.6 Phosphorus 3.8 Magnesium 2.0 Vancomycin Trough 11/01/21 15:05 WBC RBC Hgb Hct MCV MCH MCHC RDW Plt Count MPV Immature Gran % (Auto) Neut % (Auto) Lymph % (Auto) [place] % (Auto) Eos % (Auto) Baso % (Auto) Lymph # (Auto) [place] # (Auto) Eos # (Auto) Baso # (Auto) Abs Immat Gran (auto) Absolute Neuts (auto) Absolute Nucleated RBC Nucleated RBC % (auto) VBG pH VBG pCO2 VBG pO2 VBG HCO3 VBG O2 Saturation VBG Base Excess Sodium Potassium Chloride Carbon Dioxide Anion Gap BUN Creatinine Estim Creat Clear Calc Estimated GFR Random Glucose Calcium Phosphorus Magnesium Vancomycin Trough 8.5 L Preliminary micro results at discharge 10/29/21 19:07 Blood Culture - Preliminary Blood - Venous No growth after 48 hours. 10/29/21 19:07 Blood Culture - Preliminary Blood - Venous No growth after 48 hours. Additional Comments Additional comments: cxr: IMPRESSION: Slight increase in patchy densities seen at both lung bases with possible small pleural effusions Discharge Plan Discharge Patient Disposition: Home, Self-Care Discharge Diagnosis: Acute on chronic hypoxemic / hypercarbic respiratory failure secondary to COPD Exacerbation/pneumonia. patient noncompliance to CPAP also contributing to above. Referrals: Ashu Garcia MD [Physician] - 1 Week (fu outpatiently ) Physician,Vaibhav J [Primary Care Provider] - 1 Week Discharge Medications: New doxycycline hyclate 100 mg Tablet 100 mg PO Q12H Qty: 10 RF: 0 amoxicillin-pot clavulanate 875-125 mg Tablet 875 mg PO Q12H Qty: 10 RF: 0 methylprednisolone [Medrol (Juan Manuel)] 4 mg tablets,dose pack 4 mg PO DAILY Qty: 21 RF: 0 Continued arformoterol [Brovana] 15 mcg/2 mL solution for nebulization 2 ml inhalation BID Qty: 120 RF: 6 montelukast 10 mg tablet 10 mg PO BEDTIME Qty: 90 RF: 8 gemfibrozil 600 mg tablet 600 mg PO BID Qty: 180 RF: 8 desmopressin 0.2 mg tablet 0.4 mg PO BEDTIME Qty: 90 RF: 4 cyclobenzaprine 5 mg tablet 5 mg PO BEDTIME PRN (Reason: for muscle spasm) Qty: 7 RF: 0 triamcinolone acetonide 0.5 % ointment 1 appl topical BID PRN (Reason: Rash) RF: 0 loratadine 10 mg tablet 1 tab PO DAILY RF: 0 ipratropium-albuterol 0.5 mg-3 mg(2.5 mg base)/3 mL solution for nebulization 3 ml inhalation QID RF: 0 omeprazole 20 mg capsule,delayed release(DR/EC) 20 mg PO DAILY@0630 RF: 0 amitriptyline 25 mg tablet 1 tab PO BEDTIME PRN (Reason: insomnia) RF: 0 cetirizine [Zyrtec] 10 mg Tablet 10 mg PO DAILY PRN (Reason: Allergy Symptoms) RF: 0 clonazepam 0.5 mg tablet 0.5 mg PO BID RF: 0 risperidone 0.5 mg tablet 0.5 mg PO BID RF: 0 aripiprazole 10 mg tablet 10 mg PO DAILY RF: 0 sertraline 50 mg tablet 50 mg PO DAILY RF: 0 benztropine 1 mg tablet 1 mg PO BEDTIME RF: 0 aripiprazole 20 mg tablet 20 mg PO BEDTIME RF: 0 Discharge Orders: Discharge Order (Routine); Ordered 11/01/21 Ordered By: Greg Sarah Diet: advance to usual diet, low fat, low cholesterol and low salt diet Activity on Discharge: As tolerated Stand Alone Forms: Patient Portal Discharge page Care Plan Goals: patient was admitted to ICU because of sob-acute on chronic hypoxemic/hypercarbic respiratory failure secondary to COPD exacerbation, CPAP noncompliance, pneumonia: patient required BiPAP and IV steroids as well as IV antibiotics in ICU and subsequently shortness of breath seems to be improving and transferred to hospitalist service: patient shortness of breath improved, patient is going home with p.o. steroids and antibiotics. In addition patient has home CPAP is getting set up as per respiratory. patient needs to follow up outpatient with Dr. Radha Pulmonary. Health Concerns: As above. Plan of Treatment: As above. Assessment: As above.
--- NOTE | 2021-11-01 15:58 | MHC.CM.PN ---
Patient has been medically cleared for dc to home today, no services. Last IMM addressed on 10/30/21.
--- NOTE | 2021-11-01 16:06 | MHC.CM.PN ---
DC Summary has been faxed to [facility] MICHELLE/Julia at [phone], for home support to resume.
== END 2021-11-01 16:30 | disposition home or self-care (01) | DRG 190 ==
LOC: HO.ED 21:33 → HO.EDOVER 22:23 → HO.ICU 23:12 → HO.IMC 10-31 00:09
PROVIDERS: Internal Medicine Cardiovascular Disease; Admitting Provider Physician Assistant; Emergency Provider Emergency Medicine; Visit Provider Internal Medicine
DX: J44.1 Chronic obstructive pulmonary disease with (acute) exacerbation (principal); J96.21 Acute and chronic respiratory failure with hypoxia; J96.22 Acute and chronic respiratory failure with hypercapnia; E66.2 Morbid (severe) obesity with alveolar hypoventilation; Z68.42 Body mass index [BMI] 45.0-49.9, adult; Z91.19 Patient's noncompliance with other medical treatment and regimen; Z20.822 Contact with and (suspected) exposure to COVID-19; Z99.81 Dependence on supplemental oxygen; Z87.891 Personal history of nicotine dependence; Z88.6 Allergy status to analgesic agent; Z79.899 Other long term (current) drug therapy
CPT/HCPCS: 36415; 71045; 80048; 80076; 80202; 81001; 81003; 82803; 82947; 83605; 83735; 83880; 84100; 84484; 85007; 85025; 85027; 87040; 87635; 93005; 94640; 94644; 94645; 94660; 99285; J0456; J0696; J1650; J1940; J2543; J2920; J2930; J3370

== ENCOUNTER → 2021-11-06 14:42 | Outpatient (BNVA) | payer MEDICAID, SELFPAY | PROVIDERS: PCP Nurse Practitioner Family; Visit Provider Internal Medicine Pulmonary Disease | DX: J96.11 Chronic respiratory failure with hypoxia (principal); J96.12 Chronic respiratory failure with hypercapnia; J44.9 Chronic obstructive pulmonary disease, unspecified; G47.33 Obstructive sleep apnea (adult) (pediatric) | CPT/HCPCS: 99212 ==

== ENCOUNTER → 2021-12-10 13:50 | Outpatient (BNVA) | payer MEDICAID, SELFPAY | PROVIDERS: PCP Nurse Practitioner Family; Visit Provider Internal Medicine Pulmonary Disease | DX: G47.33 Obstructive sleep apnea (adult) (pediatric) (principal); J44.9 Chronic obstructive pulmonary disease, unspecified; Z99.81 Dependence on supplemental oxygen | CPT/HCPCS: 99212 ==

== ENCOUNTER → 2022-01-03 14:07 | Outpatient (BNVA) | payer MEDICAID, SELFPAY | PROVIDERS: PCP Nurse Practitioner Family; Visit Provider Internal Medicine Pulmonary Disease | DX: J44.9 Chronic obstructive pulmonary disease, unspecified (principal); G47.33 Obstructive sleep apnea (adult) (pediatric); Z99.81 Dependence on supplemental oxygen | CPT/HCPCS: 99212 ==

== ENCOUNTER 2022-03-01 07:05 | Outpatient (REF) | payer MEDICAID, SELFPAY ==
[2022-03-01 07:27] LABS: MANUAL DIFF FLAG NO
[2022-03-01 07:32] LABS: Basophils Percent Auto 0.2 % (0-2); Eosinophils Absolute Auto 0.1 X10*3/uL (0.0-0.4); Eosinophils Percent Auto 0.7 % (0-4); Hematocrit 38.8 % (42.0-52.0); Hemoglobin 11.1 g/dl (14.0-18.0); Imm Gran Abs Auto 0.11 X10*3/uL (0.00-0.03); Imm Gran Pct Auto 1.2 % (0.0-0.4); Lymphocytes Absolute Auto 1.1 X10*3/uL (1.2-4.9); Lymphocytes Percent Auto 12.2 % (20-40); Mean Corpuscular HGB Conc 28.6 g/dl (31.0-36.0); Mean Corpuscular Hemoglobin 25.6 pg (27.0-33.0); Mean Corpuscular Volume 89.6 fL (80.0-98.0); Mean Platelet Volume 8.9 fL (9.4-12.4); Monocytes Absolute Auto 0.7 X10*3/uL (0.1-1.2); Monocytes Percent Auto 8.1 % (2-11); Neutrophils Percent Auto 77.6 % (45-73); Platelet Count 189 X10*3/uL (160-400); Red Blood Count 4.33 X10*6/uL (4.60-5.80); Red Cell Distribution Width 13.7 % (11.0-16.0)
[2022-03-01 07:46] LABS: Estimated Average Glucose 140 mg/dL; Hemoglobin A1c % 6.5 %
[2022-03-01 08:03] LABS: Alanine Aminotransferase 18 U/L (0-40); Albumin Level 4.1 g/dL (3.5-5.0); Alkaline Phosphatase 88 U/L (39-117); Aspartate Amino Transferase 20 U/L (5-37); Bilirubin Total 0.3 mg/dL (0.0-1.0); Blood Urea Nitrogen 13 mg/dL (9-16); Calcium 9.5 mg/dL (8.4-10.2); Cholesterol 182 mg/dL; Estimated Glomerular Filt Rate > 60; Glucose Fasting 143 mg/dL (60-99); HDL Cholesterol 43 mg/dL; LDL Cholesterol Calculated 105 mg/dl; Total Protein 6.7 g/dL (6.5-8.0); Triglycerides 174 mg/dL
[2022-03-01 08:15] LABS: Prostate Specific Antigen Scr 1.07 ng/mL (<0.05-4.0); TSH reflex Free T4 2.18 uIU/mL (0.32-4.0)
[2022-03-01 08:21] LABS: Anion Gap 10 (12-20); Carbon Dioxide 48 mmol/L (22-29); Chloride 80 mmol/L (96-108); Potassium 4.4 mmol/L (3.3-5.1); Sodium 134 mmol/L (135-145)
== END 2022-03-01 07:06 | disposition home or self-care (01) ==
LOC: HO.LAB 07:05
PROVIDERS: PCP Nurse Practitioner Family; Visit Provider Nurse Practitioner Family
DX: Z12.5 Encounter for screening for malignant neoplasm of prostate (principal); E78.00 Pure hypercholesterolemia, unspecified; J44.9 Chronic obstructive pulmonary disease, unspecified; I10 Essential (primary) hypertension; E11.65 Type 2 diabetes mellitus with hyperglycemia
CPT/HCPCS: 36415; 80053; 80061; 83036; 84153; 84443; 85025

== ENCOUNTER → 2022-03-07 13:48 | Outpatient (BNVA) | payer MEDICAID, SELFPAY | PROVIDERS: PCP Nurse Practitioner Family; Visit Provider Internal Medicine Pulmonary Disease | DX: J44.9 Chronic obstructive pulmonary disease, unspecified (principal); G47.33 Obstructive sleep apnea (adult) (pediatric); Z99.81 Dependence on supplemental oxygen | CPT/HCPCS: 99212 ==

== ENCOUNTER 2022-03-27 13:35 | Outpatient (REF) | payer MEDICAID, SELFPAY ==
--- NOTE | 2022-03-27 11:45 | PFT_ITS ---
INDICATION: COPD. SPIROMETRY: FEV1 to FVC of 42% with an FEV1 of 0.96 L, which is 24% predicted and FVC of 2.29 L, which is 45% predicted. There was a significant response to bronchodilators noted. The patient also has severe small airways disease. The maximum voluntary ventilation only 22% predicted. LUNG VOLUMES: Total lung capacity is 89% predicted with a residual volume of 208% predicted. DIFFUSION CAPACITY: DLCO 13% predicted. COMPARISONS: None available. INTERPRETATION: There is an obstructive ventilatory defect, consistent with very severe COPD. The patient did have a significant response to bronchodilators and also had significantly decreased maximum voluntary ventilation secondary to deconditioning and also worsening dynamic inspiratory capacity. The patient has significant air trapping due to his COPD and emphysema and has a very severe decrease in diffusion capacity. At this point, I do not have any comparisons, but these are very severe and concerning results. The patient should have further evaluation with blood gas to assess his gas exchange and to assess for hypercarbia. Clinical correlation is warranted. MD YVETTE Srivastava/REGAN / [phone]
== END 2022-03-27 13:36 | disposition home or self-care (01) ==
LOC: HO.RESP 13:35
PROVIDERS: PCP Nurse Practitioner Family; Visit Provider Internal Medicine Pulmonary Disease
DX: Z76.82 Awaiting organ transplant status (principal)
CPT/HCPCS: 94060; 94727; 94729

== ENCOUNTER 2022-03-28 09:53 | Outpatient (REF) | payer MEDICAID, SELFPAY ==
--- NOTE | ~2022-03-28 | CT_ITS ---
EXAMINATION: CT CHEST WITHOUT CONTRAST CLINICAL INFORMATION: Awaiting organ transplant status. Shortness of breath. COMPARISON: None TECHNIQUE: Multidetector volumetric CT imaging of the chest was done. Axial MIP volume rendering provided. Sagittal and coronal reformatted images were obtained. This CT examination was performed using dose optimization techniques as appropriate, variously including the following: *Automated exposure control *Adjustment of mA and/or kV according to patient size (this includes techniques or standardized protocols for targeted exams where dose is matched to indication/reason for exam; i.e. extremities or head) *Use of iterative reconstruction technique DLP: 416 mGy-cm FINDINGS: SUPPORT ENGINEER: Unremarkable soil fertility extension specialist exam. LUNGS: The lungs are well-expanded and clear of acute pneumonic process. There is patchy opacity seen in the right lung base likely residual infiltrate and/or atelectasis. Similar findings are seen in medial segment of the lingula. There are 2 mm scattered calcified nodules in the right lower lobe axial image 28/5, 30/5, 32/5. The largest calcified nodule right lower lobe measures 5 mm axial image 26/5. There are subpleural focal 5 mm nodular atelectatic changes right upper lobe axial image 32/5. MEDIASTINUM: The thyroid lobes are symmetrical and normal. The central trachea and bronchi are widely patent. No abnormal size mediastinal or hilar lymph nodes. There are small shotty lymph nodes in the mediastinum measuring less than 5 mm. No pericardial effusion seen. Heart size and the great vessels are normal caliber with trace coronary artery calcifications. PLEURA: There is no pleural effusion. No pleural mass or thickening. AXILLA: No lymphadenopathy. UPPER ABDOMEN: Visualized liver, spleen, pancreas and bilateral adrenal glands are unremarkable. OSSEOUS STRUCTURES: There is moderate spondylosis throughout dorsal spine. No lytic or sclerotic process seen. CT/CT chest wo con IMPRESSION: No acute pneumonic process seen. There is patchy ill-defined density right lower lobe and medial lingular segment likely infiltrate/atelectasis. Multiple calcified granulomas largest in the right lower lobe. No abnormal mediastinal, hilar or axillary lymphadenopathy. Fleischner guidelines were followed.
== END 2022-03-28 09:54 | disposition home or self-care (01) ==
LOC: HO.CT 09:53
PROVIDERS: Visit Provider Internal Medicine Pulmonary Disease
DX: R06.02 Shortness of breath (principal); Z76.82 Awaiting organ transplant status
CPT/HCPCS: 71250

== ENCOUNTER 2022-04-20 22:15 | Inpatient (IN) | payer MEDICARE, MEDICAID, SELFPAY ==
--- NOTE | 2022-04-20 | ECG_ITS ---
Test Reason : cp Blood Pressure : / mmHG Vent. Rate : 108 BPM Atrial Rate : 108 BPM P-R Int : 124 ms QRS Dur : 110 ms QT Int : 344 ms P-R-T Axes : 048 -51 091 degrees QTc Int : 460 ms Sinus tachycardia Left anterior fascicular block Minimal voltage criteria for LVH, may be normal variant ( Damian product ) Abnormal QRS-T angle, consider primary T wave abnormality Abnormal ECG When compared with ECG of 29-OCT-2021 19:06, Left anterior fascicular block is now Present Inverted T waves have replaced nonspecific T wave abnormality in Lateral leads Referred By: Generic ED Physician Electronically Signed By:Francisco Fuentes
--- NOTE | ~2022-04-20 | CT_ITS ---
EXAMINATION: CT HEAD WITHOUT CONTRAST CLINICAL INFORMATION: Encephalopathy COMPARISON: Previous head CT October 2016 TECHNIQUE: Contiguous axial imaging was performed from the skull base to vertex without intravenous administration of contrast. This CT examination was performed using dose optimization techniques as appropriate, variously including the following: *Automated exposure control *Adjustment of mA and/or kV according to patient size (this includes techniques or standardized protocols for targeted exams where dose is matched to indication/reason for exam; i.e. extremities or head) *Use of iterative reconstruction technique DLP: 1963 mGy-cm FINDINGS: Exam is limited due to motion artifact There is no evidence of acute intracranial hemorrhage or territorial infarction. No abnormal mass effect or midline shift is seen. Schneider to white matter differentiation is well preserved. No extra-axial fluid collections are identified. The ventricles are normal in size. There is no abnormal attenuation within the brain parenchyma. The osseous structures and soft tissues are normal. The mastoid air cells and visualized portions of the paranasal sinuses are well aerated. CT/CT head/brain wo con IMPRESSION: Limited exam due to motion artifact. No acute findings.
--- NOTE | ~2022-04-20 | XR_ITS ---
EXAMINATION: XR CHEST CLINICAL INFORMATION: Short of breath. COMPARISON: 10/29/2021 TECHNIQUE: Frontal view of the chest was obtained. FINDINGS: Cardiac leads overlie the chest. The lungs are well expanded. Patchy opacities at the lung bases. No pleural effusion or pneumothorax. The cardiomediastinal silhouette is within normal limits. XR/XR chest 1V IMPRESSION: Patchy opacities at the lung bases could be infectious or inflammatory.
[2022-04-20 22:29] VITALS: BP 143/68; PULSE 108; RESP 27; TEMP 37.2; O2SAT 100; BMI 36.6
[2022-04-20 22:35] VITALS: BP 143/68; PULSE 106; RESP 27; O2SAT 97
--- NOTE | 2022-04-20 22:47 | PC.NURSE ---
Pt changed into hospital clothing, placed on bedside monitoring specialist, VS assessed and documented. Pt aaox4 with directed communication but during conversation, pt becomes lethargic and confused. Pt denies pain/discomfort. PIV established, labs obtained and sent to lab for processing. Dr Wren at bedside for primary eval at this time. Pt aware and agreeable to plan for labwork, monitoring VS, and RT therapies. Pt without questions/concerns. Stretcher in low locked position, rails raised, call lassiter within reach.
[2022-04-20 22:56] LABS: VBG HCO3 63 mmol/L (22-26); VBG pCO2 85 mmHg; VBG pH 7.47 (7.32-7.43); VBG pO2 160 mmHg
[2022-04-20 22:57] LABS: Venous Blood Gas Refer to POC result
[2022-04-20 22:58] LABS: Hematocrit 37.2 % (42.0-52.0); Hemoglobin 9.8 g/dl (14.0-18.0); Mean Corpuscular HGB Conc 26.3 g/dl (31.0-36.0); Mean Corpuscular Hemoglobin 24.5 pg (27.0-33.0); Mean Platelet Volume 9.6 fL (9.4-12.4); NRBC Pct Auto 0.4 /100WBC (0.0-0.2); Platelet Count 213 X10*3/uL (160-400); Red Cell Distribution Width 14.8 % (11.0-16.0); White Blood Count 12.7 X10*3/uL (4.8-10.8)
--- NOTE | 2022-04-20 22:59 | ED.GENADULT ---
HPI - General Adult General Chief complaint: Dyspnea Stated complaint: hypoxia Time Seen by Provider: 04/20/22 22:45 Source: patient and EMS Mode of arrival: EMS Limitations: no limitations History of Present Illness HPI narrative: Patient comes to the emergency room complaining of low oxygen. Patient states that he uses at baseline 6 L of oxygen, patient has COPD. Patient states that he is not sure how his oxygen fell off, patient called EMS. When EMS arrived, the oxygen was still off, saturating in the low 60s. His 6 L were placed back again and patient's saturation improved to the low 90s. Patient states that he feels well, patient states that while he did not have his oxygen on, he was feeling delusional. But at this time, patient states that he feels back to baseline. Patient denies any worsening shortness of breath, states his breathing is at baseline. Related Data Home Medications Medication Instructions Recorded Confirmed aripiprazole 10 mg tablet 10 mg PO DAILY 10/18/20 02/05/22 aripiprazole 20 mg tablet 20 mg PO BEDTIME 10/18/20 02/05/22 benztropine 1 mg tablet 1 mg PO BEDTIME 10/18/20 02/05/22 clonazepam 0.5 mg tablet 0.5 mg PO BID 10/18/20 02/05/22 risperidone 0.5 mg tablet 0.5 mg PO BID 10/18/20 02/05/22 amitriptyline 25 mg tablet 1 tab PO BEDTIME PRN 09/17/21 02/05/22 cetirizine 10 mg tablet (Zyrtec) 10 mg PO DAILY PRN 10/15/21 02/05/22 ipratropium 0.5 mg-albuterol 3 mg 3 ml INHALATION QID 10/29/21 02/05/22 (2.5 mg base)/3 mL nebulization soln triamcinolone acetonide 0.5 % 1 appl TOPICAL BID PRN 10/29/21 02/05/22 topical ointment sertraline 50 mg tablet 100 mg PO DAILY tab 02/05/22 02/05/22 Previous Rx's Medication Instructions Recorded furosemide 40 mg tablet 40 mg PO DAILY 30 Days #30 tab 11/06/21 arformoterol 15 mcg/2 mL solution 15 mcg (2 mL) INHALATION BID #120 12/10/21 for nebulization (Brovana) ml Symbicort 160 mcg-4.5 2 puff INHALATION BID 30 Days #1 02/01/22 mcg/actuation HFA aerosol inhaler ea NS (budesonide-formoterol) montelukast 10 mg tablet 10 mg PO BEDTIME #90 tab 02/22/22 lidocaine 5 % topical patch 1 patch TOPICAL DAILY #30 ea 02/26/22 cyclobenzaprine 5 mg tablet 5 mg PO BEDTIME PRN #20 tab 03/19/22 desmopressin 0.2 mg tablet 0.4 mg PO BEDTIME #180 tab 03/21/22 omeprazole 20 mg capsule,delayed 20 mg PO DAILY@0630 #30 cap 04/03/22 release gemfibrozil 600 mg tablet 600 mg PO BID #180 tab 04/09/22 Allergies Allergy/AdvReac Type Severity Reaction Status Date / Time prednisone [PREDNISONE] AdvReac Severe VISUAL Verified 04/20/22 22:35 HALLUCINATION ibuprofen [From MOTRIN] AdvReac Intermediate VOMITING Verified 04/20/22 22:35 nabumetone AdvReac Unknown vomiting Verified 04/20/22 22:35 Review of Systems Review of Systems: Constitutional : No Weight loss, No Fever, No Chills, No Night Sweats, No Fatigue, No Malaise ENT/Mouth : No Hearing loss, No Ear Pain, No Nasal Congestion, No Sinus Pain, No Hoarseness, No sore throat, No Rhinorrhea, No Swallowing Difficulty Eyes: No Eye Pain, No Swelling, No Redness, No Foreign Body, No Discharge, No Vision Changes Cardiovascular : No Chest Pain, No SOB, No Dyspnea on Exertion, No Orthopnea, No Edema, No Palpitations Respiratory : No Cough, No Sputum, No Wheezing, No Smoke Exposure, dyspnea at baseline Gastrointestinal : No Nausea, No Vomiting, No Diarrhea, No Constipation, No abdominal Pain, No Hematochezia, No Melena Genitourinary : no irregular bleeding, No Dysuria, No Urinary Frequency, No Hematuria, No Urinary Incontinence, No Urgency, No Flank Pain, No Urinary Flow Changes, No Hesitancy Musculoskeletal : No joint pain, No Myalgias, No Joint Swelling Skin : No Skin Lesions, No rash Neuro : No Weakness, No Numbness, No Paresthesias, No Loss of Consciousness, No Dizziness, No Headache Psych : No Anxiety/Panic, No Depression, No SI/HI/AH/VH, No Social Issues, Heme/Lymph: No Bruising, No Bleeding,No Lymphadenopathy Endocrine : No Polyuria, No Polydipsia, No Temperature Intolerance [facility] Past Medical History Medical History Acute dyspnea Acute exacerbation of chronic obstructive airways disease Acute hypercapnic respiratory failure AV malformation of gastrointestinal tract Chronic respiratory failure with hypoxia and hypercapnia COPD (chronic obstructive pulmonary disease) COPD exacerbation GERD (gastroesophageal reflux disease) Hypertriglyceridemia Itch of skin [place] disease Mild bibasilar atelectasis Morbid obesity Nocturnal enuresis Obesity hypoventilation syndrome Obstructive sleep apnea Orchialgia REGINA (obstructive sleep apnea) Pneumonia Polycythemia vera Rectosigmoid diverticulosis Schizoaffective schizophrenia Severe chronic obstructive pulmonary disease Spasm of muscle of lower back Supplemental oxygen dependent Tubular adenoma of colon Surgical History No pertinent past surgical history Family History Family History Father HTN (hypertension) Mother HTN (hypertension) Diabetes mellitus Breast cancer Brother No problems noted. Social History Social History Household Members: None Housing: House Do you presently have visiting nurse or other home services: Yes Alcohol intake: never Patient Tobacco Use Status: Former Tobacco user Tobacco use type: Cigarette Years Smoked: 41 yrs e-Cigarette/Vaping Use: Never Used Advance Directives: No Advance Directives Information Provided: Yes service: No Current occupational status: disabled Cognitive needs: No Hearing needs: No Vision needs: Yes (glasses) Physical Exam ED Vital Signs: Vital Signs - 24 hr 04/20/22 22:29 04/20/22 22:35 04/20/22 23:15 Temperature 99.0 F Pulse Rate 108 H 106 H Respiratory Rate 27 H 27 H Blood Pressure 143/68 H 143/68 H Pulse Oximetry 100 97 80 L 04/20/22 23:25 04/20/22 23:56 04/21/22 00:13 Temperature Pulse Rate 96 101 H 103 H Respiratory Rate 29 H 24 H 22 H Blood Pressure 132/72 132/70 Pulse Oximetry 96 96 BMI result Body Mass Index 36.6 Const Other: Appearance: Alert. Oriented X3. No acute distress. Eyes: Pupils equal, round and reactive to light. ENT: Pharynx normal. Neck: Normal inspection. Neck supple. No lymph nodes noted. No crepitus CVS: Normal heart rate and rhythm. Pulses normal. Normal S1 and S2 Respiratory: No respiratory distress. However, patient has significantly diminished breath sounds bilaterally. The occasional wheezing Abdomen: Soft and nontender. No rigidity. No distention. Skin: Skin warm and dry. Normal skin color. Normal skin turgor. Extremities: No lower extremity edema. No Lacerations. No Rash Neuro: Oriented X 3. No motor deficit. No sensory deficit. Moving all extremities. No slurred speech. CN 2 through 12 grossly intact Psych: calm, cooperative, normal affect Course Course Course Narrative: S patient was waiting for his albuterol. On 6 L nasal cannula, patient's oxygen saturation dropped to the low 80s. Patient states that he feels well, patient was switched to a non-rebreather 15 L, oxygen improved to 93%. Patient is getting an hour long breathing treatment, azithromycin, ceftriaxone, Solu-Medrol P patient does not have fever, normal blood pressure, sepsis is not suspected Chest x-ray shows possible pneumonia Patient receive neb treatments, patient oxygenating 95% on his 6 L. I discussed the patient with Dr. Johnson, patient seems to have bibasilar pneumonia. I discussed with the patient that he will be admitted, agrees with plan. Lactic acid normal, no fever, normal blood pressure, sepsis not suspected. Tachycardia likely secondary to multiple nebulization treatments Medical Decision Making Lab Data Result diagrams: 04/20/22 22:41 04/20/22 22:41 Labs: Lab Results 04/20/22 04/20/22 04/20/22 Range/Units 22:41 22:41 22:41 WBC 12.7 H (4.8-10.8) X10*3/uL RBC 4.00 L (4.60-5.80) X10*6/uL Hgb 9.8 L (14.0-18.0) g/dl Hct 37.2 L (42.0-52.0) % MCV 93.0 (80.0-98.0) fL MCH 24.5 L (27.0-33.0) pg MCHC 26.3 L (31.0-36.0) g/dl RDW 14.8 (11.0-16.0) % Plt Count 213 (160-400) X10*3/uL MPV 9.6 (9.4-12.4) fL Immature Gran % (Auto) Cancelled Neut % (Auto) Cancelled Lymph % (Auto) Cancelled [place] % (Auto) Cancelled Eos % (Auto) Cancelled Baso % (Auto) Cancelled Lymph # (Auto) Cancelled [place] # (Auto) Cancelled Eos # (Auto) Cancelled Baso # (Auto) Cancelled Abs Immat Gran (auto) Cancelled Absolute Neuts (auto) Cancelled Absolute Nucleated RBC 0.050 H (0.0-0.012) X10*3/uL Nucleated RBC % (auto) 0.4 H (0.0-0.2) /100WBC Neutrophils % (Manual) 78 H (45-73) % Band Neutrophils % 4 (3-5) % Lymphocytes % (Manual) 3 L (20-40) % Monocytes % (Manual) 5 (2-11) % Metamyelocytes % 9 % Myelocytes % 1 % Abs Neuts (Manual) 10.4 H (2.0-8.3) X10*3/uL Lymphocytes # (Manual) 0.4 L (1.2-4.9) X10*3/uL Monocytes # (Manual) 0.6 (0.1-1.2) X10*3/uL Metamyelocytes # 1.1 X10*3/uL Myelocytes # 0.1 X10*/uL Nucleated RBCs 1 H (0-0) /100WBC Platelet Estimate NORMAL (NORMAL) Plt Morphology Comment NORMAL RBC Morphology NOTED Polychromasia 1+ (0-2) /OIF Hypochromasia 1+ (5-14) /OIF Basophilic Stippling 1+ (0-2) /OIF Stomatocytes 1+ (5-14) /OIF PT 11.0 (9.9-13.0) SEC INR 1.0 (0.9-1.1) APTT 28.1 (24.1-38.0) SEC VBG pH (7.32-7.43) VBG pCO2 mmHg VBG pO2 mmHg VBG HCO3 (22-26) mmol/L VBG O2 Saturation % VBG Base Excess mmol/L Sodium 144 (135-145) mmol/L Potassium 4.7 (3.3-5.1) mmol/L Chloride 89 L (96-108) mmol/L Carbon Dioxide 45 H* (22-29) mmol/L Anion Gap 15 (12-20) BUN 20 H D (9-16) mg/dL Creatinine 0.66 (0.5-1.4) mg/dL Estim Creat Clear Calc 164.0 Estimated GFR > 60 Random Glucose 193 H (60-115) mg/dL Lactic Acid (0.5-2.0) mmol/L Calcium 9.0 (8.4-10.2) mg/dL Total Bilirubin 0.3 (0.0-1.0) mg/dL AST 63 H (5-37) U/L ALT 88 H (0-40) U/L Alkaline Phosphatase 81 (39-117) U/L Troponin I High Sens (<3.5-35.0) ng/L B-Natriuretic Peptide (<100) pg/mL Total Protein 6.2 L (6.5-8.0) g/dL Albumin 3.7 (3.5-5.0) g/dL 04/20/22 04/20/22 04/20/22 Range/Units 22:41 22:41 22:47 WBC (4.8-10.8) X10*3/uL RBC (4.60-5.80) X10*6/uL Hgb (14.0-18.0) g/dl Hct (42.0-52.0) % MCV (80.0-98.0) fL MCH (27.0-33.0) pg MCHC (31.0-36.0) g/dl RDW (11.0-16.0) % Plt Count (160-400) X10*3/uL MPV (9.4-12.4) fL Immature Gran % (Auto) Neut % (Auto) Lymph % (Auto) [place] % (Auto) Eos % (Auto) Baso % (Auto) Lymph # (Auto) [place] # (Auto) Eos # (Auto) Baso # (Auto) Abs Immat Gran (auto) Absolute Neuts (auto) Absolute Nucleated RBC (0.0-0.012) X10*3/uL Nucleated RBC % (auto) (0.0-0.2) /100WBC Neutrophils % (Manual) (45-73) % Band Neutrophils % (3-5) % Lymphocytes % (Manual) (20-40) % Monocytes % (Manual) (2-11) % Metamyelocytes % % Myelocytes % % Abs Neuts (Manual) (2.0-8.3) X10*3/uL Lymphocytes # (Manual) (1.2-4.9) X10*3/uL Monocytes # (Manual) (0.1-1.2) X10*3/uL Metamyelocytes # X10*3/uL Myelocytes # X10*/uL Nucleated RBCs (0-0) /100WBC Platelet Estimate (NORMAL) Plt Morphology Comment RBC Morphology Polychromasia /OIF Hypochromasia /OIF Basophilic Stippling /OIF Stomatocytes /OIF PT (9.9-13.0) SEC INR (0.9-1.1) APTT (24.1-38.0) SEC VBG pH 7.47 H (7.32-7.43) VBG pCO2 85 mmHg VBG pO2 160 mmHg VBG HCO3 63 H (22-26) mmol/L VBG O2 Saturation 100.0 % VBG Base Excess 33.0 mmol/L Sodium (135-145) mmol/L Potassium (3.3-5.1) mmol/L Chloride (96-108) mmol/L Carbon Dioxide (22-29) mmol/L Anion Gap (12-20) BUN (9-16) mg/dL Creatinine (0.5-1.4) mg/dL Estim Creat Clear Calc Estimated GFR Random Glucose (60-115) mg/dL Lactic Acid 1.3 (0.5-2.0) mmol/L Calcium (8.4-10.2) mg/dL Total Bilirubin (0.0-1.0) mg/dL AST (5-37) U/L ALT (0-40) U/L Alkaline Phosphatase (39-117) U/L Troponin I High Sens 30.8 (<3.5-35.0) ng/L B-Natriuretic Peptide 73 (<100) pg/mL Total Protein (6.5-8.0) g/dL Albumin (3.5-5.0) g/dL Critical Care Time Critical Care Time Critical Care Time: Yes Total Critical Care Time: 60 Attestation: I have personally provided critical care time. Time includes review of lab data, radiology results, discussion with consultants, and monitoring for potential decompensation. Intervention performed as documented. Discharge Plan Discharge Clinical Impression: Pneumonia, COPD (chronic obstructive pulmonary disease) Patient Disposition: Admitted As Inpatient Prescriptions: No Action budesonide-formoterol [Symbicort] 160-4.5 mcg/actuation HFA aerosol inhaler 2 puff inhalation BID 30 Days Qty: 1 6RF montelukast 10 mg tablet 10 mg PO BEDTIME Qty: 90 0RF lidocaine 5 % adhesive patch,medicated 1 patch topical DAILY Qty: 30 0RF Rx Instructions: leave on most painful area for up to 12 hrs cyclobenzaprine 5 mg tablet 5 mg PO BEDTIME PRN (Reason: for muscle spasm) Qty: 20 0RF desmopressin 0.2 mg tablet 0.4 mg PO BEDTIME Qty: 180 0RF omeprazole 20 mg capsule,delayed release(DR/EC) 20 mg PO DAILY@0630 Qty: 30 1RF gemfibrozil 600 mg tablet 600 mg PO BID Qty: 180 0RF triamcinolone acetonide 0.5 % ointment 1 appl topical BID PRN (Reason: Rash) 0RF Rx Instructions: APPLY TO FEET NEEDED FOR FLARES ipratropium-albuterol 0.5 mg-3 mg(2.5 mg base)/3 mL solution for nebulization 3 ml inhalation QID 0RF amitriptyline 25 mg tablet 1 tab PO BEDTIME PRN (Reason: insomnia) 0RF cetirizine [Zyrtec] 10 mg Tablet 10 mg PO DAILY PRN (Reason: Allergy Symptoms) 0RF sertraline 50 mg tablet 100 mg PO DAILY 0RF clonazepam 0.5 mg tablet 0.5 mg PO BID 0RF risperidone 0.5 mg tablet 0.5 mg PO BID 0RF aripiprazole 10 mg tablet 10 mg PO DAILY 0RF benztropine 1 mg tablet 1 mg PO BEDTIME 0RF aripiprazole 20 mg tablet 20 mg PO BEDTIME 0RF furosemide 40 mg tablet 40 mg PO DAILY 30 Days Qty: 30 6RF arformoterol [Brovana] 15 mcg/2 mL solution for nebulization 15 mcg inhalation BID Qty: 120 6RF
[2022-04-20 23:06] LABS: Lactic Acid 1.3 mmol/L (0.5-2.0)
[2022-04-20 23:07] LABS: Partial Thromboplastin Time 28.1 SEC (24.1-38.0)
[2022-04-20 23:14] LABS: Alanine Aminotransferase 88 U/L (0-40); Albumin Level 3.7 g/dL (3.5-5.0); Alkaline Phosphatase 81 U/L (39-117); Anion Gap 15 (12-20); Aspartate Amino Transferase 63 U/L (5-37); Bilirubin Total 0.3 mg/dL (0.0-1.0); Blood Urea Nitrogen 20 mg/dL (9-16); Carbon Dioxide 45 mmol/L (22-29); Chloride 89 mmol/L (96-108); Estimated Glomerular Filt Rate > 60; Glucose Random 193 mg/dL (60-115); Potassium 4.7 mmol/L (3.3-5.1); Sodium 144 mmol/L (135-145); Total Protein 6.2 g/dL (6.5-8.0)
[2022-04-20 23:15] VITALS: O2SAT 80
[2022-04-20 23:15] LABS: B Type Natriuretic Peptide 73 pg/mL (<100); Troponin-I High Sensitivity 30.8 ng/L (<3.5-35.0)
[2022-04-20 23:25] VITALS: PULSE 96; RESP 29; O2SAT 100
[2022-04-20 23:25] LABS: Band Neutrophils Percent 4 % (3-5); Basophilic Stippling 1+ (0-2) /OIF; Hypochromasia 1+ (5-14) /OIF; Lymphocytes Absolute Manual 0.4 X10*3/uL (1.2-4.9); Lymphocytes Percent Manual 3 % (20-40); Metamyelocytes Absolute 1.1 X10*3/uL; Metamyelocytes Percent 9 %; Monocytes Absolute Manual 0.6 X10*3/uL (0.1-1.2); Monocytes Percent Manual 5 % (2-11); Myelocytes Absolute 0.1 X10*/uL; Myelocytes Percent 1 %; Neutrophils Absolute Manual 10.4 X10*3/uL (2.0-8.3); Neutrophils Percent Manual 78 % (45-73); Nucleated Red Blood Cells 1 /100WBC (0-0); Platelet Estimate NORMAL (NORMAL); Platelet Morphology Comment NORMAL; RBC Morphology NOTED; Stomatocytes 1+ (5-14) /OIF
[2022-04-20 23:26] LABS: Polychromasia 1+ (0-2) /OIF
[2022-04-20] MEDS: Albuterol Sulfate (0.083%) 2.5 MG/3 ML VIAL.NEB 10 MG INHALE (23:32)
[2022-04-20] MEDS: cefTRIAXone sodium 1 GM in 0.9 % Sodium Chloride 50 ML IV (23:37)
[2022-04-20] MEDS: methylPREDNISolone Sod Succ 125 MG/2 ML VIAL IVPUSH (23:37)
[2022-04-20] MEDS: Azithromycin 500 MG in 0.9 % Sodium Chloride 250 ML 125 MG IV (23:55)
[2022-04-20 23:56] VITALS: BP 132/72; PULSE 101; RESP 24; O2SAT 96
[2022-04-21] VITALS (24 sets, daily range): BP systolic 107–172; BP diastolic 58–88; PULSE 90–115; RESP 16–32; TEMP 36.9–37.3; O2SAT 2–98
--- NOTE | 2022-04-21 00:30 | P.HPHOSP_ITS ---
History of Present Illness Date of Service: 04/21/22 Chief Complaint: SOB 56-year-old male with a past medical history of schizoaffective disorder, REGINA on CPAP, obesity hypoventilation syndrome, Avila disease, hy pertriglyceridemia, GERD, COPD/ chronic respiratory failure on 6 L of home oxygen; presented to the hospital today with a chief complaint of hypoxia. Patient is a poor historian. Spoke to the patient's father as well. Reportedly patient has not been doing well of the past 2 days; has not been e ating and drinking enough as with the patient's father. Patient reports he has been having shortness of breath for about a week. Complains of cough. Today patient's father called an ambulance because patient not looking good; when the EMS arrived patient was noted to be hypoxic to 60s on room air. Patient denies any chest pain or palpitations. Reports his breathing is better now Denies any numbness tingling or focal weakness Denies any GI symptoms. Review of all other systems is negative except mentioned above ER course: Per ER team patient on presentation noted to be having diminished breath sounds; saturating 80%; patient was placed on 6 L of nasal cannula and given nebulizer treatment; oxygenation improved to 93%; chest x-ray showed possible pneumonia - given antibiotics. Admitted for further management. [facility]LY [facility] Medical History Acute dyspnea Acute exacerbation of chronic obstructive airways disease Acute hypercapnic respiratory failure AV malformation of gastrointestinal tract Chronic respiratory failure with hypoxia and hypercapnia COPD (chronic obstructive pulmonary disease) COPD exacerbation GERD (gastroesophageal reflux disease) Hypertriglyceridemia Itch of skin Avila disease Mild bibasilar atelectasis Morbid obesity Nocturnal enuresis Obesity hypoventilation syndrome Obstructive sleep apnea Orchialgia REGINA (obstructive sleep apnea) Pneumonia Polycythemia vera Rectosigmoid diverticulosis Schizoaffective schizophrenia Severe chronic obstructive pulmonary disease Spasm of muscle of lower back Supplemental oxygen dependent Tubular adenoma of colon Family History Father HTN (hypertension) Mother HTN (hypertension) Diabetes mellitus Breast cancer Brother No problems noted. Surgical History No pertinent past surgical history Social History (Reviewed 02/19/22 @ 10:21 by JAIME Bronson Household Members: None Housing: House Do you presently have visiting nurse or other home services: Yes Alcohol intake: never Patient Tobacco Use Status: Former Tobacco user Tobacco use type: Cigarette Years Smoked: 41 yrs e-Cigarette/Vaping Use: Never Used Advance Directives: No Advance Directives Information Provided: Yes service: No Current occupational status: disabled Cognitive needs: No Hearing needs: No Vision needs: Yes (glasses) Meds Allergies Allergy/AdvReac Type Severity Reaction Status Date / Time prednisone [PREDNISONE] AdvReac Severe VISUAL Verified 04/20/22 22:35 HALLUCINATION ibuprofen [From MOTRIN] AdvReac Intermediate VOMITING Verified 04/20/22 22:35 nabumetone AdvReac Unknown vomiting Verified 04/20/22 22:35 Active Medications: Current Medications Azithromycin 500 mg/ Sodium (Chloride) 250 mls @ 125 mls/hr IV ONCE ONE Stop: 04/21/22 01:23 Last Admin: 04/20/22 23:55 Dose: 125 mls/hr Documented by: Pharmacy Consult (Consult Rx Vancomycin Dosing) 1 each MISCELLANE DAILY PRN PRN Reason: Consult order Home Medications Medication Instructions Recorded Confirmed Last Taken Type aripiprazole 10 mg tablet 10 mg PO DAILY 10/18/20 02/05/22 10/15/21 History aripiprazole 20 mg tablet 20 mg PO BEDTIME 10/18/20 02/05/22 10/14/21 History benztropine 1 mg tablet 1 mg PO BEDTIME 10/18/20 02/05/22 10/15/21 History clonazepam 0.5 mg tablet 0.5 mg PO BID 10/18/20 02/05/22 10/15/21 History risperidone 0.5 mg tablet 0.5 mg PO BID 10/18/20 02/05/22 10/15/21 History amitriptyline 25 mg tablet 1 tab PO BEDTIME PRN 09/17/21 02/05/22 10/14/21 History cetirizine 10 mg tablet (Zyrtec) 10 mg PO DAILY PRN 10/15/21 02/05/22 10/15/21 History ipratropium 0.5 mg-albuterol 3 mg 3 ml INHALATION QID 10/29/21 02/05/22 Unknown History (2.5 mg base)/3 mL nebulization soln triamcinolone acetonide 0.5 % 1 appl TOPICAL BID PRN 10/29/21 02/05/22 Unknown History topical ointment sertraline 50 mg tablet 100 mg PO DAILY tab 02/05/22 02/05/22 Unknown History Physical Exam Vital Signs and Narrative: Vital Signs: Last Vital Signs Temp 99.0 F 04/20/22 22:29 Pulse 103 H 04/21/22 00:13 Resp 22 H 04/21/22 00:13 BP 132/70 04/21/22 00:13 Pulse Ox 96 04/21/22 00:13 Oxygen Flow Rate 15 04/20/22 22:29 BMI result Body Mass Index 36.6 Gen: Appears be in no acute distress ; able to speak in full sentences. On supplemental oxgen HEENT: NCAT, Moist mucosa. Pulmonary: slightly diminished breath sounds CVS: Normal S1-S2 Abdomen: BS+, Soft, Nontender Extremities: Warm well perfused Neuro: Alert and awake. Results Labs CBC and Chem 7: 04/20/22 22:41 04/20/22 22:41 Labs: Laboratory Results - last 24 hr 04/20/22 04/20/22 04/20/22 22:41 22:41 22:41 MCV 93.0 MCH 24.5 L MCHC 26.3 L RDW 14.8 Plt Count 213 MPV 9.6 Immature Gran % (Auto) Cancelled Neut % (Auto) Cancelled Lymph % (Auto) Cancelled [place] % (Auto) Cancelled Eos % (Auto) Cancelled Baso % (Auto) Cancelled Lymph # (Auto) Cancelled [place] # (Auto) Cancelled Eos # (Auto) Cancelled Baso # (Auto) Cancelled Abs Immat Gran (auto) Cancelled Absolute Neuts (auto) Cancelled Absolute Nucleated RBC 0.050 H Nucleated RBC % (auto) 0.4 H Neutrophils % (Manual) 78 H Band Neutrophils % 4 Lymphocytes % (Manual) 3 L Monocytes % (Manual) 5 Metamyelocytes % 9 Myelocytes % 1 Abs Neuts (Manual) 10.4 H Lymphocytes # (Manual) 0.4 L Monocytes # (Manual) 0.6 Metamyelocytes # 1.1 Myelocytes # 0.1 Nucleated RBCs 1 H Platelet Estimate NORMAL Plt Morphology Comment NORMAL RBC Morphology NOTED Polychromasia 1+ (0-2) Hypochromasia 1+ (5-14) Basophilic Stippling 1+ (0-2) Stomatocytes 1+ (5-14) PT 11.0 INR 1.0 APTT 28.1 VBG pH VBG pCO2 VBG pO2 VBG HCO3 VBG O2 Saturation VBG Base Excess Anion Gap 15 Estim Creat Clear Calc 164.0 Estimated GFR > 60 Random Glucose 193 H Lactic Acid Calcium 9.0 Total Bilirubin 0.3 AST 63 H ALT 88 H Alkaline Phosphatase 81 Troponin I High Sens B-Natriuretic Peptide Total Protein 6.2 L Albumin 3.7 04/20/22 04/20/22 04/20/22 22:41 22:41 22:47 MCV MCH MCHC RDW Plt Count MPV Immature Gran % (Auto) Neut % (Auto) Lymph % (Auto) [place] % (Auto) Eos % (Auto) Baso % (Auto) Lymph # (Auto) [place] # (Auto) Eos # (Auto) Baso # (Auto) Abs Immat Gran (auto) Absolute Neuts (auto) Absolute Nucleated RBC Nucleated RBC % (auto) Neutrophils % (Manual) Band Neutrophils % Lymphocytes % (Manual) Monocytes % (Manual) Metamyelocytes % Myelocytes % Abs Neuts (Manual) Lymphocytes # (Manual) Monocytes # (Manual) Metamyelocytes # Myelocytes # Nucleated RBCs Platelet Estimate Plt Morphology Comment RBC Morphology Polychromasia Hypochromasia Basophilic Stippling Stomatocytes PT INR APTT VBG pH 7.47 H VBG pCO2 85 VBG pO2 160 VBG HCO3 63 H VBG O2 Saturation 100.0 VBG Base Excess 33.0 Anion Gap Estim Creat Clear Calc Estimated GFR Random Glucose Lactic Acid 1.3 Calcium Total Bilirubin AST ALT Alkaline Phosphatase Troponin I High Sens 30.8 B-Natriuretic Peptide 73 Total Protein Albumin Imaging Radiologist's Impressions: Impressions Chest X-Ray 04/20/22 23:10 IMPRESSION: Patchy opacities at the lung bases could be infectious or inflammatory. Assessment and Plan (1) Pneumonia: Status: Acute (2) COPD (chronic obstructive pulmonary disease): Status: Acute (3) Hypoxia: Status: Acute Plan 56-year-old male with a past medical history of schizoaffective disorder, REGINA on CPAP, obesity hypoventilation syndrome, Avila disease, hype rtriglyceridemia, GERD, COPD/ chronic respiratory failure on 6 L of home oxygen; presented to the hospital today with a chief complaint of hypoxia. noted to have following Acute hypoxic respiratory failure: Likely in the setting of COPD exacerbation/ pneumonia. Patient currently at baseline oxygen requirements. Speaks in full sentences. Not in distress. Supportive care on blood gas noted to be fairly compensated. Maintain supplemental oxygen with goal oxygen saturation 93% COVID-19 negative COPD exacerbation: Will give the patient on DuoNeb standing and p.r.n. Solu-Medrol IV Pulmonology consult Pneumonia: Continue ceftriaxone and azithromycin. Follow up cultures. Aspiration precautions. History of REGINA/ obesity hypoventilation syndrome: Continue home CPAP. For all other chronic conditions, home medications will be continued pending med rec. Will hold home Lasix for now. DVT prophylaxis: Lovenox Code status: Full code; confirmed with the patient's family. Quality Stroke Does the patient have a stroke diagnosis?: No VTE Prior VTE?: No VTE Risk Level:: Medical - moderate - high VTE Device Contraindication: N/A - Device Ordered VTE Drug Contraindication: N/A - Med Ordered
[2022-04-21] MEDS: methylPREDNISolone Sod Succ 40 MG/ML VIAL IVPUSH ×4 (00:56→19:08)
[2022-04-21] MEDS: Enoxaparin Sodium 40 MG/0.4 ML SYRINGE SUBCUT (00:58)
--- NOTE | 2022-04-21 01:17 | PC.NURSE ---
1 hr long nebulizing tx completed, spoke t RT who instructed to apply oxymist mask at 7 LPM.
[2022-04-21] MEDS: vancomycin HCL 1,000 MG, vancomycin HCL 750 MG in 0.9 % Sodium Chloride 500 ML 267.5 MG IV (02:30)
[2022-04-21 03:08] LABS: COVID-19 Test Negative (Negative)
[2022-04-21 07:17] LABS: Hemoglobin 9.8 g/dl (14.0-18.0); Mean Corpuscular HGB Conc 25.8 g/dl (31.0-36.0); Mean Corpuscular Hemoglobin 24.3 pg (27.0-33.0); Mean Corpuscular Volume 94.3 fL (80.0-98.0); Mean Platelet Volume 9.7 fL (9.4-12.4); NRBC Pct Auto 0.4 /100WBC (0.0-0.2); Platelet Count 225 X10*3/uL (160-400); Red Blood Count 4.03 X10*6/uL (4.60-5.80); Red Cell Distribution Width 15.1 % (11.0-16.0); White Blood Count 11.3 X10*3/uL (4.8-10.8)
[2022-04-21] MEDS: Omeprazole 20 MG CAPSULE.DR PO (07:20)
[2022-04-21 07:33] LABS: Blood Urea Nitrogen 18 mg/dL (9-16); Creatinine Clr Calc Pharmacy 177.4; Estimated Glomerular Filt Rate > 60; Glucose Random 170 mg/dL (60-115)
--- NOTE | 2022-04-21 07:38 | PHA.MEDREC ---
Pharmacy Consult ? Medication Reconciliation RN has completed the medication reconciliation. Pharmacy reviewed
[2022-04-21 07:56] LABS: Anion Gap 14 (12-20); Carbon Dioxide 49 mmol/L (22-29); Chloride 88 mmol/L (96-108); Potassium 5.1 mmol/L (3.3-5.1); Sodium 146 mmol/L (135-145)
--- NOTE | 2022-04-21 08:24 | PC.NURSE ---
pt removed IV from right a/c. this rn place new on left . back on oxy mask. alert. skin pwd.
[2022-04-21] MEDS: Albuterol/Iprat 2.5/0.5MG 3 ML AMPUL.NEB INHALE ×5 (08:27→19:39)
[2022-04-21 08:44] LABS: Venous Blood Gas Refer to POC result
[2022-04-21 08:45] LABS: VBG Base Excess 31.6 mmol/L; VBG HCO3 64 mmol/L (22-26); VBG pCO2 111 mmHg; VBG pH 7.37 (7.32-7.43); VBG pO2 81 mmHg
--- NOTE | 2022-04-21 09:21 | PM.EVENT ---
Event Note Date of Service: 04/21/22 Event Note: Acute hypoxic respiratory failure: Likely in the setting of COPD exacerbation/ pneumonia, toxic metabolic encephalopathy Physical exam: Alert oriented x2, seems confused, trying to get out of the bed. cvs: rrr, [id number] res: Diminished air entry, bilateral wheezing abd: no rebound or guarding ,nt, bs present. ext pulses present , no cyanosis . neuro: moves all ext Assessment and plan coordinated in H&P note, Acute hypoxemic /hypercarbic respiratory failure secondary to COPD exacerbation/pneumonia Patient was seen by Pulmonary and ICU: Patient started on high-flow oxygen, continue broad-spectrum antibiotic, nebs, steroids VBG and ABG noted. Toxic metabolic encephalopathy probably related to above acute hypoxemic/hypercarbic respiratory failure. If patient condition further worsen-will repeat ABG and call back ICU. Hyponatremia mild: Added D5 half NS. Monitor BMP closely. Above management discussed with patient's father in detail length as per patient father: Patient is having poor oral appetite from almost a week, also not using his CPAP and nebs from almost a week or so regularly-this morning was getting more hypoxia so was sent to the hospital, in addition patient was also seem to be depressed after last time he saw his pulmonary-he was told that he probably will need lung transplantation due to advanced lung disease.
[2022-04-21] MEDS: risperiDONE 0.5 MG TABLET PO (10:00)
[2022-04-21] MEDS: ARIPiprazole 10 MG TABLET PO (10:00)
[2022-04-21] MEDS: gemfibroziL 600 MG TABLET PO (10:00)
[2022-04-21] MEDS: Furosemide 40 MG TABLET PO (10:00)
[2022-04-21] MEDS: Sertraline HCL 100 MG TABLET PO (10:00)
--- NOTE | 2022-04-21 10:39 | MHC.CM.PN ---
PT REPORTS HE LIVES ALONE AND HAS DAILY [employer] SERVICES PT REPORTS HE IS ALSO ACTIVE WITH A [facility] PT REPORTS HE HAS HOME O2 VIA [facility] AND A BIPAP PT REPORTS BEING VACCINATED WITH [facility] PCP IS SUNNY LEDESMA HCP COPY REQUESTED IMM DELIVERED, COPY SENT TO [facility] CURRENT DC PLAN IS HOME WITH RESUMPTION OF SERVICES [employer] VS FAMILY TO TRANSPORT
--- NOTE | 2022-04-21 10:44 | PC.NURSE ---
DR KIRK DOWN TO SEE PT. HIGH FLOW O2 TO BE SET UP. FATHER AT BEDSIDE
--- NOTE | 2022-04-21 11:18 | PM.CNPUL ---
History of Present Illness History of Present Illness Consult date: 04/21/22 Chief complaint: Hypoxia Narrative: This is an inpatient pulmonary consultation. The patient is a 56-year-old male with a past medical history of schizoaffective disorder, REGINA on CPAP, obesity hypoventilation syndrome, Avila disease, hypertriglyceridemia, GERD, COPD/ chronic respiratory failure on 6 L of home oxygen; presented to the hospital today with a chief complaint of hypoxia.? The patient is a poor historian his father is with him. Apparently his father and mother both ended up with COVID-19. His mother still has COVID at home and the father just tested negative and he is at bedside. The patient started developing worsening shortness of breath and cough for the last week. Reportedly patient has not been doing well of the past 2 days; has not been eating and drinking enough as with the patient's father.? Patient reports he has been having shortness of breath for about a week.? Complains of cough.?The patient's father called an ambulance because patient not looking good; when the EMS arrived patient was noted to be hypoxic to 60s on room air.?In the ED, the patient on presentation noted to be having diminished breath sounds; saturating 80%; patient was placed on 6 L of nasal cannula and given nebulizer treatment; oxygenation improved to 93%; chest x-ray showed possible pneumonia -given antibiotics.? His COVID test is negative however with a positive family history and is very suspicious to be COVID-19 related. The patient is currently on high-flow. He has been using his PAP therapy at nighttime. We will continue the therapy while in the hospital. His bicarbonate is significantly elevated therefore we need to give him Diamox an use the noninvasive ventilator to be able to improve his gas exchange status. If the patient is positive for COVID-19 then he should be started on dexamethasone and also remdesivir. Review of Systems Review of Systems: Yes Unobtainable due to mental status PMFSH Past Medical History Medical History (Updated 04/21/22 @ 11:22 by Tremayne Shaw MD) Acute dyspnea Acute exacerbation of chronic obstructive airways disease Acute hypercapnic respiratory failure AV malformation of gastrointestinal tract Chronic respiratory failure with hypoxia and hypercapnia COPD (chronic obstructive pulmonary disease) COPD exacerbation GERD (gastroesophageal reflux disease) Hypertriglyceridemia Itch of skin Avila disease Mild bibasilar atelectasis Morbid obesity Nocturnal enuresis Obesity hypoventilation syndrome Obstructive sleep apnea Orchialgia REGINA (obstructive sleep apnea) Pneumonia Polycythemia vera Rectosigmoid diverticulosis Schizoaffective schizophrenia Severe chronic obstructive pulmonary disease Spasm of muscle of lower back Supplemental oxygen dependent Tubular adenoma of colon Family History Family History Father HTN (hypertension) Mother HTN (hypertension) Diabetes mellitus Breast cancer Brother No problems noted. Surgical History Surgical History No pertinent past surgical history Social History Social History Household Members: None Housing: House Do you presently have visiting nurse or other home services: Yes Alcohol intake: never Patient Tobacco Use Status: Former Tobacco user Tobacco use type: Cigarette Years Smoked: 41 yrs e-Cigarette/Vaping Use: Never Used Advance Directives: No Advance Directives Information Provided: Yes service: No Current occupational status: disabled Cognitive needs: No Hearing needs: No Vision needs: Yes (glasses) Meds Allergies Allergy/AdvReac Type Severity Reaction Status Date / Time prednisone [PREDNISONE] AdvReac Severe VISUAL Verified 04/20/22 22:35 HALLUCINATION ibuprofen [From MOTRIN] AdvReac Intermediate VOMITING Verified 04/20/22 22:35 nabumetone AdvReac Unknown vomiting Verified 04/20/22 22:35 Active Medications: Current Medications Acetaminophen (Acetaminophen 325 Mg Tablet) 650 mg PO Q6H PRN PRN Reason: Pain, Mild (Pain Scale 1-3) Albuterol/Ipratropium (Albuterol/Iprat 2.5/0.5mg 3 Ml Ampul.Neb) 3 ml INHALE RQ4H WHILE AWAKE [facility] Last Admin: 04/21/22 08:27 Dose: 3 ml Documented by: Albuterol/Ipratropium (Albuterol/Iprat 2.5/0.5mg 3 Ml Ampul.Neb) 3 ml INHALE RQ4H PRN PRN Reason: Shortness of Breath/Wheezing Albuterol/Ipratropium (Albuterol/Iprat 2.5/0.5mg 3 Ml Ampul.Neb) 3 ml INHALE QID [facility] Last Admin: 04/21/22 08:27 Dose: 3 ml Documented by: Amitriptyline HCl (Amitriptyline Hcl 25 Mg Tablet) 25 mg PO BEDTIME PRN PRN Reason: insomnia Aripiprazole (Aripiprazole 10 Mg Tablet) 10 mg PO DAILY [facility] Last Admin: 04/21/22 10:00 Dose: 10 mg Documented by: Aripiprazole (Aripiprazole 20 Mg Tablet) 20 mg PO BEDTIME [facility] Azithromycin (Azithromycin 500 Mg Tablet) 500 mg PO Q24H [facility] Benztropine Mesylate (Benztropine Mesylate 1 Mg Tablet) 1 mg PO BEDTIME [facility] Desmopressin Acetate (Desmopressin Acetate 0.2 Mg Tablet) 0.4 mg PO BEDTIME [facility] Enoxaparin Sodium (Enoxaparin Sodium 40 Mg/0.4 Ml Syringe) 40 mg SUBCUT Q24H [facility] Last Admin: 04/21/22 00:58 Dose: 40 mg Documented by: Fluticasone/Vilanterol (Fluticasone/Vilanterol 200/25 Blst.W.Dev) 1 puff INHALE RDAILY [facility] Last Admin: 04/21/22 08:33 Dose: Not Given Documented by: Furosemide (Furosemide 40 Mg Tablet) 40 mg PO DAILY [facility]; Protocol Last Admin: 04/21/22 10:00 Dose: 40 mg Documented by: Gemfibrozil (Gemfibrozil 600 Mg Tablet) 600 mg PO BID [facility] Last Admin: 04/21/22 10:00 Dose: 600 mg Documented by: Ceftriaxone Sodium 1 gm/ (Sodium Chloride) 100 mls @ 200 mls/hr IV Q24H [facility] Melatonin (Melatonin 3 Mg Tablet) 6 mg PO BEDTIME PRN PRN Reason: Insomnia Methylprednisolone Sodium Succinate (Methylprednisolone Sod Succ 40 Mg/Ml Vial) 40 mg IVPUSH Q6H [facility] Last Admin: 04/21/22 05:51 Dose: 40 mg Documented by: Montelukast Sodium (Montelukast Sodium 10 Mg Tablet) 10 mg PO BEDTIME [facility] Morphine Sulfate (Morphine Sulfate 4 Mg/Ml Cartridge) 1 mg IVPUSH Q4H PRN; Protocol PRN Reason: Pain, SOB Omeprazole (Omeprazole 20 Mg Capsule.Dr) 20 mg PO DAILY@0630 [facility] Last Admin: 04/21/22 07:20 Dose: 20 mg Documented by: Pharmacy Consult (Consult Rx Vancomycin Dosing) 1 each MISCELLANE DAILY PRN PRN Reason: Consult order Risperidone (Risperidone 0.5 Mg Tablet) 0.5 mg PO BID [facility] Last Admin: 04/21/22 10:00 Dose: 0.5 mg Documented by: Senna (Sennosides 8.6 Mg Tablet) 17.2 mg PO BEDTIME PRN PRN Reason: Constipation Sertraline HCl (Sertraline Hcl 100 Mg Tablet) 100 mg PO DAILY [facility] Last Admin: 04/21/22 10:00 Dose: 100 mg Documented by: Sodium Chloride (0.9 % Sodium Chloride Flush 3 Ml Syringe) 3 ml IVFLUSH QSHIFT [facility] Last Admin: 04/21/22 09:26 Dose: Not Given Documented by: Home Medications Medication Instructions Recorded Confirmed Last Taken Type amitriptyline 25 mg tablet 1 tab PO BEDTIME PRN 04/21/22 04/21/22 Unknown History arformoterol 15 mcg/2 mL solution 2 ml INHALATION BID 04/21/22 04/21/22 Unknown History for nebulization (Gladys) aripiprazole 10 mg tablet 1 tab PO QAM 04/21/22 04/21/22 Unknown History aripiprazole 20 mg tablet 1 tab PO BEDTIME 04/21/22 04/21/22 Unknown History benztropine 1 mg tablet 1 tab PO BEDTIME 04/21/22 04/21/22 Unknown History budesonide-formoterol HFA 160 2 puff PO BID 04/21/22 04/21/22 Unknown History mcg-4.5 mcg/actuation aerosol inhaler (Symbicort) desmopressin 0.2 mg tablet 2 tab PO BEDTIME 04/21/22 04/21/22 Unknown History furosemide 40 mg tablet 1 tab PO DAILY 04/21/22 04/21/22 Unknown History gemfibrozil 600 mg tablet 1 tab PO BID 04/21/22 04/21/22 Unknown History ipratropium 0.5 mg-albuterol 3 mg 3 ml INHALATION QID 04/21/22 04/21/22 Unknown History (2.5 mg base)/3 mL nebulization soln montelukast 10 mg tablet 1 tab PO BEDTIME 04/21/22 04/21/22 Unknown History omeprazole 20 mg capsule,delayed 1 cap PO QAM 04/21/22 04/21/22 Unknown History release risperidone 0.5 mg tablet 1 tab PO BID 04/21/22 04/21/22 Unknown History sertraline 100 mg tablet 1 tab PO DAILY 04/21/22 04/21/22 Unknown History Physical Exam Vital Signs: Vital Signs: Last Vital Signs Temp 99.0 F 04/21/22 05:52 Pulse 90 04/21/22 10:42 Resp 22 H 04/21/22 11:01 BP 111/78 04/21/22 10:42 Pulse Ox 91 L 04/21/22 10:42 Oxygen Flow Rate 15 04/20/22 22:29 BMI result Body Mass Index 36.6 Const: General: alert Neck: Neck: Yes normal visual inspection, Yes full ROM and Yes no lymphadenopathy Chest: Chest palpation & inspection: normal inspection of the chest Resp: Auscultation: rhonchi and diminished lung sounds Cardio: Rate: regular rate Rhythm: regular rhythm Heart sounds: S1 normal heart sound present and S2 normal heart sound present GI: Palpation (GI): Soft to palpation and nontender Auscultation: normal bowel sounds Skin: General skin exam: rashes and/or lesions noted Results Laboratory Findings CBC and BMP: 04/21/22 06:56 04/21/22 06:56 ABG, PT/INR, D-dimer: PT/INR, D-dimer PT 11.0 SEC (9.9-13.0) 04/20/22 22:41 INR 1.0 (0.9-1.1) 04/20/22 22:41 Abnormal lab findings: Abnormal Labs 04/20/22 04/20/22 04/20/22 22:41 22:41 22:47 WBC 12.7 H RBC 4.00 L Hgb 9.8 L Hct 37.2 L MCH 24.5 L MCHC 26.3 L Absolute Nucleated RBC 0.050 H Nucleated RBC % (auto) 0.4 H Neutrophils % (Manual) 78 H Lymphocytes % (Manual) 3 L Abs Neuts (Manual) 10.4 H Lymphocytes # (Manual) 0.4 L Nucleated RBCs 1 H VBG pH 7.47 H VBG HCO3 63 H Sodium Chloride 89 L Carbon Dioxide 45 H* BUN 20 H D Random Glucose 193 H AST 63 H ALT 88 H Total Protein 6.2 L 04/21/22 04/21/22 04/21/22 06:56 06:56 08:38 WBC 11.3 H RBC 4.03 L Hgb 9.8 L Hct 38.0 L MCH 24.3 L MCHC 25.8 L Absolute Nucleated RBC 0.040 H Nucleated RBC % (auto) 0.4 H Neutrophils % (Manual) Lymphocytes % (Manual) Abs Neuts (Manual) Lymphocytes # (Manual) Nucleated RBCs VBG pH VBG HCO3 64 H Sodium 146 H Chloride 88 L Carbon Dioxide 49 H* BUN 18 H Random Glucose 170 H AST ALT Total Protein Assessment and Plan (1) Acute exacerbation of chronic obstructive airways disease: Status: Acute (2) Acute and chronic respiratory failure: Status: Acute (3) Obstructive sleep apnea: Status: Acute (4) Pneumonia: Status: Acute (5) Viral syndrome: Status: Acute Plan Needs to have a full respiratory viral panel with the significant contact with COVID-19 Continue Solu-Medrol Continue antibiotic coverage High-flow for now PAP therapy at nighttime Diamox x1 now, monitor bicarbonate If COVID-19 comes back positive then start Decadron and remdesivir Procedures Date of Service Date of Service: 04/21/22
[2022-04-21] MEDS: acetaZOLAMIDE sodium 500 MG VIAL 250 MG IVPUSH (11:49)
--- NOTE | 2022-04-21 11:56 | PHA.PROG ---
Admission Date/Time: April 21, 2022 00:25 Indication: respiratory Weight in k kg Adjusted body weight in K.78 kg Adah body weight in Kg: Obesity Dosing Indication % IBW: Serum Creatinine - Last 168 Hours 04/20/22 04/21/22 22:41 06:56 Creatinine 0.66 0.61 Estimated CrCl and GFR - Last 168 Hours 04/20/22 04/21/22 22:41 06:56 Estim Creat Clear Calc 164.0 177.4 Estimated GFR > 60 > 60 Vancomycin Loading Dose: 1750 mg Current Vancomycin Dosing Regimen:1000 mg q12 Vancomycin Monitoring using AUC goal of 400 - 600 range with trough as surrogate marker: Date and Time for next Vancomycin Level to be drawn: 04/22@1200 Pharmacist Comments on Vancomycin Plan: predicted auc 444, trough 12,.2 Vancomycin dosing will take advantage of [employer] as a clinical decision support tool that uses Bayesian modeling to calculate individual patient's pharmacokinetic parameters and forecast the patient's drug concentration time course with the target goal AUC 24 range of 400 - 600 mg/L/hr.
[2022-04-21 12:55] LABS: ABG Base Excess 38.2 mmol/L; ABG HCO3 69 mmol/L (22-26); ABG pCO2 93 mmHg (32-45); ABG pH 7.47 (7.35-7.45); ABG pO2 79 mmHg (83-108)
[2022-04-21 12:55] LABS: ABG Refer to POC result
[2022-04-21] MEDS: vancomycin HCL 1,000 MG in 0.9 % Sodium Chloride 250 ML 270 MG IV (14:37)
[2022-04-21 14:49] LABS: Adenovirus PCR Not Detected (Not Detect.); Bordetella parapertussis PCR Not Detected (Not Detect.); Bordetella pertussis PCR Not Detected (Not Detect.); Chlamydia pneumoniae PCR Not Detected (Not Detect.); Coronavirus 229E PCR Not Detected (Not Detect.); Coronavirus HKU1 PCR Not Detected (Not Detect.); Coronavirus NL63 PCR Not Detected (Not Detect.); Coronavirus OC43 PCR Not Detected (Not Detect.); Human metapneumovirus PCR Not Detected (Not Detect.); Influenza A PCR Not Detected (Not Detect.); Influenza B PCR Not Detected (Not Detect.); Mycoplasma pneumoniae PCR Not Detected (Not Detect.); Parainfluenza 1 PCR Not Detected (Not Detect.); Parainfluenza 2 PCR Not Detected (Not Detect.); Parainfluenza 3 PCR Not Detected (Not Detect.); Parainfluenza 4 PCR Not Detected (Not Detect.); RSV PCR Not Detected (Not Detect.); Rhino/Enterovirus PCR Not Detected (Not Detect.); SARS-CoV-2 PCR Not Detected (Not Detect.)
[2022-04-21] MEDS: Dextrose 5 % and 0.45 % NaCl 1,000 ML 50 ML IVCONT (16:03)
--- NOTE | 2022-04-21 18:50 | PC.NURSE ---
patient becoming agitated, attempting to remove O2 at this time and stand up from bed. patient unable to be re-directed like previous removal episodes. patient placed in soft restraints at this time. provider messaged to be made aware
[2022-04-21] MEDS: Haloperidol Lactate 5 MG/ML VIAL 2.5 MG IM (19:05)
[2022-04-21] MEDS: LORazepam 2 MG/ML VIAL IVPUSH (20:51)
[2022-04-22] VITALS (17 sets, daily range): BP systolic 126–140; BP diastolic 67–85; PULSE 87–130; RESP 13–28; TEMP 36.5–37.6; O2SAT 88–99; BMI 40.9
[2022-04-22] MEDS: Morphine Sulfate 2 MG/ML CARTRIDGE 1 MG IVPUSH (01:34)
[2022-04-22 01:57] LABS: ABG Base Excess 22.3 mmol/L; ABG HCO3 50 mmol/L (22-26); ABG pCO2 69 mmHg (32-45); ABG pH 7.46 (7.35-7.45); ABG pO2 66 mmHg (83-108)
[2022-04-22 02:01] LABS: ABG Refer to POC result
[2022-04-22] MEDS: Enoxaparin Sodium 40 MG/0.4 ML SYRINGE SUBCUT (02:08)
[2022-04-22] MEDS: cefTRIAXone sodium 1 GM in 0.9 % Sodium Chloride 100 ML IV (02:09)
[2022-04-22] MEDS: methylPREDNISolone Sod Succ 40 MG/ML VIAL IVPUSH ×4 (02:09→21:42)
[2022-04-22] MEDS: vancomycin HCL 1,000 MG in 0.9 % Sodium Chloride 250 ML 250 MG IV (02:24)
--- NOTE | 2022-04-22 02:47 | PC.NURSE ---
This RN assumed care at 1900. Patient placed into soft restraints due to pulling off hi-flow nasal cannula. Patient medicated per JAN, was intermittently agitated. Patient not given QHS medication due to somnolence after being medicated with Ativan. Patient required RT support multiple times throughout the shift, Dr. Johnson present to assess patient. Patient currently sleeping on Bipap, O2 to be between 88-92% per RT. Will continue to monitor
[2022-04-22] MEDS: Omeprazole 20 MG CAPSULE.DR PO (07:37)
--- NOTE | 2022-04-22 07:55 | HO.PM.IMPN ---
Subjective Subjective Date of Service: 04/22/22 Interval History: Acute hypoxic respiratory failure:Likely in the setting of COPD exacerbation/ pneumonia, toxic metabolic encephalopathy Review of Systems Mental status is better than yesterday, he also says that shortness of breath slightly better than yesterday, still talks in short sentences. Has dry cough. No fevers overnight Physical Exam Vital Signs: Vital Signs: Last Vital Signs Temp 98.4 F 04/21/22 20:57 Pulse 91 04/22/22 06:16 Resp 20 04/22/22 06:16 BP 139/78 04/22/22 06:16 Pulse Ox 97 04/22/22 06:16 Oxygen Flow Rate 15 04/20/22 22:29 BMI result Body Mass Index 36.6 Alert oriented x2, seems confused, trying to get out of the bed. cvs: rrr, [id number] res:? air entry slightly better, bilateral wheezing abd: no rebound or guarding ,nt, bs present. ext pulses present , no cyanosis . neuro: moves all ext Objective Data Active Medications Acetaminophen (Acetaminophen 325 Mg Tablet) 650 mg PO Q6H PRN PRN Reason: Pain, Mild (Pain Scale 1-3) Albuterol/Ipratropium (Albuterol/Iprat 2.5/0.5mg 3 Ml Ampul.Neb) 3 ml INHALE RQ4H WHILE AWAKE [facility] Last Admin: 04/21/22 19:39 Dose: 3 ml Documented by: ELIF Albuterol/Ipratropium (Albuterol/Iprat 2.5/0.5mg 3 Ml Ampul.Neb) 3 ml INHALE RQ4H PRN PRN Reason: Shortness of Breath/Wheezing Albuterol/Ipratropium (Albuterol/Iprat 2.5/0.5mg 3 Ml Ampul.Neb) 3 ml INHALE QID [facility] Last Admin: 04/21/22 21:54 Dose: Not Given Documented by: ELIF Non-Admin Reason: See Note Amitriptyline HCl (Amitriptyline Hcl 25 Mg Tablet) 25 mg PO BEDTIME PRN PRN Reason: insomnia Aripiprazole (Aripiprazole 10 Mg Tablet) 10 mg PO DAILY [facility] Last Admin: 04/21/22 10:00 Dose: 10 mg Documented by: RANDY Aripiprazole (Aripiprazole 20 Mg Tablet) 20 mg PO BEDTIME [facility] Last Admin: 04/22/22 02:15 Dose: Not Given Documented by: SHAQUILLE Non-Admin Reason: Patient Asleep Azithromycin (Azithromycin 500 Mg Tablet) 500 mg PO Q24H [facility] Last Admin: 04/22/22 02:29 Dose: Not Given Documented by: SHAQUILLE Non-Admin Reason: See Note Benztropine Mesylate (Benztropine Mesylate 1 Mg Tablet) 1 mg PO BEDTIME [facility] Last Admin: 04/22/22 02:14 Dose: Not Given Documented by: SHAQUILLE Non-Admin Reason: Patient Asleep Desmopressin Acetate (Desmopressin Acetate 0.2 Mg Tablet) 0.4 mg PO BEDTIME [facility] Last Admin: 04/22/22 02:14 Dose: Not Given Documented by: SHAQUILLE Non-Admin Reason: Patient Asleep Enoxaparin Sodium (Enoxaparin Sodium 40 Mg/0.4 Ml Syringe) 40 mg SUBCUT Q24H [facility] Last Admin: 04/22/22 02:08 Dose: 40 mg Documented by: SHAQUILLE Fluticasone/Vilanterol (Fluticasone/Vilanterol 200/25 Blst.W.Dev) 1 puff INHALE RDAILY [facility] Last Admin: 04/21/22 08:33 Dose: Not Given Documented by: DILCIA Non-Admin Reason: Med Not Available Furosemide (Furosemide 40 Mg Tablet) 40 mg PO DAILY [facility]; Protocol Last Admin: 04/21/22 10:00 Dose: 40 mg Documented by: RANDY Gemfibrozil (Gemfibrozil 600 Mg Tablet) 600 mg PO BID [facility] Last Admin: 04/22/22 02:15 Dose: Not Given Documented by: SHAQUILLE Non-Admin Reason: Patient Asleep Ceftriaxone Sodium 1 gm/ (Sodium Chloride) 100 mls @ 200 mls/hr IV Q24H [facility] Last Admin: 04/22/22 02:09 Dose: 200 mls/hr Documented by: SHAQUILLE Vancomycin HCl 1,000 mg/ (Sodium Chloride) 270 mls @ 270 mls/hr IV Q12H [facility] Last Admin: 04/22/22 02:24 Dose: 250 mls/hr Documented by: SHAQUILLE Melatonin (Melatonin 3 Mg Tablet) 6 mg PO BEDTIME PRN PRN Reason: Insomnia Methylprednisolone Sodium Succinate (Methylprednisolone Sod Succ 40 Mg/Ml Vial) 40 mg IVPUSH Q6H [facility] Last Admin: 04/22/22 07:37 Dose: 40 mg Documented by: AMA Montelukast Sodium (Montelukast Sodium 10 Mg Tablet) 10 mg PO BEDTIME [facility] Last Admin: 04/22/22 02:14 Dose: Not Given Documented by: SHAQUILLE Non-Admin Reason: Patient Asleep Morphine Sulfate (Morphine Sulfate 4 Mg/Ml Cartridge) 1 mg IVPUSH Q4H PRN; Protocol PRN Reason: Pain, SOB Omeprazole (Omeprazole 20 Mg Capsule.Dr) 20 mg PO DAILY@0630 [facility] Last Admin: 04/22/22 07:37 Dose: 20 mg Documented by: AMA Pharmacy Consult (Consult Rx Vancomycin Dosing) 1 each MISCELLANE DAILY PRN PRN Reason: Consult order Risperidone (Risperidone 0.5 Mg Tablet) 0.5 mg PO BID [facility] Last Admin: 04/22/22 02:15 Dose: Not Given Documented by: SHAQUILLE Non-Admin Reason: Patient Asleep Senna (Sennosides 8.6 Mg Tablet) 17.2 mg PO BEDTIME PRN PRN Reason: Constipation Sertraline HCl (Sertraline Hcl 100 Mg Tablet) 100 mg PO DAILY [facility] Last Admin: 04/21/22 10:00 Dose: 100 mg Documented by: RANDY Sodium Chloride (0.9 % Sodium Chloride Flush 3 Ml Syringe) 3 ml IVFLUSH QSHIFT [facility] Last Admin: 04/22/22 02:45 Dose: Not Given Documented by: SHAQUILLE Non-Admin Reason: See Note Labs CBC & Chem 7: 04/22/22 10:33 04/22/22 10:33 Labs: Laboratory Results - last 24 hr 04/21/22 04/21/22 04/21/22 06:56 08:38 12:44 O2 Saturation 96.0 ABG pH at Pt Temp 7.47 H ABG pCO2 at Pt Temp 93 H* ABG pO2 at Pt Temp 79 L ABG HCO3 69 H ABG Base Excess (Actual) 38.2 VBG pH 7.37 VBG pCO2 111 VBG pO2 81 VBG HCO3 64 H VBG O2 Saturation 95.0 VBG Base Excess 31.6 Anion Gap 14 Respiratory Panel [facility] Adenovirus (Rapid PCR) B.pert (TEM-PCR) B.parapertussis DNA PCR C. pneumoniae DNA (PCR) Coronavirus OC43 (PCR) Coronavirus HKU1 (PCR) Coronavirus 229E (PCR) Coronavirus NL63 (PCR) Human Metapneumovir PCR Influenza A (RT-PCR) Influenza B (RT-PCR) M. pneumoniae (PCR) Parainfluenza 1 (PCR) Parainfluenza 2 (PCR) Parainfluenza 3 (PCR) Parainfluenza 4 (PCR) RSV (PCR) Entero/Rhino (PCR) SARS-CoV-2 RNA (RT-PCR) 04/21/22 04/22/22 13:01 01:48 O2 Saturation 91.0 ABG pH at Pt Temp 7.46 H ABG pCO2 at Pt Temp 69 H* ABG pO2 at Pt Temp 66 L ABG HCO3 50 H ABG Base Excess (Actual) 22.3 VBG pH VBG pCO2 VBG pO2 VBG HCO3 VBG O2 Saturation VBG Base Excess Anion Gap Respiratory Panel [facility] See Note Adenovirus (Rapid PCR) Not Detected B.pert (TEM-PCR) Not Detected B.parapertussis DNA PCR Not Detected C. pneumoniae DNA (PCR) Not Detected Coronavirus OC43 (PCR) Not Detected Coronavirus HKU1 (PCR) Not Detected Coronavirus 229E (PCR) Not Detected Coronavirus NL63 (PCR) Not Detected Human Metapneumovir PCR Not Detected Influenza A (RT-PCR) Not Detected Influenza B (RT-PCR) Not Detected M. pneumoniae (PCR) Not Detected Parainfluenza 1 (PCR) Not Detected Parainfluenza 2 (PCR) Not Detected Parainfluenza 3 (PCR) Not Detected Parainfluenza 4 (PCR) Not Detected RSV (PCR) Not Detected Entero/Rhino (PCR) Not Detected SARS-CoV-2 RNA (RT-PCR) Not Detected Microbiology Microbiology Results: Microbiology 04/20/22 23:34 Blood Culture - Preliminary Blood - Venous No growth after 24 hours. 04/20/22 23:34 Blood Culture - Preliminary Blood - Venous No growth after 24 hours. Assessment and Plan (1) Acute and chronic respiratory failure: Status: Acute (2) Hypoxia: Status: Acute Plan 56-year-old male with a past medical history of schizoaffective disorder, REGINA on CPAP, obesity hypoventilation syndrome, Avila disease, hypertriglyceridemia, GERD, COPD/ chronic respiratory failure on 6 L of home oxygen; presented to the hospital today with a chief complaint of hypoxia.? ?noted to have following Acute hypoxic respiratory failure: Acute hypoxemic /hypercarbic respiratory failure secondary to COPD exacerbation/pneumonia. Toxic metabolic encephalopathy possible related to above acute hypoxemic/hypercarbic respiratory failure, will check CT head to complete the workup. ph improvin, pco2 : 69 Patient was seen by Pulmonary and ICU: Patient started on high-flow oxygen-oxygen demand slightly better, continue broad-spectrum antibiotic, nebs, steroids,high flow oxygen. d/w pulm today again-recommended to continue above management,pulm will check for antibiotics adjustment. Hyponatremia mild: improved D5 half NS.? Monitor BMP daily. COPD exacerbation: Will give the patient on DuoNeb standing and p.r.n. Solu-Medrol IV Pulmonology consult Pneumonia: Continue ceftriaxone and azithromycin.? Follow up cultures.? Aspiration precautions.? History of REGINA/ obesity hypoventilation syndrome: Continue home CPAP.? need for inpatient: Acute hypoxemic /hypercarbic respiratory failure secondary to COPD exacerbation/pneumonia.t,oxic metabolic encephalopathy- requires iv steriods, antibiotics, high-flow oxygen. Quality Stroke Does the patient have a stroke diagnosis?: No VTE Prior VTE?: No VTE Risk Level:: Medical - moderate - high VTE Device Contraindication: N/A - Device Ordered VTE Drug Contraindication: N/A - Med Ordered
[2022-04-22] MEDS: Fluticasone/Vilanterol 200/25 BLST.W.DEV 1 PUFF INHALE (08:30)
[2022-04-22] MEDS: Albuterol/Iprat 2.5/0.5MG 3 ML AMPUL.NEB INHALE ×5 (08:30→19:54)
--- NOTE | 2022-04-22 08:38 | PC.NURSE ---
pt now on hi flow. rt at bedside
[2022-04-22] MEDS: risperiDONE 0.5 MG TABLET PO ×2 (08:58→21:43)
[2022-04-22] MEDS: gemfibroziL 600 MG TABLET PO ×2 (08:58→22:12)
[2022-04-22] MEDS: Sertraline HCL 100 MG TABLET PO (08:58)
[2022-04-22] MEDS: ARIPiprazole 10 MG TABLET PO (08:58)
--- NOTE | 2022-04-22 09:44 | PC.NURSE ---
camera removed from room. pt pulled out iv and took off hi flow with no alarm. curtain opened to nurses station.
[2022-04-22 10:40] LABS: Hematocrit 36.2 % (42.0-52.0); Hemoglobin 9.9 g/dl (14.0-18.0); Mean Corpuscular HGB Conc 27.3 g/dl (31.0-36.0); Mean Corpuscular Hemoglobin 24.2 pg (27.0-33.0); Mean Corpuscular Volume 88.5 fL (80.0-98.0); Mean Platelet Volume 9.4 fL (9.4-12.4); NRBC Pct Auto 0.2 /100WBC (0.0-0.2); Platelet Count 253 X10*3/uL (160-400); Red Blood Count 4.09 X10*6/uL (4.60-5.80); Red Cell Distribution Width 15.7 % (11.0-16.0); White Blood Count 11.3 X10*3/uL (4.8-10.8)
[2022-04-22 10:57] LABS: Anion Gap 10 (12-20); Blood Urea Nitrogen 22 mg/dL (9-16); Calcium 8.9 mg/dL (8.4-10.2); Carbon Dioxide 38 mmol/L (22-29); Chloride 94 mmol/L (96-108); Creatinine Clr Calc Pharmacy 159.1; Estimated Glomerular Filt Rate > 60; Glucose Random 153 mg/dL (60-115); Potassium 3.8 mmol/L (3.3-5.1); Sodium 138 mmol/L (135-145)
[2022-04-22 11:00] LABS: Vancomycin Trough 7.8 mcg/mL (10.0-20.0)
[2022-04-22] MEDS: Haloperidol Lactate 5 MG/ML VIAL 2 MG IM (11:25)
--- NOTE | 2022-04-22 14:47 | PM.PNPUL ---
Subjective Subjective Date of Service: 04/22/22 Interval history: 56-year-old gentleman with underlying advanced COPD supplemental oxygen 6-8 L continuous flow dependent, chronic CO2 retention on BiPAP 12/10 6 L at night, also obesity, and schizoaffective disorder admitted on 04/21/2022 with worsening hypoxia. On ER evaluation patient was deemed to have COPD /congestive heart failure exacerbation and was treated with systemic glucocorticoids, IV acetazolamide, and nebulized bronchodilators. He states that he is starting to feel better today with less dyspnea. Objective Data Labs CBC & Chem 7: 04/22/22 10:33 04/22/22 10:33 Labs: Laboratory Results - last 24 hr 04/21/22 04/22/22 04/22/22 13:01 01:48 10:33 WBC 11.3 H RBC 4.09 L Hgb 9.9 L Hct 36.2 L MCV 88.5 D MCH 24.2 L MCHC 27.3 L RDW 15.7 Plt Count 253 MPV 9.4 Absolute Nucleated RBC 0.020 H Nucleated RBC % (auto) 0.2 O2 Saturation 91.0 ABG pH at Pt Temp 7.46 H ABG pCO2 at Pt Temp 69 H* ABG pO2 at Pt Temp 66 L ABG HCO3 50 H ABG Base Excess (Actual) 22.3 Sodium Potassium Chloride Carbon Dioxide Anion Gap BUN Creatinine Estim Creat Clear Calc Estimated GFR Random Glucose Calcium Vancomycin Trough Respiratory Panel [place] See Note Adenovirus (Rapid PCR) Not Detected B.pert (TEM-PCR) Not Detected B.parapertussis DNA PCR Not Detected C. pneumoniae DNA (PCR) Not Detected Coronavirus OC43 (PCR) Not Detected Coronavirus HKU1 (PCR) Not Detected Coronavirus 229E (PCR) Not Detected Coronavirus NL63 (PCR) Not Detected Human Metapneumovir PCR Not Detected Influenza A (RT-PCR) Not Detected Influenza B (RT-PCR) Not Detected M. pneumoniae (PCR) Not Detected Parainfluenza 1 (PCR) Not Detected Parainfluenza 2 (PCR) Not Detected Parainfluenza 3 (PCR) Not Detected Parainfluenza 4 (PCR) Not Detected RSV (PCR) Not Detected Entero/Rhino (PCR) Not Detected SARS-CoV-2 RNA (RT-PCR) Not Detected 04/22/22 04/22/22 10:33 10:33 WBC RBC Hgb Hct MCV MCH MCHC RDW Plt Count MPV Absolute Nucleated RBC Nucleated RBC % (auto) O2 Saturation ABG pH at Pt Temp ABG pCO2 at Pt Temp ABG pO2 at Pt Temp ABG HCO3 ABG Base Excess (Actual) Sodium 138 Potassium 3.8 D Chloride 94 L Carbon Dioxide 38 H Anion Gap 10 L BUN 22 H Creatinine 0.68 Estim Creat Clear Calc 159.1 Estimated GFR > 60 Random Glucose 153 H Calcium 8.9 Vancomycin Trough 7.8 L Respiratory Panel [place] Adenovirus (Rapid PCR) B.pert (TEM-PCR) B.parapertussis DNA PCR C. pneumoniae DNA (PCR) Coronavirus OC43 (PCR) Coronavirus HKU1 (PCR) Coronavirus 229E (PCR) Coronavirus NL63 (PCR) Human Metapneumovir PCR Influenza A (RT-PCR) Influenza B (RT-PCR) M. pneumoniae (PCR) Parainfluenza 1 (PCR) Parainfluenza 2 (PCR) Parainfluenza 3 (PCR) Parainfluenza 4 (PCR) RSV (PCR) Entero/Rhino (PCR) SARS-CoV-2 RNA (RT-PCR) Microbiology Microbiology Results: Microbiology 04/20/22 23:34 Blood - Venous Blood Culture - Preliminary No growth after 24 hours. 04/20/22 23:34 Blood - Venous Blood Culture - Preliminary No growth after 24 hours. Review of Systems Cardiovascular: Denies chest pain and Reports dyspnea ( At baseline) Respiratory: Denies cough, Reports dyspnea ( At baseline) and Denies wheezing Allergic/Immunologic: Denies wheezing Physical Exam Vital Signs: Vital Signs: Last Vital Signs Temp 99.7 F 04/22/22 09:37 Pulse 104 H 04/22/22 11:26 Resp 17 04/22/22 11:26 BP 128/69 04/22/22 09:37 Pulse Ox 97 04/22/22 09:37 Oxygen Flow Rate 15 04/20/22 22:29 BMI result Body Mass Index 36.6 Const: General: no acute distress, alert and awake Eyes: Sclerae: sclerae normal EOM: EOMs intact bilaterally Neck: Neck: Yes no lymphadenopathy, Yes trachea midline and Yes supple Resp: Effort & Inspection: normal respiratory effort and no respiratory distress Auscultation: clear to auscultation bilaterally Cardio: Rate: tachycardic Rhythm: regular rhythm Heart sounds: no gallops, no murmurs and no rubs GI: Palpation (GI): Soft to palpation and Other GI palpation findings present ( Nontender) Auscultation: normal bowel sounds Extrem: General: Yes no pedal edema, No clubbing and No cyanosis Procedures Date of Service Date of Service: 04/22/22 Assessment and Plan Assessment and plan (1) Acute and chronic respiratory failure: Status: Acute (2) Acute exacerbation of chronic obstructive airways disease: Status: Acute (3) Supplemental oxygen dependent: Status: Acute (4) Obstructive sleep apnea: Status: Acute Plan Impression: 56-year-old gentleman admitted with worsening hypoxia/dyspnea, likely secondary to viral syndrome, now improving close to baseline. Recommendations: Tapered down Solu-Medrol. Continue nebulized bronchodilators. Discontinue ceftriaxone and vancomycin. Continue to titrate off supplemental oxygen as tolerated. Time Spent With Patient Time: Total time spent is greater than 50% in coordination of care (as documented) at patient's floor/unit and/or counseling patient: Progress Note: Quality Stroke Does the patient have a stroke diagnosis?: No
[2022-04-22] MEDS: Azithromycin 250 MG TABLET PO (15:21)
[2022-04-22] MEDS: 0.9 % Sodium Chloride Flush 3 ML SYRINGE IVFLUSH ×2 (15:21→21:44)
--- NOTE | 2022-04-22 16:09 | PM.PSYCN ---
History of Present Illness Date of Service: 04/22/22 Chief Complaint: Hypoxia Reason for Consult: Schizoaffective disorder, with behavioral changes. Requesting physician: Greg Sarah Discussed with referring provider: Yes Sources of Information: patient interviewed and chart reviewed Additional Sources of Information: patient's RN HPI Narrative: Mr. Rebolledo is a 56-year-old male with a past medical history of schizoaffective disorder, REGINA on CPAP, obesity hypoventilation syndrome, Avila disease, hypertriglyceridemia, GERD, COPD/ chronic respiratory failure on 6 L of home oxygen; presented to the hospital with a chief complaint of hypoxia.? He was admitted for further care and treatment. O2 sat in low 60s upon arrival. Patient has had multiple presentations to this hospital with similar issues over the past year. Psychiatry service asked to consult due to patient's diagnosis of schizoaffective disorder, and behavioral changes while here. Patient did not take bedtime dose of Abilify last evening 20 mg. He has received 2 mg Haldol IM today at 11:25. He also received lorazepam 2 mg IV last evening at 20:51. Patient is followed by psychiatrist in community, Dr. Jean Tadeo. He has multiple psychiatric medications, including amitriptyline, benzo troch pink, Abilify, risperidone. He had been receiving clonazepam 0.5 mg b.i.d. scheduled for some time, with last prescription filled on 02/15/2022. Patient was pleasant upon approach this afternoon. When asked to describe his mood, he stated ?I am in a good mood ?. When asked if he was experiencing any increased anxiety, he replied ?right now I am feeling mostly calm ?. When asked if he was having any thoughts to harm himself or others in any way, he replied ?no ?. When asked if he is taking his medications, including Abilify, he reported ?yes ?. Past Psychiatric History: Schizoaffective disorder IPLOC: unknown Has outpatient psychiatrist Medical Evaluation Reviewed: Yes Personal & Social History: Lives alone with home care services. Father involved in care. Review of Systems Constitutional: Reports as per HPI Eyes: Reports as per HPI Reports as per HPI and Reports Normal hearing present Cardiovascular: Reports as per HPI and Reports no additional cardiovascular complaints Respiratory: Reports as per HPI and Reports no additional respiratory complaints Gastrointestinal: Reports as per HPI and Reports no additional gastrointestinal complaints Genitourinary: Reports no additional male genitourinary complaints and Reports as per HPI Musculoskeletal: Reports no additional musculoskeletal complaints and Reports as per HPI Skin/Breast: Reports system reviewed and no additional complaints, except as docu and Reports as per HPI Reports system reviewed and no additional complaints, except as documented and Reports Normal hearing present Psychiatric: Reports no additional psychiatric complaints Endocrine: Reports no additional endocrine complaints and Reports as per HPI Hematologic/Lymphatic: Reports as per HPI Allergic/Immunologic: Reports as per HPI [facility] Medical History Acute dyspnea Acute exacerbation of chronic obstructive airways disease Acute hypercapnic respiratory failure AV malformation of gastrointestinal tract Chronic respiratory failure with hypoxia and hypercapnia COPD (chronic obstructive pulmonary disease) COPD exacerbation GERD (gastroesophageal reflux disease) Hypertriglyceridemia Itch of skin Avila disease Mild bibasilar atelectasis Morbid obesity Nocturnal enuresis Obesity hypoventilation syndrome Obstructive sleep apnea Orchialgia REGINA (obstructive sleep apnea) Pneumonia Polycythemia vera Rectosigmoid diverticulosis Schizoaffective schizophrenia Severe chronic obstructive pulmonary disease Spasm of muscle of lower back Supplemental oxygen dependent Tubular adenoma of colon Surgical History No pertinent past surgical history Diagnostics Vital Signs (24Hr): Vital Signs - 24 hr 04/21/22 19:00 04/21/22 19:41 04/21/22 19:42 Temperature Pulse Rate 94 96 Respiratory Rate 18 28 H 24 H Blood Pressure 135/68 Pulse Oximetry 97 04/21/22 20:17 04/21/22 20:57 04/21/22 21:06 Temperature 98.4 F Pulse Rate 94 92 92 Respiratory Rate 20 18 18 Blood Pressure 132/84 145/84 H 150/82 H Pulse Oximetry 96 94 94 04/21/22 21:36 04/21/22 22:18 04/22/22 00:08 Temperature Pulse Rate 102 H 102 H 91 Respiratory Rate 18 20 13 Blood Pressure 147/80 H 136/74 131/77 Pulse Oximetry 96 94 97 04/22/22 00:56 04/22/22 02:19 04/22/22 03:50 Temperature Pulse Rate 100 Respiratory Rate 18 20 20 Blood Pressure 126/85 Pulse Oximetry 96 04/22/22 04:21 04/22/22 06:16 04/22/22 08:32 Temperature Pulse Rate 92 91 102 H Respiratory Rate 26 H 20 23 H Blood Pressure 136/82 139/78 Pulse Oximetry 95 97 04/22/22 09:37 04/22/22 11:26 04/22/22 15:34 Temperature 99.7 F Pulse Rate 108 H 104 H 109 H Respiratory Rate 14 17 28 H Blood Pressure 128/69 Pulse Oximetry 97 BMI result Body Mass Index 36.6 Labs Results: 04/22/22 10:33 04/22/22 10:33 Labs: Laboratory Results - last 48 hr 04/20/22 04/20/22 04/20/22 22:41 22:41 22:41 WBC 12.7 H RBC 4.00 L Hgb 9.8 L Hct 37.2 L MCV 93.0 MCH 24.5 L MCHC 26.3 L RDW 14.8 Plt Count 213 MPV 9.6 Immature Gran % (Auto) Cancelled Neut % (Auto) Cancelled Lymph % (Auto) Cancelled [place] % (Auto) Cancelled Eos % (Auto) Cancelled Baso % (Auto) Cancelled Lymph # (Auto) Cancelled [place] # (Auto) Cancelled Eos # (Auto) Cancelled Baso # (Auto) Cancelled Abs Immat Gran (auto) Cancelled Absolute Neuts (auto) Cancelled Absolute Nucleated RBC 0.050 H Nucleated RBC % (auto) 0.4 H Neutrophils % (Manual) 78 H Band Neutrophils % 4 Lymphocytes % (Manual) 3 L Monocytes % (Manual) 5 Metamyelocytes % 9 Myelocytes % 1 Abs Neuts (Manual) 10.4 H Lymphocytes # (Manual) 0.4 L Monocytes # (Manual) 0.6 Metamyelocytes # 1.1 Myelocytes # 0.1 Nucleated RBCs 1 H Platelet Estimate NORMAL Plt Morphology Comment NORMAL RBC Morphology NOTED Polychromasia 1+ (0-2) Hypochromasia 1+ (5-14) Basophilic Stippling 1+ (0-2) Stomatocytes 1+ (5-14) PT 11.0 INR 1.0 APTT 28.1 O2 Saturation ABG pH at Pt Temp ABG pCO2 at Pt Temp ABG pO2 at Pt Temp ABG HCO3 ABG Base Excess (Actual) VBG pH VBG pCO2 VBG pO2 VBG HCO3 VBG O2 Saturation VBG Base Excess Sodium 144 Potassium 4.7 Chloride 89 L Carbon Dioxide 45 H* Anion Gap 15 BUN 20 H D Creatinine 0.66 Estim Creat Clear Calc 164.0 Estimated GFR > 60 Random Glucose 193 H Lactic Acid Calcium 9.0 Total Bilirubin 0.3 AST 63 H ALT 88 H Alkaline Phosphatase 81 Troponin I High Sens B-Natriuretic Peptide Total Protein 6.2 L Albumin 3.7 Vancomycin Trough Respiratory Panel [place] Adenovirus (Rapid PCR) B.pert (TEM-PCR) B.parapertussis DNA PCR C. pneumoniae DNA (PCR) Coronavirus OC43 (PCR) Coronavirus HKU1 (PCR) Coronavirus 229E (PCR) COVID-19 (TAL) COVID-19 Clin Com Coronavirus NL63 (PCR) Human Metapneumovir PCR Influenza A (RT-PCR) Influenza B (RT-PCR) M. pneumoniae (PCR) Parainfluenza 1 (PCR) Parainfluenza 2 (PCR) Parainfluenza 3 (PCR) Parainfluenza 4 (PCR) RSV (PCR) Entero/Rhino (PCR) SARS-CoV-2 RNA (RT-PCR) 04/20/22 04/20/22 04/20/22 22:41 22:41 22:47 WBC RBC Hgb Hct MCV MCH MCHC RDW Plt Count MPV Immature Gran % (Auto) Neut % (Auto) Lymph % (Auto) [place] % (Auto) Eos % (Auto) Baso % (Auto) Lymph # (Auto) [place] # (Auto) Eos # (Auto) Baso # (Auto) Abs Immat Gran (auto) Absolute Neuts (auto) Absolute Nucleated RBC Nucleated RBC % (auto) Neutrophils % (Manual) Band Neutrophils % Lymphocytes % (Manual) Monocytes % (Manual) Metamyelocytes % Myelocytes % Abs Neuts (Manual) Lymphocytes # (Manual) Monocytes # (Manual) Metamyelocytes # Myelocytes # Nucleated RBCs Platelet Estimate Plt Morphology Comment RBC Morphology Polychromasia Hypochromasia Basophilic Stippling Stomatocytes PT INR APTT O2 Saturation ABG pH at Pt Temp ABG pCO2 at Pt Temp ABG pO2 at Pt Temp ABG HCO3 ABG Base Excess (Actual) VBG pH 7.47 H VBG pCO2 85 VBG pO2 160 VBG HCO3 63 H VBG O2 Saturation 100.0 VBG Base Excess 33.0 Sodium Potassium Chloride Carbon Dioxide Anion Gap BUN Creatinine Estim Creat Clear Calc Estimated GFR Random Glucose Lactic Acid 1.3 Calcium Total Bilirubin AST ALT Alkaline Phosphatase Troponin I High Sens 30.8 B-Natriuretic Peptide 73 Total Protein Albumin Vancomycin Trough Respiratory Panel [place] Adenovirus (Rapid PCR) B.pert (TEM-PCR) B.parapertussis DNA PCR C. pneumoniae DNA (PCR) Coronavirus OC43 (PCR) Coronavirus HKU1 (PCR) Coronavirus 229E (PCR) COVID-19 (TAL) COVID-19 Clin Com Coronavirus NL63 (PCR) Human Metapneumovir PCR Influenza A (RT-PCR) Influenza B (RT-PCR) M. pneumoniae (PCR) Parainfluenza 1 (PCR) Parainfluenza 2 (PCR) Parainfluenza 3 (PCR) Parainfluenza 4 (PCR) RSV (PCR) Entero/Rhino (PCR) SARS-CoV-2 RNA (RT-PCR) 04/21/22 04/21/22 04/21/22 02:45 06:56 06:56 WBC 11.3 H RBC 4.03 L Hgb 9.8 L Hct 38.0 L MCV 94.3 MCH 24.3 L MCHC 25.8 L RDW 15.1 Plt Count 225 MPV 9.7 Immature Gran % (Auto) Cancelled Neut % (Auto) Cancelled Lymph % (Auto) Cancelled [place] % (Auto) Cancelled Eos % (Auto) Cancelled Baso % (Auto) Cancelled Lymph # (Auto) Cancelled [place] # (Auto) Cancelled Eos # (Auto) Cancelled Baso # (Auto) Cancelled Abs Immat Gran (auto) Cancelled Absolute Neuts (auto) Cancelled Absolute Nucleated RBC 0.040 H Nucleated RBC % (auto) 0.4 H Neutrophils % (Manual) Band Neutrophils % Lymphocytes % (Manual) Monocytes % (Manual) Metamyelocytes % Myelocytes % Abs Neuts (Manual) Lymphocytes # (Manual) Monocytes # (Manual) Metamyelocytes # Myelocytes # Nucleated RBCs Platelet Estimate Plt Morphology Comment RBC Morphology Polychromasia Hypochromasia Basophilic Stippling Stomatocytes PT INR APTT O2 Saturation ABG pH at Pt Temp ABG pCO2 at Pt Temp ABG pO2 at Pt Temp ABG HCO3 ABG Base Excess (Actual) VBG pH VBG pCO2 VBG pO2 VBG HCO3 VBG O2 Saturation VBG Base Excess Sodium 146 H Potassium 5.1 Chloride 88 L Carbon Dioxide 49 H* Anion Gap 14 BUN 18 H Creatinine 0.61 Estim Creat Clear Calc 177.4 Estimated GFR > 60 Random Glucose 170 H Lactic Acid Calcium 9.0 Total Bilirubin AST ALT Alkaline Phosphatase Troponin I High Sens B-Natriuretic Peptide Total Protein Albumin Vancomycin Trough Respiratory Panel [place] Adenovirus (Rapid PCR) B.pert (TEM-PCR) B.parapertussis DNA PCR C. pneumoniae DNA (PCR) Coronavirus OC43 (PCR) Coronavirus HKU1 (PCR) Coronavirus 229E (PCR) COVID-19 (TAL) Negative COVID-19 Clin Com See Note Coronavirus NL63 (PCR) Human Metapneumovir PCR Influenza A (RT-PCR) Influenza B (RT-PCR) M. pneumoniae (PCR) Parainfluenza 1 (PCR) Parainfluenza 2 (PCR) Parainfluenza 3 (PCR) Parainfluenza 4 (PCR) RSV (PCR) Entero/Rhino (PCR) SARS-CoV-2 RNA (RT-PCR) 04/21/22 04/21/22 04/21/22 08:38 12:44 13:01 WBC RBC Hgb Hct MCV MCH MCHC RDW Plt Count MPV Immature Gran % (Auto) Neut % (Auto) Lymph % (Auto) [place] % (Auto) Eos % (Auto) Baso % (Auto) Lymph # (Auto) [place] # (Auto) Eos # (Auto) Baso # (Auto) Abs Immat Gran (auto) Absolute Neuts (auto) Absolute Nucleated RBC Nucleated RBC % (auto) Neutrophils % (Manual) Band Neutrophils % Lymphocytes % (Manual) Monocytes % (Manual) Metamyelocytes % Myelocytes % Abs Neuts (Manual) Lymphocytes # (Manual) Monocytes # (Manual) Metamyelocytes # Myelocytes # Nucleated RBCs Platelet Estimate Plt Morphology Comment RBC Morphology Polychromasia Hypochromasia Basophilic Stippling Stomatocytes PT INR APTT O2 Saturation 96.0 ABG pH at Pt Temp 7.47 H ABG pCO2 at Pt Temp 93 H* ABG pO2 at Pt Temp 79 L ABG HCO3 69 H ABG Base Excess (Actual) 38.2 VBG pH 7.37 VBG pCO2 111 VBG pO2 81 VBG HCO3 64 H VBG O2 Saturation 95.0 VBG Base Excess 31.6 Sodium Potassium Chloride Carbon Dioxide Anion Gap BUN Creatinine Estim Creat Clear Calc Estimated GFR Random Glucose Lactic Acid Calcium Total Bilirubin AST ALT Alkaline Phosphatase Troponin I High Sens B-Natriuretic Peptide Total Protein Albumin Vancomycin Trough Respiratory Panel [place] See Note Adenovirus (Rapid PCR) Not Detected B.pert (TEM-PCR) Not Detected B.parapertussis DNA PCR Not Detected C. pneumoniae DNA (PCR) Not Detected Coronavirus OC43 (PCR) Not Detected Coronavirus HKU1 (PCR) Not Detected Coronavirus 229E (PCR) Not Detected COVID-19 (TAL) COVID-19 Clin Com Coronavirus NL63 (PCR) Not Detected Human Metapneumovir PCR Not Detected Influenza A (RT-PCR) Not Detected Influenza B (RT-PCR) Not Detected M. pneumoniae (PCR) Not Detected Parainfluenza 1 (PCR) Not Detected Parainfluenza 2 (PCR) Not Detected Parainfluenza 3 (PCR) Not Detected Parainfluenza 4 (PCR) Not Detected RSV (PCR) Not Detected Entero/Rhino (PCR) Not Detected SARS-CoV-2 RNA (RT-PCR) Not Detected 04/22/22 04/22/22 04/22/22 01:48 10:33 10:33 WBC 11.3 H RBC 4.09 L Hgb 9.9 L Hct 36.2 L MCV 88.5 D MCH 24.2 L MCHC 27.3 L RDW 15.7 Plt Count 253 MPV 9.4 Immature Gran % (Auto) Neut % (Auto) Lymph % (Auto) [place] % (Auto) Eos % (Auto) Baso % (Auto) Lymph # (Auto) [place] # (Auto) Eos # (Auto) Baso # (Auto) Abs Immat Gran (auto) Absolute Neuts (auto) Absolute Nucleated RBC 0.020 H Nucleated RBC % (auto) 0.2 Neutrophils % (Manual) Band Neutrophils % Lymphocytes % (Manual) Monocytes % (Manual) Metamyelocytes % Myelocytes % Abs Neuts (Manual) Lymphocytes # (Manual) Monocytes # (Manual) Metamyelocytes # Myelocytes # Nucleated RBCs Platelet Estimate Plt Morphology Comment RBC Morphology Polychromasia Hypochromasia Basophilic Stippling Stomatocytes PT INR APTT O2 Saturation 91.0 ABG pH at Pt Temp 7.46 H ABG pCO2 at Pt Temp 69 H* ABG pO2 at Pt Temp 66 L ABG HCO3 50 H ABG Base Excess (Actual) 22.3 VBG pH VBG pCO2 VBG pO2 VBG HCO3 VBG O2 Saturation VBG Base Excess Sodium 138 Potassium 3.8 D Chloride 94 L Carbon Dioxide 38 H Anion Gap 10 L BUN 22 H Creatinine 0.68 Estim Creat Clear Calc 159.1 Estimated GFR > 60 Random Glucose 153 H Lactic Acid Calcium 8.9 Total Bilirubin AST ALT Alkaline Phosphatase Troponin I High Sens B-Natriuretic Peptide Total Protein Albumin Vancomycin Trough Respiratory Panel [place] Adenovirus (Rapid PCR) B.pert (TEM-PCR) B.parapertussis DNA PCR C. pneumoniae DNA (PCR) Coronavirus OC43 (PCR) Coronavirus HKU1 (PCR) Coronavirus 229E (PCR) COVID-19 (TAL) COVID-19 Clin Com Coronavirus NL63 (PCR) Human Metapneumovir PCR Influenza A (RT-PCR) Influenza B (RT-PCR) M. pneumoniae (PCR) Parainfluenza 1 (PCR) Parainfluenza 2 (PCR) Parainfluenza 3 (PCR) Parainfluenza 4 (PCR) RSV (PCR) Entero/Rhino (PCR) SARS-CoV-2 RNA (RT-PCR) 04/22/22 10:33 WBC RBC Hgb Hct MCV MCH MCHC RDW Plt Count MPV Immature Gran % (Auto) Neut % (Auto) Lymph % (Auto) [place] % (Auto) Eos % (Auto) Baso % (Auto) Lymph # (Auto) [place] # (Auto) Eos # (Auto) Baso # (Auto) Abs Immat Gran (auto) Absolute Neuts (auto) Absolute Nucleated RBC Nucleated RBC % (auto) Neutrophils % (Manual) Band Neutrophils % Lymphocytes % (Manual) Monocytes % (Manual) Metamyelocytes % Myelocytes % Abs Neuts (Manual) Lymphocytes # (Manual) Monocytes # (Manual) Metamyelocytes # Myelocytes # Nucleated RBCs Platelet Estimate Plt Morphology Comment RBC Morphology Polychromasia Hypochromasia Basophilic Stippling Stomatocytes PT INR APTT O2 Saturation ABG pH at Pt Temp ABG pCO2 at Pt Temp ABG pO2 at Pt Temp ABG HCO3 ABG Base Excess (Actual) VBG pH VBG pCO2 VBG pO2 VBG HCO3 VBG O2 Saturation VBG Base Excess Sodium Potassium Chloride Carbon Dioxide Anion Gap BUN Creatinine Estim Creat Clear Calc Estimated GFR Random Glucose Lactic Acid Calcium Total Bilirubin AST ALT Alkaline Phosphatase Troponin I High Sens B-Natriuretic Peptide Total Protein Albumin Vancomycin Trough 7.8 L Respiratory Panel [place] Adenovirus (Rapid PCR) B.pert (TEM-PCR) B.parapertussis DNA PCR C. pneumoniae DNA (PCR) Coronavirus OC43 (PCR) Coronavirus HKU1 (PCR) Coronavirus 229E (PCR) COVID-19 (TAL) COVID-19 Clin Com Coronavirus NL63 (PCR) Human Metapneumovir PCR Influenza A (RT-PCR) Influenza B (RT-PCR) M. pneumoniae (PCR) Parainfluenza 1 (PCR) Parainfluenza 2 (PCR) Parainfluenza 3 (PCR) Parainfluenza 4 (PCR) RSV (PCR) Entero/Rhino (PCR) SARS-CoV-2 RNA (RT-PCR) Imaging Radiology Impressions: ITS Impressions Chest X-Ray 04/20/22 23:10 IMPRESSION: Patchy opacities at the lung bases could be infectious or inflammatory. Mental Status Exam Mental Status Exam Narrative: Well-developed, overweight male, in NAD. Resting in bed, appeared to be comfortable. Wearing hospital garb. Did not appear to be responding to any type of internal stimuli. Denied any SI or thoughts of harm to self or others. Ambulation not observed. Patient Appearance: Fatigued Patient Orientation: Person and Place Level of Consciousness: Awake Patient Behavior: Appropriate, Cooperative and Good Eye Contact Mood Description: Calm Affect Description: Appropriate Speech Pattern: Clear and Coherent Thought Process: Intact Thought Content: positive for Intact Judgement: Fair Medications Medications Current Medications Acetaminophen (Acetaminophen 325 Mg Tablet) 650 mg PO Q6H PRN PRN Reason: Pain, Mild (Pain Scale 1-3) Albuterol/Ipratropium (Albuterol/Iprat 2.5/0.5mg 3 Ml Ampul.Neb) 3 ml INHALE RQ4H WHILE AWAKE SHAYNE Last Admin: 04/22/22 15:32 Dose: 3 ml Documented by: Albuterol/Ipratropium (Albuterol/Iprat 2.5/0.5mg 3 Ml Ampul.Neb) 3 ml INHALE RQ4H PRN PRN Reason: Shortness of Breath/Wheezing Albuterol/Ipratropium (Albuterol/Iprat 2.5/0.5mg 3 Ml Ampul.Neb) 3 ml INHALE QID [facility] Last Admin: 04/22/22 15:33 Dose: Not Given Documented by: Amitriptyline HCl (Amitriptyline Hcl 25 Mg Tablet) 25 mg PO BEDTIME PRN PRN Reason: insomnia Aripiprazole (Aripiprazole 10 Mg Tablet) 10 mg PO DAILY [facility] Last Admin: 04/22/22 08:58 Dose: 10 mg Documented by: Aripiprazole (Aripiprazole 20 Mg Tablet) 20 mg PO BEDTIME [facility] Last Admin: 04/22/22 02:15 Dose: Not Given Documented by: Azithromycin (Azithromycin 250 Mg Tablet) 250 mg PO Q24H [facility] Last Admin: 04/22/22 15:21 Dose: 250 mg Documented by: Benztropine Mesylate (Benztropine Mesylate 1 Mg Tablet) 1 mg PO BEDTIME [facility] Last Admin: 04/22/22 02:14 Dose: Not Given Documented by: Desmopressin Acetate (Desmopressin Acetate 0.2 Mg Tablet) 0.4 mg PO BEDTIME [facility] Last Admin: 04/22/22 02:14 Dose: Not Given Documented by: Enoxaparin Sodium (Enoxaparin Sodium 40 Mg/0.4 Ml Syringe) 40 mg SUBCUT Q24H [facility] Last Admin: 04/22/22 02:08 Dose: 40 mg Documented by: Fluticasone/Vilanterol (Fluticasone/Vilanterol 200/25 Blst.W.Dev) 1 puff INHALE RDAILY [facility] Last Admin: 04/22/22 08:30 Dose: 1 puff Documented by: Furosemide (Furosemide 40 Mg Tablet) 40 mg PO DAILY [facility]; Protocol Last Admin: 04/21/22 10:00 Dose: 40 mg Documented by: Gemfibrozil (Gemfibrozil 600 Mg Tablet) 600 mg PO BID [facility] Last Admin: 04/22/22 08:58 Dose: 600 mg Documented by: Melatonin (Melatonin 3 Mg Tablet) 6 mg PO BEDTIME PRN PRN Reason: Insomnia Methylprednisolone Sodium Succinate (Methylprednisolone Sod Succ 40 Mg/Ml Vial) 40 mg IVPUSH BID [facility] Montelukast Sodium (Montelukast Sodium 10 Mg Tablet) 10 mg PO BEDTIME [facility] Last Admin: 04/22/22 02:14 Dose: Not Given Documented by: Morphine Sulfate (Morphine Sulfate 4 Mg/Ml Cartridge) 1 mg IVPUSH Q4H PRN; Protocol PRN Reason: Pain, SOB Omeprazole (Omeprazole 20 Mg Capsule.) 20 mg PO DAILY@0630 [facility] Last Admin: 04/22/22 07:37 Dose: 20 mg Documented by: Pharmacy Consult (Consult Rx Vancomycin Dosing) 1 each MISCELLANE DAILY PRN PRN Reason: Consult order Risperidone (Risperidone 0.5 Mg Tablet) 0.5 mg PO BID [facility] Last Admin: 04/22/22 08:58 Dose: 0.5 mg Documented by: Senna (Sennosides 8.6 Mg Tablet) 17.2 mg PO BEDTIME PRN PRN Reason: Constipation Sertraline HCl (Sertraline Hcl 100 Mg Tablet) 100 mg PO DAILY [facility] Last Admin: 04/22/22 08:58 Dose: 100 mg Documented by: Sodium Chloride (0.9 % Sodium Chloride Flush 3 Ml Syringe) 3 ml IVFLUSH QSHIFT [facility] Last Admin: 04/22/22 15:21 Dose: 3 ml Documented by: Allergies Allergies Allergy/AdvReac Type Severity Reaction Status Date / Time prednisone [PREDNISONE] AdvReac Severe VISUAL Verified 04/20/22 22:35 HALLUCINATION ibuprofen [From MOTRIN] AdvReac Intermediate VOMITING Verified 04/20/22 22:35 nabumetone AdvReac Unknown vomiting Verified 04/20/22 22:35 Assessment & Plan Assessment & Plan (1) Schizoaffective schizophrenia: Status: Acute Code(s): F25.9 - Schizoaffective disorder, unspecified Assessment and Plan: Patient carries diagnosis of schizoaffective disorder. Psychiatry was asked to meet with patient regarding behavioral changes. Patient had received lorazepam 2 mg IV last evening, as well as haloperidol 2 mg IM at 11:25 today. He appeared to be comfortable, with no agitation observed during encounter. He states that he feels he is, at this time. He states that he is taking his medications as prescribed. Plan Patient is a 56-year-old male with multiple medical conditions, including acute exacerbation of chronic obstructive airway disease, acute and chronic respiratory failure. He had received 1 time dose of a benzodiazepine an last evening, and a 1 time dose of haloperidol earlier today. He appeared to be in good behavioral control this afternoon when I met with him. He was coherent, presented with good eye contact, in able to answer my questions logically. Recommendations: Consider adding risperidone 0.5 mg p.o. q.4 hours p.r.n. for agitation. Consider adding low-dose lorazepam p.r.n. for anxiety. I have shared these recommendations with Dr. Greg Sarah. Thank you for this consultation. I spent minutes with the patient and/or on the patient floor today, greater than?50% of which was spent counseling/coordinating care. Patient educated on: diagnosis, medication risk/benefits and therapeutic strategies Informed Consent: further education needed
[2022-04-22 16:44] LABS: Alanine Aminotransferase 55 U/L (0-40); Albumin Level 3.4 g/dL (3.5-5.0); Alkaline Phosphatase 62 U/L (39-117); Aspartate Amino Transferase 28 U/L (5-37); Bilirubin Direct 0.2 mg/dL (0.0-0.5); Bilirubin Total 0.3 mg/dL (0.0-1.0); Total Protein 5.6 g/dL (6.5-8.0)
[2022-04-22 17:01] LABS: Ammonia 28 umol/L (13-55)
--- NOTE | 2022-04-22 17:52 | PC.NURSE ---
report given to [facility]. cathi to transport pt. rt aware of hiflow needing transport as well
[2022-04-22] MEDS: Benztropine Mesylate 1 MG TABLET PO (21:42)
[2022-04-22] MEDS: Montelukast Sodium 10 MG TABLET PO (21:43)
[2022-04-22] MEDS: ARIPiprazole 20 MG TABLET PO (22:11)
[2022-04-22] MEDS: Desmopressin Acetate 0.2 MG TABLET 0.4 MG PO (22:12)
[2022-04-23] VITALS (10 sets, daily range): BP systolic 115–144; BP diastolic 67–76; PULSE 71–135; RESP 18–22; TEMP 36.4–37; O2SAT 92–100
[2022-04-23] MEDS: Enoxaparin Sodium 40 MG/0.4 ML SYRINGE SUBCUT ×2 (01:59→23:51)
[2022-04-23] MEDS: Omeprazole 20 MG CAPSULE.DR PO (06:05)
[2022-04-23 06:25] LABS: Hematocrit 37.7 % (42.0-52.0); Hemoglobin 10.5 g/dl (14.0-18.0); Mean Corpuscular HGB Conc 27.9 g/dl (31.0-36.0); Mean Corpuscular Volume 86.3 fL (80.0-98.0); Mean Platelet Volume 9.2 fL (9.4-12.4); Platelet Count 262 X10*3/uL (160-400); Red Blood Count 4.37 X10*6/uL (4.60-5.80); Red Cell Distribution Width 15.6 % (11.0-16.0); White Blood Count 10.6 X10*3/uL (4.8-10.8)
[2022-04-23 06:51] LABS: Alanine Aminotransferase 45 U/L (0-40); Albumin Level 3.3 g/dL (3.5-5.0); Alkaline Phosphatase 59 U/L (39-117); Anion Gap 9 (12-20); Aspartate Amino Transferase 25 U/L (5-37); Bilirubin Direct 0.2 mg/dL (0.0-0.5); Bilirubin Total 0.4 mg/dL (0.0-1.0); Blood Urea Nitrogen 22 mg/dL (9-16); Calcium 8.8 mg/dL (8.4-10.2); Carbon Dioxide 36 mmol/L (22-29); Chloride 100 mmol/L (96-108); Creatinine Clr Calc Pharmacy 164.1; Estimated Glomerular Filt Rate > 60; Glucose Random 115 mg/dL (60-115); Potassium 3.9 mmol/L (3.3-5.1); Sodium 141 mmol/L (135-145); Total Protein 5.4 g/dL (6.5-8.0)
--- NOTE | 2022-04-23 08:02 | P.PNIM_ITS ---
Subjective Subjective Date of Service: 04/23/22 Interval History: Acute hypoxic respiratory failure:Likely in the setting of COPD exacerbation/ pneumonia, toxic metabolic encephalopathy Review of Systems Mental status seems somewhat better, also shortness of breath also slightly better than yesterday Dry cough Denies any chest pain or abdominal pain or nausea or vomiting Or any overnight fever. Physical Exam Vital Signs: Vital Signs: Last Vital Signs Temp 98.6 F 04/23/22 07:49 Pulse 94 04/23/22 07:49 Resp 18 04/23/22 07:49 BP 135/67 04/23/22 07:49 Pulse Ox 98 04/23/22 07:49 Oxygen Flow Rate 15 04/20/22 22:29 BMI result Body Mass Index 40.9 Alert oriented x2, seems more awake , more calm. cvs: rrr, [id number] res:? air entry slightly better, bilateral wheezing abd: no rebound or guarding ,nt, bs present. ext pulses present , no cyanosis . neuro: moves all ext Objective Data Active Medications Acetaminophen (Acetaminophen 325 Mg Tablet) 650 mg PO Q6H PRN PRN Reason: Pain, Mild (Pain Scale 1-3) Albuterol/Ipratropium (Albuterol/Iprat 2.5/0.5mg 3 Ml Ampul.Neb) 3 ml INHALE RQ4H WHILE AWAKE [facility] Last Admin: 04/22/22 19:22 Dose: 3 ml Documented by: SONALI Albuterol/Ipratropium (Albuterol/Iprat 2.5/0.5mg 3 Ml Ampul.Neb) 3 ml INHALE RQ4H PRN PRN Reason: Shortness of Breath/Wheezing Albuterol/Ipratropium (Albuterol/Iprat 2.5/0.5mg 3 Ml Ampul.Neb) 3 ml INHALE QID [facility] Last Admin: 04/22/22 19:54 Dose: 3 ml Documented by: ELIF Amitriptyline HCl (Amitriptyline Hcl 25 Mg Tablet) 25 mg PO BEDTIME PRN PRN Reason: insomnia Aripiprazole (Aripiprazole 10 Mg Tablet) 10 mg PO DAILY [facility] Last Admin: 04/22/22 08:58 Dose: 10 mg Documented by: AMA Aripiprazole (Aripiprazole 20 Mg Tablet) 20 mg PO BEDTIME [facility] Last Admin: 04/22/22 22:11 Dose: 20 mg Documented by: BRAVO Azithromycin (Azithromycin 250 Mg Tablet) 250 mg PO Q24H [facility] Last Admin: 04/22/22 15:21 Dose: 250 mg Documented by: AMA Benztropine Mesylate (Benztropine Mesylate 1 Mg Tablet) 1 mg PO BEDTIME [facility] Last Admin: 04/22/22 21:42 Dose: 1 mg Documented by: BRAVO Desmopressin Acetate (Desmopressin Acetate 0.2 Mg Tablet) 0.4 mg PO BEDTIME [facility] Last Admin: 04/22/22 22:12 Dose: 0.4 mg Documented by: BRAVO Enoxaparin Sodium (Enoxaparin Sodium 40 Mg/0.4 Ml Syringe) 40 mg SUBCUT Q24H [facility] Last Admin: 04/23/22 01:59 Dose: 40 mg Documented by: BRAVO Fluticasone/Vilanterol (Fluticasone/Vilanterol 200/25 Blst.W.Dev) 1 puff INHALE RDAILY [facility] Last Admin: 04/22/22 08:30 Dose: 1 puff Documented by: RAMBO Furosemide (Furosemide 40 Mg Tablet) 40 mg PO DAILY [facility]; Protocol Last Admin: 04/21/22 10:00 Dose: 40 mg Documented by: RANDY Gemfibrozil (Gemfibrozil 600 Mg Tablet) 600 mg PO BID [facility] Last Admin: 04/22/22 22:12 Dose: 600 mg Documented by: BRAVO Melatonin (Melatonin 3 Mg Tablet) 6 mg PO BEDTIME PRN PRN Reason: Insomnia Methylprednisolone Sodium Succinate (Methylprednisolone Sod Succ 40 Mg/Ml Vial) 40 mg IVPUSH BID [facility] Last Admin: 04/22/22 21:42 Dose: 40 mg Documented by: BRAVO Montelukast Sodium (Montelukast Sodium 10 Mg Tablet) 10 mg PO BEDTIME [facility] Last Admin: 04/22/22 21:43 Dose: 10 mg Documented by: BRAVO Morphine Sulfate (Morphine Sulfate 4 Mg/Ml Cartridge) 1 mg IVPUSH Q4H PRN; Protocol PRN Reason: Pain, SOB Omeprazole (Omeprazole 20 Mg Capsule.Dr) 20 mg PO DAILY@0630 [facility] Last Admin: 04/23/22 06:05 Dose: 20 mg Documented by: BRAVO Pharmacy Consult (Consult Rx Vancomycin Dosing) 1 each MISCELLANE DAILY PRN PRN Reason: Consult order Risperidone (Risperidone 0.5 Mg Tablet) 0.5 mg PO BID [facility] Last Admin: 04/22/22 21:43 Dose: 0.5 mg Documented by: BRAVO Risperidone (Risperidone 0.5 Mg Tablet) 0.5 mg PO Q4H PRN PRN Reason: Anxiety Senna (Sennosides 8.6 Mg Tablet) 17.2 mg PO BEDTIME PRN PRN Reason: Constipation Sertraline HCl (Sertraline Hcl 100 Mg Tablet) 100 mg PO DAILY [facility] Last Admin: 04/22/22 08:58 Dose: 100 mg Documented by: AMA Sodium Chloride (0.9 % Sodium Chloride Flush 3 Ml Syringe) 3 ml IVFLUSH QSHIFT [facility] Last Admin: 04/22/22 21:44 Dose: 3 ml Documented by: BRAVO Labs CBC & Chem 7: 04/23/22 06:05 04/23/22 06:05 Labs: Laboratory Results - last 24 hr 04/22/22 04/22/22 04/22/22 10:33 10:33 10:33 MCV 88.5 D MCH 24.2 L MCHC 27.3 L RDW 15.7 Plt Count 253 MPV 9.4 Absolute Nucleated RBC 0.020 H Nucleated RBC % (auto) 0.2 Anion Gap 10 L Estim Creat Clear Calc 159.1 Estimated GFR > 60 Random Glucose 153 H Calcium 8.9 Total Bilirubin 0.3 Direct Bilirubin 0.2 AST 28 D ALT 55 H Alkaline Phosphatase 62 D Ammonia Total Protein 5.6 L Albumin 3.4 L Vancomycin Trough 7.8 L 04/22/22 04/23/22 04/23/22 16:48 06:05 06:05 MCV 86.3 MCH 24.0 L MCHC 27.9 L RDW 15.6 Plt Count 262 MPV 9.2 L Absolute Nucleated RBC 0.000 Nucleated RBC % (auto) 0.0 Anion Gap 9 L Estim Creat Clear Calc 164.1 Estimated GFR > 60 Random Glucose 115 Calcium 8.8 Total Bilirubin 0.4 Direct Bilirubin 0.2 AST 25 ALT 45 H Alkaline Phosphatase 59 Ammonia 28 Total Protein 5.4 L Albumin 3.3 L Vancomycin Trough Microbiology Microbiology Results: Microbiology 04/20/22 23:34 Blood Culture - Preliminary Blood - Venous No growth after 48 hours. 04/20/22 23:34 Blood Culture - Preliminary Blood - Venous No growth after 48 hours. Assessment and Plan (1) Acute and chronic respiratory failure: Status: Acute (2) Pneumonia: Status: Acute (3) COPD (chronic obstructive pulmonary disease): Status: Acute Plan 56-year-old male with a past medical history of schizoaffective disorder, REGINA on CPAP, obesity hypoventilation syndrome, Avila disease, hypertriglyceridemia, GERD, COPD/ chronic respiratory failure on 6 L of home oxygen; presented to the hospital today with a chief complaint of hypoxia.? ?noted to have following Acute hypoxic respiratory failure: Acute hypoxemic /hypercarbic respiratory failure secondary to COPD exacerbation/pneumonia. Toxic metabolic encephalopathy possible related to above acute hypoxemic/hypercarbic respiratory failure 04/21-Ct head seems fine metal status improving slowly Patient was seen by Pulmonary and ICU: Patient started on high-flow oxygen- oxygen demand slightly better, continue broad-spectrum antibiotic, nebs, steroids,high flow oxygen. d/w pulm today again-recommended to continue above management,pulm will check for antibiotics adjustment. Hyponatremia mild: improved D5 half NS.? Monitor BMP daily. COPD exacerbation: Will give the patient on DuoNeb standing and p.r.n.,Solu-Medrol IV,antibiotics Pulmonology noted-continue above management, slowly taper oxygen. Pneumonia: Continue ceftriaxone and azithromycin.? Follow up cultures.? Aspiration precautions.? History of REGINA/ obesity hypoventilation syndrome: Continue home CPAP.? need for inpatient: Acute hypoxemic /hypercarbic respiratory failure secondary to COPD exacerbation/pneumonia.t,oxic metabolic encephalopathy- requires iv steriods, antibiotics, high-flow oxygen. Quality Stroke Does the patient have a stroke diagnosis?: No VTE Prior VTE?: No VTE Risk Level:: Medical - moderate - high VTE Device Contraindication: N/A - Device Ordered VTE Drug Contraindication: N/A - Med Ordered
[2022-04-23] MEDS: Albuterol/Iprat 2.5/0.5MG 3 ML AMPUL.NEB INHALE ×4 (08:35→19:20)
[2022-04-23] MEDS: Fluticasone/Vilanterol 200/25 BLST.W.DEV 1 PUFF INHALE (08:35)
[2022-04-23] MEDS: risperiDONE 0.5 MG TABLET PO ×2 (08:40→21:21)
[2022-04-23] MEDS: 0.9 % Sodium Chloride Flush 3 ML SYRINGE IVFLUSH ×3 (08:41→21:22)
[2022-04-23] MEDS: Sertraline HCL 100 MG TABLET PO (08:41)
[2022-04-23] MEDS: methylPREDNISolone Sod Succ 40 MG/ML VIAL IVPUSH ×2 (08:41→21:21)
[2022-04-23] MEDS: gemfibroziL 600 MG TABLET PO ×2 (08:41→21:21)
[2022-04-23] MEDS: ARIPiprazole 10 MG TABLET PO (08:41)
[2022-04-23 13:10] LABS: Vancomycin Trough < 3.0 mcg/mL (10.0-20.0)
[2022-04-23] MEDS: Azithromycin 250 MG TABLET PO (14:53)
[2022-04-23] MEDS: Benztropine Mesylate 1 MG TABLET PO (21:21)
[2022-04-23] MEDS: Montelukast Sodium 10 MG TABLET PO (21:21)
[2022-04-23] MEDS: Desmopressin Acetate 0.2 MG TABLET 0.4 MG PO (21:21)
[2022-04-23] MEDS: ARIPiprazole 20 MG TABLET PO (21:21)
[2022-04-24] VITALS (11 sets, daily range): BP systolic 123–140; BP diastolic 63–90; PULSE 81–99; RESP 16–20; TEMP 36.3–37.3; O2SAT 95–100
[2022-04-24] MEDS: Omeprazole 20 MG CAPSULE.DR PO (05:35)
[2022-04-24 07:17] LABS: Creatinine Clr Calc Pharmacy 149.1; Estimated Glomerular Filt Rate > 60
[2022-04-24] MEDS: Albuterol/Iprat 2.5/0.5MG 3 ML AMPUL.NEB INHALE ×4 (07:38→20:25)
[2022-04-24] MEDS: Fluticasone/Vilanterol 200/25 BLST.W.DEV 1 PUFF INHALE (07:43)
[2022-04-24] MEDS: gemfibroziL 600 MG TABLET PO ×2 (08:01→20:47)
[2022-04-24] MEDS: ARIPiprazole 10 MG TABLET PO (08:01)
[2022-04-24] MEDS: methylPREDNISolone Sod Succ 40 MG/ML VIAL IVPUSH ×2 (08:01→20:47)
[2022-04-24] MEDS: Sertraline HCL 100 MG TABLET PO (08:01)
[2022-04-24] MEDS: risperiDONE 0.5 MG TABLET PO ×2 (08:01→20:47)
[2022-04-24] MEDS: 0.9 % Sodium Chloride Flush 3 ML SYRINGE IVFLUSH ×3 (08:02→20:47)
--- NOTE | 2022-04-24 08:27 | P.PNIM_ITS ---
Subjective Subjective Date of Service: 04/24/22 Interval History: Acute hypoxic respiratory failure:Likely in the setting of COPD exacerbation/ pneumonia, toxic metabolic encephalopathy Review of Systems Shortness of breath seems slightly better than yesterday Denies any chest pain or abdominal pain or nausea or vomiting or fever. Mental status seems slightly better than yesterday. Physical Exam Vital Signs: Vital Signs: Last Vital Signs Temp 98.3 F 04/24/22 07:07 Pulse 89 04/24/22 07:42 Resp 18 04/24/22 07:42 BP 139/90 H 04/24/22 07:07 Pulse Ox 100 04/24/22 07:07 Oxygen Flow Rate 15 04/20/22 22:29 BMI result Body Mass Index 40.9 Alert oriented x2, seems more awake , more calm. cvs: rrr, [id number] res:? air entry slightly better, bilateral wheezing abd: no rebound or guarding ,nt, bs present. ext pulses present , no cyanosis . neuro: moves all ext Objective Data Active Medications Acetaminophen (Acetaminophen 325 Mg Tablet) 650 mg PO Q6H PRN PRN Reason: Pain, Mild (Pain Scale 1-3) Albuterol/Ipratropium (Albuterol/Iprat 2.5/0.5mg 3 Ml Ampul.Neb) 3 ml INHALE RQ4H WHILE AWAKE [facility] Last Admin: 04/24/22 07:38 Dose: 3 ml Documented by: BRADY Albuterol/Ipratropium (Albuterol/Iprat 2.5/0.5mg 3 Ml Ampul.Neb) 3 ml INHALE RQ4H PRN PRN Reason: Shortness of Breath/Wheezing Amitriptyline HCl (Amitriptyline Hcl 25 Mg Tablet) 25 mg PO BEDTIME PRN PRN Reason: insomnia Aripiprazole (Aripiprazole 10 Mg Tablet) 10 mg PO DAILY [facility] Last Admin: 04/24/22 08:01 Dose: 10 mg Documented by: RADAMES Aripiprazole (Aripiprazole 20 Mg Tablet) 20 mg PO BEDTIME [facility] Last Admin: 04/23/22 21:21 Dose: 20 mg Documented by: JEREMIAS Azithromycin (Azithromycin 250 Mg Tablet) 250 mg PO Q24H [facility] Last Admin: 04/23/22 14:53 Dose: 250 mg Documented by: ALEJANDRO Benztropine Mesylate (Benztropine Mesylate 1 Mg Tablet) 1 mg PO BEDTIME [facility] Last Admin: 04/23/22 21:21 Dose: 1 mg Documented by: JEREMIAS Desmopressin Acetate (Desmopressin Acetate 0.2 Mg Tablet) 0.4 mg PO BEDTIME [facility] Last Admin: 04/23/22 21:21 Dose: 0.4 mg Documented by: JEREMIAS Enoxaparin Sodium (Enoxaparin Sodium 40 Mg/0.4 Ml Syringe) 40 mg SUBCUT Q24H [facility] Last Admin: 04/23/22 23:51 Dose: 40 mg Documented by: JEREMIAS Fluticasone/Vilanterol (Fluticasone/Vilanterol 200/25 Blst.W.Dev) 1 puff INHALE RDAILY [facility] Last Admin: 04/24/22 07:43 Dose: 1 puff Documented by: BLASCAmaury Furosemide (Furosemide 40 Mg Tablet) 40 mg PO DAILY [facility]; Protocol Last Admin: 04/21/22 10:00 Dose: 40 mg Documented by: RANDY Gemfibrozil (Gemfibrozil 600 Mg Tablet) 600 mg PO BID [facility] Last Admin: 04/24/22 08:01 Dose: 600 mg Documented by: RADAMES Melatonin (Melatonin 3 Mg Tablet) 6 mg PO BEDTIME PRN PRN Reason: Insomnia Methylprednisolone Sodium Succinate (Methylprednisolone Sod Succ 40 Mg/Ml Vial) 40 mg IVPUSH BID [facility] Last Admin: 04/24/22 08:01 Dose: 40 mg Documented by: RADAMES Montelukast Sodium (Montelukast Sodium 10 Mg Tablet) 10 mg PO BEDTIME [facility] Last Admin: 04/23/22 21:21 Dose: 10 mg Documented by: JEREMIAS Morphine Sulfate (Morphine Sulfate 4 Mg/Ml Cartridge) 1 mg IVPUSH Q4H PRN; Protocol PRN Reason: Pain, SOB Omeprazole (Omeprazole 20 Mg Capsule.) 20 mg PO DAILY@0630 [facility] Last Admin: 04/24/22 05:35 Dose: 20 mg Documented by: JEREMIAS Pharmacy Consult (Consult Rx Vancomycin Dosing) 1 each MISCELLANE DAILY PRN PRN Reason: Consult order Risperidone (Risperidone 0.5 Mg Tablet) 0.5 mg PO BID [facility] Last Admin: 04/24/22 08:01 Dose: 0.5 mg Documented by: RADAMES Risperidone (Risperidone 0.5 Mg Tablet) 0.5 mg PO Q4H PRN PRN Reason: Anxiety Senna (Sennosides 8.6 Mg Tablet) 17.2 mg PO BEDTIME PRN PRN Reason: Constipation Sertraline HCl (Sertraline Hcl 100 Mg Tablet) 100 mg PO DAILY [facility] Last Admin: 04/24/22 08:01 Dose: 100 mg Documented by: RADAMES Sodium Chloride (0.9 % Sodium Chloride Flush 3 Ml Syringe) 3 ml IVFLUSH QSHIFT [facility] Last Admin: 04/24/22 08:02 Dose: 3 ml Documented by: RADAMES Labs CBC & Chem 7: 04/23/22 06:05 04/24/22 06:47 Labs: Laboratory Results - last 24 hr 04/23/22 04/24/22 12:16 06:47 Estim Creat Clear Calc 149.1 Estimated GFR > 60 Vancomycin Trough < 3.0 L Assessment and Plan (1) Acute and chronic respiratory failure: Status: Acute Plan 56-year-old male with a past medical history of schizoaffective disorder, REGINA on CPAP, obesity hypoventilation syndrome, Avila disease, hypertriglyceridemia, GERD, COPD/ chronic respiratory failure on 6 L of home oxygen; presented to the hospital today with a chief complaint of hypoxia.? ?noted to have following Acute hypoxic respiratory failure: Acute hypoxemic /hypercarbic respiratory failure secondary to COPD exacer bation/pneumonia. Toxic metabolic encephalopathy possible related to above acute hypoxemic/hypercarbic respiratory failure 04/21-Ct head seems fine metal status improving slowly Patient was seen by Pulmonary and ICU: Patient started on high-flow oxygen- oxygen demand slightly better, antibiotic, nebs, steroids,taper oxygen to [place] . d/w pulm today again-recommended to continue above management,pulm will check for antibiotics adjustment. Hyponatremia mild: resolved with ivf . COPD exacerbation: Will give the patient on DuoNeb standing and p.r.n.,Solu-Medrol IV,antibiotics Pulmonology noted-continue above management, slowly taper oxygen. Pneumonia: Continue ceftriaxone and azithromycin.? Follow up cultures.? Aspiration precautions.? History of REGINA/ obesity hypoventilation syndrome: Continue home CPAP.? need for inpatient: Acute hypoxemic /hypercarbic respiratory failure secondary to COPD exacerbation/pneumonia.toxic metabolic encephalopathy-need slow taper oxygen as well as steriods. Quality Stroke Does the patient have a stroke diagnosis?: No VTE Prior VTE?: No VTE Risk Level:: Medical - moderate - high VTE Device Contraindication: N/A - Device Ordered VTE Drug Contraindication: N/A - Med Ordered
[2022-04-24] MEDS: Azithromycin 250 MG TABLET PO (16:07)
[2022-04-24] MEDS: ARIPiprazole 20 MG TABLET PO (20:47)
[2022-04-24] MEDS: Montelukast Sodium 10 MG TABLET PO (20:47)
[2022-04-24] MEDS: Desmopressin Acetate 0.2 MG TABLET 0.4 MG PO (20:47)
[2022-04-24] MEDS: Benztropine Mesylate 1 MG TABLET PO (20:47)
[2022-04-25] VITALS (7 sets, daily range): BP systolic 99–132; BP diastolic 60–77; PULSE 88–102; RESP 17–20; TEMP 36.8–37.8; O2SAT 96–98
[2022-04-25] MEDS: Omeprazole 20 MG CAPSULE.DR PO (06:01)
[2022-04-25] MEDS: Albuterol/Iprat 2.5/0.5MG 3 ML AMPUL.NEB INHALE ×3 (07:28→21:24)
[2022-04-25] MEDS: Fluticasone/Vilanterol 200/25 BLST.W.DEV 1 PUFF INHALE (07:28)
[2022-04-25] MEDS: risperiDONE 0.5 MG TABLET PO ×2 (10:09→19:40)
[2022-04-25] MEDS: Sertraline HCL 100 MG TABLET PO (10:09)
[2022-04-25] MEDS: gemfibroziL 600 MG TABLET PO ×2 (10:09→19:41)
[2022-04-25] MEDS: ARIPiprazole 10 MG TABLET PO (10:10)
[2022-04-25] MEDS: methylPREDNISolone Sod Succ 40 MG/ML VIAL IVPUSH (10:10)
[2022-04-25] MEDS: 0.9 % Sodium Chloride Flush 3 ML SYRINGE IVFLUSH (10:10)
[2022-04-25 10:25] LABS: Creatinine Clr Calc Pharmacy 145.4; Estimated Glomerular Filt Rate > 60
--- NOTE | 2022-04-25 13:15 | MHC.CM.PN ---
Addendum entered by Flora Ferguson 04/25/22 15:52: CM INFORMED PT IS ACTIVE WITH [facility]. THEY ARE AWARE HE WILL DC TOMORROW Addendum entered by Flora Ferguson 04/25/22 15:34: CM SPOKE WITH PTS CM WITH [facility]. SHE REPORTS THE PT WAS ACTIVE WITH [facility] IN OCTOBER SHE IS AWARE PT WILL DC HOME TOMORROW MORNING AND WILL HAVE HIS [employer] RESUME AT THAT TIME SHE ASKS THAT DC SUMMARY BE FAXED TO [phone] Addendum entered by Flora Ferguson 04/25/22 15:26: PT WILL REMAIN HERE UNTIL TOMORROW MORNING HE REPORTS HIS FATHER CAN ARRIVE AT 0900 TO TRANSPORT PT WILL RESUME HIS [employer] SERVICES AND START NEW [facility] AWAITING [facility]NA ACCEPTANCE Addendum entered by Flora Ferguson 04/25/22 14:35: CM MET WITH PT TO DELIVER 2ND IMM AND DISCUSS DC PLANNING. PT REPORTS HE CANNOT DC TODAY HIS FATHER IS OUT OF TOWN AND CANNOT GET HIM UNTIL MORNING CM DID OFFER TO ARRANGE TRANSPORT HOWEVER PT REPORTS HIS FATHER HAS HIS HOUSE KEYS. INFO RELAYED TO MD [facility] ALSO INDICATED THEY WERE UNABLE TO PROVIDE VNA SERVICES REFERRAL MADE TO [facility]N AGENCIES AWAITING RESPONSES Original Note: PT WILL DC HOME TODAY WITH RESUMPTION OF HIS [employer] SERVICES [facility]IA [facility] WAS ALSO INFORMED PT WILL NEED VNA AT DC ORDERS WILL BE SENT ONCE READY CM ATTEMPTED TO CONTACT PTS LUCAS MARTINEZ, AT [facility] [phone]. SHE WAS UNAVAILABLE, A MESSAGE WAS LEFT REQUESTING A RETURN CALL
--- NOTE | 2022-04-25 13:32 | P.PNPL_ITS ---
Subjective Subjective Date of Service: 04/25/22 Interval history: Respiratory status improved to baseline, now back to 6 L at rest and 8 with exertion. Objective Data Labs CBC & Chem 7: 04/23/22 06:05 04/25/22 09:56 Labs: Laboratory Results - last 24 hr 04/25/22 09:56 Creatinine 0.79 Estim Creat Clear Calc 145.4 Estimated GFR > 60 Microbiology Microbiology Results: Microbiology 04/20/22 23:34 Blood - Venous Blood Culture - Preliminary No growth after 48 hours. 04/20/22 23:34 Blood - Venous Blood Culture - Preliminary No growth after 48 hours. Review of Systems Cardiovascular: Reports dyspnea on exertion ( At baseline) Respiratory: Denies cough, Reports dyspnea on exertion ( At baseline) and Denies wheezing Allergic/Immunologic: Denies wheezing Physical Exam Vital Signs: Vital Signs: Last Vital Signs Temp 100.0 F 04/25/22 10:56 Pulse 95 04/25/22 11:29 Resp 20 04/25/22 11:29 BP 132/73 04/25/22 10:56 Pulse Ox 98 04/25/22 10:56 Oxygen Flow Rate 15 04/20/22 22:29 BMI result Body Mass Index 40.9 Const: General: no acute distress, alert and awake Nutritional Appearance: obese Eyes: Sclerae: sclerae normal EOM: EOMs intact bilaterally Neck: Neck: Yes no lymphadenopathy, Yes trachea midline and Yes supple Resp: Effort & Inspection: normal respiratory effort and no respiratory d istress Auscultation: clear to auscultation bilaterally Cardio: Rate: regular rate Rhythm: regular rhythm Heart sounds: no gallops, no murmurs and no rubs GI: Palpation (GI): Soft to palpation and Other GI palpation findings present ( Nontender) Auscultation: normal bowel sounds Extrem: General: Yes no pedal edema, No clubbing and No cyanosis Procedures Date of Service Date of Service: 04/25/22 Assessment and Plan Assessment and plan (1) Viral syndrome: Status: Acute (2) Acute and chronic respiratory failure: Status: Acute (3) Acute exacerbation of chronic obstructive airways disease: Status: Acute Plan Impression: 56-year-old gentleman admitted with worsening hypoxia/dyspnea, likely secondary to viral syndrome, now improved to baseline. Recommendations: Prednisone taper. Restart ambulatory respiratory regimen. Time Spent With Patient Time: Total time spent is greater than 50% in coordination of care (as documented) at patient's floor/unit and/or counseling patient: Progress Note: Quality Stroke Does the patient have a stroke diagnosis?: No
--- NOTE | 2022-04-25 13:34 | P.DS_ITS ---
DS: Providers Provider Date of Service: 04/25/22 Date of admission: 04/21/22 00:25 Primary care physician: Ashley Moss MD Consults: 04/21/22 00:24 Consult to Pulmonology Routine Consulting Provider: Burke Cruz Reason for consultation: COPD/PNA/Hypoxia 04/21/22 09:16 Consult to Critical Care Routine Consulting Provider: Corbin Montes Reason for consultation: acute on ch hypoxemic/hypercarbic respiratory failure Has provider been notified: No 04/22/22 11:16 Consult to Psychiatry Routine Consulting Provider: Psych Covering Reason for consultation: pschizoaffective dis with behavoural changes Has provider been notified: No DS: Diagnosis Discharge Diagnosis (1) Acute and chronic respiratory failure: Status: Acute DS: Summary Hospital Course Hospital Course: 56-year-old male with a past medical history of schizoaffective disorder, REGINA on CPAP, obesity hypoventilation syndrome, Avila disease, hypertriglyceridemia, GERD, COPD/ chronic respiratory failure on 6 L of home oxygen; presented to the hospital today with a chief complaint of hypoxia.? Patient is a poor historian.? Spoke to the patient's father as well.? Reportedly patient has not been doing well of the past 2 days; has not been eating and drinking enough as with the patient's father.? Patient reports he has been having shortness of breath for about a week.? Complains of cough.? Today patient's father called an ambulance because patient not looking good; when the EMS arrived patient was noted to be hypoxic to 60s on room air.? Patient denies any chest pain or palpitations.? Reports his breathing is better now Denies any numbness tingling or focal weakness Denies any GI symptoms. Hospital course: Acute hypoxemic respiratory failure secondary to COPD exacerbation: Started on nebs, steroids, IV antibiotics seems to be improving. Patient was seen by Pulmonary: Patient mental status and hypoxia seems to be improved to baseline with above management, also thought that probably above presentation secondary to viral syndrome, not pneumonia. Patient is going on home oxygen-which he uses at home 6 L at baseline, also p.o. steroids as well as azithromycin for COPD exacerbation. Above management discussed the patient at length he understand and in agreement with the above plan. Above management discussed with the patient in detail length she understand and in agreement with the above plan, time spent 50 minutes and 50% time spent on counseling. Significant findings: As above. Procedures performed: None. Treatment and response: As above. Complications: None. The given some Time Spent with Patient Time attestation: Total time spent providing and/or coordinating discharge services: Discharge coordination time: Greater than 30 minutes Quality: Safe Use of Opioids Does Pt have an Active Cancer Diagnosis on the Problem List?: No Quality: Stroke Does the patient have a stroke diagnosis?: No Physical Exam Vital Signs: Vital Signs: Last Vital Signs Temp 100.0 F 04/25/22 10:56 Pulse 95 04/25/22 11:29 Resp 20 04/25/22 11:29 BP 132/73 04/25/22 10:56 Pulse Ox 98 04/25/22 10:56 Oxygen Flow Rate 15 04/20/22 22:29 BMI result Body Mass Index 40.9 Alert oriented x2, seems more awake , more calm. cvs: rrr, [id number] res:? air entry slightly better, bilateral wheezing abd: no rebound or guarding ,nt, bs present. ext pulses present , no cyanosis . neuro: moves all ext DS: Data Data Completed and Pending Completed studies during hospitalization [Text1]: Procedures Assistance with Respiratory Ventilation, Less than 24 Consecutive Hours, Continuous Positive Airway Pressure (10/29/21) Labs on day of discharge: Laboratory Results - last 24 hr 04/25/22 09:56 Creatinine 0.79 Estim Creat Clear Calc 145.4 Estimated GFR > 60 Preliminary micro results at discharge 04/20/22 23:34 Blood Culture - Preliminary Blood - Venous No growth after 48 hours. 04/20/22 23:34 Blood Culture - Preliminary Blood - Venous No growth after 48 hours. 04/22/22 04/22/22 04/22/22 ? 10:33 10:33 10:33 MCV ?88.5? DB ? ? MCH ?24.2 L ? ? MCHC ?27.3 L ? ? RDW ?15.7 ? ? Plt Count ?253 ? ? MPV ?9.4 ? ? Absolute Nucleated RBC ?0.020 H ? ? Nucleated RBC % (auto) ?0.2 ? ? Anion Gap ? ?10 L ? Estim Creat Clear Calc ? ?159.1 ? Estimated GFR ? ?> 60 ? Random Glucose ? ?153 H ? Calcium ? ?8.9A ? Total Bilirubin ? ?0.3 ? Direct Bilirubin ? ?0.2 ? AST ? ?28? D ? ALT ? ?55 H ? Alkaline Phosphatase ? ?62? D ? Ammonia ? ? ? Total Protein ? ?5.6 L ? Albumin ? ?3.4 L ? Vancomycin Trough ? ? ?7.8 L ? 04/22/22 04/23/22 04/23/22 ? 16:48 06:05 06:05 MCV ? ?86.3 ? MCH ? ?24.0 L ? MCHC ? ?27.9 L ? RDW ? ?15.6 ? Plt Count ? ?262 ? MPV ? ?9.2 L ? Absolute Nucleated RBC ? ?0.000 ? Nucleated RBC % (auto) ? ?0.0 ? Anion Gap ? ? ?9 L Estim Creat Clear Calc ? ? ?164.1 Estimated GFR ? ? ?> 60 Random Glucose ? ? ?115 Calcium ? ? ?8.8 Total Bilirubin ? ? ?0.4 Direct Bilirubin ? ? ?0.2 AST ? ? ?25 ALT ? ? ?45 H Alkaline Phosphatase ? ? ?59 Ammonia ?28 ? ? Total Protein ? ? ?5.4 L Albumin ? ? ?3.3 L Vancomycin Trough ? ? ? Microbiology Microbiology Results: Microbiology ?04/20/22 23:34 Blood Culture - Preliminary ?Blood - Venous ?? No growth after 48 hours. ?04/20/22 23:34 Blood Culture - Preliminary ?Blood - Venous ?? No growth after 48 hours Discharge Plan Discharge Patient Disposition: Home Health Service Discharge Diagnosis: Acute hypoxemic respiratory failure secondary copd excerebation /pneumonia , toxic metabolic encephalopathy. Referrals: [facility] [Outside] - 1 Week Ashley Moss MD [Primary Care Provider] - 1 Week Discharge Medications: New azithromycin 250 mg tablet 250 mg PO DAILY 4 Days Qty: 4 0RF Rx Instructions: start on day 2 of therapy methylprednisolone [Medrol (Juan Manuel)] 4 mg tablets,dose pack 4 mg PO DAILY Qty: 21 0RF Continued furosemide 40 mg tablet 1 tab PO DAILY 0RF ipratropium-albuterol 0.5 mg-3 mg(2.5 mg base)/3 mL solution for nebulization 3 ml inhalation QID 0RF desmopressin 0.2 mg tablet 2 tab PO BEDTIME 0RF sertraline 100 mg tablet 1 tab PO DAILY 0RF amitriptyline 25 mg tablet 1 tab PO BEDTIME PRN (Reason: insomnia) 0RF gemfibrozil 600 mg tablet 1 tab PO BID 0RF benztropine 1 mg tablet 1 tab PO BEDTIME 0RF omeprazole 20 mg capsule,delayed release(DR/EC) 1 cap PO QAM 0RF montelukast 10 mg tablet 1 tab PO BEDTIME 0RF risperidone 0.5 mg tablet 1 tab PO BID 0RF aripiprazole 10 mg tablet 1 tab PO QAM 0RF aripiprazole 20 mg tablet 1 tab PO BEDTIME 0RF budesonide-formoterol [Symbicort] 160-4.5 mcg/actuation HFA aerosol inhaler 2 puff PO BID 0RF arformoterol [Brovana] 15 mcg/2 mL solution for nebulization 2 ml inhalation BID 0RF Discharge Orders: Discharge Order (Routine); Ordered 04/25/22 Ordered By: Greg Sarah Diet: advance to usual diet Activity on Discharge: As tolerated Stand Alone Forms: Patient Portal Discharge page Care Plan Goals: Acute hypoxemic respiratory failure secondary to COPD exacerbation: Started on nebs, steroids, IV antibiotics seems to be improving. Patient was seen by Pulmonary: Patient mental status and hypoxia seems to be improved to baseline with above management, also thought that probably above presentation secondary to viral syndrome, not pneumonia. Patient is going on home oxygen-which he uses at home 6 L at baseline, also p.o. steroids as well as azithromycin for COPD exacerbation. Above management discussed the patient at length he understand and in agreement with the above plan. Health Concerns: Complete the course of p.o. steroids, antibiotics, encouraged for compliance with his CPAP as well as COPd meds at home. If patient condition worsen should go to nearest emergency room. Plan of Treatment: As above. Assessment: As above.
--- NOTE | 2022-04-25 13:42 | P.F2F_ITS ---
Service Date Service Date: 04/25/22 Encounter Date of encounter: 04/25/22 Encounter: acute hypoxemic respiratory failure secondary to COPD exacerbation Reasons for Services Signs and symptoms assessed: Shortness of breath. Reason for custodial: CV/CP assess and/or care, medication management, medication treatment and teach disease management MD Overseeing Care: Ashley Moss Homebound: Leaving the home is medically contraindicated at this time without the asist of a device and/or another person due th the listed conditions above and below. Reason homebound: weakness related to hospital stay Homebound supporting statement: Patient had multiple comorbidities including COPD exacerbation, noncompliance with CPAP and nebs, need help to go to appointment as well as blood draws. Certification: Based on the above findings, I certify that this patient is confined to the home and needs intermittent custodial care, physical therapy and/or speech therapy, or continues to need occupational therapy. The patient is under my care, and I have initiated the establishment of the plan of care. The patient will be followed by a physician who will periodically review the plan of care.
[2022-04-25] MEDS: Azithromycin 250 MG TABLET PO (14:00)
[2022-04-25] MEDS: ARIPiprazole 20 MG TABLET PO (19:40)
[2022-04-25] MEDS: Desmopressin Acetate 0.2 MG TABLET 0.4 MG PO (19:41)
[2022-04-25] MEDS: Benztropine Mesylate 1 MG TABLET PO (19:41)
[2022-04-25] MEDS: Montelukast Sodium 10 MG TABLET PO (19:41)
[2022-04-26] VITALS: BP 137/69; PULSE 97; RESP 18; TEMP 37.1; O2SAT 98
[2022-04-26] MEDS: Enoxaparin Sodium 40 MG/0.4 ML SYRINGE SUBCUT (00:41)
[2022-04-26 03:35] VITALS: BP 137/71; PULSE 88; RESP 20; TEMP 37; O2SAT 98
[2022-04-26] MEDS: Omeprazole 20 MG CAPSULE.DR PO (05:50)
[2022-04-26 06:43] LABS: Creatinine Clr Calc Pharmacy 147.2; Estimated Glomerular Filt Rate > 60
[2022-04-26 07:10] VITALS: BP 123/55; PULSE 84; RESP 17; TEMP 36.7; O2SAT 92
--- NOTE | 2022-04-26 07:26 | HO.PM.IMPN ---
Subjective Subjective Date of Service: 04/25/22 Interval History: Acute hypoxic respiratory failure:Likely in the setting of COPD exacerbation/ pneumonia, toxic metabolic encephalopathy Review of Systems Short of breath improved Seems to be near baseline oxygen demand buckley also. Physical Exam Vital Signs: Vital Signs: Last Vital Signs on 04/25 reviewed ,seems fine Oxygen Flow Rate 15 04/20/22 22:29 BMI result Body Mass Index 40.9 Alert oriented x2, seems more awake , more calm. cvs: rrr, [id number] res:? air entry slightly fair , no rales or wheezing abd: no rebound or guarding ,nt, bs present. ext pulses present , no cyanosis . neuro: moves all ext Objective Data Active Medications Acetaminophen (Acetaminophen 325 Mg Tablet) 650 mg PO Q6H PRN PRN Reason: Pain, Mild (Pain Scale 1-3) Albuterol/Ipratropium (Albuterol/Iprat 2.5/0.5mg 3 Ml Ampul.Neb) 3 ml INHALE RQ4H WHILE AWAKE [facility] Last Admin: 04/25/22 21:24 Dose: 3 ml Documented by: DAMIEN Albuterol/Ipratropium (Albuterol/Iprat 2.5/0.5mg 3 Ml Ampul.Neb) 3 ml INHALE RQ4H PRN PRN Reason: Shortness of Breath/Wheezing Amitriptyline HCl (Amitriptyline Hcl 25 Mg Tablet) 25 mg PO BEDTIME PRN PRN Reason: insomnia Aripiprazole (Aripiprazole 10 Mg Tablet) 10 mg PO DAILY [facility] Last Admin: 04/25/22 10:10 Dose: 10 mg Documented by: ALEXI Aripiprazole (Aripiprazole 20 Mg Tablet) 20 mg PO BEDTIME [facility] Last Admin: 04/25/22 19:40 Dose: 20 mg Documented by: GRISELDA Azithromycin (Azithromycin 250 Mg Tablet) 250 mg PO Q24H [facility] Last Admin: 04/25/22 14:00 Dose: 250 mg Documented by: ALEXI Benztropine Mesylate (Benztropine Mesylate 1 Mg Tablet) 1 mg PO BEDTIME [facility] Last Admin: 04/25/22 19:41 Dose: 1 mg Documented by: GRISELDA Desmopressin Acetate (Desmopressin Acetate 0.2 Mg Tablet) 0.4 mg PO BEDTIME [facility] Last Admin: 04/25/22 19:41 Dose: 0.4 mg Documented by: GRISELDA Enoxaparin Sodium (Enoxaparin Sodium 40 Mg/0.4 Ml Syringe) 40 mg SUBCUT Q24H [facility] Last Admin: 04/26/22 00:41 Dose: 40 mg Documented by: GRISELDA Fluticasone/Vilanterol (Fluticasone/Vilanterol 200/25 Blst.W.Dev) 1 puff INHALE RDAILY [facility] Last Admin: 04/25/22 07:28 Dose: 1 puff Documented by: DILCIA Furosemide (Furosemide 40 Mg Tablet) 40 mg PO DAILY [facility]; Protocol Last Admin: 04/21/22 10:00 Dose: 40 mg Documented by: RANDY Gemfibrozil (Gemfibrozil 600 Mg Tablet) 600 mg PO BID [facility] Last Admin: 04/25/22 19:41 Dose: 600 mg Documented by: GRISELDA Melatonin (Melatonin 3 Mg Tablet) 6 mg PO BEDTIME PRN PRN Reason: Insomnia Methylprednisolone Sodium Succinate (Methylprednisolone Sod Succ 40 Mg/Ml Vial) 40 mg IVPUSH BID [facility] Last Admin: 04/25/22 19:42 Dose: Not Given Documented by: GRISELDA Non-Admin Reason: No Access Montelukast Sodium (Montelukast Sodium 10 Mg Tablet) 10 mg PO BEDTIME [facility] Last Admin: 04/25/22 19:41 Dose: 10 mg Documented by: GRISELDA Morphine Sulfate (Morphine Sulfate 4 Mg/Ml Cartridge) 1 mg IVPUSH Q4H PRN; Protocol PRN Reason: Pain, SOB Omeprazole (Omeprazole 20 Mg Capsule.Dr) 20 mg PO DAILY@0630 [facility] Last Admin: 04/26/22 05:50 Dose: 20 mg Documented by: [place] Pharmacy Consult (Consult Rx Vancomycin Dosing) 1 each MISCELLANE DAILY PRN PRN Reason: Consult order Risperidone (Risperidone 0.5 Mg Tablet) 0.5 mg PO BID [facility] Last Admin: 04/25/22 19:40 Dose: 0.5 mg Documented by: GRISELDA Risperidone (Risperidone 0.5 Mg Tablet) 0.5 mg PO Q4H PRN PRN Reason: Anxiety Senna (Sennosides 8.6 Mg Tablet) 17.2 mg PO BEDTIME PRN PRN Reason: Constipation Sertraline HCl (Sertraline Hcl 100 Mg Tablet) 100 mg PO DAILY [facility] Last Admin: 04/25/22 10:09 Dose: 100 mg Documented by: ALEXI Sodium Chloride (0.9 % Sodium Chloride Flush 3 Ml Syringe) 3 ml IVFLUSH QSHIFT [facility] Last Admin: 04/25/22 19:44 Dose: Not Given Documented by: GRISELDA Non-Admin Reason: No Access Labs CBC & Chem 7: 04/23/22 06:05 04/26/22 05:57 Labs: Laboratory Results - last 24 hr 04/25/22 04/26/22 09:56 05:57 Estim Creat Clear Calc 145.4 147.2 Estimated GFR > 60 > 60 Microbiology Microbiology Results: Microbiology 04/20/22 23:34 Blood Culture - Final Blood - Venous No growth after 5 days. 04/20/22 23:34 Blood Culture - Final Blood - Venous No growth after 5 days. Assessment and Plan (1) Acute and chronic respiratory failure: Status: Acute Plan 56-year-old male with a past medical history of schizoaffective disorder, REGINA on CPAP, obesity hypoventilation syndrome, Avila disease, hypertriglyceridemia, GERD, COPD/ chronic respiratory failure on 6 L of home oxygen; presented to the hospital today with a chief complaint of hypoxia.? ?noted to have following Acute hypoxic respiratory failure: Acute hypoxemic /hypercarbic respiratory failure secondary to COPD exacerbation/pneumonia. Toxic metabolic encephalopathy possible related to above acute hypoxemic/hypercarbic respiratory failure 04/21-Ct head seems fine metal status improving slowly Patient was seen by Pulmonary and ICU: Patient started on high-flow oxygen-oxygen demand slightly better,? antibiotic, nebs, steroids,taper oxygen to NC . d/w pulm today again-recommended to continue above management,pulm will check for antibiotics adjustment. Hyponatremia mild: resolved with ivf . COPD exacerbation: Will give the patient on DuoNeb standing and p.r.n.,Solu-Medrol IV,antibiotics Pulmonology noted-continue above management, slowly taper oxygen. Pneumonia: Continue ceftriaxone and azithromycin.? Follow up cultures.? Aspiration precautions.? History of REGINA/ obesity hypoventilation syndrome: Continue home CPAP.? need for inpatient:could not go home,does not have keys his place. Quality Stroke Does the patient have a stroke diagnosis?: No VTE Prior VTE?: No VTE Risk Level:: Medical - moderate - high VTE Device Contraindication: N/A - Device Ordered VTE Drug Contraindication: N/A - Med Ordered
[2022-04-26 08:53] VITALS: PULSE 84; RESP 20; O2SAT 92
[2022-04-26] MEDS: Albuterol/Iprat 2.5/0.5MG 3 ML AMPUL.NEB INHALE (08:53)
[2022-04-26] MEDS: Fluticasone/Vilanterol 200/25 BLST.W.DEV 1 PUFF INHALE (08:53)
--- NOTE | 2022-04-26 08:55 | MHC.CM.PN ---
Patient has been medically cleared for dc to home today with services. [facility] has been notified of today's dc. Last IMM addressed yesterday.
[2022-04-26] MEDS: ARIPiprazole 10 MG TABLET PO (09:14)
[2022-04-26] MEDS: risperiDONE 0.5 MG TABLET PO (09:14)
[2022-04-26] MEDS: Sertraline HCL 100 MG TABLET PO (09:14)
[2022-04-26] MEDS: gemfibroziL 600 MG TABLET PO (09:14)
--- NOTE | 2022-04-26 11:05 | PC.NURSE ---
Pt removed bipap this morning and stated that he is leaving today. Confirmed with MD and case management. Pt to have father pick him up. Father was contacted by this RN multiple times but did not asnwer. Pt's father did show up around 1100 to hand picker pt. All belongings with pt, no IV was in place, tele was removed. No acute events prior. safety and fall precautions maintained. discharge instructions provided and packet handed to patient. pt was assessed this am, no complications found besides SOB on exertion. otherwise pt has no complaints of chest pain, trouble breathing, pain elsewhere or dizziness and lightheadedness. IV med not administered this AM due to pt not having IV access.
== END 2022-04-26 11:00 | disposition home health service (06) | DRG 865 ==
LOC: HO.ED 04-21 00:30 → HO.EDOVER 04-21 00:57 → HO.IMC 04-22 17:35
PROVIDERS: Hospitalist; Admitting Provider Hospitalist; Emergency Provider Emergency Medicine; PCP Internal Medicine; Visit Provider Internal Medicine
DX: B34.9 Viral infection, unspecified (principal); G93.41 Metabolic encephalopathy; J96.22 Acute and chronic respiratory failure with hypercapnia; J96.21 Acute and chronic respiratory failure with hypoxia; E87.1 Hypo-osmolality and hyponatremia; E66.2 Morbid (severe) obesity with alveolar hypoventilation; Z68.41 Body mass index [BMI] 40.0-44.9, adult; E74.04 McArdle disease; J44.1 Chronic obstructive pulmonary disease with (acute) exacerbation; K21.9 Gastro-esophageal reflux disease without esophagitis; E78.1 Pure hyperglyceridemia; F25.9 Schizoaffective disorder, unspecified; Z20.822 Contact with and (suspected) exposure to COVID-19; Z99.81 Dependence on supplemental oxygen; Z87.891 Personal history of nicotine dependence; Z88.6 Allergy status to analgesic agent; Z88.8 Allergy status to other drugs, medicaments and biological substances; Z79.899 Other long term (current) drug therapy
CPT/HCPCS: 36415; 36600; 70450; 71045; 80048; 80053; 80076; 80202; 82140; 82565; 82803; 83605; 83880; 84484; 85007; 85025; 85027; 85610; 85730; 87040; 87633; 87635; 93005; 94640; 94644; 94660; 96365; 96367; 96375; 99285; 99291; J0456; J0696; J1650; J2060; J2270; J2920; J2930; J3370

== ENCOUNTER → 2022-05-07 09:17 | Outpatient (REF) | payer MEDICARE, MEDICAID, SELFPAY ==
--- NOTE | 2022-05-07 09:20 | CA_ITS ---
Transthoracic Echocardiogram Patient (Last, First, Middle): Lv Rebolledo L Gender: Male Date of : 1965 Age: 56 Procedure Date: 05/07/2022 Procedure Type: Transthoracic Echocardiogram Location: OP Height: 180.34 cm Weight: 111.13 kg BSA: 2.30 m2 Heart Rate: bpm BP: 112 / 72 mmHg Nursing Service Administrator: BEBETO Referring MD: Ashu Garcia MD Symptoms: Z76.82 - Awaiting organ transplant status Study Quality: Technically Difficult/Contrast ECG Rhythm: Sinus Conclusions: - The left ventricular systolic function is normal. The visually estimated ejection fraction is between 55-60%. - Mildly increased right ventricular cavity size. - There is normal right ventricular systolic function. - Tricuspid regurgitation envelope is inadequate for calculation of right ventricular systolic pressure. Findings Procedure Information Contrast agent, definity, is being given per protocol without apparent complications. Left Ventricle Normal left ventricular cavity size. There is normal left ventricular wall thickness. The left ventricular systolic function is normal. The visually estimated ejection fraction is between 55-60%. There is no evidence of regional wall motion abnormalities. Diastolic function is normal for age. Right Ventricle Mildly increased right ventricular cavity size. There is normal right ventricular systolic function. Atria Both atria are normal in size. Aortic Valve There is a normal trileaflet aortic valve. There is no aortic valve stenosis. There is no aortic valve regurgitation. Mitral Valve The mitral valve appears normal. There is no mitral valve regurgitation. There is no mitral valve stenosis. Pulmonic Valve The pulmonic valve is likely normal. Tricuspid Valve There is no tricuspid valve regurgitation. Tricuspid regurgitation envelope is inadequate for calculation of right ventricular systolic pressure. Great Vessels The aortic annulus, sinuses of valsalva, and asc aorta are normal in size. Venous The inferior vena cava is normal in size and collapses greater than 50% with inspiration. Pericardium/Pleural There is no evidence of pericardial effusion. Prior Study Comparison Changes noted compared to prior study dated: 11/22/2016. Slight increase in right ventricular size. Measurements 2D Linear Measurements IVSd: 0.79 0.6-0.9/0.6-1.0 cm LVIDd: 5.95 3.9-5.3/4.2-5.9 cm LVIDd Index: 2.59 2.4-3.2/2.2-3.1 cm/m2 LVIDs: 4.08 2.0-3.6 cm LVPWd: 1.02 0.7-1.1 cm LA Diam: 4.20 2.7-3.8/3.0-4.0 cm LAIDs Index: 1.83 1.5-2.3 cm/m2 LV Mass: 267.47 67-162/88-224 g LV Mass Index: 116.29 43-95/49-115 g/m2 LVOT Diam: 2.50 3.0+(-)1.3 cm 2D Systolic Function EF 4C: 62.30 >55% EF 2C: 64.00 >55% EF BiP: 64.40 >55% Mitral Valve MV Pk E: 0.65 MV PK A: 0.84 MV Decel Time: 243.00 E/A: 0.80 E'Lateral: 8.49 E'Medial: 7.18 E/E' Med: 9.00 E/E' Lat: 7.60 PHT: 71.00 MVA PHT: 3.10 Decel [place]: 2.67 Aortic Valve AoV Pk Joseph: 1.59 AoV Mn Joseph: 1.19 AoV VTI: 0.28 AoV Pk Grad: 10.00 Aov Mn Grad: 6.00 ROMELIA Cont.VTI: 4.04 LVOT LVOT Pk Joseph: 1.31 LVOT Mn Joseph: 0.93 LVOT VTI: 0.23 LVOT Pk Grad: 7.00 LVOT Mn Grad: 4.00 LVOT Diam: 2.50 LVOT Area: 4.91 Diastolic Function MV Pk E: 0.65 MV Pk A: 0.84 E/A: 0.80 E'Medial: 7.18 E/E' Med: 9.00 E' Laterial: 8.49 E/E' Lat: 7.60 Right Ventricle TAPSE (mm): 23.80 TVS' Joseph: 17.50 Tricuspid Valve RA Press: 8.00 Great Vessels Aorta Sinus of Valsalva: 3.99 2.0-3.[address] [place]: 2.73 1.7-3.4 cm Ao Asc: 3.60 2.1-3.4 cm Updated in Other Vendor System with Status of Final Hero Terrell MD electronically signed on 05/10/2022 11:24:12 AM with status of Final
== END ==
LOC: HO.CARD 09:17
PROVIDERS: PCP Nurse Practitioner Family; Visit Provider Internal Medicine Pulmonary Disease
DX: J44.9 Chronic obstructive pulmonary disease, unspecified (principal); J96.11 Chronic respiratory failure with hypoxia; J96.12 Chronic respiratory failure with hypercapnia; Z99.81 Dependence on supplemental oxygen; Z76.82 Awaiting organ transplant status
CPT/HCPCS: 93306; 99212; Q9957

== ENCOUNTER 2022-06-11 12:54 | Outpatient (REF) | payer MEDICAID, SELFPAY ==
--- NOTE | ~2022-06-11 | US_ITS ---
EXAMINATION: US VENOUS WITH DOPPLER UPPER EXTREMITY, LEFT CLINICAL INFORMATION: Swelling COMPARISON: None TECHNIQUE: Ultrasound of the upper extremity is performed using compression sonography and color and pulse Doppler flow with assessment of augmentation of flow. There is also imaging and Doppler assessment of the jugular and subclavian veins. Spectral analysis with color-flow imaging is performed. FINDINGS: Respiratory variation, normal compression, and augmented flow are noted throughout the upper extremity including the axillary, brachial, cubital, and radial and ulnar veins. There is normal flow in the internal jugular and subclavian veins. There is no visible deep or superficial thrombophlebitis. US/US venous duplex UE LT IMPRESSION: No DVT demonstrated in the left upper extremity.
== END 2022-06-11 12:55 | disposition home or self-care (01) ==
LOC: HO.US 12:54
PROVIDERS: Visit Provider Nurse Practitioner Family
DX: I82.622 Acute embolism and thrombosis of deep veins of left upper extremity (principal); Z99.81 Dependence on supplemental oxygen
CPT/HCPCS: 93971

== ENCOUNTER → 2022-06-14 13:06 | Outpatient (BNVA) | payer MEDICAID, SELFPAY | PROVIDERS: PCP Nurse Practitioner Family; Visit Provider Internal Medicine Pulmonary Disease | DX: J44.1 Chronic obstructive pulmonary disease with (acute) exacerbation (principal); G47.33 Obstructive sleep apnea (adult) (pediatric); Z99.81 Dependence on supplemental oxygen | CPT/HCPCS: 94618; 99212 ==

== ENCOUNTER → 2022-07-02 09:46 | Outpatient (BNVA) | payer MEDICAID, SELFPAY | PROVIDERS: PCP Nurse Practitioner Family; Visit Provider Internal Medicine Pulmonary Disease | DX: J44.9 Chronic obstructive pulmonary disease, unspecified (principal); G47.33 Obstructive sleep apnea (adult) (pediatric); Z79.899 Other long term (current) drug therapy; Z87.891 Personal history of nicotine dependence; Z99.81 Dependence on supplemental oxygen | CPT/HCPCS: 94618; 99212 ==

== ENCOUNTER 2022-08-02 14:01 | Outpatient (REF) | payer MEDICAID, SELFPAY ==
--- NOTE | ~2022-08-02 | XR_ITS ---
EXAMINATION: XR ABDOMEN KUB CLINICAL INDICATION: Constipation COMPARISON: None TECHNIQUE: AP view of the abdomen. FINDINGS: There is some stool seen in the right colon. There are no dilated loops of bowel to suggest obstruction. No calcifications are seen. There are degenerative changes of the spine and hip joints. XR/XR KUB IMPRESSION: Mild stool burden. No dilated loops of bowel to suggest obstruction.
== END 2022-08-02 14:02 | disposition home or self-care (01) ==
LOC: HO.XRAY 14:01
PROVIDERS: PCP Nurse Practitioner Family; Visit Provider Nurse Practitioner Family
DX: K59.00 Constipation, unspecified (principal)
CPT/HCPCS: 74018

== ENCOUNTER → 2022-08-22 09:02 | Outpatient (BNVA) | payer MEDICAID, SELFPAY | PROVIDERS: PCP Nurse Practitioner Family; Referring Provider Nurse Practitioner Family; Visit Provider Physician Assistant | DX: K59.00 Constipation, unspecified (principal); K21.9 Gastro-esophageal reflux disease without esophagitis; N50.1 Vascular disorders of male genital organs; Z86.010 Personal history of colon polyps | CPT/HCPCS: 99212 ==

== ENCOUNTER → 2022-09-27 15:08 | Outpatient (BNVA) | payer MEDICAID, SELFPAY | PROVIDERS: PCP Nurse Practitioner Family; Visit Provider Internal Medicine Pulmonary Disease | DX: J44.9 Chronic obstructive pulmonary disease, unspecified (principal); E87.29 Other acidosis; R91.8 Other nonspecific abnormal finding of lung field; G47.33 Obstructive sleep apnea (adult) (pediatric); Z99.81 Dependence on supplemental oxygen | CPT/HCPCS: 99212 ==

== ENCOUNTER 2022-10-03 08:34 | Inpatient (IN) | payer MEDICARE, MEDICAID, SELFPAY ==
[2022-10-03] VITALS (13 sets, daily range): BP systolic 108–137; BP diastolic 60–73; PULSE 100–131; RESP 17–22; TEMP 36.8–37.2; O2SAT 80–97; BMI 36.0; BMI 35.9
--- NOTE | ~2022-10-03 | XR_ITS ---
EXAMINATION: XR CHEST CLINICAL INFORMATION: Dyspnea COMPARISON: 04/20/2022 TECHNIQUE: Frontal view of the chest was obtained. FINDINGS: Cardiac leads overlie the chest. The lungs are well expanded. Bronchial wall thickening is present. No dense consolidation. No pleural effusion or pneumothorax. The cardiomediastinal silhouette is within normal limits. XR/XR chest 1V IMPRESSION: No dense consolidation. Bronchial wall thickening can be seen with a small airways process such as asthma or atypical/viral infection.
--- NOTE | ~2022-10-03 | CT_ITS ---
EXAMINATION: CT HEAD WITHOUT CONTRAST CLINICAL INFORMATION: Encephalopathy. COMPARISON: CT head 04/22/2022 TECHNIQUE: Contiguous axial imaging was performed from the skull base to vertex without intravenous administration of contrast. Coronal and sagittal reformatted images are performed at the CT scanner. [This CT examination was performed using dose optimization techniques as appropriate, variously including the following: *Automated exposure control *Adjustment of mA and/or kV according to patient size (this includes techniques or standardized protocols for targeted exams where dose is matched to indication/reason for exam; i.e. extremities or head) *Use of iterative reconstruction technique] DLP: 922 mGy-cm. FINDINGS: There is no evidence of acute intracranial hemorrhage or territorial infarction. No abnormal mass-effect or midline shift is seen. Schneider to white matter differentiation is well preserved. No extra-axial fluid collections are identified. The ventricles are normal in size. There is no abnormal attenuation within the brain parenchyma. There is no osseous abnormality. The mastoid air cells and visualized portions of the paranasal sinuses are well-aerated. CT/CT head/brain wo IV con IMPRESSION: No acute intracranial pathology.
--- NOTE | 2022-10-03 08:51 | ECG_ITS ---
Test Reason : DIFFICULTY BREATHING Blood Pressure : / mmHG Vent. Rate : 123 BPM Atrial Rate : 123 BPM P-R Int : 124 ms QRS Dur : 106 ms QT Int : 328 ms P-R-T Axes : 030 -48 083 degrees QTc Int : 469 ms Sinus tachycardia Left anterior fascicular block Intra-ventricular conduction delay Abnormal ECG When compared with ECG of 20-APR-2022 22:29, No significant change was found Heart rate has increased Referred By: Karla Sanon Electronically Signed By:MARGTO CLARK MD
[2022-10-03] MEDS: Albuterol Sulfate 2.5 MG, Albuterol/Iprat 2.5/0.5MG 3 ML 3 ML INHALE (08:54)
--- NOTE | 2022-10-03 08:54 | ED_ITS ---
HPI - SOB/Dyspnea General Chief Complaint: Dyspnea Stated Complaint: SOB,8LPM HOME 70%, 97% ON 10LPM PER EMS Time Seen by Provider: 10/03/22 08:39 Source: patient and old records reviewed Mode of arrival: EMS Limitations: no limitations History of Present Illness HPI Narrative: 57 yo male with hx of GERD, schizophrenia, COPD chronic respiratory failure / REGINA , pneumonia states he thinks he was having a schizophrenia episode today when he was found in his apartment lobby [place] noted on RA his sats were 37%. He was not in his O2 which is normally 8L. He cannot give me much else. MD elicited complaint: shortness of breath Pertinent past history: COPD Onset (ago): unknown Context: medication noncompliance (found without his O2) Timing: improved (with EMS sats came up to 95% with 8L) Severity: severe Exacerbating factors: exertion and coughing Relieving factors: oxygen and rest Known history of: COPD Associated symptoms: other (seems confused as to what happened) Treatment prior to arrival: oxygen Related Data Home Medications Medication Instructions Recorded Confirmed amitriptyline 25 mg tablet 1 tab PO BEDTIME PRN insomnia 04/21/22 07/10/22 benztropine 1 mg tablet 1 tab PO BEDTIME 04/21/22 07/10/22 montelukast 10 mg tablet 1 tab PO BEDTIME 04/21/22 07/10/22 risperidone 0.5 mg tablet 1 tab PO BID 04/21/22 07/10/22 aripiprazole 10 mg tablet (Abilify) 10 mg PO DAILY 05/15/22 07/10/22 aripiprazole 20 mg tablet (Abilify) 20 mg PO BEDTIME 05/15/22 07/10/22 Previous Rx's Medication Instructions Recorded ipratropium 0.5 mg-albuterol 3 mg 3 ml inhalation QID #270 mL 06/10/22 (2.5 mg base)/3 mL nebulization soln furosemide 40 mg tablet 40 mg PO DAILY 30 days #30 tabs 07/01/22 gemfibrozil 600 mg tablet 600 mg PO BID #180 tabs 07/01/22 docusate sodium 100 mg capsule 100 mg PO BID #30 caps 07/10/22 (Colace) polyethylene glycol 3350 17 17 g PO DAILY PRN constipation 07/10/22 gram/dose oral powder (Miralax) #238 grams witch richardson 50 % topical pads 1 pad topical BID-TID PRN skin 07/10/22 (Hemorrhoidal (witch richardson)) irritation #48 ea docusate sodium 100 mg capsule 200 mg PO BEDTIME #60 caps 08/22/22 (Colace) polyethylene glycol 3350 17 17 g PO DAILY #510 grams 08/22/22 gram/dose oral powder (Miralax) sertraline 100 mg tablet 100 mg PO DAILY #30 tabs 08/27/22 omeprazole 20 mg capsule,delayed 20 mg PO QAM #30 caps 08/28/22 release desmopressin 0.2 mg tablet 0.4 mg PO BEDTIME #60 tabs 08/30/22 cetirizine 10 mg tablet 10 mg PO DAILY #90 tabs 09/19/22 azithromycin 250 mg tablet See Rx Instructions PO .COMPLEX #6 09/27/22 tabs budesonide-formoterol HFA 160 2 puff PO BID #10.2 grams 09/27/22 mcg-4.5 mcg/actuation aerosol inhaler (Symbicort) arformoterol 15 mcg/2 mL solution 2 ml inhalation BID 30 days #120 mL 09/30/22 for nebulization (Brovana) cyclobenzaprine 5 mg tablet 5 mg PO BEDTIME #20 tabs 10/01/22 Allergies Allergy/AdvReac Type Severity Reaction Status Date / Time prednisone [PREDNISONE] AdvReac Severe VISUAL Verified 09/27/22 15:11 HALLUCINATION ibuprofen [From MOTRIN] AdvReac Intermediate VOMITING Verified 09/27/22 15:11 nabumetone AdvReac Unknown vomiting Verified 09/27/22 15:11 Review of Systems Review of Systems: Constitutional : No Fever, No Chills ENT/Mouth : No sore throat, No Rhinorrhea, No Swallowing Difficulty Eyes: No Eye Pain, No Swelling, No Redness Cardiovascular : No Chest Pain, positive SOB, No Orthopnea, no Edema Respiratory : pos Cough, No Sputum, No Wheezing, positive dyspnea Gastrointestinal : No Nausea, No Vomiting, No Diarrhea, No abdominal Pain, No Hematochezia, No Melena Genitourinary : No Dysuria, No Urinary Frequency, No Hematuria Musculoskeletal : No joint pain, No Myalgias Skin : No Skin Lesions, No rash Neuro : No Weakness, No Numbness, No Dizziness, No Headache Psych : No Anxiety/Panic, No Depression Heme/Lymph: No Bruising, No Lymphadenopathy Endocrine : No Polyuria, No Polydipsia All other systems reviewed and are negative [facility] Past Medical History Attestation statement: The following information was validated with the patient. Medical History Acute dyspnea Acute exacerbation of chronic obstructive airways disease Acute hypercapnic respiratory failure AV malformation of gastrointestinal tract Chronic respiratory failure with hypoxia and hypercapnia COPD (chronic obstructive pulmonary disease) COPD exacerbation Deep vein thrombosis (DVT) of left upper extremity DVT (deep venous thrombosis) GERD (gastroesophageal reflux disease) Hypertriglyceridemia Itch of skin [place] disease Mild bibasilar atelectasis Morbid obesity Nocturnal enuresis Obesity hypoventilation syndrome Obstructive sleep apnea Orchialgia REGINA (obstructive sleep apnea) Pneumonia Polycythemia vera Rectosigmoid diverticulosis Schizoaffective schizophrenia Severe chronic obstructive pulmonary disease Spasm of muscle of lower back Supplemental oxygen dependent Tubular adenoma of colon Surgical History History of colonoscopy No pertinent past surgical history Family History Family History Father HTN (hypertension) Mother HTN (hypertension) Diabetes mellitus Breast cancer Brother No problems noted. Social History Social History Household Members: None Household Members Other:: cat Housing: Apartment Do you presently have visiting nurse or other home services: Yes Alcohol intake: never Patient Tobacco Use Status: Former Tobacco user Tobacco use type: Cigarette Years Smoked: 41 yrs e-Cigarette/Vaping Use: Never Used Advance Directives: No service: No Current occupational status: disabled Cognitive needs: No Hearing needs: No Vision needs: Yes (glasses) Physical Exam Vital Signs: Vital Signs: Last Vital Signs Temp 98.9 F 10/03/22 08:45 Pulse 117 H 10/03/22 10:51 Resp 17 10/03/22 10:51 BP 121/67 10/03/22 10:51 Pulse Ox 91 L 10/03/22 10:51 O2 Del Method 10/03/22 10:51 O2 Flow Rate 15 10/03/22 10:51 Oxygen Flow Rate 8 10/03/22 08:45 BMI result Body Mass Index 36.0 Appearance: Alert. Oriented X3. Mild acute distress. Eyes: Pupils equal, round and reactive to light. ENT: Pharynx normal. Neck: Normal inspection. Neck supple. CVS: tachycardic heart rate and rhythm. Pulses normal. Respiratory: Mild respiratory distress - tachypnea/retractions/short phrases. Breath sounds very diminished minimal air movement Abdomen: Soft and nontender. Skin: Skin warm and diaphoretic. pale skin color. Normal skin turgor. Extremities: No lower extremity edema. No calf ttp Neuro: Oriented X 3. No motor deficit. No sensory deficit. Course Course Course Narrative: patient 80% on 8L seems to have a hard time keepin his NC in will place on bipap and obtain ABG compensated ABG, doing well on bipap off bipap still not oxygenating well will put on oxymask and add ddimer maintaining sats with oxymask - more mouth breathing today. doing well on oxymask, mentating well - will admit given he is not on his normal home O2 MDM - SOB/Dyspnea MDM Narrative Medical decision making narrative: 57 yo male with hx of GERD, schizophrenia, COPD chronic respiratory failure / REGINA , pneumonia - at this time will start on steroids, neb treatments, possible NIPPV, CXR, cultures, he is alert and oriented x 3 has no head trauma. this is not an unusual presentation for him suspect O2 noncompliance and hypoxia as the cause of his encephalopathy. Possible admit given presentation Lab Data Result diagrams: 10/03/22 09:41 10/03/22 09:41 Labs: Lab Results 10/03/22 10/03/22 10/03/22 Range/Units 09:41 09:41 09:41 WBC 13.1 H (4.8-10.8) X10*3/uL RBC 4.36 L (4.60-5.80) X10*6/uL Hgb 10.0 L (14.0-18.0) g/dl Hct 39.0 L (42.0-52.0) % MCV 89.4 (80.0-98.0) fL MCH 22.9 L (27.0-33.0) pg MCHC 25.6 L (31.0-36.0) g/dl RDW 15.5 (11.0-16.0) % Plt Count 187 D (160-400) X10*3/uL MPV 8.9 L (9.4-12.4) fL Immature Gran % (Auto) 2.6 H (0.0-0.4) % Neut % (Auto) 88.9 H (45-73) % Lymph % (Auto) 3.1 L (20-40) % Mill[place] % (Auto) 5.0 (2-11) % Eos % (Auto) 0.1 (0-4) % Baso % (Auto) 0.3 (0-2) % Lymph # (Auto) 0.4 L (1.2-4.9) X10*3/uL [place] # (Auto) 0.7 (0.1-1.2) X10*3/uL Eos # (Auto) 0.0 (0.0-0.4) X10*3/uL Baso # (Auto) 0.0 (0.0-0.2) X10*3/uL Abs Immat Gran (auto) 0.34 H (0.00-0.03) X10*3/uL Absolute Neuts (auto) 11.7 H (2.0-8.3) x10*3/uL Absolute Nucleated RBC 0.000 (0.0-0.012) X10*3/uL Nucleated RBC % (auto) 0.0 (0.0-0.2) /100WBC D-Dimer High Sensitivty NG/ML O2 Saturation % ABG pH at Pt Temp (7.35-7.45) ABG pCO2 at Pt Temp (32-45) mmHg ABG pO2 at Pt Temp (83-108) mmHg ABG HCO3 (22-26) mmol/L ABG Base Excess (Actual) mmol/L VBG pH (7.32-7.43) VBG pCO2 mmHg VBG pO2 mmHg VBG HCO3 (22-26) mmol/L VBG O2 Saturation % VBG Base Excess mmol/L Sodium 144 (135-145) mmol/L Potassium 4.5 (3.3-5.1) mmol/L Chloride 85 L (96-108) mmol/L Carbon Dioxide 49 H* D (22-29) mmol/L Anion Gap 15 (12-20) BUN 19 H (9-16) mg/dL Creatinine 0.78 (0.5-1.4) mg/dL Estim Creat Clear Calc 136.1 Estimated GFR > 60 Random Glucose 196 H D (60-115) mg/dL Lactic Acid (0.5-2.0) mmol/L Calcium 9.4 D (8.4-10.2) mg/dL Magnesium 1.8 (1.6-2.6) mg/dL Total Bilirubin 0.3 (0.0-1.0) mg/dL Direct Bilirubin 0.2 (0.0-0.5) mg/dL AST 20 (5-37) U/L ALT 26 (0-40) U/L Alkaline Phosphatase 103 D (39-117) U/L Troponin I High Sens (<3.5-35.0) ng/L Total Protein 6.7 D (6.5-8.0) g/dL Albumin 4.0 D (3.5-5.0) g/dL Procalcitonin ng/mL COVID-19 (TAL) Negative (Negative) COVID-19 Clin Com See Note 10/03/22 10/03/22 10/03/22 Range/Units 09:42 09:42 09:42 WBC (4.8-10.8) X10*3/uL RBC (4.60-5.80) X10*6/uL Hgb (14.0-18.0) g/dl Hct (42.0-52.0) % MCV (80.0-98.0) fL MCH (27.0-33.0) pg MCHC (31.0-36.0) g/dl RDW (11.0-16.0) % Plt Count (160-400) X10*3/uL MPV (9.4-12.4) fL Immature Gran % (Auto) (0.0-0.4) % Neut % (Auto) (45-73) % Lymph % (Auto) (20-40) % [place] % (Auto) (2-11) % Eos % (Auto) (0-4) % Baso % (Auto) (0-2) % Lymph # (Auto) (1.2-4.9) X10*3/uL [place] # (Auto) (0.1-1.2) X10*3/uL Eos # (Auto) (0.0-0.4) X10*3/uL Baso # (Auto) (0.0-0.2) X10*3/uL Abs Immat Gran (auto) (0.00-0.03) X10*3/uL Absolute Neuts (auto) (2.0-8.3) x10*3/uL Absolute Nucleated RBC (0.0-0.012) X10*3/uL Nucleated RBC % (auto) (0.0-0.2) /100WBC D-Dimer High Sensitivty NG/ML O2 Saturation % ABG pH at Pt Temp (7.35-7.45) ABG pCO2 at Pt Temp (32-45) mmHg ABG pO2 at Pt Temp (83-108) mmHg ABG HCO3 (22-26) mmol/L ABG Base Excess (Actual) mmol/L VBG pH (7.32-7.43) VBG pCO2 mmHg VBG pO2 mmHg VBG HCO3 (22-26) mmol/L VBG O2 Saturation % VBG Base Excess mmol/L Sodium (135-145) mmol/L Potassium (3.3-5.1) mmol/L Chloride (96-108) mmol/L Carbon Dioxide (22-29) mmol/L Anion Gap (12-20) BUN (9-16) mg/dL Creatinine (0.5-1.4) mg/dL Estim Creat Clear Calc Estimated GFR Random Glucose (60-115) mg/dL Lactic Acid 2.0 (0.5-2.0) mmol/L Calcium (8.4-10.2) mg/dL Magnesium (1.6-2.6) mg/dL Total Bilirubin (0.0-1.0) mg/dL Direct Bilirubin (0.0-0.5) mg/dL AST (5-37) U/L ALT (0-40) U/L Alkaline Phosphatase (39-117) U/L Troponin I High Sens 14.6 D (<3.5-35.0) ng/L Total Protein (6.5-8.0) g/dL Albumin (3.5-5.0) g/dL Procalcitonin 0.06 ng/mL COVID-19 (TAL) (Negative) COVID-19 Clin Com 10/03/22 10/03/22 10/03/22 Range/Units 09:49 10:24 12:03 WBC (4.8-10.8) X10*3/uL RBC (4.60-5.80) X10*6/uL Hgb (14.0-18.0) g/dl Hct (42.0-52.0) % MCV (80.0-98.0) fL MCH (27.0-33.0) pg MCHC (31.0-36.0) g/dl RDW (11.0-16.0) % Plt Count (160-400) X10*3/uL MPV (9.4-12.4) fL Immature Gran % (Auto) (0.0-0.4) % Neut % (Auto) (45-73) % Lymph % (Auto) (20-40) % Millard % (Auto) (2-11) % Eos % (Auto) (0-4) % Baso % (Auto) (0-2) % Lymph # (Auto) (1.2-4.9) X10*3/uL Millard # (Auto) (0.1-1.2) X10*3/uL Eos # (Auto) (0.0-0.4) X10*3/uL Baso # (Auto) (0.0-0.2) X10*3/uL Abs Immat Gran (auto) (0.00-0.03) X10*3/uL Absolute Neuts (auto) (2.0-8.3) x10*3/uL Absolute Nucleated RBC (0.0-0.012) X10*3/uL Nucleated RBC % (auto) (0.0-0.2) /100WBC D-Dimer High Sensitivty 156 NG/ML O2 Saturation 89.0 % ABG pH at Pt Temp 7.41 (7.35-7.45) ABG pCO2 at Pt Temp 95 H* (32-45) mmHg ABG pO2 at Pt Temp 59 L (83-108) mmHg ABG HCO3 61 H (22-26) mmol/L ABG Base Excess (Actual) 30.6 mmol/L VBG pH 7.37 (7.32-7.43) VBG pCO2 104 mmHg VBG pO2 39 mmHg VBG HCO3 60 H (22-26) mmol/L VBG O2 Saturation 62.0 % VBG Base Excess 28.8 mmol/L Sodium (135-145) mmol/L Potassium (3.3-5.1) mmol/L Chloride (96-108) mmol/L Carbon Dioxide (22-29) mmol/L Anion Gap (12-20) BUN (9-16) mg/dL Creatinine (0.5-1.4) mg/dL Estim Creat Clear Calc Estimated GFR Random Glucose (60-115) mg/dL Lactic Acid (0.5-2.0) mmol/L Calcium (8.4-10.2) mg/dL Magnesium (1.6-2.6) mg/dL Total Bilirubin (0.0-1.0) mg/dL Direct Bilirubin (0.0-0.5) mg/dL AST (5-37) U/L ALT (0-40) U/L Alkaline Phosphatase (39-117) U/L Troponin I High Sens (<3.5-35.0) ng/L Total Protein (6.5-8.0) g/dL Albumin (3.5-5.0) g/dL Procalcitonin ng/mL COVID-19 (TAL) (Negative) COVID-19 Clin Com ECG Data Attestation: I personally reviewed and interpreted this ECG as follows: ECG interpretation date: 10/03/22 ECG interpretation time: 10:00 Interpretation: Rate: 123 Rhythm: sinus tachycardia [place]: left Normal P waves. Normal [place]. Normal QRS complex. ST T wave : no [place] but tall T waves anteriorly , inverted aVL qTC: normal prior studies: no acute ischemia The study has been interpreted contemporaneously by me. . Critical Care Time Critical Care Time Critical Care Time: Yes Total Critical Care Time: 60 Attestation: bipap, review of records, abg interpretation I attest to this time spent taking care of the patient Discharge Plan Discharge Clinical Impression: Acute exacerbation of chronic obstructive pulmonary disease, Acute on chronic respiratory failure with hypoxia and hypercapnia Patient Disposition: Admitted As Inpatient
[2022-10-03] MEDS: methylPREDNISolone Sod Succ 125 MG/2 ML VIAL 60 MG IVPUSH ×3 (09:47→21:20)
[2022-10-03 09:52] LABS: MANUAL DIFF FLAG NO
[2022-10-03] MEDS: cefTRIAXone sodium 1 GM in 0.9 % Sodium Chloride 50 ML IV (09:53)
[2022-10-03 09:54] LABS: Venous Blood Gas Refer to POC result
[2022-10-03 09:55] LABS: VBG Base Excess 28.8 mmol/L; VBG HCO3 60 mmol/L (22-26); VBG pCO2 104 mmHg; VBG pH 7.37 (7.32-7.43); VBG pO2 39 mmHg
[2022-10-03] MEDS: Albuterol Sulfate 2.5 MG, Albuterol Sulfate (0.083%) 2.5 MG 5 MG INHALE (09:55)
[2022-10-03 09:56] LABS: Basophils Percent Auto 0.3 % (0-2); Eosinophils Percent Auto 0.1 % (0-4); Imm Gran Abs Auto 0.34 X10*3/uL (0.00-0.03); Imm Gran Pct Auto 2.6 % (0.0-0.4); Lymphocytes Absolute Auto 0.4 X10*3/uL (1.2-4.9); Lymphocytes Percent Auto 3.1 % (20-40); Mean Corpuscular HGB Conc 25.6 g/dl (31.0-36.0); Mean Corpuscular Hemoglobin 22.9 pg (27.0-33.0); Mean Corpuscular Volume 89.4 fL (80.0-98.0); Mean Platelet Volume 8.9 fL (9.4-12.4); Monocytes Absolute Auto 0.7 X10*3/uL (0.1-1.2); Neutrophils Absolute Auto 11.7 x10*3/uL (2.0-8.3); Neutrophils Percent Auto 88.9 % (45-73); Platelet Count 187 X10*3/uL (160-400); Red Blood Count 4.36 X10*6/uL (4.60-5.80); Red Cell Distribution Width 15.5 % (11.0-16.0); White Blood Count 13.1 X10*3/uL (4.8-10.8)
[2022-10-03 10:11] LABS: COVID-19 Test Negative (Negative); IDNOW Serial# 16C4AD1C
[2022-10-03 10:18] LABS: Alanine Aminotransferase 26 U/L (0-40); Alkaline Phosphatase 103 U/L (39-117); Anion Gap 15 (12-20); Aspartate Amino Transferase 20 U/L (5-37); Bilirubin Direct 0.2 mg/dL (0.0-0.5); Bilirubin Total 0.3 mg/dL (0.0-1.0); Blood Urea Nitrogen 19 mg/dL (9-16); Calcium 9.4 mg/dL (8.4-10.2); Carbon Dioxide 49 mmol/L (22-29); Chloride 85 mmol/L (96-108); Creatinine Clr Calc Pharmacy 136.1; Estimated Glomerular Filt Rate > 60; Glucose Random 196 mg/dL (60-115); Magnesium 1.8 mg/dL (1.6-2.6); Potassium 4.5 mmol/L (3.3-5.1); Sodium 144 mmol/L (135-145); Total Protein 6.7 g/dL (6.5-8.0)
[2022-10-03 10:21] LABS: Troponin-I High Sensitivity 14.6 ng/L (<3.5-35.0)
[2022-10-03] MEDS: Doxycycline Hyclate 100 MG in 0.9 % Sodium Chloride 250 ML 166.67 MG IV ×2 (10:21→21:20)
[2022-10-03 10:32] LABS: ABG Base Excess 30.6 mmol/L; ABG HCO3 61 mmol/L (22-26); ABG pCO2 95 mmHg (32-45); ABG pH 7.41 (7.35-7.45); ABG pO2 59 mmHg (83-108)
[2022-10-03 10:32] LABS: ABG Refer to POC result
[2022-10-03 11:02] LABS: Procalcitonin 0.06 ng/mL
[2022-10-03 12:17] LABS: D Dimer High Sensitivity 156 NG/ML
--- NOTE | 2022-10-03 14:22 | P.HPHOSP_ITS ---
History of Present Illness Date of Service: 10/03/22 Attending physician on admission: Greg Sarah Chief Complaint: sob ?56-year-old male with a past medical history of schizoaffective disorder, REGINA on CPAP, obesity hypoventilation syndrome, Avila disease, hypertriglyceridemia, GERD, COPD/ chronic respiratory failure on 8 L of home oxygen; presented to the hospital today''schizophrenia episode''-was found in his apartment lobby jorgensen, tripoding and EMS noted on RA his sats were 37%. He was not in his O2 which is normally 8L.? patient received nebs, steroids, BiPAP in emergency room and subsequently seems better shortness of breath buckley- currently saturating on 93% with 9 L oxygen, has dry cough. ED requested admission for acute hypoxemic/ hypercarbic respiratory failure s econdary to COPD exacerbation. patient was recently in the pulmonary's office last week where he was thought to be mild exacerbation of COPD and was given azithromycin. patient says he did not improve afterwards, he thinks with his exacerbation probably related to seasonal changes. Seems more awake alert but still somewhat confused. Denies any chest pain or headache or nausea or vomiting or fever or chills, generally weak, follows commands. Unable to tell if any sick contacts or anybody sick around him or COVID vaccination status. lab imaging EKG reviewed: mild leukocytosis, compensatory metabolic alkalosis. Chest x-ray possible mild bronchitis. EKG NSR mild tachy. ddimer 156 Review of Systems Review of Systems: as above. [facility] Medical History Acute dyspnea Acute exacerbation of chronic obstructive airways disease Acute hypercapnic respiratory failure AV malformation of gastrointestinal tract Chronic respiratory failure with hypoxia and hypercapnia COPD (chronic obstructive pulmonary disease) COPD exacerbation Deep vein thrombosis (DVT) of left upper extremity DVT (deep venous thrombosis) GERD (gastroesophageal reflux disease) Hypertriglyceridemia Itch of skin Avila disease Mild bibasilar atelectasis Morbid obesity Nocturnal enuresis Obesity hypoventilation syndrome Obstructive sleep apnea Orchialgia REGINA (obstructive sleep apnea) Pneumonia Polycythemia vera Rectosigmoid diverticulosis Schizoaffective schizophrenia Severe chronic obstructive pulmonary disease Spasm of muscle of lower back Supplemental oxygen dependent Tubular adenoma of colon Family History Father HTN (hypertension) Mother HTN (hypertension) Diabetes mellitus Breast cancer Brother No problems noted. Surgical History History of colonoscopy No pertinent past surgical history Social History Household Members: None Household Members Other:: cat Housing: Apartment Do you presently have visiting nurse or other home services: Yes Alcohol intake: never Patient Tobacco Use Status: Former Tobacco user Tobacco use type: Cigarette Years Smoked: 41 yrs e-Cigarette/Vaping Use: Never Used Advance Directives: No service: No Current occupational status: disabled Cognitive needs: No Hearing needs: No Vision needs: Yes (glasses) Meds Allergies Allergy/AdvReac Type Severity Reaction Status Date / Time prednisone [PREDNISONE] AdvReac Severe VISUAL Verified 09/27/22 15:11 HALLUCINATION ibuprofen [From MOTRIN] AdvReac Intermediate VOMITING Verified 09/27/22 15:11 nabumetone AdvReac Unknown vomiting Verified 09/27/22 15:11 Active Medications: Current Medications Albuterol/Ipratropium (Albuterol/Iprat 2.5/0.5mg 3 Ml Ampul.Neb) 3 ml INHALE RQ4H WHILE AWAKE [facility] Albuterol/Ipratropium (Albuterol/Iprat 2.5/0.5mg 3 Ml Ampul.Neb) 3 ml INHALE RQ4H PRN PRN Reason: sob Albuterol Sulfate 5 mg/ (Albuterol/Ipratropium 3 ml) 0 mg INHALE ONCE ONE Stop: 10/03/22 14:16 Enoxaparin Sodium (Enoxaparin Sodium 40 Mg/0.4 Ml Syringe) 40 mg SUBCUT Q24H [facility] Magnesium Sulfate/Dextrose (Magnesium Sulfate/D5w) 1 gm in 100 mls @ 100 mls/hr IV ONCE ONE Stop: 10/03/22 15:14 Ceftriaxone Sodium 1 gm/ (Sodium Chloride) 50 mls @ 100 mls/hr IV Q24H [facility] Doxycycline Hyclate 100 mg/ (Sodium Chloride) 250 mls @ 166.67 mls/hr IV Q12H [facility] Methylprednisolone Sodium Succinate (Methylprednisolone Sod Succ 125 Mg/2 Ml Vial) 60 mg IVPUSH TID [facility] Pharmacy Consult (Consult Rx Perform Med Rec) 1 each MISCELLANE ONCE PRN PRN Reason: Consult order Sodium Chloride (0.9 % Sodium Chloride Flush 3 Ml Syringe) [facility] Medications Medication Instructions Recorded Confirmed Last Taken Type amitriptyline 25 mg tablet 1 tab PO BEDTIME PRN insomnia 04/21/22 10/03/22 Unknown History benztropine 1 mg tablet 1 tab PO BEDTIME 04/21/22 10/03/22 Unknown History montelukast 10 mg tablet 1 tab PO BEDTIME 04/21/22 10/03/22 Unknown History risperidone 0.5 mg tablet 1 tab PO BID 04/21/22 10/03/22 Unknown History aripiprazole 10 mg tablet (Abilify) 10 mg PO DAILY 05/15/22 10/03/22 Unknown History aripiprazole 20 mg tablet (Abilify) 20 mg PO BEDTIME 05/15/22 10/03/22 Unknown History arformoterol 15 mcg/2 mL solution 2 ml inhalation BID 10/03/22 10/03/22 Unknown History for nebulization (Gladys) clonazepam 0.5 mg tablet 1 tab PO BID 10/03/22 10/03/22 Unknown History cyclobenzaprine 5 mg tablet 1 tab PO BEDTIME PRN Spasms 10/03/22 10/03/22 Unknown History omeprazole 20 mg capsule,delayed 20 mg PO DAILY 10/03/22 10/03/22 Unknown History release risperidone 1 mg tablet 1 tab PO BID 10/03/22 10/03/22 Unknown History Physical Exam Vital Signs and Narrative: Vital Signs: Last Vital Signs Temp 98.9 F 10/03/22 13:41 Pulse 111 H 10/03/22 13:41 Resp 18 10/03/22 13:41 BP 128/73 10/03/22 13:41 Pulse Ox 97 10/03/22 13:41 O2 Del Method 10/03/22 13:41 O2 Flow Rate 13 10/03/22 13:41 Oxygen Flow Rate 8 10/03/22 08:45 BMI result Body Mass Index 36.0 Appearance: Alert.? Oriented X3.? not in distress.? Eyes: Pupils equal, round and reactive to light.? Sclera nonicteric.? ENT: Pharynx normal.? Moist mucous membranes. cvs: rrr, [id number] . res: diminshed breath sounds , has b/l wheezin abd: no rebound or guarding ,nt, bs present. ext pulses present , no cyanosis. neuro: axo3 , nonfocal.. Results Labs CBC and Chem 7: 10/03/22 09:41 10/03/22 09:41 Labs: Laboratory Results - last 24 hr 10/03/22 10/03/22 10/03/22 09:41 09:41 09:41 MCV 89.4 MCH 22.9 L MCHC 25.6 L RDW 15.5 Plt Count 187 D MPV 8.9 L Immature Gran % (Auto) 2.6 H Neut % (Auto) 88.9 H Lymph % (Auto) 3.1 L [place] % (Auto) 5.0 Eos % (Auto) 0.1 Baso % (Auto) 0.3 Lymph # (Auto) 0.4 L [place] # (Auto) 0.7 Eos # (Auto) 0.0 Baso # (Auto) 0.0 Abs Immat Gran (auto) 0.34 H Absolute Neuts (auto) 11.7 H Absolute Nucleated RBC 0.000 Nucleated RBC % (auto) 0.0 D-Dimer High Sensitivty O2 Saturation ABG pH at Pt Temp ABG pCO2 at Pt Temp ABG pO2 at Pt Temp ABG HCO3 ABG Base Excess (Actual) VBG pH VBG pCO2 VBG pO2 VBG HCO3 VBG O2 Saturation VBG Base Excess Anion Gap 15 Estim Creat Clear Calc 136.1 Estimated GFR > 60 Random Glucose 196 H D Lactic Acid Calcium 9.4 D Magnesium 1.8 Total Bilirubin 0.3 Direct Bilirubin 0.2 AST 20 ALT 26 Alkaline Phosphatase 103 D Troponin I High Sens Total Protein 6.7 D Albumin 4.0 D Procalcitonin COVID-19 (TAL) Negative COVID-19 Clin Com See Note 10/03/22 10/03/22 10/03/22 09:42 09:42 09:42 MCV MCH MCHC RDW Plt Count MPV Immature Gran % (Auto) Neut % (Auto) Lymph % (Auto) [place] % (Auto) Eos % (Auto) Baso % (Auto) Lymph # (Auto) [place] # (Auto) Eos # (Auto) Baso # (Auto) Abs Immat Gran (auto) Absolute Neuts (auto) Absolute Nucleated RBC Nucleated RBC % (auto) D-Dimer High Sensitivty O2 Saturation ABG pH at Pt Temp ABG pCO2 at Pt Temp ABG pO2 at Pt Temp ABG HCO3 ABG Base Excess (Actual) VBG pH VBG pCO2 VBG pO2 VBG HCO3 VBG O2 Saturation VBG Base Excess Anion Gap Estim Creat Clear Calc Estimated GFR Random Glucose Lactic Acid 2.0 Calcium Magnesium Total Bilirubin Direct Bilirubin AST ALT Alkaline Phosphatase Troponin I High Sens 14.6 D Total Protein Albumin Procalcitonin 0.06 COVID-19 (TAL) COVID-19 Clin Com 10/03/22 10/03/22 10/03/22 09:49 10:24 12:03 MCV MCH MCHC RDW Plt Count MPV Immature Gran % (Auto) Neut % (Auto) Lymph % (Auto) [place] % (Auto) Eos % (Auto) Baso % (Auto) Lymph # (Auto) [place] # (Auto) Eos # (Auto) Baso # (Auto) Abs Immat Gran (auto) Absolute Neuts (auto) Absolute Nucleated RBC Nucleated RBC % (auto) D-Dimer High Sensitivty 156 O2 Saturation 89.0 ABG pH at Pt Temp 7.41 ABG pCO2 at Pt Temp 95 H* ABG pO2 at Pt Temp 59 L ABG HCO3 61 H ABG Base Excess (Actual) 30.6 VBG pH 7.37 VBG pCO2 104 VBG pO2 39 VBG HCO3 60 H VBG O2 Saturation 62.0 VBG Base Excess 28.8 Anion Gap Estim Creat Clear Calc Estimated GFR Random Glucose Lactic Acid Calcium Magnesium Total Bilirubin Direct Bilirubin AST ALT Alkaline Phosphatase Troponin I High Sens Total Protein Albumin Procalcitonin COVID-19 (TAL) COVID-19 Clin Com Imaging Radiologist's Impressions: Impressions Chest X-Ray 10/03/22 09:20 IMPRESSION: No dense consolidation. Bronchial wall thickening can be seen with a small airways process such as asthma or atypical/viral infection. Assessment and Plan (1) Acute exacerbation of chronic obstructive pulmonary disease: Status: Acute (2) Acute on chronic respiratory failure with hypoxia and hypercapnia: Status: Acute Plan 57-year-old male with a past medical history of schizoaffective disorder, REGINA on CPAP, obesity hypoventilation syndrome, Avila disease, hypertriglyceridemia, GERD, COPD/ chronic respiratory failure on 8 L of home oxygen; presented to the hospital today with a chief complaint of hypoxia.? Acute hypoxemic /hypercarbic respiratory failure secondary to COPD exacerbation/acute bronchitis . be brought tachycardia probably related to nebs not sepsis. tachypnea related to sob sec COPD exacerbation. Toxic metabolic encephalopathy possible related to above acute hypoxemic/hypercarbic respiratory failure start antibiotic, nebs, steroids,antibiotics ,taper oxygen to [place] . abg seems with bipap intialy better -but worsening later ICU eval added . COPD exacerbation: Will give the patient on DuoNeb standing and p.r.n.,Solu-Medrol IV,antibiotics pulmonary evaluation added also. History of REGINA/ obesity hypoventilation syndrome: Continue home CPAP.? morbid obesity: Encouraged strongly to lose weight once he stabilizes from the point of COPD. Schizoaffective disorder: continue home medications DVT prophylaxis: SubQ Lovenox patient will need inpatient stay for 2 midnights at least considering severe hypoxemic/hypercarbic respiratory failure secondary to COPD, toxic metabolic says encephalopathy secondary to above too. we have also added to add ICU elevation since patient has toxic metabolic encephalopathy secondary to COPD / hypercarbic/hypoxemic respiratory failure which is slowly worsening. discussed with Dr. Montes ICU- they will follow-up. Quality Stroke Does the patient have a stroke diagnosis?: No VTE Prior VTE?: No VTE Risk Level:: Medical - moderate - high VTE Device Contraindication: N/A - Device Ordered VTE Drug Contraindication: N/A - Med Ordered
--- NOTE | 2022-10-03 14:27 | PHA.MEDREC ---
Pharmacy Consult ? Medication Reconciliation Pharmacy has completed the medication reconciliation. Pt very poor historian, used recent claim history
[2022-10-03] MEDS: Albuterol Sulfate 5 MG, Albuterol/Iprat 2.5/0.5MG 3 ML 3 ML INHALE (14:43)
[2022-10-03 14:51] LABS: ABG Refer to POC result
[2022-10-03 15:10] LABS: ABG Base Excess 29.6 mmol/L; ABG HCO3 61 mmol/L (22-26); ABG pCO2 104 mmHg (32-45); ABG pH 7.37 (7.35-7.45); ABG pO2 57 mmHg (83-108)
[2022-10-03] MEDS: Magnesium Sulfate/D5W 1 GM/100 ML PIGGYBACK IV (15:21)
--- NOTE | 2022-10-03 15:29 | PC.NURSE ---
Pt aox3. O2 sat 93% on 9L. HR 109. Distended soft non tender abd. No apparent distress noted. Reports no pain at this time. 20G IV on left FA with Mag running at this time. Pt aware of plan care. Will continue to monitor.
--- NOTE | 2022-10-03 16:20 | P.CONCC_ITS ---
History of Present Illness Data of Consult Service Date: 10/03/22 Requesting physician: Greg Sarah Primary Care Provider: DEBRA Lainez HPI Reason for consult: Dyspnea 57-year-old male with schizoaffective disease but an underlying skeletal muscular dystrophy who basically has severe underlying COPD but presents with an acute on chronic picture of hypercarbic respiratory failure but remains difficult to control because he is noncompliant with his noninvasive in a BiPAP device New by exam me in a clearly is not actively wheezing or in respiratory distress currently and mental status is find definitely weak with reduced respiratory excursion but bedside echo demonstrating normal LV and RV systolic and diastolic function with no primary valve or pericardial disease Review of Systems Review of Systems: Yes all other systems are reviewed and are negative [facility] Past Medical History Medical History Acute dyspnea Acute exacerbation of chronic obstructive airways disease Acute hypercapnic respiratory failure AV malformation of gastrointestinal tract Chronic respiratory failure with hypoxia and hypercapnia COPD (chronic obstructive pulmonary disease) COPD exacerbation Deep vein thrombosis (DVT) of left upper extremity DVT (deep venous thrombosis) GERD (gastroesophageal reflux disease) Hypertriglyceridemia Itch of skin Maico disease Mild bibasilar atelectasis Morbid obesity Nocturnal enuresis Obesity hypoventilation syndrome Obstructive sleep apnea Orchialgia REGINA (obstructive sleep apnea) Pneumonia Polycythemia vera Rectosigmoid diverticulosis Schizoaffective disorder Schizoaffective schizophrenia (Unknown) Severe chronic obstructive pulmonary disease Spasm of muscle of lower back Supplemental oxygen dependent Tubular adenoma of colon Family History Family History Father HTN (hypertension) Mother HTN (hypertension) Diabetes mellitus Breast cancer Brother No problems noted. Surgical History Surgical History History of colonoscopy No pertinent past surgical history Social History Social History Household Members: None Household Members Other:: cat Housing: Apartment Do you presently have visiting nurse or other home services: Yes (Two times a week (T and Fri) visiting nurse.) Alcohol intake: never Patient Tobacco Use Status: Former Tobacco user Tobacco use type: Cigarette Years Smoked: 41 yrs e-Cigarette/Vaping Use: Never Used service: No Current occupational status: disabled Cognitive needs: No Hearing needs: No Vision needs: Yes (glasses) Meds Allergies Allergy/AdvReac Type Severity Reaction Status Date / Time prednisone [PREDNISONE] AdvReac Severe VISUAL Verified 11/19/22 10:47 HALLUCINATION ibuprofen [From MOTRIN] AdvReac Intermediate VOMITING Verified 11/19/22 10:47 nabumetone AdvReac Unknown vomiting Verified 11/19/22 10:47 Active Medications: Current Medications Albuterol/Ipratropium (Albuterol/Iprat 2.5/0.5mg 3 Ml Ampul.Neb) 3 ml INHALE RQ4H WHILE AWAKE [facility] Last Admin: 10/03/22 14:48 Dose: Not Given Albuterol/Ipratropium (Albuterol/Iprat 2.5/0.5mg 3 Ml Ampul.Neb) 3 ml INHALE Q4H PRN PRN Reason: sob Aripiprazole (Aripiprazole 10 Mg Tablet) 10 mg PO DAILY [facility] Desmopressin Acetate (Desmopressin Acetate 0.2 Mg Tablet) 0.4 mg PO BEDTIME [facility] Docusate Sodium (Docusate Sodium 100 Mg Capsule) 100 mg PO BID [facility] Enoxaparin Sodium (Enoxaparin Sodium 40 Mg/0.4 Ml Syringe) 40 mg SUBCUT Q24H [facility] Furosemide (Furosemide 40 Mg Tablet) 40 mg PO DAILY SHAY[facility]; Protocol Gemfibrozil (Gemfibrozil 600 Mg Tablet) 600 mg PO BID [facility] Ceftriaxone Sodium 1 gm/ (Sodium Chloride) 50 mls @ 100 mls/hr IV Q24H [facility] Doxycycline Hyclate 100 mg/ (Sodium Chloride) 250 mls @ 166.67 mls/hr IV Q12H [facility] Loratadine (Loratadine 10 Mg Tablet) 10 mg PO DAILY [facility] Methylprednisolone Sodium Succinate (Methylprednisolone Sod Succ 125 Mg/2 Ml Vial) 60 mg IVPUSH TID [facility] Last Admin: 10/03/22 15:21 Dose: 60 mg Montelukast Sodium (Montelukast Sodium 10 Mg Tablet) 10 mg PO BEDTIME [facility] Non-Formulary Medication (Budesonide-Formoterol [Symbicort]) 2 puff PO BID [facility] Omeprazole (Omeprazole 20 Mg Capsule.) 20 mg PO DAILY [facility] Pharmacy Consult (Consult Rx Perform Med Rec) 1 each MISCELLANE ONCE PRN PRN Reason: Consult order Polyethylene Glycol (Polyethylene Glycol 3350 17 Gm Powd.Pack) 17 gm PO DAILY PRN PRN Reason: constipation Sodium Chloride (0.9 % Sodium Chloride Flush 3 Ml Syringe) 3 ml IVFLUSH QSHIFT [facility] Home Medications Medication Instructions Recorded Confirmed Last Taken Type benztropine 1 mg tablet 1 tab PO BEDTIME 04/21/22 10/30/22 Unknown History montelukast 10 mg tablet 1 tab PO BEDTIME 04/21/22 10/30/22 Unknown History risperidone 0.5 mg tablet 1 tab PO BID 04/21/22 10/30/22 Unknown History aripiprazole 20 mg tablet (Abilify) 20 mg PO BEDTIME 05/15/22 10/30/22 Unknown History arformoterol 15 mcg/2 mL solution 2 ml inhalation BID 10/03/22 10/30/22 Unknown History for nebulization (Brovana) cyclobenzaprine 5 mg tablet 1 tab PO BEDTIME PRN Spasms 10/03/22 10/30/22 Unkno wn History risperidone 1 mg tablet 1 tab PO BID 10/03/22 10/30/22 Unknown History Physical Exam Vital Signs: Vital Signs: Last Vital Signs Temp 98.2 F 10/03/22 15:26 Pulse 109 H 10/03/22 15:26 Resp 22 H 10/03/22 15:54 BP 137/73 10/03/22 15:26 Pulse Ox 93 10/03/22 15:26 O2 Del Method 10/03/22 13:41 O2 Flow Rate 9 10/03/22 15:26 Oxygen Flow Rate 8 10/03/22 08:45 BMI result Body Mass Index 36.0 No acute distress and there is no attempt at accessory muscle use Lungs without adventitious sounds just diminished breath sounds bilaterally with diminished excursion Abdomen soft with no organomegaly Bedside echo with normal right and left ventricular function Results Labs 10/04/22 05:29 10/04/22 05:29 Labs: Short CBC 10/03/22 Range/Units 09:41 WBC 13.1 H (4.8-10.8) X10*3/uL Hgb 10.0 L (14.0-18.0) g/dl Hct 39.0 L (42.0-52.0) % Plt Count 187 D (160-400) X10*3/uL BMP 10/03/22 09:41 Sodium 144 Potassium 4.5 Chloride 85 L Carbon Dioxide 49 H* D BUN 19 H Creatinine 0.78 Calcium 9.4 D Liver Function 10/03/22 Range/Units 09:41 Total Bilirubin 0.3 (0.0-1.0) mg/dL Direct Bilirubin 0.2 (0.0-0.5) mg/dL AST 20 (5-37) U/L ALT 26 (0-40) U/L Alkaline Phosphatase 103 D (39-117) U/L Albumin 4.0 D (3.5-5.0) g/dL Assessment and Plan (1) Schizoaffective disorder: Status: Acute (2) Metabolic alkalosis: Status: Acute (3) Toxic metabolic encephalopathy: Status: Acute (4) Acute exacerbation of chronic obstructive pulmonary disease: Status: Acute (5) Acute on chronic respiratory failure with hypoxia and hypercapnia: Status: Acute (6) GERD (gastroesophageal reflux disease): Qualifiers: Esophagitis presence: without esophagitis Qualified Code(s): K21.9 - Gastro-esophageal reflux disease without esophagitis Status: Acute (7) Supplemental oxygen dependent: Status: Acute (8) Requires daily assistance for activities of daily living (ADL) and comfort needs: Status: Acute (9) Chronic respiratory failure with hypoxia and hypercapnia: Status: Acute (10) Acute and chronic respiratory failure: Status: Acute (11) Acute exacerbation of chronic obstructive airways disease: Status: Acute (12) Hypoxia: Status: Acute (13) Pneumonia: Status: Acute (14) BMI 40.0-44.9, adult: Status: Acute (15) Obstructive sleep apnea: Status: Acute (16) COPD (chronic obstructive pulmonary disease): Status: Acute (17) Schizoaffective schizophrenia: Status: Acute (18) Hyperglycemia: Status: Acute (19) Pneumonia: Status: Acute (20) Mild bibasilar atelectasis: Status: Acute (21) Acute and chronic respiratory failure with hypercapnia: Status: Acute (22) Pulmonary nodules: Status: Acute Plan And without there being a cardiovascular contribution and understanding that the underlying issue is skeletal muscle weakness the no so he is going to be a hypo ventilator he needs BiPAP with a with a backup rate and simply needs to comply that is not much else otherwise that I could add
[2022-10-03] MEDS: Enoxaparin Sodium 40 MG/0.4 ML SYRINGE SUBCUT (16:59)
--- NOTE | 2022-10-03 17:03 | PC.NURSE ---
PT UP AND WALKING AROUND, DIFFICULT TO REDIRECT BACK TO ROOM. HE IS DIAPHORETIC AND SOB UPON RETURNING TO HIS ROOM. HE WAS PLACED BACK ON THE BIPAP AND MONITOR
--- NOTE | 2022-10-03 17:16 | PC.NURSE ---
Pt wondering around in the ER, confused, reporting wanting to leave. Reports difficulty breathing. Pt disconnected self from bipap machine and monitor. Pt redirected back to the bedside. O2 sat dropped down to 66%. Reconnected to bipap machine and monitor. Bipat settings: O2 40%, ipap 18, epap 8. Pts current o2 sat at 97%. Will continue to monitor and redirect pt.
[2022-10-03 18:04] LABS: ABG Base Excess 43.7 mmol/L; ABG HCO3 77 mmol/L (22-26); ABG pCO2 116 mmHg (32-45); ABG pH 7.43 (7.35-7.45); ABG pO2 67 mmHg (83-108)
--- NOTE | 2022-10-03 19:42 | PC.NURSE ---
Attempted to provide report to RN as pt is transferring to room 485. Mirtha will call back when ready for report.
[2022-10-03] MEDS: Albuterol/Iprat 2.5/0.5MG 3 ML AMPUL.NEB INHALE (20:13)
--- NOTE | 2022-10-03 20:21 | PC.NURSE ---
RN to RN report given to LES Castaneda. Pt being transferred to room 485. Respiratory aware.
--- NOTE | 2022-10-03 20:48 | MHC.CM.PN ---
Attempted to meet with patient, however pt on BiPAP and unable to participate in conversation. Per medical record, PCP is Pam Almaguer. Psychiatrist is Jean Tadeo. Pt has HX schizoaffective disorder and is treated in the community. Pt received J&J 02/21/21, Pfizer 10/10/21 & Moderna 05/09/22. Pt is on home oxygen at 6L. There is no HCP on file. CM will need to meet with patient when he is weaned from BiPAP. CM to follow for d/c needs.
[2022-10-03] MEDS: Montelukast Sodium 10 MG TABLET PO (21:20)
[2022-10-03] MEDS: 0.9 % Sodium Chloride Flush 3 ML SYRINGE IVFLUSH (21:20)
[2022-10-03] MEDS: Docusate Sodium 100 MG CAPSULE PO (21:20)
[2022-10-03] MEDS: Desmopressin Acetate 0.2 MG TABLET 0.4 MG PO (21:20)
[2022-10-03] MEDS: gemfibroziL 600 MG TABLET PO (21:20)
[2022-10-03 22:28] LABS: ABG Refer to POC result
[2022-10-04] VITALS (13 sets, daily range): BP systolic 109–137; BP diastolic 56–74; PULSE 87–115; RESP 15–23; TEMP 36.2–37.1; O2SAT 82–97
[2022-10-04] MEDS: Omeprazole 20 MG CAPSULE.DR PO (05:42)
[2022-10-04 05:49] LABS: MANUAL DIFF FLAG NO
[2022-10-04 06:02] LABS: Basophils Percent Auto 0.3 % (0-2); Hematocrit 37.2 % (42.0-52.0); Hemoglobin 9.6 g/dl (14.0-18.0); Imm Gran Abs Auto 0.22 X10*3/uL (0.00-0.03); Imm Gran Pct Auto 2.3 % (0.0-0.4); Lymphocytes Absolute Auto 0.7 X10*3/uL (1.2-4.9); Lymphocytes Percent Auto 7.4 % (20-40); Mean Corpuscular HGB Conc 25.8 g/dl (31.0-36.0); Mean Corpuscular Hemoglobin 22.7 pg (27.0-33.0); Mean Corpuscular Volume 87.9 fL (80.0-98.0); Mean Platelet Volume 9.2 fL (9.4-12.4); Monocytes Absolute Auto 0.6 X10*3/uL (0.1-1.2); Monocytes Percent Auto 5.8 % (2-11); Neutrophils Absolute Auto 8.2 x10*3/uL (2.0-8.3); Neutrophils Percent Auto 84.2 % (45-73); Platelet Count 235 X10*3/uL (160-400); Red Blood Count 4.23 X10*6/uL (4.60-5.80); Red Cell Distribution Width 15.9 % (11.0-16.0); White Blood Count 9.8 X10*3/uL (4.8-10.8)
[2022-10-04 06:58] LABS: Anion Gap 18 (12-20); Blood Urea Nitrogen 26 mg/dL (9-16); Calcium 9.4 mg/dL (8.4-10.2); Carbon Dioxide 43 mmol/L (22-29); Chloride 88 mmol/L (96-108); Estimated Glomerular Filt Rate > 60; Glucose Random 126 mg/dL (60-115); Potassium 4.4 mmol/L (3.3-5.1); Sodium 145 mmol/L (135-145)
[2022-10-04 07:12] LABS: Glucose, Whole Blood 102 mg/dL (60-115)
[2022-10-04] MEDS: Fluticasone/Vilanterol 200/25 BLST.W.DEV 1 PUFF INHALE (07:51)
[2022-10-04] MEDS: Albuterol/Iprat 2.5/0.5MG 3 ML AMPUL.NEB INHALE ×4 (07:51→20:20)
[2022-10-04] MEDS: Loratadine 10 MG TABLET PO (08:00)
[2022-10-04] MEDS: Docusate Sodium 100 MG CAPSULE PO ×2 (08:00→20:14)
[2022-10-04] MEDS: Furosemide 40 MG TABLET PO (08:00)
[2022-10-04] MEDS: 0.9 % Sodium Chloride Flush 3 ML SYRINGE IVFLUSH ×3 (08:00→20:15)
[2022-10-04] MEDS: ARIPiprazole 10 MG TABLET PO (08:01)
[2022-10-04] MEDS: methylPREDNISolone Sod Succ 125 MG/2 ML VIAL 60 MG IVPUSH ×3 (08:01→20:15)
[2022-10-04] MEDS: gemfibroziL 600 MG TABLET PO ×2 (08:01→20:14)
--- NOTE | 2022-10-04 09:30 | PM.CNPUL ---
History of Present Illness History of Present Illness Consult date: 10/04/22 Chief complaint: Acute hypoxemic/hypercarbic res fail 2nd to copd Narrative: This is an inpatient pulmonary consultation. The patient is a 56-year-old male with a past medical history of schizoaffective disorder, REGINA on CPAP, obesity hypoventilation syndrome, Avila disease, hypertriglyceridemia, GERD, COPD/ chronic respiratory failure on 8 L of home oxygen; presented to the hospital today''schizophrenia episode''-was found in his apartment lobby jorgensen, tripoding and EMS noted on RA his sats were 37%. He was not in his O2 which is normally 8L.? The patient received nebs, steroids, BiPAP in emergency room and subsequently seems? better shortness of breath buckley- currently saturating on 93% with 9 L oxygen, has dry cough. The patient was admitted for acute hypoxemic/ hypercarbic respiratory failure secondary to COPD exacerbation. Currently feeling better. THe patient states that he is not compliant with the BIPAP and he feels that the pressures are too high. I did decrease the BIPAP 18/08 to assess tolerance and response. He is been treated with a lower respiratory infection exacerbating his COPD. ? Review of Systems Review of Systems: Constitutional : No Fever, No Chills ENT/Mouth : No sore throat, No Rhinorrhea, No Swallowing Difficulty Eyes: No Eye Pain, No Swelling, No Redness Cardiovascular : No Chest Pain, No SOB, No Orthopnea, no Edema Respiratory : pos Cough, No Sputum, No Wheezing, positive dyspnea Gastrointestinal : No Nausea, No Vomiting, No Diarrhea, No abdominal Pain, No Hematochezia, No Melena Genitourinary : No Dysuria, No Urinary Frequency, No Hematuria Musculoskeletal : No joint pain, No Myalgias Skin : No Skin Lesions, No rash Neuro : No Weakness, No Numbness, No Dizziness, No Headache Psych : No Anxiety/Panic, No Depression Heme/Lymph: No Bruising, No Lymphadenopathy Endocrine : No Polyuria, No Polydipsia All other systems reviewed and are negative [facility] Past Medical History Medical History Acute dyspnea Acute exacerbation of chronic obstructive airways disease Acute hypercapnic respiratory failure AV malformation of gastrointestinal tract Chronic respiratory failure with hypoxia and hypercapnia COPD (chronic obstructive pulmonary disease) COPD exacerbation Deep vein thrombosis (DVT) of left upper extremity DVT (deep venous thrombosis) GERD (gastroesophageal reflux disease) Hypertriglyceridemia Itch of skin Avila disease Mild bibasilar atelectasis Morbid obesity Nocturnal enuresis Obesity hypoventilation syndrome Obstructive sleep apnea Orchialgia REGINA (obstructive sleep apnea) Pneumonia Polycythemia vera Rectosigmoid diverticulosis Schizoaffective schizophrenia Severe chronic obstructive pulmonary disease Spasm of muscle of lower back Supplemental oxygen dependent Tubular adenoma of colon Family History Family History Father HTN (hypertension) Mother HTN (hypertension) Diabetes mellitus Breast cancer Brother No problems noted. Surgical History Surgical History History of colonoscopy No pertinent past surgical history Social History Social History Household Members: None Household Members Other:: cat Housing: Apartment Do you presently have visiting nurse or other home services: Yes (Two times a week (T and Fri) visiting nurse.) Alcohol intake: never Patient Tobacco Use Status: Former Tobacco user Tobacco use type: Cigarette Years Smoked: 41 yrs e-Cigarette/Vaping Use: Never Used service: No Current occupational status: disabled Cognitive needs: No Hearing needs: No Vision needs: Yes (glasses) Meds Allergies Allergy/AdvReac Type Severity Reaction Status Date / Time prednisone [PREDNISONE] AdvReac Severe VISUAL Verified 09/27/22 15:11 HALLUCINATION ibuprofen [From MOTRIN] AdvReac Intermediate VOMITING Verified 09/27/22 15:11 nabumetone AdvReac Unknown vomiting Verified 09/27/22 15:11 Active Medications: Current Medications Albuterol/Ipratropium (Albuterol/Iprat 2.5/0.5mg 3 Ml Ampul.Neb) 3 ml INHALE RQ4H WHILE AWAKE [facility] Last Admin: 10/04/22 07:51 Dose: 3 ml Albuterol/Ipratropium (Albuterol/Iprat 2.5/0.5mg 3 Ml Ampul.Neb) 3 ml INHALE Q4H PRN PRN Reason: sob Aripiprazole (Aripiprazole 10 Mg Tablet) 10 mg PO DAILY [facility] Last Admin: 10/04/22 08:01 Dose: 10 mg Desmopressin Acetate (Desmopressin Acetate 0.2 Mg Tablet) 0.4 mg PO BEDTIME [facility] Last Admin: 10/03/22 21:20 Dose: 0.4 mg Docusate Sodium (Docusate Sodium 100 Mg Capsule) 100 mg PO BID [facility] Last Admin: 10/04/22 08:00 Dose: 100 mg Enoxaparin Sodium (Enoxaparin Sodium 40 Mg/0.4 Ml Syringe) 40 mg SUBCUT Q24H [facility] Last Admin: 10/03/22 16:59 Dose: 40 mg Fluticasone/Vilanterol (Fluticasone/Vilanterol 200/25 Blst.W.Dev) 1 puff INHALE RDAILY [facility] Last Admin: 10/04/22 07:51 Dose: 1 puff Furosemide (Furosemide 40 Mg Tablet) 40 mg PO DAILY [facility]; Protocol Last Admin: 10/04/22 08:00 Dose: 40 mg Gemfibrozil (Gemfibrozil 600 Mg Tablet) 600 mg PO BID [facility] Last Admin: 10/04/22 08:01 Dose: 600 mg Ceftriaxone Sodium 1 gm/ (Sodium Chloride) 50 mls @ 100 mls/hr IV Q24H [facility] Doxycycline Hyclate 100 mg/ (Sodium Chloride) 250 mls @ 166.67 mls/hr IV Q12H [facility] Last Infusion: 10/03/22 22:58 Dose: Infused Loratadine (Loratadine 10 Mg Tablet) 10 mg PO DAILY [facility] Last Admin: 10/04/22 08:00 Dose: 10 mg Methylprednisolone Sodium Succinate (Methylprednisolone Sod Succ 125 Mg/2 Ml Vial) 60 mg IVPUSH TID [facility] Last Admin: 10/04/22 08:01 Dose: 60 mg Montelukast Sodium (Montelukast Sodium 10 Mg Tablet) 10 mg PO BEDTIME [facility] Last Admin: 10/03/22 21:20 Dose: 10 mg Omeprazole (Omeprazole 20 Mg Capsule.Dr) 20 mg PO DAILY@0630 [facility] Last Admin: 10/04/22 05:42 Dose: 20 mg Pharmacy Consult (Consult Rx Perform Med Rec) 1 each MISCELLANE ONCE PRN PRN Reason: Consult order Polyethylene Glycol (Polyethylene Glycol 3350 17 Gm Powd.Pack) 17 gm PO DAILY PRN PRN Reason: constipation Sodium Chloride (0.9 % Sodium Chloride Flush 3 Ml Syringe) 3 ml IVFLUSH QSHIFT [facility] Last Admin: 10/04/22 08:00 Dose: 3 ml Home Medications Medication Instructions Recorded Confirmed Last Taken Type amitriptyline 25 mg tablet 1 tab PO BEDTIME PRN insomnia 04/21/22 10/03/22 Unknown History benztropine 1 mg tablet 1 tab PO BEDTIME 04/21/22 10/03/22 Unknown History montelukast 10 mg tablet 1 tab PO BEDTIME 04/21/22 10/03/22 Unknown History risperidone 0.5 mg tablet 1 tab PO BID 04/21/22 10/03/22 Unknown History aripiprazole 10 mg tablet (Abilify) 10 mg PO DAILY 05/15/22 10/03/22 Unknown History aripiprazole 20 mg tablet (Abilify) 20 mg PO BEDTIME 05/15/22 10/03/22 Unknown History arformoterol 15 mcg/2 mL solution 2 ml inhalation BID 10/03/22 10/03/22 Unknown History for nebulization (Gladys) clonazepam 0.5 mg tablet 1 tab PO BID 10/03/22 10/03/22 Unknown History cyclobenzaprine 5 mg tablet 1 tab PO BEDTIME PRN Spasms 10/03/22 10/03/22 Unknown History omeprazole 20 mg capsule,delayed 20 mg PO DAILY 10/03/22 10/03/22 Unknown History release risperidone 1 mg tablet 1 tab PO BID 10/03/22 10/03/22 Unknown History Physical Exam Vital Signs: Vital Signs: Last Vital Signs Temp 97.2 F 10/04/22 07:26 Pulse 102 H 10/04/22 07:54 Resp 22 H 10/04/22 07:54 BP 109/56 L 10/04/22 07:26 Pulse Ox 92 10/04/22 07:26 O2 Del Method 10/04/22 07:26 O2 Flow Rate 5 10/04/22 07:26 Oxygen Flow Rate 8 10/03/22 08:45 BMI result Body Mass Index 35.9 Const: General: no acute distress and alert Nutritional Appearance: obese Orientation/consciousness: Other orientation findings ( oriented) HEENT: Head: Yes atraumatic Mouth: no other ( thrush) Throat: No postnasal drainage Eyes: General: appearance normal, both eyes and all related structures Sclerae: sclerae normal EOM: EOMs intact bilaterally Neck: Neck: Yes supple Lymphatic: no lymphadenopathy noted Resp: Effort & Inspection: normal respiratory effort and no use of accessory muscles Auscultation: wheezes and breath sounds absent Cardio: Rate: regular rate Rhythm: regular rhythm Heart sounds: no gallops, no murmurs and no rubs GI: Palpation (GI): Soft to palpation and Other GI palpation findings present ( nontender) Skin: General skin exam: other ( warm) Rashes: no rashes Extrem: General: No clubbing, No cyanosis and No edema Results Laboratory Findings CBC and BMP: 10/04/22 05:29 10/04/22 05:29 Abnormal lab findings: Abnormal Labs 10/03/22 10/03/22 10/03/22 09:41 09:41 09:49 WBC 13.1 H RBC 4.36 L Hgb 10.0 L Hct 39.0 L MCH 22.9 L MCHC 25.6 L MPV 8.9 L Immature Gran % (Auto) 2.6 H Neut % (Auto) 88.9 H Lymph % (Auto) 3.1 L Lymph # (Auto) 0.4 L Abs Immat Gran (auto) 0.34 H Absolute Neuts (auto) 11.7 H ABG pCO2 at Pt Temp ABG pO2 at Pt Temp ABG HCO3 VBG HCO3 60 H Chloride 85 L Carbon Dioxide 49 H* D BUN 19 H Random Glucose 196 H D 10/03/22 10/03/22 10/03/22 10:24 14:51 17:55 WBC RBC Hgb Hct MCH MCHC MPV Immature Gran % (Auto) Neut % (Auto) Lymph % (Auto) Lymph # (Auto) Abs Immat Gran (auto) Absolute Neuts (auto) ABG pCO2 at Pt Temp 95 H* 104 H* 116 H* ABG pO2 at Pt Temp 59 L 57 L 67 L ABG HCO3 61 H 61 H 77 H VBG HCO3 Chloride Carbon Dioxide BUN Random Glucose 10/04/22 10/04/22 05:29 05:29 WBC RBC 4.23 L Hgb 9.6 L Hct 37.2 L MCH 22.7 L MCHC 25.8 L MPV 9.2 L Immature Gran % (Auto) 2.3 H Neut % (Auto) 84.2 H Lymph % (Auto) 7.4 L Lymph # (Auto) 0.7 L Abs Immat Gran (auto) 0.22 H Absolute Neuts (auto) ABG pCO2 at Pt Temp ABG pO2 at Pt Temp ABG HCO3 VBG HCO3 Chloride 88 L Carbon Dioxide 43 H* BUN 26 H Random Glucose 126 H D Assessment and Plan (1) Acute exacerbation of chronic obstructive pulmonary disease: Status: Acute (2) Acute on chronic respiratory failure with hypoxia and hypercapnia: Status: Acute Plan Continue BIPAP at night, needs better compliance. We did discuss it Continue solumedrol for one more day, then PO Continue Doxy Diamox x 1 continue respiratory therapy oximizer pendent to keep pox 89%-96% venough gas in the am Procedures Date of Service Date of Service: 10/04/22
--- NOTE | 2022-10-04 10:14 | MHC.CM.PN ---
Male 57 DX COPD Exacerbation He lives by himself. He is independent with ADLs. He does not need an A.D. He uses 6L O2 @ home. [facility] provides home o2 and BIPAP. [facility] is in place. Pt has been vaccinated x3. DP home resume [facility] and [facility] for respiratory supplies and equipment. Patient will arrange for transportation home.
[2022-10-04] MEDS: cefTRIAXone sodium 1 GM in 0.9 % Sodium Chloride 50 ML IV (11:07)
[2022-10-04] MEDS: acetaZOLAMIDE 250 MG TABLET PO (11:07)
[2022-10-04] MEDS: Doxycycline Hyclate 100 MG in 0.9 % Sodium Chloride 250 ML 166.67 MG IV ×2 (11:51→20:15)
--- NOTE | 2022-10-04 15:48 | HO.PM.IMPN ---
Subjective Subjective Date of Service: 10/04/22 Interval History: Acute hypoxemic/ hypercarbic respiratory failure Review of Systems mental status slightly better than yesterday, denies any chest pain . feels somewhat short of breath and has cough denies any nausea vomiting or fever Physical Exam Vital Signs: Vital Signs: Last Vital Signs Temp 98.7 F 10/04/22 15:14 Pulse 105 H 10/04/22 15:14 Resp 18 10/04/22 15:14 BP 135/61 10/04/22 15:14 Pulse Ox 95 10/04/22 15:14 O2 Del Method 10/04/22 15:14 O2 Flow Rate 8 10/04/22 15:14 Oxygen Flow Rate 8 10/03/22 08:45 BMI result Body Mass Index 35.9 ?Appearance: Aox2-3 improving since yesterday , still talking bronken sentences. cvs: rrr, [id number] . res: diminshed breath sounds , has b/l wheezin abd: no rebound or guarding ,nt, bs present. ext pulses present , no cyanosis. neuro: axo3 , nonfocal.. Objective Data Active Medications Albuterol/Ipratropium (Albuterol/Iprat 2.5/0.5mg 3 Ml Ampul.Neb) 3 ml INHALE RQ4H WHILE AWAKE [facility] Last Admin: 10/04/22 12:19 Dose: 3 ml Documented By: WILLIAM Albuterol/Ipratropium (Albuterol/Iprat 2.5/0.5mg 3 Ml Ampul.Neb) 3 ml INHALE Q4H PRN PRN Reason: sob Aripiprazole (Aripiprazole 20 Mg Tablet) 20 mg PO DAILY [facility] Desmopressin Acetate (Desmopressin Acetate 0.2 Mg Tablet) 0.4 mg PO BEDTIME [facility] Last Admin: 10/03/22 21:20 Dose: 0.4 mg Documented By: ANTOIC Docusate Sodium (Docusate Sodium 100 Mg Capsule) 100 mg PO BID [facility] Last Admin: 10/04/22 08:00 Dose: 100 mg Documented By: SOLISPE Enoxaparin Sodium (Enoxaparin Sodium 40 Mg/0.4 Ml Syringe) 40 mg SUBCUT Q24H [facility] Last Admin: 10/03/22 16:59 Dose: 40 mg Documented By: YASH Fluticasone/Vilanterol (Fluticasone/Vilanterol 200/25 Blst.W.Dev) 1 puff INHALE RDAILY [facility] Last Admin: 10/04/22 07:51 Dose: 1 puff Documented By: WILLIAM Furosemide (Furosemide 40 Mg Tablet) 40 mg PO DAILY [facility]; Protocol Last Admin: 10/04/22 08:00 Dose: 40 mg Documented By: CESAR Gemfibrozil (Gemfibrozil 600 Mg Tablet) 600 mg PO BID [facility] Last Admin: 10/04/22 08:01 Dose: 600 mg Documented By: CESAR Ceftriaxone Sodium 1 gm/ (Sodium Chloride) 50 mls @ 100 mls/hr IV Q24H [facility] Last Infusion: 10/04/22 11:50 Dose: 0 mls/hr Documented By: CESAR Doxycycline Hyclate 100 mg/ (Sodium Chloride) 250 mls @ 166.67 mls/hr IV Q12H [facility] Last Infusion: 10/04/22 13:47 Dose: 0 mls/hr Documented By: CESAR Loratadine (Loratadine 10 Mg Tablet) 10 mg PO DAILY [facility] Last Admin: 10/04/22 08:00 Dose: 10 mg Documented By: CESAR Lorazepam (Lorazepam 0.5 Mg Tablet) 0.5 mg PO BID PRN PRN Reason: Anxiety Methylprednisolone Sodium Succinate (Methylprednisolone Sod Succ 125 Mg/2 Ml Vial) 60 mg IVPUSH TID [facility] Last Admin: 10/04/22 15:08 Dose: 60 mg Documented By: CESAR Montelukast Sodium (Montelukast Sodium 10 Mg Tablet) 10 mg PO BEDTIME [facility] Last Admin: 10/03/22 21:20 Dose: 10 mg Documented By: JUAN CARLOS Omeprazole (Omeprazole 20 Mg Capsule.Dr) 20 mg PO DAILY@0630 [facility] Last Admin: 10/04/22 05:42 Dose: 20 mg Documented By: JUAN CARLOS Pharmacy Consult (Consult Rx Perform Med Rec) 1 each MISCELLANE ONCE PRN PRN Reason: Consult order Polyethylene Glycol (Polyethylene Glycol 3350 17 Gm Powd.Pack) 17 gm PO DAILY PRN PRN Reason: constipation Risperidone (Risperidone 1 Mg Tablet) 1 mg PO BID [facility] Sodium Chloride (0.9 % Sodium Chloride Flush 3 Ml Syringe) 3 ml IVFLUSH QSHIFT [facility] Last Admin: 10/04/22 15:05 Dose: 3 ml Documented By: CESAR Labs CBC & Chem 7: 10/04/22 05:29 10/04/22 05:29 Labs: Laboratory Results - last 24 hr 10/03/22 10/04/22 10/04/22 17:55 05:29 05:29 MCV 87.9 MCH 22.7 L MCHC 25.8 L RDW 15.9 Plt Count 235 D MPV 9.2 L Immature Gran % (Auto) 2.3 H Neut % (Auto) 84.2 H Lymph % (Auto) 7.4 L [place] % (Auto) 5.8 Eos % (Auto) 0.0 Baso % (Auto) 0.3 Lymph # (Auto) 0.7 L [place] # (Auto) 0.6 Eos # (Auto) 0.0 Baso # (Auto) 0.0 Abs Immat Gran (auto) 0.22 H Absolute Neuts (auto) 8.2 Absolute Nucleated RBC 0.000 Nucleated RBC % (auto) 0.0 O2 Saturation 92.0 ABG pH at Pt Temp 7.43 ABG pCO2 at Pt Temp 116 H* ABG pO2 at Pt Temp 67 L ABG HCO3 77 H ABG Base Excess (Actual) 43.7 Anion Gap 18 Estim Creat Clear Calc 147.0 Estimated GFR > 60 POC Glucose Random Glucose 126 H D Calcium 9.4 10/04/22 07:08 MCV MCH MCHC RDW Plt Count MPV Immature Gran % (Auto) Neut % (Auto) Lymph % (Auto) [place] % (Auto) Eos % (Auto) Baso % (Auto) Lymph # (Auto) [place] # (Auto) Eos # (Auto) Baso # (Auto) Abs Immat Gran (auto) Absolute Neuts (auto) Absolute Nucleated RBC Nucleated RBC % (auto) O2 Saturation ABG pH at Pt Temp ABG pCO2 at Pt Temp ABG pO2 at Pt Temp ABG HCO3 ABG Base Excess (Actual) Anion Gap Estim Creat Clear Calc Estimated GFR POC Glucose 102 Random Glucose Calcium Microbiology Microbiology Results: Microbiology 10/03/22 09:45 Blood Culture - Preliminary Blood - Venous No growth after 24 hours. 10/03/22 09:42 Blood Culture - Preliminary Blood - Venous No growth after 24 hours. Assessment and Plan (1) Acute exacerbation of chronic obstructive pulmonary disease: Status: Acute (2) Toxic metabolic encephalopathy: Status: Acute (3) Metabolic alkalosis: Status: Acute Plan 57-year-old male with a past medical history of schizoaffective disorder, REGINA on CPAP, obesity hypoventilation syndrome, Avila disease, hypertriglyceridemia, GERD, COPD/ chronic respiratory failure on 8 L of home oxygen; presented to the hospital today with a chief complaint of hypoxia.? Acute hypoxemic /hypercarbic respiratory failure secondary to COPD exacerbation/acute bronchitis . ?be brought tachycardia probably related to nebs not sepsis. ?tachypnea related to sob sec COPD exacerbation. Toxic metabolic encephalopathy possible related to above acute hypoxemic/hypercarbic respiratory failure start ? antibiotic, nebs, steroids,antibiotics ,taper oxygen to [place] keep sats 89-92% . seen by pulm - continue above management, and doxy, Diamox. compensatory metabolic alkalosis in the setting of chronic COPD. given 1 dose Diamox when monitor BMP in the morning. COPD exacerbation: Will give the patient on DuoNeb standing and p.r.n.,Solu-Medrol IV,antibiotics ?pulmonary evaluation added also. History of REGINA/ obesity hypoventilation syndrome: Continue home CPAP.? ?morbid obesity: Encouraged strongly to lose weight once he stabilizes from the point of COPD. ? Schizoaffective disorder:? continue home medications- psych was called to adjust psych medication in case contributing to toxic metabolic encephalopathy/COPD exacerbation. ?DVT prophylaxis:? SubQ Lovenox Inpatient need: Toxic metabolic encephalopathy, acute hypoxemic and hypercarbic respiratory failure secondary to COPD exacerbation, also need psych med adjustment. Quality Stroke Does the patient have a stroke diagnosis?: No VTE Prior VTE?: No VTE Risk Level:: Medical - moderate - high VTE Device Contraindication: N/A - Device Ordered VTE Drug Contraindication: N/A - Med Ordered
[2022-10-04] MEDS: Enoxaparin Sodium 40 MG/0.4 ML SYRINGE SUBCUT (17:15)
--- NOTE | 2022-10-04 17:19 | PM.PSYCN ---
History of Present Illness Chief Complaint: Acute hypoxemic/hypercarbic res fail 2nd to copd HPI Past Psychiatric History: Schizoaffective disorder IPLOC: unknown Has outpatient psychiatrist [facility] Medical History Acute dyspnea Acute exacerbation of chronic obstructive airways disease Acute hypercapnic respiratory failure AV malformation of gastrointestinal tract Chronic respiratory failure with hypoxia and hypercapnia COPD (chronic obstructive pulmonary disease) COPD exacerbation Deep vein thrombosis (DVT) of left upper extremity DVT (deep venous thrombosis) GERD (gastroesophageal reflux disease) Hypertriglyceridemia Itch of skin Maico disease Mild bibasilar atelectasis Morbid obesity Nocturnal enuresis Obesity hypoventilation syndrome Obstructive sleep apnea Orchialgia REGINA (obstructive sleep apnea) Pneumonia Polycythemia vera Rectosigmoid diverticulosis Schizoaffective schizophrenia Severe chronic obstructive pulmonary disease Spasm of muscle of lower back Supplemental oxygen dependent Tubular adenoma of colon Surgical History History of colonoscopy No pertinent past surgical history Diagnostics Vital Signs (24Hr): Vital Signs - 24 hr 10/03/22 19:57 10/03/22 20:14 10/03/22 20:14 Temperature Pulse Rate 105 H 105 H Respiratory Rate 21 H 20 21 H Blood Pressure 108/72 Pulse Oximetry 93 Oxygen Delivery Method BiPAP Oxygen Flow Rate 10/04/22 00:00 10/04/22 00:12 10/04/22 03:22 Temperature 97.8 F 97.5 F Pulse Rate 89 100 Respiratory Rate 20 15 20 Blood Pressure 116/68 121/67 Pulse Oximetry 93 94 Oxygen Delivery Method BiPAP BiPAP Oxygen Flow Rate 5 5 10/04/22 07:26 10/04/22 07:54 10/04/22 07:54 Temperature 97.2 F Pulse Rate 87 102 H Respiratory Rate 20 22 H 22 H Blood Pressure 109/56 L Pulse Oximetry 92 Oxygen Delivery Method BiPAP Oxygen Flow Rate 5 10/04/22 11:30 10/04/22 12:20 10/04/22 15:14 Temperature 98 F 98.7 F Pulse Rate 115 H 89 105 H Respiratory Rate 20 19 18 Blood Pressure 130/63 135/61 Pulse Oximetry 93 95 Oxygen Delivery Method Oxymask Oxymask Oxygen Flow Rate 8 8 10/04/22 15:53 Temperature Pulse Rate 97 Respiratory Rate 18 Blood Pressure Pulse Oximetry Oxygen Delivery Method Oxygen Flow Rate BMI result Body Mass Index 35.9 Labs Results: 10/04/22 05:29 10/04/22 05:29 Labs: Laboratory Results - last 48 hr 10/03/22 10/03/22 10/03/22 09:41 09:41 09:41 WBC 13.1 H RBC 4.36 L Hgb 10.0 L Hct 39.0 L MCV 89.4 MCH 22.9 L MCHC 25.6 L RDW 15.5 Plt Count 187 D MPV 8.9 L Immature Gran % (Auto) 2.6 H Neut % (Auto) 88.9 H Lymph % (Auto) 3.1 L Rob[place] % (Auto) 5.0 Eos % (Auto) 0.1 Baso % (Auto) 0.3 Lymph # (Auto) 0.4 L Robeson # (Auto) 0.7 Eos # (Auto) 0.0 Baso # (Auto) 0.0 Abs Immat Gran (auto) 0.34 H Absolute Neuts (auto) 11.7 H Absolute Nucleated RBC 0.000 Nucleated RBC % (auto) 0.0 D-Dimer High Sensitivty O2 Saturation ABG pH at Pt Temp ABG pCO2 at Pt Temp ABG pO2 at Pt Temp ABG HCO3 ABG Base Excess (Actual) VBG pH VBG pCO2 VBG pO2 VBG HCO3 VBG O2 Saturation VBG Base Excess Sodium 144 Potassium 4.5 Chloride 85 L Carbon Dioxide 49 H* D Anion Gap 15 BUN 19 H Creatinine 0.78 Estim Creat Clear Calc 136.1 Estimated GFR > 60 POC Glucose Random Glucose 196 H D Lactic Acid Calcium 9.4 D Magnesium 1.8 Total Bilirubin 0.3 Direct Bilirubin 0.2 AST 20 ALT 26 Alkaline Phosphatase 103 D Troponin I High Sens Total Protein 6.7 D Albumin 4.0 D Procalcitonin COVID-19 (TAL) Negative COVID-19 Clin Com See Note 10/03/22 10/03/22 10/03/22 09:42 09:42 09:42 WBC RBC Hgb Hct MCV MCH MCHC RDW Plt Count MPV Immature Gran % (Auto) Neut % (Auto) Lymph % (Auto) Robeson % (Auto) Eos % (Auto) Baso % (Auto) Lymph # (Auto) Rob[place] # (Auto) Eos # (Auto) Baso # (Auto) Abs Immat Gran (auto) Absolute Neuts (auto) Absolute Nucleated RBC Nucleated RBC % (auto) D-Dimer High Sensitivty O2 Saturation ABG pH at Pt Temp ABG pCO2 at Pt Temp ABG pO2 at Pt Temp ABG HCO3 ABG Base Excess (Actual) VBG pH VBG pCO2 VBG pO2 VBG HCO3 VBG O2 Saturation VBG Base Excess Sodium Potassium Chloride Carbon Dioxide Anion Gap BUN Creatinine Estim Creat Clear Calc Estimated GFR POC Glucose Random Glucose Lactic Acid 2.0 Calcium Magnesium Total Bilirubin Direct Bilirubin AST ALT Alkaline Phosphatase Troponin I High Sens 14.6 D Total Protein Albumin Procalcitonin 0.06 COVID-19 (TAL) COVID-19 [employer] Com 10/03/22 10/03/22 10/03/22 09:49 10:24 12:03 WBC RBC Hgb Hct MCV MCH MCHC RDW Plt Count MPV Immature Gran % (Auto) Neut % (Auto) Lymph % (Auto) Robeson % (Auto) Eos % (Auto) Baso % (Auto) Lymph # (Auto) [place] # (Auto) Eos # (Auto) Baso # (Auto) Abs Immat Gran (auto) Absolute Neuts (auto) Absolute Nucleated RBC Nucleated RBC % (auto) D-Dimer High Sensitivty 156 O2 Saturation 89.0 ABG pH at Pt Temp 7.41 ABG pCO2 at Pt Temp 95 H* ABG pO2 at Pt Temp 59 L ABG HCO3 61 H ABG Base Excess (Actual) 30.6 VBG pH 7.37 VBG pCO2 104 VBG pO2 39 VBG HCO3 60 H VBG O2 Saturation 62.0 VBG Base Excess 28.8 Sodium Potassium Chloride Carbon Dioxide Anion Gap BUN Creatinine Estim Creat Clear Calc Estimated GFR POC Glucose Random Glucose Lactic Acid Calcium Magnesium Total Bilirubin Direct Bilirubin AST ALT Alkaline Phosphatase Troponin I High Sens Total Protein Albumin Procalcitonin COVID-19 (TAL) COVID-19 Clin Com 10/03/22 10/03/22 10/03/22 14:48 14:51 17:55 WBC RBC Hgb Hct MCV MCH MCHC RDW Plt Count MPV Immature Gran % (Auto) Neut % (Auto) Lymph % (Auto) Robeson % (Auto) Eos % (Auto) Baso % (Auto) Lymph # (Auto) Robeson # (Auto) Eos # (Auto) Baso # (Auto) Abs Immat Gran (auto) Absolute Neuts (auto) Absolute Nucleated RBC Nucleated RBC % (auto) D-Dimer High Sensitivty O2 Saturation 85.0 92.0 ABG pH at Pt Temp 7.37 7.43 ABG pCO2 at Pt Temp 104 H* 116 H* ABG pO2 at Pt Temp 57 L 67 L ABG HCO3 61 H 77 H ABG Base Excess (Actual) 29.6 43.7 VBG pH Cancelled VBG pCO2 Cancelled VBG pO2 Cancelled VBG HCO3 Cancelled VBG O2 Saturation Cancelled VBG Base Excess Cancelled Sodium Potassium Chloride Carbon Dioxide Anion Gap BUN Creatinine Estim Creat Clear Calc Estimated GFR POC Glucose Random Glucose Lactic Acid Calcium Magnesium Total Bilirubin Direct Bilirubin AST ALT Alkaline Phosphatase Troponin I High Sens Total Protein Albumin Procalcitonin COVID-19 (TAL) COVID-19 Clin Com 10/04/22 10/04/22 10/04/22 05:29 05:29 07:08 WBC 9.8 RBC 4.23 L Hgb 9.6 L Hct 37.2 L MCV 87.9 MCH 22.7 L MCHC 25.8 L RDW 15.9 Plt Count 235 D MPV 9.2 L Immature Gran % (Auto) 2.3 H Neut % (Auto) 84.2 H Lymph % (Auto) 7.4 L Robeson % (Auto) 5.8 Eos % (Auto) 0.0 Baso % (Auto) 0.3 Lymph # (Auto) 0.7 L [place] # (Auto) 0.6 Eos # (Auto) 0.0 Baso # (Auto) 0.0 Abs Immat Gran (auto) 0.22 H Absolute Neuts (auto) 8.2 Absolute Nucleated RBC 0.000 Nucleated RBC % (auto) 0.0 D-Dimer High Sensitivty O2 Saturation ABG pH at Pt Temp ABG pCO2 at Pt Temp ABG pO2 at Pt Temp ABG HCO3 ABG Base Excess (Actual) VBG pH VBG pCO2 VBG pO2 VBG HCO3 VBG O2 Saturation VBG Base Excess Sodium 145 Potassium 4.4 Chloride 88 L Carbon Dioxide 43 H* Anion Gap 18 BUN 26 H Creatinine 0.72 Estim Creat Clear Calc 147.0 Estimated GFR > 60 POC Glucose 102 Random Glucose 126 H D Lactic Acid Calcium 9.4 Magnesium Total Bilirubin Direct Bilirubin AST ALT Alkaline Phosphatase Troponin I High Sens Total Protein Albumin Procalcitonin COVID-19 (TAL) COVID-19 Clin Com Imaging Radiology Impressions: ITS Impressions Chest X-Ray 10/03/22 09:20 IMPRESSION: No dense consolidation. Bronchial wall thickening can be seen with a small airways process such as asthma or atypical/viral infection. Head CT 10/03/22 15:20 IMPRESSION: No acute intracranial pathology. Medications Medications Current Medications Albuterol/Ipratropium (Albuterol/Iprat 2.5/0.5mg 3 Ml Ampul.Neb) 3 ml INHALE RQ4H WHILE AWAKE [facility] Last Admin: 10/04/22 15:52 Dose: 3 ml Albuterol/Ipratropium (Albuterol/Iprat 2.5/0.5mg 3 Ml Ampul.Neb) 3 ml INHALE Q4H PRN PRN Reason: sob Aripiprazole (Aripiprazole 20 Mg Tablet) 20 mg PO DAILY [facility] Desmopressin Acetate (Desmopressin Acetate 0.2 Mg Tablet) 0.4 mg PO BEDTIME [facility] Last Admin: 10/03/22 21:20 Dose: 0.4 mg Docusate Sodium (Docusate Sodium 100 Mg Capsule) 100 mg PO BID [facility] Last Admin: 10/04/22 08:00 Dose: 100 mg Enoxaparin Sodium (Enoxaparin Sodium 40 Mg/0.4 Ml Syringe) 40 mg SUBCUT Q24H [facility] Last Admin: 10/03/22 16:59 Dose: 40 mg Fluticasone/Vilanterol (Fluticasone/Vilanterol 200/25 Blst.W.Dev) 1 puff INHALE RDAILY [facility] Last Admin: 10/04/22 07:51 Dose: 1 puff Furosemide (Furosemide 40 Mg Tablet) 40 mg PO DAILY [facility]; Protocol Last Admin: 10/04/22 08:00 Dose: 40 mg Gemfibrozil (Gemfibrozil 600 Mg Tablet) 600 mg PO BID [facility] Last Admin: 10/04/22 08:01 Dose: 600 mg Ceftriaxone Sodium 1 gm/ (Sodium Chloride) 50 mls @ 100 mls/hr IV Q24H [facility] Last Infusion: 10/04/22 11:50 Dose: Infused Doxycycline Hyclate 100 mg/ (Sodium Chloride) 250 mls @ 166.67 mls/hr IV Q12H [facility] Last Infusion: 10/04/22 13:47 Dose: Infused Loratadine (Loratadine 10 Mg Tablet) 10 mg PO DAILY [facility] Last Admin: 10/04/22 08:00 Dose: 10 mg Lorazepam (Lorazepam 0.5 Mg Tablet) 0.5 mg PO BID PRN PRN Reason: Anxiety Methylprednisolone Sodium Succinate (Methylprednisolone Sod Succ 125 Mg/2 Ml Vial) 60 mg IVPUSH TID [facility] Last Admin: 10/04/22 15:08 Dose: 60 mg Montelukast Sodium (Montelukast Sodium 10 Mg Tablet) 10 mg PO BEDTIME [facility] Last Admin: 10/03/22 21:20 Dose: 10 mg Omeprazole (Omeprazole 20 Mg Capsule.Dr) 20 mg PO DAILY@0630 [facility] Last Admin: 10/04/22 05:42 Dose: 20 mg Pharmacy Consult (Consult Rx Perform Med Rec) 1 each MISCELLANE ONCE PRN PRN Reason: Consult order Polyethylene Glycol (Polyethylene Glycol 3350 17 Gm Powd.Pack) 17 gm PO DAILY PRN PRN Reason: constipation Risperidone (Risperidone 1 Mg Tablet) 1 mg PO BID [facility] Sodium Chloride (0.9 % Sodium Chloride Flush 3 Ml Syringe) 3 ml IVFLUSH QSHIFT [facility] Last Admin: 10/04/22 15:05 Dose: 3 ml Allergies Allergies Allergy/AdvReac Type Severity Reaction Status Date / Time prednisone [PREDNISONE] AdvReac Severe VISUAL Verified 09/27/22 15:11 HALLUCINATION ibuprofen [From MOTRIN] AdvReac Intermediate VOMITING Verified 09/27/22 15:11 nabumetone AdvReac Unknown vomiting Verified 09/27/22 15:11 Assessment & Plan I spent minutes with the patient and/or on the patient floor today, greater than?50% of which was spent counseling/coordinating care.
[2022-10-04] MEDS: Desmopressin Acetate 0.2 MG TABLET 0.4 MG PO (20:14)
[2022-10-04] MEDS: risperiDONE 1 MG TABLET PO (20:14)
[2022-10-04] MEDS: Montelukast Sodium 10 MG TABLET PO (20:15)
--- NOTE | 2022-10-04 21:11 | PM.PSYCN ---
History of Present Illness Date of Service: 10/04/22 Chief Complaint: Acute hypoxemic/hypercarbic res fail 2nd to copd Reason for Consult: Management of psychiatric medication in the context of recent respiratory failure Requesting physician: Greg Sarah Discussed with referring provider: Yes Sources of Information: patient interviewed and chart reviewed HPI Narrative: The patient was admitted with respiratory failure has a muscle storage disease making him more prone to respiratory failure also has COPD. Patient has been managed outpatient on a combination Risperdal and Abilify. History of schizoaffective disorder. Patient generally appears to have been generally stable he does have oxygen during the day any states BiPAP at night. He is chronic auditory hallucinations and periods of paranoia but appears to be generally psychiatrically stable no recent psychotic agitation suicidality or harm to others. Has question regarding over sedation causing confusion concern by 1 of the a hospital attending and patient's psychiatric medication was held. Patient appears to become unstable when seen on the medical floor he was cooperative and wearing oxygen Past Psychiatric History: Schizoaffective disorder IPLOC: unknown Has outpatient psychiatrist Medical Evaluation Reviewed: Yes [facility] Medical History (Updated 10/04/22 @ 21:28 by Michael Garcia MD) Acute dyspnea Acute exacerbation of chronic obstructive airways disease Acute hypercapnic respiratory failure AV malformation of gastrointestinal tract Chronic respiratory failure with hypoxia and hypercapnia COPD (chronic obstructive pulmonary disease) COPD exacerbation Deep vein thrombosis (DVT) of left upper extremity DVT (deep venous thrombosis) GERD (gastroesophageal reflux disease) Hypertriglyceridemia Itch of skin Maico disease Mild bibasilar atelectasis Morbid obesity Nocturnal enuresis Obesity hypoventilation syndrome Obstructive sleep apnea Orchialgia REGINA (obstructive sleep apnea) Pneumonia Polycythemia vera Rectosigmoid diverticulosis Schizoaffective disorder Schizoaffective schizophrenia (Unknown) Severe chronic obstructive pulmonary disease Spasm of muscle of lower back Supplemental oxygen dependent Tubular adenoma of colon Surgical History History of colonoscopy No pertinent past surgical history Diagnostics Vital Signs (24Hr): Vital Signs - 24 hr 10/04/22 00:00 10/04/22 00:12 10/04/22 03:22 Temperature 97.8 F 97.5 F Pulse Rate 89 100 Respiratory Rate 20 15 20 Blood Pressure 116/68 121/67 Pulse Oximetry 93 94 Oxygen Delivery Method BiPAP BiPAP Oxygen Flow Rate 5 5 11/04/22 07:26 10/04/22 07:54 10/04/22 07:54 Temperature 97.2 F Pulse Rate 87 102 H Respiratory Rate 20 22 H 22 H Blood Pressure 109/56 L Pulse Oximetry 92 Oxygen Delivery Method BiPAP Oxygen Flow Rate 5 10/04/22 11:30 10/04/22 12:20 10/04/22 15:14 Temperature 98 F 98.7 F Pulse Rate 115 H 89 105 H Respiratory Rate 20 19 18 Blood Pressure 130/63 135/61 Pulse Oximetry 93 95 Oxygen Delivery Method Oxymask Oxymask Oxygen Flow Rate 8 8 10/04/22 15:53 10/04/22 19:08 10/04/22 20:21 Temperature 98.8 F Pulse Rate 97 113 H 108 H Respiratory Rate 18 18 18 Blood Pressure 133/63 Pulse Oximetry 95 Oxygen Delivery Method Nasal Cannula Oxygen Flow Rate 8 10/04/22 20:31 Temperature Pulse Rate Respiratory Rate 23 H Blood Pressure Pulse Oximetry Oxygen Delivery Method Oxygen Flow Rate BMI result Body Mass Index 35.9 Labs Results: 10/04/22 05:29 10/04/22 05:29 Labs: Laboratory Results - last 48 hr 10/03/22 10/03/22 10/03/22 09:41 09:41 09:41 WBC 13.1 H RBC 4.36 L Hgb 10.0 L Hct 39.0 L MCV 89.4 MCH 22.9 L MCHC 25.6 L RDW 15.5 Plt Count 187 D MPV 8.9 L Immature Gran % (Auto) 2.6 H Neut % (Auto) 88.9 H Lymph % (Auto) 3.1 L [place] % (Auto) 5.0 Eos % (Auto) 0.1 Baso % (Auto) 0.3 Lymph # (Auto) 0.4 L [place] # (Auto) 0.7 Eos # (Auto) 0.0 Baso # (Auto) 0.0 Abs Immat Gran (auto) 0.34 H Absolute Neuts (auto) 11.7 H Absolute Nucleated RBC 0.000 Nucleated RBC % (auto) 0.0 D-Dimer High Sensitivty O2 Saturation ABG pH at Pt Temp ABG pCO2 at Pt Temp ABG pO2 at Pt Temp ABG HCO3 ABG Base Excess (Actual) VBG pH VBG pCO2 VBG pO2 VBG HCO3 VBG O2 Saturation VBG Base Excess Sodium 144 Potassium 4.5 Chloride 85 L Carbon Dioxide 49 H* D Anion Gap 15 BUN 19 H Creatinine 0.78 Estim Creat Clear Calc 136.1 Estimated GFR > 60 POC Glucose Random Glucose 196 H D Lactic Acid Calcium 9.4 D Magnesium 1.8 Total Bilirubin 0.3 Direct Bilirubin 0.2 AST 20 ALT 26 Alkaline Phosphatase 103 D Troponin I High Sens Total Protein 6.7 D Albumin 4.0 D Procalcitonin COVID-19 (TAL) Negative COVID-19 Clin Com See Note 10/03/22 10/03/22 10/03/22 09:42 09:42 09:42 WBC RBC Hgb Hct MCV MCH MCHC RDW Plt Count MPV Immature Gran % (Auto) Neut % (Auto) Lymph % (Auto) [place] % (Auto) Eos % (Auto) Baso % (Auto) Lymph # (Auto) [place] # (Auto) Eos # (Auto) Baso # (Auto) Abs Immat Gran (auto) Absolute Neuts (auto) Absolute Nucleated RBC Nucleated RBC % (auto) D-Dimer High Sensitivty O2 Saturation ABG pH at Pt Temp ABG pCO2 at Pt Temp ABG pO2 at Pt Temp ABG HCO3 ABG Base Excess (Actual) VBG pH VBG pCO2 VBG pO2 VBG HCO3 VBG O2 Saturation VBG Base Excess Sodium Potassium Chloride Carbon Dioxide Anion Gap BUN Creatinine Estim Creat Clear Calc Estimated GFR POC Glucose Random Glucose Lactic Acid 2.0 Calcium Magnesium Total Bilirubin Direct Bilirubin AST ALT Alkaline Phosphatase Troponin I High Sens 14.6 D Total Protein Albumin Procalcitonin 0.06 COVID-19 (TAL) COVID-19 Clin Com 10/03/22 10/03/22 10/03/22 09:49 10:24 12:03 WBC RBC Hgb Hct MCV MCH MCHC RDW Plt Count MPV Immature Gran % (Auto) Neut % (Auto) Lymph % (Auto) [place] % (Auto) Eos % (Auto) Baso % (Auto) Lymph # (Auto) [place] # (Auto) Eos # (Auto) Baso # (Auto) Abs Immat Gran (auto) Absolute Neuts (auto) Absolute Nucleated RBC Nucleated RBC % (auto) D-Dimer High Sensitivty 156 O2 Saturation 89.0 ABG pH at Pt Temp 7.41 ABG pCO2 at Pt Temp 95 H* ABG pO2 at Pt Temp 59 L ABG HCO3 61 H ABG Base Excess (Actual) 30.6 VBG pH 7.37 VBG pCO2 104 VBG pO2 39 VBG HCO3 60 H VBG O2 Saturation 62.0 VBG Base Excess 28.8 Sodium Potassium Chloride Carbon Dioxide Anion Gap BUN Creatinine Estim Creat Clear Calc Estimated GFR POC Glucose Random Glucose Lactic Acid Calcium Magnesium Total Bilirubin Direct Bilirubin AST ALT Alkaline Phosphatase Troponin I High Sens Total Protein Albumin Procalcitonin COVID-19 (TAL) COVID-19 Clin Com 10/03/22 10/03/22 10/03/22 14:48 14:51 17:55 WBC RBC Hgb Hct MCV MCH MCHC RDW Plt Count MPV Immature Gran % (Auto) Neut % (Auto) Lymph % (Auto) [place] % (Auto) Eos % (Auto) Baso % (Auto) Lymph # (Auto) [place] # (Auto) Eos # (Auto) Baso # (Auto) Abs Immat Gran (auto) Absolute Neuts (auto) Absolute Nucleated RBC Nucleated RBC % (auto) D-Dimer High Sensitivty O2 Saturation 85.0 92.0 ABG pH at Pt Temp 7.37 7.43 ABG pCO2 at Pt Temp 104 H* 116 H* ABG pO2 at Pt Temp 57 L 67 L ABG HCO3 61 H 77 H ABG Base Excess (Actual) 29.6 43.7 VBG pH Cancelled VBG pCO2 Cancelled VBG pO2 Cancelled VBG HCO3 Cancelled VBG O2 Saturation Cancelled VBG Base Excess Cancelled Sodium Potassium Chloride Carbon Dioxide Anion Gap BUN Creatinine Estim Creat Clear Calc Estimated GFR POC Glucose Random Glucose Lactic Acid Calcium Magnesium Total Bilirubin Direct Bilirubin AST ALT Alkaline Phosphatase Troponin I High Sens Total Protein Albumin Procalcitonin COVID-19 (TAL) COVID-19 Clin Com 10/04/22 10/04/22 10/04/22 05:29 05:29 07:08 WBC 9.8 RBC 4.23 L Hgb 9.6 L Hct 37.2 L MCV 87.9 MCH 22.7 L MCHC 25.8 L RDW 15.9 Plt Count 235 D MPV 9.2 L Immature Gran % (Auto) 2.3 H Neut % (Auto) 84.2 H Lymph % (Auto) 7.4 L [place] % (Auto) 5.8 Eos % (Auto) 0.0 Baso % (Auto) 0.3 Lymph # (Auto) 0.7 L [place] # (Auto) 0.6 Eos # (Auto) 0.0 Baso # (Auto) 0.0 Abs Immat Gran (auto) 0.22 H Absolute Neuts (auto) 8.2 Absolute Nucleated RBC 0.000 Nucleated RBC % (auto) 0.0 D-Dimer High Sensitivty O2 Saturation ABG pH at Pt Temp ABG pCO2 at Pt Temp ABG pO2 at Pt Temp ABG HCO3 ABG Base Excess (Actual) VBG pH VBG pCO2 VBG pO2 VBG HCO3 VBG O2 Saturation VBG Base Excess Sodium 145 Potassium 4.4 Chloride 88 L Carbon Dioxide 43 H* Anion Gap 18 BUN 26 H Creatinine 0.72 Estim Creat Clear Calc 147.0 Estimated GFR > 60 POC Glucose 102 Random Glucose 126 H D Lactic Acid Calcium 9.4 Magnesium Total Bilirubin Direct Bilirubin AST ALT Alkaline Phosphatase Troponin I High Sens Total Protein Albumin Procalcitonin COVID-19 (TAL) COVID-19 Clin Com Imaging Radiology Impressions: ITS Impressions Chest X-Ray 10/03/22 09:20 IMPRESSION: No dense consolidation. Bronchial wall thickening can be seen with a small airways process such as asthma or atypical/viral infection. Head CT 10/03/22 15:20 IMPRESSION: No acute intracranial pathology. Mental Status Exam Mental Status Exam Narrative: Well-developed, overweight male, in NAD. Resting in bed, appeared to be comfortable. Wearing hospital garb. Did not appear to be responding to any type of internal stimuli. Denied any SI or thoughts of harm to self or others. Ambulation not observed. Patient Appearance: Fatigued and Appropriate Patient Orientation: Person, Place and Situation Level of Consciousness: Awake and Alert Patient Behavior: Appropriate, Cooperative and Good Eye Contact Mood Description: Calm and Blunted Affect Description: Appropriate Ability to Follow Directions: Good Speech Pattern: Clear and Coherent Hallucinations: Auditory and Olfactory Thought Process: Intact Thought Content: positive for Intact Judgement: Fair Medications Medications Current Medications Albuterol/Ipratropium (Albuterol/Iprat 2.5/0.5mg 3 Ml Ampul.Neb) 3 ml INHALE RQ4H WHILE AWAKE [facility] Last Admin: 10/04/22 20:20 Dose: 3 ml Albuterol/Ipratropium (Albuterol/Iprat 2.5/0.5mg 3 Ml Ampul.Neb) 3 ml INHALE Q4H PRN PRN Reason: sob Aripiprazole (Aripiprazole 20 Mg Tablet) 20 mg PO DAILY [facility] Desmopressin Acetate (Desmopressin Acetate 0.2 Mg Tablet) 0.4 mg PO BEDTIME [facility] Last Admin: 10/04/22 20:14 Dose: 0.4 mg Docusate Sodium (Docusate Sodium 100 Mg Capsule) 100 mg PO BID [facility] Last Admin: 10/04/22 20:14 Dose: 100 mg Enoxaparin Sodium (Enoxaparin Sodium 40 Mg/0.4 Ml Syringe) 40 mg SUBCUT Q24H [facility] Last Admin: 10/04/22 17:15 Dose: 40 mg Fluticasone/Vilanterol (Fluticasone/Vilanterol 200/25 Blst.W.Dev) 1 puff INHALE RDAILY [facility] Last Admin: 10/04/22 07:51 Dose: 1 puff Furosemide (Furosemide 40 Mg Tablet) 40 mg PO DAILY [facility]; Protocol Last Admin: 10/04/22 08:00 Dose: 40 mg Gemfibrozil (Gemfibrozil 600 Mg Tablet) 600 mg PO BID [facility] Last Admin: 10/04/22 20:14 Dose: 600 mg Ceftriaxone Sodium 1 gm/ (Sodium Chloride) 50 mls @ 100 mls/hr IV Q24H [facility] Last Infusion: 10/04/22 11:50 Dose: Infused Doxycycline Hyclate 100 mg/ (Sodium Chloride) 250 mls @ 166.67 mls/hr IV Q12H [facility] Last Admin: 10/04/22 20:15 Dose: 166.67 mls/hr Loratadine (Loratadine 10 Mg Tablet) 10 mg PO DAILY [facility] Last Admin: 10/04/22 08:00 Dose: 10 mg Lorazepam (Lorazepam 0.5 Mg Tablet) 0.5 mg PO BID PRN PRN Reason: Anxiety Methylprednisolone Sodium Succinate (Methylprednisolone Sod Succ 125 Mg/2 Ml Vial) 60 mg IVPUSH TID [facility] Last Admin: 10/04/22 20:15 Dose: 60 mg Montelukast Sodium (Montelukast Sodium 10 Mg Tablet) 10 mg PO BEDTIME [facility] Last Admin: 10/04/22 20:15 Dose: 10 mg Omeprazole (Omeprazole 20 Mg Capsule.) 20 mg PO DAILY@0630 [facility] Last Admin: 10/04/22 05:42 Dose: 20 mg Pharmacy Consult (Consult Rx Perform Med Rec) 1 each MISCELLANE ONCE PRN PRN Reason: Consult order Polyethylene Glycol (Polyethylene Glycol 3350 17 Gm Powd.Pack) 17 gm PO DAILY PRN PRN Reason: constipation Risperidone (Risperidone 1 Mg Tablet) 1 mg PO BID [facility] Last Admin: 10/04/22 20:14 Dose: 1 mg Sodium Chloride (0.9 % Sodium Chloride Flush 3 Ml Syringe) 3 ml IVFLUSH QSHIFT [facility] Last Admin: 10/04/22 20:15 Dose: 3 ml Allergies Allergies Allergy/AdvReac Type Severity Reaction Status Date / Time prednisone [PREDNISONE] AdvReac Severe VISUAL Verified 09/27/22 15:11 HALLUCINATION ibuprofen [From MOTRIN] AdvReac Intermediate VOMITING Verified 09/27/22 15:11 nabumetone AdvReac Unknown vomiting Verified 09/27/22 15:11 Assessment & Plan Assessment & Plan (1) Acute exacerbation of chronic obstructive pulmonary disease: Status: Acute Code(s): J44.1 - Chronic obstructive pulmonary disease with (acute) exacerbation (2) Schizoaffective disorder: Status: Acute Code(s): F25.9 - Schizoaffective disorder, unspecified (3) Schizoaffective schizophrenia: Status: Acute Code(s): F25.9 - Schizoaffective disorder, unspecified (4) Acute and chronic respiratory failure with hypercapnia: Status: Acute Code(s): J96.22 - Acute and chronic respiratory failure with hypercapnia Plan Patient seemed come and cooperative was not short of breath or agitated when seen. States he has chronic auditory hallucinations did not seem agitated regarding this and chronic intermittent paranoid concern would restart Risperdal 1 b.i.d. Abilify 20 mg in the morning avoid clonazepam Ativan0. 5 b.i.d. p.r.n . Monitor for over sedation or agitated psychosis re consult as needed I spent minutes with the patient and/or on the patient floor today, greater than?50% of which was spent counseling/coordinating care. Patient educated on: medication risk/benefits and medical condition Informed Consent: understands
[2022-10-05] VITALS (11 sets, daily range): BP systolic 124–147; BP diastolic 66–97; PULSE 100–116; RESP 18–22; TEMP 36.4–37; O2SAT 95–99
[2022-10-05] MEDS: Omeprazole 20 MG CAPSULE.DR PO (05:04)
[2022-10-05 06:55] LABS: Venous Blood Gas Refer to POC result
[2022-10-05 06:57] LABS: VBG HCO3 46 mmol/L (22-26); VBG pCO2 64 mmHg; VBG pH 7.46 (7.32-7.43); VBG pO2 36 mmHg
[2022-10-05] MEDS: Fluticasone/Vilanterol 200/25 BLST.W.DEV 1 PUFF INHALE (07:57)
[2022-10-05] MEDS: Albuterol/Iprat 2.5/0.5MG 3 ML AMPUL.NEB INHALE ×4 (07:57→19:45)
[2022-10-05] MEDS: Docusate Sodium 100 MG CAPSULE PO ×2 (08:15→21:04)
[2022-10-05] MEDS: Furosemide 40 MG TABLET PO (08:16)
[2022-10-05] MEDS: risperiDONE 1 MG TABLET PO ×2 (08:16→21:04)
[2022-10-05] MEDS: gemfibroziL 600 MG TABLET PO ×2 (08:16→21:04)
[2022-10-05] MEDS: methylPREDNISolone Sod Succ 125 MG/2 ML VIAL 60 MG IVPUSH ×3 (08:16→21:04)
[2022-10-05] MEDS: 0.9 % Sodium Chloride Flush 3 ML SYRINGE IVFLUSH ×3 (08:16→21:05)
[2022-10-05] MEDS: ARIPiprazole 20 MG TABLET PO (08:16)
[2022-10-05] MEDS: Loratadine 10 MG TABLET PO (08:18)
--- NOTE | 2022-10-05 10:30 | HO.PM.IMPN ---
Subjective Subjective Date of Service: 10/05/22 Interval History: Acute hypoxemic/ hypercarbic respiratory failure Review of Systems Shortness of breath seems similar to yesterday, has some cough dry Denies any chest pain or abdominal pain or nausea or vomiting or diarrhea. Physical Exam Vital Signs: Vital Signs: Last Vital Signs Temp 97.9 F 10/05/22 07:42 Pulse 116 H 10/05/22 07:58 Resp 18 10/05/22 07:58 BP 147/97 H 10/05/22 07:42 Pulse Ox 96 10/05/22 07:42 O2 Del Method 10/05/22 07:42 O2 Flow Rate 8 10/04/22 19:08 Oxygen Flow Rate 8 10/03/22 08:45 BMI result Body Mass Index 35.9 ?Appearance: Aox2-3 improving since yesterday , still talking bronken sentences. cvs: rrr, [id number] . res: diminshed breath sounds , has b/l wheezin abd: no rebound or guarding ,nt, bs present. ext pulses present , no cyanosis. neuro: axo3 , nonfocal.. Objective Data Active Medications Albuterol/Ipratropium (Albuterol/Iprat 2.5/0.5mg 3 Ml Ampul.Neb) 3 ml INHALE RQ4H WHILE AWAKE [facility] Last Admin: 10/05/22 07:57 Dose: 3 ml Documented By: RAMBO Albuterol/Ipratropium (Albuterol/Iprat 2.5/0.5mg 3 Ml Ampul.Neb) 3 ml INHALE Q4H PRN PRN Reason: sob Aripiprazole (Aripiprazole 20 Mg Tablet) 20 mg PO DAILY [facility] Last Admin: 10/05/22 08:16 Dose: 20 mg Documented By: LILIAN Desmopressin Acetate (Desmopressin Acetate 0.2 Mg Tablet) 0.4 mg PO BEDTIME [facility] Last Admin: 10/04/22 20:14 Dose: 0.4 mg Documented By: ANTOIC Docusate Sodium (Docusate Sodium 100 Mg Capsule) 100 mg PO BID [facility] Last Admin: 10/05/22 08:15 Dose: 100 mg Documented By: LILIAN Enoxaparin Sodium (Enoxaparin Sodium 40 Mg/0.4 Ml Syringe) 40 mg SUBCUT Q24H [facility] Last Admin: 10/04/22 17:15 Dose: 40 mg Documented By: SOLISPE Fluticasone/Vilanterol (Fluticasone/Vilanterol 200/25 Blst.W.Dev) 1 puff INHALE RDAILY [facility] Last Admin: 10/05/22 07:57 Dose: 1 puff Documented By: RAMBO Furosemide (Furosemide 40 Mg Tablet) 40 mg PO DAILY [facility]; Protocol Last Admin: 10/05/22 08:16 Dose: 40 mg Documented By: LILIAN Gemfibrozil (Gemfibrozil 600 Mg Tablet) 600 mg PO BID [facility] Last Admin: 10/05/22 08:16 Dose: 600 mg Documented By: LILIAN Doxycycline Hyclate 100 mg/ (Sodium Chloride) 250 mls @ 166.67 mls/hr IV Q12H [facility] Last Infusion: 10/04/22 21:55 Dose: 0 mls/hr Documented By: JUAN CARLOS Ceftriaxone Sodium 1 gm/ (Sodium Chloride) 50 mls @ 100 mls/hr IV Q24H [facility] Loratadine (Loratadine 10 Mg Tablet) 10 mg PO DAILY [facility] Last Admin: 10/05/22 08:18 Dose: 10 mg Documented By: LILIAN Lorazepam (Lorazepam 0.5 Mg Tablet) 0.5 mg PO BID PRN PRN Reason: Anxiety Methylprednisolone Sodium Succinate (Methylprednisolone Sod Succ 125 Mg/2 Ml Vial) 60 mg IVPUSH TID [facility] Last Admin: 10/05/22 08:16 Dose: 60 mg Documented By: LILIAN Montelukast Sodium (Montelukast Sodium 10 Mg Tablet) 10 mg PO BEDTIME [facility] Last Admin: 10/04/22 20:15 Dose: 10 mg Documented By: JUAN CARLOS Omeprazole (Omeprazole 20 Mg Capsule.Dr) 20 mg PO DAILY@0630 [facility] Last Admin: 10/05/22 05:04 Dose: 20 mg Documented By: JUAN CARLOS Pharmacy Consult (Consult Rx Perform Med Rec) 1 each MISCELLANE ONCE PRN PRN Reason: Consult order Polyethylene Glycol (Polyethylene Glycol 3350 17 Gm Powd.Pack) 17 gm PO DAILY PRN PRN Reason: constipation Risperidone (Risperidone 1 Mg Tablet) 1 mg PO BID [facility] Last Admin: 10/05/22 08:16 Dose: 1 mg Documented By: LILIAN Sodium Chloride (0.9 % Sodium Chloride Flush 3 Ml Syringe) 3 ml IVFLUSH QSHIFT [facility] Last Admin: 10/05/22 08:16 Dose: 3 ml Documented By: LILIAN Labs CBC & Chem 7: 10/04/22 05:29 10/04/22 05:29 Labs: Laboratory Results - last 24 hr 10/05/22 06:51 VBG pH 7.46 H VBG pCO2 64 VBG pO2 36 VBG HCO3 46 H VBG O2 Saturation 51.0 VBG Base Excess 19.0 Microbiology Microbiology Results: Microbiology 10/03/22 09:45 Blood Culture - Preliminary Blood - Venous No growth after 24 hours. 10/03/22 09:42 Blood Culture - Preliminary Blood - Venous No growth after 24 hours. Assessment and Plan (1) Acute exacerbation of chronic obstructive pulmonary disease: Status: Acute (2) Toxic metabolic encephalopathy: Status: Acute (3) Metabolic alkalosis: Status: Acute Plan 57-year-old male with a past medical history of schizoaffective disorder, REGINA on CPAP, obesity hypoventilation syndrome, Avila disease, hypertriglyceridemia, GERD, COPD/ chronic respiratory failure on 8 L of home oxygen; presented to the hospital today with a chief complaint of hypoxia.? Acute hypoxemic /hypercarbic respiratory failure secondary to COPD exacerbation/acute bronchitis . ?be brought tachycardia probably related to nebs not sepsis. ?tachypnea related to sob sec COPD exacerbation. Toxic metabolic encephalopathy possible related to above acute hypoxemic/hypercarbic respiratory failure start ? antibiotic, nebs, steroids,antibiotics ,taper oxygen to [place] keep sats 89-92% . seen by pulm - continue above management, and doxy, Diamox. compensatory metabolic alkalosis in the setting of chronic COPD. given 1 dose Diamox when monitor BMP in the morning. COPD exacerbation: Will give the patient on DuoNeb standing and p.r.n.,Solu-Medrol IV,antibiotics ?pulmonary evaluation added also. History of REGINA/ obesity hypoventilation syndrome: Continue home CPAP.? ?morbid obesity: Encouraged strongly to lose weight once he stabilizes from the point of COPD. ? Schizoaffective disorder:? continue home medications- psych was called to adjust psych medication in case contributing to toxic metabolic encephalopathy/COPD exacerbation. ?DVT prophylaxis:? SubQ Lovenox Inpatient need: Toxic metabolic encephalopathy, acute hypoxemic and hypercarbic respiratory failure secondary to COPD exacerbation, also need psych med adjustment. Quality Stroke Does the patient have a stroke diagnosis?: No VTE Prior VTE?: No VTE Risk Level:: Medical - moderate - high VTE Device Contraindication: N/A - Device Ordered VTE Drug Contraindication: N/A - Med Ordered
[2022-10-05] MEDS: Doxycycline Hyclate 100 MG in 0.9 % Sodium Chloride 250 ML 166.67 MG IV ×2 (10:41→21:05)
[2022-10-05] MEDS: cefTRIAXone sodium 1 GM in 0.9 % Sodium Chloride 50 ML IV (13:01)
[2022-10-05] MEDS: Enoxaparin Sodium 40 MG/0.4 ML SYRINGE SUBCUT (16:44)
[2022-10-05] MEDS: Montelukast Sodium 10 MG TABLET PO (21:04)
[2022-10-05] MEDS: Desmopressin Acetate 0.2 MG TABLET 0.4 MG PO (21:04)
[2022-10-06] VITALS (8 sets, daily range): BP systolic 120–154; BP diastolic 57–102; PULSE 78–115; RESP 16–20; TEMP 37.1–37.3; O2SAT 92–99
[2022-10-06] MEDS: Omeprazole 20 MG CAPSULE.DR PO (06:36)
[2022-10-06] MEDS: ARIPiprazole 20 MG TABLET PO (07:51)
[2022-10-06] MEDS: Docusate Sodium 100 MG CAPSULE PO (07:51)
[2022-10-06] MEDS: risperiDONE 1 MG TABLET PO ×2 (07:51→21:06)
[2022-10-06] MEDS: gemfibroziL 600 MG TABLET PO ×2 (07:51→21:06)
[2022-10-06] MEDS: Loratadine 10 MG TABLET PO (07:51)
[2022-10-06] MEDS: Furosemide 40 MG TABLET PO (07:51)
[2022-10-06] MEDS: 0.9 % Sodium Chloride Flush 3 ML SYRINGE IVFLUSH ×3 (07:52→21:11)
[2022-10-06] MEDS: methylPREDNISolone Sod Succ 125 MG/2 ML VIAL 40 MG IVPUSH (07:52)
[2022-10-06] MEDS: Fluticasone/Vilanterol 200/25 BLST.W.DEV 1 PUFF INHALE (08:02)
[2022-10-06] MEDS: Albuterol/Iprat 2.5/0.5MG 3 ML AMPUL.NEB INHALE ×4 (08:02→19:40)
[2022-10-06] MEDS: Doxycycline Hyclate 100 MG in 0.9 % Sodium Chloride 250 ML 166.67 MG IV ×2 (10:19→21:10)
--- NOTE | 2022-10-06 11:05 | HO.PM.IMPN ---
Subjective Subjective Date of Service: 10/07/22 Interval History: Acute hypoxemic/ hypercarbic respiratory failure Review of Systems Shortness of breath seems similar to yesterday, has some cough dry Denies any chest pain or abdominal pain or nausea or vomiting or diarrhea. Physical Exam Vital Signs: Vital Signs: Last Vital Signs Temp 99.1 F 10/06/22 07:28 Pulse 98 10/06/22 08:04 Resp 16 10/06/22 08:04 BP 140/90 H 10/06/22 07:28 Pulse Ox 92 10/06/22 07:28 O2 Del Method 10/06/22 07:28 O2 Flow Rate 8 10/06/22 07:28 Oxygen Flow Rate 8 10/03/22 08:45 BMI result Body Mass Index 35.9 Appearance: Aox2-3 improving since yesterday , still talking bronken sentences. cvs: rrr, [id number] . res: diminshed breath sounds , has b/l wheezin abd: no rebound or guarding ,nt, bs present. ext pulses present , no cyanosis. neuro: axo3 , nonfocal. Objective Data Active Medications Albuterol/Ipratropium (Albuterol/Iprat 2.5/0.5mg 3 Ml Ampul.Neb) 3 ml INHALE RQ4H WHILE AWAKE [facility] Last Admin: 10/06/22 08:02 Dose: 3 ml Documented By: LD Albuterol/Ipratropium (Albuterol/Iprat 2.5/0.5mg 3 Ml Ampul.Neb) 3 ml INHALE Q4H PRN PRN Reason: sob Aripiprazole (Aripiprazole 20 Mg Tablet) 20 mg PO DAILY [facility] Last Admin: 10/06/22 07:51 Dose: 20 mg Documented By: LILIAN Desmopressin Acetate (Desmopressin Acetate 0.2 Mg Tablet) 0.4 mg PO BEDTIME [facility] Last Admin: 10/05/22 21:04 Dose: 0.4 mg Documented By: ANTOIC Docusate Sodium (Docusate Sodium 100 Mg Capsule) 100 mg PO BID [facility] Last Admin: 10/06/22 07:51 Dose: 100 mg Documented By: LILIAN Enoxaparin Sodium (Enoxaparin Sodium 40 Mg/0.4 Ml Syringe) 40 mg SUBCUT Q24H [facility] Last Admin: 10/05/22 16:44 Dose: 40 mg Documented By: LILIAN Fluticasone/Vilanterol (Fluticasone/Vilanterol 200/25 Blst.W.Dev) 1 puff INHALE RDAILY [facility] Last Admin: 10/06/22 08:02 Dose: 1 puff Documented By: LD Furosemide (Furosemide 40 Mg Tablet) 40 mg PO DAILY [facility]; Protocol Last Admin: 10/06/22 07:51 Dose: 40 mg Documented By: LILIAN Gemfibrozil (Gemfibrozil 600 Mg Tablet) 600 mg PO BID [facility] Last Admin: 10/06/22 07:51 Dose: 600 mg Documented By: LILIAN Doxycycline Hyclate 100 mg/ (Sodium Chloride) 250 mls @ 166.67 mls/hr IV Q12H [facility] Last Admin: 10/06/22 10:19 Dose: 166.67 mls/hr Documented By: LILIAN Ceftriaxone Sodium 1 gm/ (Sodium Chloride) 50 mls @ 100 mls/hr IV Q24H [facility] Last Infusion: 10/05/22 13:37 Dose: 0 mls/hr Documented By: LILIAN Loratadine (Loratadine 10 Mg Tablet) 10 mg PO DAILY [facility] Last Admin: 10/06/22 07:51 Dose: 10 mg Documented By: LILIAN Lorazepam (Lorazepam 0.5 Mg Tablet) 0.5 mg PO BID PRN PRN Reason: Anxiety Methylprednisolone Sodium Succinate (Methylprednisolone Sod Succ 125 Mg/2 Ml Vial) 40 mg IVPUSH BID [facility] Last Admin: 10/06/22 07:52 Dose: 40 mg Documented By: LILIAN Montelukast Sodium (Montelukast Sodium 10 Mg Tablet) 10 mg PO BEDTIME [facility] Last Admin: 10/05/22 21:04 Dose: 10 mg Documented By: ANTTRINA Omeprazole (Omeprazole 20 Mg Capsule.) 20 mg PO DAILY@0630 [facility] Last Admin: 10/06/22 06:36 Dose: 20 mg Documented By: JUAN CARLOS Pharmacy Consult (Consult Rx Perform Med Rec) 1 each MISCELLANE ONCE PRN PRN Reason: Consult order Polyethylene Glycol (Polyethylene Glycol 3350 17 Gm Powd.Pack) 17 gm PO DAILY PRN PRN Reason: constipation Risperidone (Risperidone 1 Mg Tablet) 1 mg PO BID [facility] Last Admin: 10/06/22 07:51 Dose: 1 mg Documented By: LILIAN Sodium Chloride (0.9 % Sodium Chloride Flush 3 Ml Syringe) 3 ml IVFLUSH QSHIFT [facility] Last Admin: 10/06/22 07:52 Dose: 3 ml Documented By: LILIAN Labs CBC & Chem 7: 10/04/22 05:29 10/04/22 05:29 Microbiology Microbiology Results: Microbiology 10/03/22 09:45 Blood Culture - Preliminary Blood - Venous No growth after 48 hours. 10/03/22 09:42 Blood Culture - Preliminary Blood - Venous No growth after 48 hours. Assessment and Plan (1) Toxic metabolic encephalopathy: Status: Acute (2) Acute exacerbation of chronic obstructive pulmonary disease: Status: Acute (3) Schizoaffective disorder: Status: Acute Plan 57-year-old male with a past medical history of schizoaffective disorder, REGINA on CPAP, obesity hypoventilation syndrome, Avila disease, hypertriglyceridemia, GERD, COPD/ chronic respiratory failure on 8 L of home oxygen; presented to the hospital today with a chief complaint of hypoxia.? Acute hypoxemic /hypercarbic respiratory failure secondary to COPD exacerbation/acute bronchitis . ?be brought tachycardia probably related to nebs not sepsis. ?tachypnea related to sob sec COPD exacerbation. Toxic metabolic encephalopathy possible related to above acute hypoxemic/hypercarbic respiratory failure start ? antibiotic, nebs, steroids,antibiotics ,taper oxygen to [place] keep sats 89-92% . seen by pulm - continue above management, and doxy, Diamox. ?compensatory? metabolic alkalosis in the setting of chronic COPD. ?given 1 dose Diamox ?when monitor BMP in the morning. COPD exacerbation: Will give the patient on DuoNeb standing and p.r.n.,Solu-Medrol IV,antibiotics ?pulmonary evaluation added also. History of REGINA/ obesity hypoventilation syndrome: Continue home CPAP.? ?morbid obesity: Encouraged strongly to lose weight once he stabilizes from the point of COPD. ? Schizoaffective disorder:? continue home medications- psych was called to adjust psych medication in case contributing to toxic metabolic encephalopathy/COPD exacerbation. ?DVT prophylaxis:? SubQ Lovenox ? Inpatient need:? Toxic metabolic encephalopathy, acute hypoxemic and hypercarbic respiratory failure secondary to COPD exacerbation, also need psych med adjustment. Quality Stroke Does the patient have a stroke diagnosis?: No VTE Prior VTE?: No VTE Risk Level:: Medical - moderate - high VTE Device Contraindication: N/A - Device Ordered VTE Drug Contraindication: N/A - Med Ordered
[2022-10-06] MEDS: cefTRIAXone sodium 1 GM in 0.9 % Sodium Chloride 50 ML IV (12:05)
[2022-10-06] MEDS: Enoxaparin Sodium 40 MG/0.4 ML SYRINGE SUBCUT (16:07)
[2022-10-06] MEDS: Montelukast Sodium 10 MG TABLET PO (21:05)
[2022-10-06] MEDS: Desmopressin Acetate 0.2 MG TABLET 0.4 MG PO (21:06)
[2022-10-07] VITALS (9 sets, daily range): BP systolic 124–146; BP diastolic 64–79; PULSE 63–101; RESP 15–21; TEMP 35.8–36.6; O2SAT 98–100
[2022-10-07] MEDS: Omeprazole 20 MG CAPSULE.DR PO (06:11)
[2022-10-07] MEDS: Fluticasone/Vilanterol 200/25 BLST.W.DEV 1 PUFF INHALE (07:43)
[2022-10-07] MEDS: Albuterol/Iprat 2.5/0.5MG 3 ML AMPUL.NEB INHALE ×2 (07:43→15:51)
[2022-10-07] MEDS: Furosemide 40 MG TABLET PO (08:23)
[2022-10-07] MEDS: ARIPiprazole 20 MG TABLET PO (08:23)
[2022-10-07] MEDS: risperiDONE 1 MG TABLET PO ×2 (08:23→19:54)
[2022-10-07] MEDS: gemfibroziL 600 MG TABLET PO ×2 (08:23→19:54)
[2022-10-07] MEDS: Docusate Sodium 100 MG CAPSULE PO (08:23)
[2022-10-07] MEDS: Loratadine 10 MG TABLET PO (08:23)
[2022-10-07] MEDS: 0.9 % Sodium Chloride Flush 3 ML SYRINGE IVFLUSH ×3 (08:24→19:56)
[2022-10-07] MEDS: methylPREDNISolone Sod Succ 125 MG/2 ML VIAL 40 MG IVPUSH (08:24)
[2022-10-07] MEDS: Doxycycline Hyclate 100 MG in 0.9 % Sodium Chloride 250 ML 166.76 MG IV (08:36)
[2022-10-07] MEDS: cefTRIAXone sodium 1 GM in 0.9 % Sodium Chloride 50 ML IV (12:33)
--- NOTE | 2022-10-07 14:07 | P.DS_ITS ---
DS: Providers Provider Date of Service: 10/07/22 Date of admission: 10/03/22 14:12 Primary care physician: DEBRA Lainez Consults: 10/03/22 14:24 Consult to Pulmonology Routine Consulting Provider: Tremayne Shaw Reason for consultation: acute severe hypoxemic /hypercarbic respitaory failure sec to copd Has provider been notified: No 10/03/22 15:11 Consult to Critical Care Routine Consulting Provider: Corbin Montes Reason for consultation: Acute hypoxemic/ hypercarbic respiratory failure /copd worseni 10/03/22 17:23 Consult to Psychiatry Routine Consulting Provider: Psych Covering Reason for consultation: toxic metabolic encephalopathy on multiple psych medications Has provider been notified: No DS: Diagnosis Discharge Diagnosis (1) Toxic metabolic encephalopathy: Status: Acute (2) Acute exacerbation of chronic obstructive pulmonary disease: Status: Acute (3) Schizoaffective disorder: Status: Acute DS: Summary Hospital Course Hospital Course: 56-year-old male with a past medical history of schizoaffective disorder, REGINA on CPAP, obesity hypoventilation syndrome, Avila disease, hypertriglyceridemia, GERD, COPD/ chronic respiratory failure on 8 L of home oxygen; presented to the hospital today''schizophrenia episode''-was found in his apartment [facility] [place] [facility] noted on RA his sats were 37%. He was not in his O2 which is normally 8L.? ?patient received nebs, steroids, BiPAP in emergency room and subsequently seems? better shortness of breath buckley- currently saturating on 93% with 9 L oxygen, has dry cough. ? ED requested admission for acute hypoxemic/ hypercarbic respiratory failure secondary to COPD exacerbation. ?patient was recently in the pulmonary's office last week where he was thought to be mild exacerbation of COPD and was given azithromycin.? patient says he did not improve afterwards, he thinks with his exacerbation probably related to seasonal changes. ? Seems more awake alert but still somewhat confused. ? Denies any chest pain or headache or nausea or vomiting or fever or chills, generally weak, follows commands. ? Unable to tell if any sick contacts or anybody sick around him or COVID vaccination status. ?lab imaging EKG reviewed: ?mild leukocytosis, compensatory metabolic alkalosis.? Chest x-ray possible mild bronchitis. ? EKG NSR mild tachy. ddimer 156. Hospital course: patient admitted to hospital because of acute hypoxemic / hypercarbic respiratory failure secondary to COPD exacerbation started on nebs, steroids, antibiotics, continue as home BiPAP setting- seems to be improving significantly going home with p.o. steroids and antibiotic.also strongly advised for bipap compliance. in addition initial episode of hypoxemia - possibly schizoaffective disorder might also be contributing- seen by Psychiatry: psych medication were adjusted- clonazepam , amitriptyline, extra Abilify 10 mg- was discontinued to avoid Sedation. Patient is to follow-up with his outpatient psych provider For further management. Patient psych provider was called by case management and masses left in addition patient was also informed in detail to follow-up with psych outpatient. Above management discussed with the patient in detail length, he understand and in agreement with above plan, time spent 50 minutes. Time Spent with Patient Time attestation: Total time spent providing and/or coordinating discharge services: Discharge coordination time: Greater than 30 minutes Quality: Safe Use of Opioids Does Pt have an Active Cancer Diagnosis on the Problem List?: No Quality: Stroke Does the patient have a stroke diagnosis?: No Physical Exam Vital Signs: Vital Signs: Last Vital Signs Temp 96.5 F L 10/07/22 11:13 Pulse 63 10/07/22 11:13 Resp 18 10/07/22 11:13 BP 134/70 10/07/22 11:13 Pulse Ox 98 10/07/22 11:13 O2 Del Method 10/07/22 11:13 O2 Flow Rate 8 10/07/22 11:13 Oxygen Flow Rate 8 10/03/22 08:45 BMI result Body Mass Index 35.9 ? Appearance: Aox3 , not in distress. cvs: rrr, [id number] . res: fair air entry, no rales or wheezing abd: no rebound or guarding ,nt, bs present. ext pulses present , no cyanosis. neuro: axo3 , nonfocal. DS: Data Data Completed and Pending Completed studies during hospitalization [Text1]: Procedures Assistance with Respiratory Ventilation, Less than 24 Consecutive Hours, Continuous Positive Airway Pressure (10/29/21) Labs on day of discharge: Preliminary micro results at discharge 10/03/22 09:45 Blood Culture - Preliminary Blood - Venous No growth after 48 hours. 10/03/22 09:42 Blood Culture - Preliminary Blood - Venous No growth after 48 hours. Additional Comments Additional comments: head ct: FINDINGS: There is no evidence of acute intracranial hemorrhage or territorial infarction. No abnormal mass-effect or midline shift is seen. Schneider to white matter differentiation is well preserved. No extra-axial fluid collections are identified. The ventricles are normal in size. There is no abnormal attenuation within the brain parenchyma. There is no osseous abnormality. The mastoid air cells and visualized portions of the paranasal sinuses are well-aerated. XR/XR chest 1V IMPRESSION: No dense consolidation. Bronchial wall thickening can be seen with a small airways process such as asthma or atypical/viral infection. Discharge Plan Discharge Anticipated Discharge Date/Time: 10/07/22 11:46 Patient Disposition: Home Health Service Discharge Diagnosis: Acute hypoxemic/ hypercarbic respiratory failure secondary to COPD exacerbation-possible schizoaffective disorder might be contributing Referrals: DONALD [Other] - 1 Week L[facility] [Other] - 1 Week (Med provider @ [facility] A message has been left to your med provider: Please call patient to schedule a post hospital appointment. If a Post Hospital appointment has already been made, please call the patient. H) John Tim [Outside] - 1 Week Pam Almaguer FNP [Primary Care Provider] - 1 Week Discharge Medications: New doxycycline hyclate 100 mg capsule 100 mg PO BID Qty: 10 0RF prednisone 20 mg tablet 40 mg PO DAILY Qty: 6 0RF Continued ipratropium-albuterol 0.5 mg-3 mg(2.5 mg base)/3 mL solution for nebulization 3 ml inhalation QID Qty: 270 6RF gemfibrozil 600 mg tablet 600 mg PO BID Qty: 180 2RF furosemide 40 mg tablet 40 mg PO DAILY 30 Days Qty: 30 6RF sertraline 100 mg tablet 100 mg PO DAILY Qty: 30 2RF desmopressin 0.2 mg tablet 0.4 mg PO BEDTIME Qty: 60 0RF cetirizine 10 mg tablet 10 mg PO DAILY Qty: 90 0RF budesonide-formoterol [Symbicort] 160-4.5 mcg/actuation HFA aerosol inhaler 2 puff PO BID Qty: 10.2 2RF risperidone 1 mg tablet 1 tab PO BID cyclobenzaprine 5 mg tablet 1 tab PO BEDTIME PRN (Reason: Spasms) arformoterol [Brovana] 15 mcg/2 mL solution for nebulization 2 ml inhalation BID omeprazole 20 mg capsule,delayed release(DR/EC) 20 mg PO DAILY benztropine 1 mg tablet 1 tab PO BEDTIME montelukast 10 mg tablet 1 tab PO BEDTIME risperidone 0.5 mg tablet 1 tab PO BID aripiprazole [Abilify] 20 mg tablet 20 mg PO BEDTIME docusate sodium [Colace] 100 mg capsule 100 mg PO BID Qty: 30 0RF polyethylene glycol 3350 [Miralax] 17 gram/dose powder 17 g PO DAILY PRN (Reason: constipation) Qty: 238 0RF Discontinued clonazepam 0.5 mg tablet 1 tab PO BID amitriptyline 25 mg tablet 1 tab PO BEDTIME PRN (Reason: insomnia) aripiprazole [Abilify] 10 mg tablet 10 mg PO DAILY Discharge Orders: Discharge Order (Routine); Ordered 10/07/22 Ordered By: Greg Sarah Diet: Advance to usual diet Activity on Discharge: As tolerated Stand Alone Forms: Patient Portal Discharge page Care Plan Goals: patient admitted to hospital because of acute hypoxemic / hypercarbic respiratory failure secondary to COPD exacerbation started on nebs, steroids, antibiotics, continue as home BiPAP setting- seems to be improving significantly going home with p.o. steroids and antibiotic. in addition initial episode of hypoxemia - possibly schizoaffective disorder might also be contributing- seen by Psychiatry: psych medication were adjusted- clonazepam , amitriptyline, extra Abilify 10 mg- was discontinued to avoid Sedation. Patient is to follow-up with his outpatient psych provider For further management. Health Concerns: as above. Plan of Treatment: As above. Assessment: As above.
--- NOTE | 2022-10-07 15:03 | MHC.CM.PN ---
DP Discharge today. Home with resumption of [facility]. [facility] was called. A detailed VM left for Jean Tadeo, requesting a follow up appointment. Patient has arranged for transport home.
[2022-10-07] MEDS: Enoxaparin Sodium 40 MG/0.4 ML SYRINGE SUBCUT (17:02)
--- NOTE | 2022-10-07 17:14 | PM.EVENT ---
Event Note Date of Service: 10/17/22 Event Note: patient admitted for Acute hypoxemic/ hypercarbic respiratory failure-seems improved to baseline, physical exam and assessment and plan: please see discharge summary from today patient says he can not go ,nobody could able to pick him today
[2022-10-07] MEDS: Desmopressin Acetate 0.2 MG TABLET 0.4 MG PO (19:54)
[2022-10-07] MEDS: Montelukast Sodium 10 MG TABLET PO (19:54)
[2022-10-07] MEDS: Doxycycline Hyclate 100 MG in 0.9 % Sodium Chloride 250 ML 166.67 MG IV (21:42)
[2022-10-08 03:31] VITALS: BP 124/72; PULSE 95; RESP 18; TEMP 36.3; O2SAT 99
[2022-10-08] MEDS: Omeprazole 20 MG CAPSULE.DR PO (05:41)
[2022-10-08 07:06] VITALS: BP 119/62; PULSE 98; RESP 17; TEMP 37.2; O2SAT 100
[2022-10-08 07:49] VITALS: PULSE 95; RESP 20; O2SAT 95
[2022-10-08] MEDS: Fluticasone/Vilanterol 200/25 BLST.W.DEV 1 PUFF INHALE (07:49)
[2022-10-08] MEDS: Albuterol/Iprat 2.5/0.5MG 3 ML AMPUL.NEB INHALE (07:49)
[2022-10-08] MEDS: risperiDONE 1 MG TABLET PO (08:42)
[2022-10-08] MEDS: methylPREDNISolone Sod Succ 125 MG/2 ML VIAL 40 MG IVPUSH (08:42)
[2022-10-08] MEDS: ARIPiprazole 20 MG TABLET PO (08:42)
[2022-10-08] MEDS: Doxycycline Hyclate 100 MG in 0.9 % Sodium Chloride 250 ML 166.67 MG IV (08:43)
[2022-10-08] MEDS: Loratadine 10 MG TABLET PO (08:43)
[2022-10-08] MEDS: Furosemide 40 MG TABLET PO (08:43)
[2022-10-08] MEDS: gemfibroziL 600 MG TABLET PO (08:43)
[2022-10-08] MEDS: 0.9 % Sodium Chloride Flush 3 ML SYRINGE IVFLUSH (09:29)
[2022-10-08] MEDS: Docusate Sodium 100 MG CAPSULE PO (10:12)
--- NOTE | 2022-10-08 11:31 | MHC.CM.PN ---
Patient discharged yesterday. Patient stated that he had arranged for transportation. Patient did not leave yesterday. Transportation was not available. BLS booked for 9:15am pharmacy picking tech. retail field supervisor has been delayed due to 911 calls, per Stephanie. Transport is anticipated soon as this pt is 1st on list for pharmacy picking tech.
== END 2022-10-08 12:15 | disposition home health service (06) | DRG 190 ==
LOC: HO.ED 12:08 → HO.EDOVER 14:18 → HO.IMC 19:21
PROVIDERS: Hospitalist; Admitting Provider Internal Medicine; Emergency Provider Emergency Medicine; PCP Nurse Practitioner Family; Visit Provider Internal Medicine
DX: J44.1 Chronic obstructive pulmonary disease with (acute) exacerbation (principal); G92.8 Other toxic encephalopathy; J96.21 Acute and chronic respiratory failure with hypoxia; J96.22 Acute and chronic respiratory failure with hypercapnia; E74.04 McArdle disease; E66.2 Morbid (severe) obesity with alveolar hypoventilation; E87.3 Alkalosis; J44.0 Chronic obstructive pulmonary disease with (acute) lower respiratory infection; J20.9 Acute bronchitis, unspecified; K21.9 Gastro-esophageal reflux disease without esophagitis; F25.9 Schizoaffective disorder, unspecified; E78.1 Pure hyperglyceridemia; Z20.822 Contact with and (suspected) exposure to COVID-19; Z68.35 Body mass index [BMI] 35.0-35.9, adult; Z86.718 Personal history of other venous thrombosis and embolism; Z99.81 Dependence on supplemental oxygen; Z91.199 Patient's noncompliance with other medical treatment and regimen due to unspecified reason; Z87.891 Personal history of nicotine dependence; Z88.6 Allergy status to analgesic agent; Z88.8 Allergy status to other drugs, medicaments and biological substances; Z79.899 Other long term (current) drug therapy
CPT/HCPCS: 36415; 36600; 70450; 71045; 80048; 80076; 82803; 82947; 83605; 83735; 84145; 84484; 85025; 85379; 87040; 87635; 93005; 94640; 94660; 99285; J0696; J1650; J2930; J3475

== ENCOUNTER → 2022-10-15 10:42 | Outpatient (BNVA) | payer MEDICAID, SELFPAY | PROVIDERS: PCP Nurse Practitioner Family; Visit Provider Internal Medicine Pulmonary Disease | DX: J44.9 Chronic obstructive pulmonary disease, unspecified (principal); J96.11 Chronic respiratory failure with hypoxia; J96.12 Chronic respiratory failure with hypercapnia; G47.33 Obstructive sleep apnea (adult) (pediatric); Z99.81 Dependence on supplemental oxygen | CPT/HCPCS: 99212 ==

== ENCOUNTER → 2022-11-19 10:36 | Outpatient (BNVA) | payer MEDICAID, SELFPAY | PROVIDERS: PCP Nurse Practitioner Family; Visit Provider Internal Medicine Pulmonary Disease | DX: J44.9 Chronic obstructive pulmonary disease, unspecified (principal); G47.33 Obstructive sleep apnea (adult) (pediatric); Z99.81 Dependence on supplemental oxygen | CPT/HCPCS: 99212 ==